=== PATIENT | male | born 1950 | race Caucasian/White ===

== ENCOUNTER 2023-05-11 07:33 | Outpatient (OUT) | payer MEDICARE, SELFPAY ==
--- NOTE | 2023-05-11 07:45 | NM_ITS ---
Patient Name: MARQUISE DOHERTY MR#: [id number] : 1950 Exam Date: 05/11/2023 Ordering Doctor: DR SARIKA SNEED M.D. RADIOLOGY REPORT PROCEDURE: NM MAHNAZ PERF SPECT REST STR COMPARISON: None. INDICATIONS: CHEST PAIN TECHNIQUE: Exam Description: Stress/Rest one day protocol gated SPECT Rest Imagin.8 mCi Tc-99m Cardiolite IV on 05/11/2023 Stress Imaging 30.5 mCi Tc-99m Cardiolite IV on 05/11/2023 Exercise Protocol: Ko Heart Rate (bpm): Rest: 56 Max: 157 PMHR: 106 Blood Pressure: Rest: 114/80 Max: 198/118 Exercise Time: Minutes: 5 Seconds: 15 Stage Reached: Stage: 2 Mets 7.0 Symptoms: Rest and peak stress ECG findings were abnormal and the exercise portion of the study was abnormal per attending physician Dr. Reid due to EKG changes, downsloping ST segment inferior leads. For more details please see separate cardiac stress test report. FINDINGS: QUALITY OF STUDY: Good. PERFUSION DEFECT: None. LOCATION: N/A SIZE: N/A. SEVERITY: N/A. TYPE: N/A. WALL MOTION: Normal. LV SIZE: Normal. 87 mL. TID / TCD: None; 0.8 LVEF: Normal. Calculated EF 68%. SUMMARY: Myocardial perfusion imaging study is NORMAL. CONCLUSION: 1. No reversible ischemia 2. Abnormal exercise test secondary to EKG changes Dictated by: Eladio Fisher MD on 05/11/2023 at 12:39 Approved by: Eladio Fisher MD on 05/11/2023 at 12:45
--- NOTE | 2023-05-11 11:14 | PM.STRESS ---
Stress Test Stress Test Requesting physician: SARIKA SNEED Procedure: Exercise Cardiolite stress test. General Information: Reason for Stress Test: Chest pain Cardiac History and Risk Factors: History of rheumatic fever with cardiac murmur Resting 12 - Lead Electrocardiogram: Rate & rhythm: Sinus bradycardia at a rate of 55. [place]: Right axis deviation T-waves: Inverted in aVL ST-segments: Normal PAC Stress Test: Protocol: Ko protocol was followed, with injection of Cardiolite once target heart rate was achieved. Exercise capacity: Fair exercise capacity. Total exercise time of 5 minutes 16 seconds reached Ko stage 2 at 2.5MPH, 12% grade, & 7 METs. Blood pressure: Initial: 144/80, Maximum: 198/118 Rate & rhythm: Patient remained in sinus rhythm during the exercise and recovery portions of the study.? The maximum heart rate was 157, which was 106% of the maximum predicted heart rate. Frequent PACs. ST-segments & T-waves: During recovery (even at 10 minutes), the patient developed ST-segment downsloping in the inferior leads. Patient response/symptoms: No reproducible symptoms to chief complaint. Interpretation: This is an abnormal exercise stress test based on ST-segment downsloping in the inferior leads.? The patient voiced no reproducible symptoms morro to the chief complaint. Cardiolite imaging interpretation will be reported separately. Clinical correlation required.?
== END 2023-05-11 07:34 | disposition home or self-care (01) ==
LOC: NM 07:36
PROVIDERS: PCP Family Medicine; Visit Provider Family Medicine
DX: R07.9 Chest pain, unspecified (principal)
CPT/HCPCS: 78452; 93017; A9500

== ENCOUNTER 2023-09-12 09:05 | Emergency (ER) | payer MEDICARE, SELFPAY ==
[2023-09-12 09:11] VITALS: BP 130/86; PULSE 67; TEMP 36.7; O2SAT 99; BMI 21.2
--- NOTE | 2023-09-12 09:17 | XR_ITS ---
The [address] [address] Patient Name: MARQUISE DOHERTY MRN: [id number] date: 1950 Sex: M Assigned Patient Location: ER Current Patient Location: ER Accession/Order Number: [id number] Exam Date: 09/12/2023 09:26 Report Date: 09/12/2023 10:06 At the request of: CHRIS IBRAHIM Procedure: XR ankle RT min 3V EXAM: XR ankle RT min 3V, XR foot RT min 3V INDICATION: swelling. COMPARISON: None. TECHNIQUE: Right foot and ankle, 3 views. FINDINGS: Foot: Irregular contours of the calcaneus with lucency through the neck of the calcaneus. Severe degenerative changes of the first MTP joint. Posterior calcaneal enthesophyte. Unremarkable soft tissues. Ankle: No acute fracture or dislocation. Intact ankle mortise. Lateral ankle soft tissue swelling. XR/XR ankle RT min 3V IMPRESSION: Irregular contours of the calcaneus with lucency through the calcaneal neck. This is of uncertain chronicity and may be related to remote injury. Acute fracture difficult to exclude. Consider further evaluating with CT. Electronically authenticated by: RADHA LAKHANI Date: 09/12/2023 10:06
--- NOTE | 2023-09-12 09:17 | XR_ITS ---
The [address] [address] Patient Name: MARQUISE DOHERTY MRN: [id number] date: 1950 Sex: M Assigned Patient Location: ER Current Patient Location: ER Accession/Order Number: [id number] Exam Date: 09/12/2023 09:26 Report Date: 09/12/2023 10:06 At the request of: CHRIS IBRAHIM Procedure: XR foot RT min 3V EXAM: XR ankle RT min 3V, XR foot RT min 3V INDICATION: swelling. COMPARISON: None. TECHNIQUE: Right foot and ankle, 3 views. FINDINGS: Foot: Irregular contours of the calcaneus with lucency through the neck of the calcaneus. Severe degenerative changes of the first MTP joint. Posterior calcaneal enthesophyte. Unremarkable soft tissues. Ankle: No acute fracture or dislocation. Intact ankle mortise. Lateral ankle soft tissue swelling. XR/XR foot RT min 3V IMPRESSION: Irregular contours of the calcaneus with lucency through the calcaneal neck. This is of uncertain chronicity and may be related to remote injury. Acute fracture difficult to exclude. Consider further evaluating with CT. Electronically authenticated by: RADHA LAKHANI Date: 09/12/2023 10:06
--- NOTE | 2023-09-12 09:18 | PC.NURSE ---
strong pedial pulse to right foot with swelling to right ankle and foot.
--- NOTE | 2023-09-12 10:24 | CT_ITS ---
The [address] [address] Patient Name: MARQUSIE DOHERTY MRN: [id number] date: 1950 Sex: M Assigned Patient Location: ER Current Patient Location: Accession/Order Number: [id number] Exam Date: 09/12/2023 10:45 Report Date: 09/12/2023 11:54 At the request of: CHRIS IBRAHIM Procedure: CT foot RT wo con CT scan of the right foot and ankle 09/12/2023. HISTORY: Pain in the right foot and ankle after an injury yesterday. Possible calcaneus fracture on radiographs. COMPARISON: Radiographs right foot and ankle 09/12/2023. TECHNIQUE: Multiple contiguous axial CT images of the right foot and ankle were obtained without contrast. Sagittal and coronal reformatted images were made. Dose reduction techniques were achieved by using automated exposure control and/or adjustment of mA and/or kV according to patient size and/or use of iterative reconstruction technique. 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 There is a bunion complex along the medial aspect of the first metatarsal head. There is an acute, moderately comminuted intra-articular fracture involving the body and anterior aspect of the calcaneus. This fracture extends into the posterior subtalar joint. There is mild depression of the articular surface of the calcaneus in the region of the posterior subtalar joint of 2 mm. There is no significant decrease of Boehler's angle. No other fracture or dislocation is seen. There is no dislocation of the peroneal tendons from the retromalleolar groove. There is no evidence of tendon entrapment within the calcaneus fracture. There is soft tissue swelling along the lateral aspect of the ankle and the dorsum of the foot. CT/CT foot RT wo con IMPRESSION: 1. Acute, moderately comminuted intra-articular fracture of the body and anterior aspect of the calcaneus extending into the posterior subtalar joint as described above. There is no evidence of tendon entrapment within this fracture. 2. 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 Electronically authenticated by: FRANK KEARNEY Date: 09/12/2023 11:54
[2023-09-12 10:27] VITALS: BP 107/65; PULSE 62; O2SAT 99
[2023-09-12 11:22] VITALS: BP 119/66; PULSE 57; O2SAT 99
--- NOTE | 2023-09-12 12:51 | ED.LOWEXI1 ---
HPI HPI - Extremity Injury (Lower) General Chief Complaint: Extremity Injury, Lower Stated Complaint: RIGHT FOOT INJURY Time Seen by Provider: 09/12/23 09:17 Source: patient Mode of arrival: Wheelchair History of Present Illness HPI Narrative: The patient is coming to the ER with a right foot pain that started yesterday after he stepped into a deep hole while he was walking, patient has been having pain since then he has not been able to put weight on his right foot, he does take tramadol at home and he took some for the pain he denies any other complaints Related Data Allergies Allergy/AdvReac Type Severity Reaction Status Date / Time No Known Drug Allergies Allergy Verified 09/12/23 09:15 Opioid HPI Opioid Management Most Recent Pain and Opioid Data: No Data to Display Review of Systems ROS Status of ROS 10 or more systems reviewed and unremarkable except as noted in history and below Exam Narrative Exam Narrative: Nurses notes and vital signs reviewed and patient is not hypoxic. General: Well-appearing and in no apparent distress. Skin: Warm, dry, no pallor noted. No rash. Head: Normocephalic, atraumatic. Neck: Supple, non-tender. Eye: Pupils are equal, round and EOMI. No scleral icterus. Ears, Nose, Mouth, and Throat: TM are clear, no nasal mucosal hypertrophy. Oral mucosa is moist, no posterior oropharynx erythema, uvula is mid-line Cardiovascular: Regular Rate and Rhythm without murmur, gallop or rub. Respiratory: No accessory muscle use or respiratory distress. Lungs are clear to auscultation, no wheezing, rales or rhonchi Chest Wall: no tenderness Back: No midline thoracic or lumbar vertebral tenderness. No CVA tenderness Musculoskeletal: There is a full range of movement of the right ankle but the patient have a significant swelling of the foot itself and the patient does not have any ecchymosis at the moment but he does have good blood supply and no vascular injury detected with a good anterior tibial pulse GI: Abdomen is soft, non-distended. Normal bowel sounds. No masses appreciated. No tenderness to palpation. No rebound, guarding, or rigidity noted. Neurological: A&O x4. No cranial nerve dysfunction observed. No truncal ataxia. Moves all extremities. Sensation intact. Psychiatric: Cooperative and interactive. Normal mood and affect. Constitutional Vital Signs, click to edit/add: Last Vital Signs Temp 98.1 F 09/12/23 09:11 Pulse 57 L 09/12/23 11:22 Resp 14 09/12/23 11:22 BP 119/66 09/12/23 11:22 Pulse Ox 99 09/12/23 11:22 O2 Del Method Room Air 09/12/23 09:11 Course Vital Signs Vital signs: Vital Signs Temperature 98.1 F 09/12/23 09:11 Pulse Rate 67 09/12/23 09:11 Respiratory Rate 16 09/12/23 09:11 Blood Pressure 130/86 09/12/23 09:11 Pulse Oximetry 99 09/12/23 09:11 Oxygen Delivery Method Room Air 09/12/23 09:11 Temperature 98.1 F 09/12/23 09:11 Pulse Rate 57 L 09/12/23 11:22 Respiratory Rate 14 09/12/23 11:22 Blood Pressure 119/66 09/12/23 11:22 Pulse Oximetry 99 09/12/23 11:22 Oxygen Delivery Method Room Air 09/12/23 09:11 MDM - Extremity Injury (Lower) MDM Narrative Medical decision making narrative: X-ray of the patient's foot and ankle shows possibility of calcaneal fracture it need to be reevaluated with a CAT scan by the radiology CAT scan of the patient right foot shows a calcaneal fracture that is comminuted The patient case was discussed with podiatry service Dr. Love wanted the patient to be in the posterior splint in addition to elevation rest and crutches and follow-up with him on Wednesday or Wednesday The patient have a posterior splint applied also he already had crutches instructed on hydration and elevation in addition to pain control The patient is to follow up with primary care physician in next 2-3 days or to return to the emergency department should any of the signs or symptoms worsen or new symptoms develop. The patient agrees with the following Diagnosis and Treatment plan and the patient will be discharged home. Discharge Plan Discharge Stand Alone Forms: Portal Instructions Chief Complaint: Extremity Injury, Lower Clinical Impression: Calcaneal fracture Qualifiers: Encounter type: initial encounter Calcaneus location: unspecified portion of calcaneus Fracture type: closed Fracture alignment: displaced Laterality: right Qualified Code(s): S92.001A - Unspecified fracture of right calcaneus, initial encounter for closed fracture Patient Disposition: Home, Self-Care Time of Disposition Decision: 12:41 Condition: Good Print Language: Mongolian Instructions: Crutch Instructions (ED), Calcaneal Fracture (ED) Referrals: Juma Gonzalez DPM [Physician] - 09/14/23 9:00 am SARIKA SNEED [Primary Care Provider] - 1 week
== END 2023-09-12 13:09 | disposition home or self-care (01) ==
PROVIDERS: Emergency Provider Emergency Medicine; PCP Family Medicine
DX: S92.001A Unspecified fracture of right calcaneus, initial encounter for closed fracture (principal); W18.42XA Slipping, tripping and stumbling without falling due to stepping into hole or opening, initial encounter
CPT/HCPCS: 29515; 73610; 73630; 73700; 99284

== ENCOUNTER 2023-09-29 10:23 | Outpatient (OUT) | payer MEDICARE, SELFPAY ==
--- NOTE | 2023-09-29 | XR_ITS ---
The [address] [address] Patient Name: MARQUISE DOHERTY MRN: [id number] date: 1950 Sex: M Assigned Patient Location: Current Patient Location: Accession/Order Number: [id number] Exam Date: 09/29/2023 10:28 Report Date: 10/01/2023 07:42 At the request of: BETZAIDA DUNN Procedure: XR foot RT min 3V PROCEDURE: XR foot RT min 3V HISTORY: RIGHT FOOT PAIN ; history of calcaneus fracture COMPARISON: XR foot right 09/12/2023 FINDINGS: BONES:Increased sclerosis within posterior calcaneus consistent with changes of early bone healing. Marked joint space narrowing of the first metatarsophalangeal joint with prominent periarticular osteophytes. SOFT TISSUES:No visible soft tissue swelling. EFFUSION:None visible. OTHER: Negative. XR/XR foot RT min 3V IMPRESSION: 1. Ongoing bone healing of calcaneal fracture. No change in alignment. 2. 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 Electronically authenticated by: SCOTT CORDOVA Date: 10/01/2023 07:42
== END 2023-09-29 10:24 | disposition home or self-care (01) ==
LOC: EC 10:23
PROVIDERS: PCP Family Medicine; Visit Provider Podiatrist Foot & Ankle Surgery
DX: S92.011D Displaced fracture of body of right calcaneus, subsequent encounter for fracture with routine healing (principal)
CPT/HCPCS: 73630

== ENCOUNTER 2023-10-13 09:30 | Outpatient (OUT) | payer MEDICARE, SELFPAY ==
--- NOTE | 2023-10-13 | XR_ITS ---
The [address] [address] Patient Name: MARQUISE DOHERTY MRN: [id number] date: 1950 Sex: M Assigned Patient Location: Current Patient Location: Accession/Order Number: [id number] Exam Date: 10/13/2023 09:35 Report Date: 10/14/2023 06:48 At the request of: BETZAIDA DUNN Procedure: XR foot RT min 3V PROCEDURE: XR foot RT min 3V HISTORY: RIGHT FOOT PAIN COMPARISON: XR foot right 09/29/2023 FINDINGS: BONES:Stable alignment and sclerosis within calcaneus consistent with process of bone healing of prior fracture. 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 SOFT TISSUES:No visible soft tissue swelling. EFFUSION:None visible. OTHER: Negative. XR/XR foot RT min 3V IMPRESSION: 1. Stable appearance of calcaneus consistent with ongoing bone healing. 2. Stable marked degenerative joint disease of the first metatarsophalangeal joint. Electronically authenticated by: SCOTT CORDOVA Date: 10/14/2023 06:48
--- OUTSIDE RECORDS SUMMARY | 2023-10-13 09:42 | XMS_ITS | CCD ---
Author Organization [facility] Care Team Providers Care Line Service Person Name Role Phone SAVAGE GIBBONS Attending Unavailable TASHA, DR SCOTT Hanson Consulting Unavailable NAREN, DR BAUM Primary Care Unavailable SAVAGE GIBBONS Admitting Unavailable Frank Curtis Consulting Unavailable SAVAGE GIBBONS Consulting Unavailable NAREN, DR BAUM Admitting Unavailable NAREN, DR BAUM Primary Care Unavailable NAREN, DR BAUM Consulting Unavailable ANREN, DR BAUM Attending Unavailable JENNIFER, DR RAJ Moya Consulting Unavailable SARIKA SNEED Primary Care Physician Enid OCHOA Admitting Unavailable SALAM, Enid Attending Unavailable SALAM, Enid Referring Unavailable Santiago, Salud A Attending Unavailable Santiago, Salud A Referring Unavailable Santiago, Salud A Admitting Unavailable Santiago, Salud Romo Attending Unavailable SALAM, Enid Attending Unavailable SARIKA SNEED Referring Unavailable Santiago, Salud A Attending Unavailable SALAM, Enid Attending Unavailable Santiago, Salud A Referring Unavailable Marquise Pa Attending Unavailable Santiago, Salud A Referring Unavailable Marquise Pa Attending Unavailable SALAM, Enid Admitting Unavailable SALAM, Enid Attending Unavailable SALAM, Enid Referring Unavailable SALAM, Rossi Admitting Unavailable SALAM, Enid Attending Unavailable Santiago, Salud A Attending Unavailable Santiago, Salud A Admitting Unavailable Gagan Colindres Admitting Unavailable Gagan Colindres Attending Unavailable DALIAAM, Enid Admitting Unavailable SALAM, Enid Attending Unavailable MD Hiren Whittington Attending Provider Hiren Whittington Admitting Unavailable Hiren Whittington Attending Unavailable Hiren Whittington Admitting Unavailable Hiren Whittington Attending Unavailable Sarika Sneed MD Primary Care Provider SARIKA SNEED Attending Unavailable SARIKA SNEED Attending Unavailable Allergies Allergy Classification Reported Allergen(s) Allergy Type Date of Onset Reaction(s) Facility (1 source) No Known Medication Allergies; Translations: [No Known Medication Allergies] Propensity to adverse reactions (disorder) [facility] Repository Medications Current Medications Medication Drug Class(es) Dates Sig (Normalized) Sig (Original) amoxicillin 875 mg / clavulanate 125 mg oral tablet (2 sources) Penicillin-class Antibacterial Start: 12-24-2021 End: 01-03-2022 take 1 tablet by mouth twice daily Augmentin 875 mg-125 mg Tab 1 tab(s), Oral, BID for 10 day(s), 20 tab(s), Refill(s) 0, [facility] [id number], 184, cm, 12/24/21 11:18:00 EDT, Height/Length Dosing, 61.1, kg, 12/24/21 11:18:00 EDT, Weight Dosing Start Date: 12/24/21 Stop Date: 01/03/22 Status: Ordered baclofen 10 mg oral tablet (1 source) gamma-Aminobutyric Acid-ergic Agonist Start: 06-09-2022 take 1 tablet by mouth in the morning, then take 1 tablet by mouth in the evening, then take 1 tablet by mouth at bedtime baclofen (Lioresal) 10 MG tablet Take 10 mg by mouth in the morning and 10 mg in the evening and 10 mg before bedtime. 0 06/09/2022 Active methotrexate 2.5 mg oral tablet (9 sources) Folate Analog Metabolic Inhibitor Start: 10-14-2021 methotrexate 2.5 mg Tab 2.5 mg = 1 tab(s), Oral, q7day, # 4 tab(s), Refills(s) 0, Arthritis Start Date: 10/14/21 Status: Ordered take 1 tablet by mouth every wee k methotrexate 2.5 MG tablet Take 2.5 mg by mouth 1 (one) time per week. 4 tablets orally once per week 0 Active nabumetone 500 mg oral tablet (1 source) Nonsteroidal Anti-inflammatory Drug Start: 09-14-2022 take 1 tablet by mouth in the morning nabumetone (Relafen) 500 MG tablet Indications: Systemic lupus erythematosus, unspecified SLE type, unspecified organ involvement status ([facility]) Take 1 tablet (500 mg) by mouth in the morning and 1 tablet (500 mg) before bedtime. Take with food. 180 tablet 3 09/14/2022 Active omeprazole 40 mg delayed release oral capsule (9 sources) Proton Pump Inhibitor Start: 10-27-2022 omeprazole (PriLOSEC) [address] capsule Indications: Chronic gastritis, presence of bleeding unspecified, unspecified gastritis type TAKE ONE CAPSULE BY MOUTH DAILY 30 MINUTES BEFORE MORNING MEAL 100 capsule 2 10/27/2022 Active Start: 10-14-2021 omeprazole 40 mg Cap-DR mg cap(s), Oral, Daily, Refills(s) 0, Control of stomach acid Start Date: 10/14/21 Status: Ordered predniSONE 5 mg oral tablet (2 sources) Start: 12-15-2022 predniSONE (De ltasone) 5 MG tablet Start: 11-18-2021 predniSONE 10 mg Tab Refills(s) 0 Start Date: 11/18/21 Status: Ordered traMADol hydrochloride 50 mg oral tablet (9 sources) Opioid Agonist Start: 04-02-2023 take 1 tablet by mouth every six hours traMADol (Ultram) 50 MG tablet Indications: Chronic pain syndrome Take 1 tablet (50 mg) by mouth every 6 (six) hours 120 tablet 0 04/02/2023 Active Start: 10-14-2021 take 1 tablet by marcia th every four hours as needed for pain tramadol 50 mg oral tablet 50 mg = 1 tab(s), Oral, q4hr, PRN for pain, # 60 tab(s), Refills(s) 0, Pain Start Date: 10/14/21 Status: Ordered Problems Active Problems Problem Classification Problem Date Documented Da te Episodic/Chronic Abdominal pain (12 sources) Generalized abdominal pain; Translations: [Generalized abdominal pain] Onset: 2 10-14-2021 Episodic Adjustment disorders (1 source) Adjustment disorder; Translations: [Adjustment disorder, unspecified] Onset: 8 07-21-2022 Chronic Essential hypertension (1 source) Essential hypertension; Translations: [Essential (primary) hypertension] Onset: 3 07-21-2022 Chronic Gastrointestinal hemorrhage (1 source) Melena; Translations: [Melena] Onset: 2 Episodic Malaise and fatigue (4 sources) Other fatigue; Translations: [OTHER FATIGUE] Onset: 1 Episodic Mood disorders (1 source) Atypical depressive disorder; 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] Onset: 8 07-21-2022 Chronic Nonspecific chest pain (1 source) Other chest pain; Translations: [OTHER CHEST PAIN] Onset: 1 Episodic Osteoarthritis (1 source) Arthritis of right acromioclavicular joint; Translations: [Primary osteoarthritis, right shoulder] Onset: 3 07-21-2022 Chronic Other connective tissue disease (1 source) Myalgia, unspecified site; Translations: [MYALGIA UNSPECIFIED SITE] Onset: 1 Episodic Other gastrointestinal disorders (8 sources) Alteration in bowel elimination 10-14-2021 Episodic Other gastrointestinal disorders (8 sources) Feces color: tarry 10-14-2021 Episodic Other liver diseases (1 source) Enzyme level - finding; Translations: [Abnormal levels of other serum enzymes] Onset: 2 Episodic Other liver diseases (4 sources) Alkaline phosphatase raised; Translations: [Abnormal levels of other serum enzymes] Onset: 4 12-24-2021 Episodic Other lower respiratory disease (3 sources) Shortness of breath; Translations: [SHORTNESS OF BREATH] Onset: 1 Episodic Other lower respiratory disease (1 source) Dyspnea, unspecified; Translations: [DYSPNEA UNSPECIFIED] Onset: 1 Episodic Other lower respiratory disease (1 source) Solitary pulmonary nodule; Translations: [SOLITARY PULMONARY NODULE] Onset: 1 Episodic Other nervous system disorders (1 source) Chronic pain; Translations: [Other chronic pain] Onset: 3 07-21-2022 Chronic Other non-traumatic joint disorders (1 source) Rotator cuff arthropathy of right shoulder; Translations: [Other specific arthropathies, not elsewhere classified, right shoulder] Onset: 3 07-21-2022 Chronic Other non-traumatic joint disorders (1 source) Pain in unspecified joint; Translations: [Pain in unspecified joint] Onset: 3 Episodic Other nutritional; endocrine; and metabolic disorders (1 source) Abnormal weight loss; Translations: [Abnormal weight loss] Onset: 2 Episodic Other upper respiratory infections (1 source) Acute pharyngitis, unspecified; Translations: [ACUTE PHARYNGITIS UNSPECIFIED] Onset: 1 Episodic Residual codes; unclassified (9 sources) Family history of cancer of colon; Translations: [Family history of malignant neoplasm of digestive organs] Onset: 4 10-14-2021 Episodic Screening and history of mental health and substance abuse codes (1 source) Personal history of nicotine dependence; Translations: [PERSONAL HISTORY OF NICOTINE DEPEND] Onset: 1 Episodic Systemic lupus erythematosus and connective tissue disorders (1 source) Systemic lupus erythematosus; Translations: [Systemic lupus erythematosus, unspecified] Onset: 3 07-21-2022 Chronic Unclassified (1 source) CONTACT W/AND (SUSP) EXPOS COVID-19; Translations: [CONTACT W/AND (SUSP) EXPOS COVID-19] Onset: 1 Unclassified (1 source) Pain in right hand; Translations: [Pain in right hand] Onset: 3 Past or Other Problems Problem Classification Problem Date Documented Da te Episodic/Chronic Gastritis and duodenitis (1 source) Gastritis; Translations: [Gastritis, unspecified, without bleeding] Onset: 07-21-2022 07-21-2022 Episodic Other connective tissue disease (1 source) Disorder of shoulder; Translations: [Shoulder lesion, unspecified, right shoulder] Onset: 07-21-2022 07-21-2022 Episodic Other gastrointestinal disorders (1 source) Constipation; Translations: [Constipation, unspecified] Onset: 07-21-2022 07-21-2022 Episodic Other gastrointestinal disorders (1 source) Stool DNA-based colorectal cancer screening positive; Translations: [Other fecal abnormalities] Onset: 07-21-2022 07-21-2022 Episodic Residual codes; unclassified (1 source) Insomnia; Translations: [Insomnia, unspecified] Onset: 07-21-2022 07-21-2022 Episodic Results Test Name Value Interpretation Reference Range Facility Anti-Ku Antibodyon 3 Anti-Ku Antibody Negative Normal Negative [facility] Comment on above: Result Comment: This test was developed and its performance characteristics determined by [employer]. It has not been cleared or approved by the Food and Drug Administration. Performed at: [facility] [address] [place] [address] [id number] Color Control Operator: Tereso Stevenson MD, Phone: [phone] PERFORMED BY: [place] [address] PATHOLOGIST CAFETERIA TABLE ATTENDANT JOSE GUADALUPE RODAS M.D. Performed By: #### H BCAB, HBSAG, HBSAB, HCV RX PCR #### [facility] , #### CK, PTH, CBC, ESR, CRP, CMP #### [facility] [address] [place] [address] Anti-RNPon 11-25-2022 Anti-ABSORPTION OPERATOR <0.2 Normal 0.0-0.9 [facility] Comment on above: Result Comment: Perf ormed at: [facility] [id number] Color Control Operator: Ambrocio Olivas PhD, Phone: [phone] Performed By: #### H BCAB, HBSAG, HBSAB, HCV RX PCR #### [facility] , #### CK, PTH, CBC, ESR, CRP, CMP #### [facility] [address] [place] [address] [place] Creatine Kinaseon 11-25-2022 CK [Catalytic activity/Vol] 86 U/L Normal 30-223 [facility] Comment on above: Result Comment: PERF ORMED BY: [place] [address] PATHOLOGIST CAFETERIA TABLE ATTENDANT JOSE GUADALUPE RODAS M.D. Performed By: #### H BCAB, HBSAG, HBSAB, HCV RX PCR #### [facility] , #### CK, PTH, CBC, ESR, CRP, CMP #### [facility] [address] [place] [address] [place] Creatine kinase [Enzymatic a ctivity/volume] in Serum or PlasmaOrdered By: Hiren Whittington on 11-25-2022 CK [Catalytic activity/Vol] 86 U/L 30-223 [facility] MISC2 LABon 11-25-2022 MISC2 LAB Normal [facility] Comment on above: Order Comment: Misc 2 Test Name: Mi2 Result Comment: See report. Scanned copy available in EMR. PERFORMED BY: [place] [address] PATHOLOGIST CAFETERIA TABLE ATTENDANT JOSE GUADALUPE RODAS M.D. Performed By: #### M ISC2 LAB #### [address] PM-SCL Antibodieson 11-26-19 23 ANNETTA PM-Scl Antibody <20 Normal <20 [place] Comment on above: Result Comment: This test was developed and its performance characteristics determined by [facility] [employer]. It has not been cleared or approved by the Food and Drug Administration. Negative: <20 Weak Positive: 20 - 39 Moderate Positive: 40 - 80 Strong Positive: >80 Performed at: [facility] [address] [place] [address] [id number] Color Control Operator: Tereso Stevenson MD, Phone: [phone] Performed By: #### H BCAB, HBSAG, HBSAB, HCV RX PCR #### [facility] , #### CK, PTH, CBC, ESR, CRP, CMP #### [facility] [address] [place] [address] [place] RNA Polymerase IIion 023 RNA Polymerase IIi <20 Normal <20 [facility] Comment on above: Result Comment: Nega tive: <20 Weak Positive: 20 - 39 Moderate Positive: 40 - 80 Strong Positive: >80 Performed at: [facility] [address] [place] [id number] Color Control Operator: Tereso Stevenson MD, Phone: [phone] PERFORMED BY: [place] [address] PATHOLOGIST CAFETERIA TABLE ATTENDANT JOSE GUADALUPE RODAS M.D. Performed By: #### H BCAB, HBSAG, HBSAB, HCV RX PCR #### [facility] , #### CK, PTH, CBC, ESR, CRP, CMP #### [facility] [address] [place] [address] [place] Th/To Antibodyon 11-25-2022 Th/To Antibody Negative Normal Negative [facility] Comment on above: Result Comment: This test was developed and its performance characteristics determined by [facility]. It has not been cleared or approved by the Food and Drug Administration. Performed at: [facility] [address] [place] [address] [id number] Color Control Operator: Tereso Stevenson MD, Phone: [phone] Performed By: #### H BCAB, HBSAG, HBSAB, HCV RX PCR #### [facility] , #### CK, PTH, CBC, ESR, CRP, CMP #### [facility] [address] [place] [address] U3 Rnpon 11-25-2022 [facility] Customer Care Specialist Negative Normal Negative [facility] Comment on above: Result Comment: This test was developed and its performance characteristics determined by [facility]. It has not been cleared or approved by the Food and Drug Administration. Performed at: [facility] [address] [place] [address] [id number] Color Control Operator: Tereso Stevenson MD, Phone: [phone] PERFORMED BY: [place] [address] PATHOLOGIST CAFETERIA TABLE ATTENDANT JOSE GUADALUPE RODAS M.D. Performed By: #### H BCAB, HBSAG, HBSAB, HCV RX PCR #### [facility] , #### CK, PTH, CBC, ESR, CRP, CMP #### [facility] [address] [place] [address] BESSIE Antinuclear Antibodieson 10-20-2022 Antinuclear Abs, IFA Positive Critically abnormal . [facility] Comment on above: Result Comment: Nega tive <1:80 Borderline 1:80 Positive >1:80 Performed By: #### H BCAB, HBSAG, HBSAB, HCV RX PCR #### [facility] , #### CK, PTH, CBC, ESR, CRP, CMP #### [facility] [address] Note 1 Normal . [facility] Comment on above: Result Comment: For more information about Hep-2 cell patterns use Morizonpatterns.UUSEE, the official website for the International Consensus on Antinuclear Antibody (BESSIE) Patterns (ICAP). A positive BESSIE result may occur in healthy individuals (low titer) or be associated with a variety of diseases. See interpretation chart which is not all inclusive: Pattern Antigen Detected Suggested Disease Association Homogeneous DNA(ds,ss), SLE - High titers Nucleosomes, Histones Drug-induced SLE Speckled Sm, ABSORPTION OPERATOR, SCL-70, SLE,MCTD,PSS (diffuse form), SS-A/SS-B Sjogrens Nucleolar SCL-70, PM-1/SCL High titers Scleroderma, PM/DM Centromere Centromere PSS (limited form) w/Crest syndrome variable Nuclear Dot [id number] Primary Biliary Cirrhosis Nuclear GP210, Primary Biliary Cirrhosis Membrane ashley A,B,C Performed at: [facility] [address] [id number] Color Control Operator: Ambrocio Olivas PhD, Phone: [phone] Performed By: #### H BCAB, HBSAG, HBSAB, HCV RX PCR #### [facility] , #### CK, PTH, CBC, ESR, CRP, CMP #### [facility] [address] [place] [address] [place] Nucleolar Pattern 1:1280 High . [facility] Comment on above: Result Comment: ICAP nomenclature: AC-8,9,10 Performed By: #### H BCAB, HBSAG, HBSAB, HCV RX PCR #### [facility] , #### CK, PTH, CBC, ESR, CRP, CMP #### [facility] [address] [place] [address] [place] Speckled Pattern 1:640 High . [facility] Comment on above: Result Comment: ICAP nomenclature: AC-2,4,5,29 Performed By: #### H BCAB, HBSAG, HBSAB, HCV RX PCR #### [facility] , #### CK, PTH, CBC, ESR, CRP, CMP #### [facility] [address] [place] [id number] [place] Alanine aminotransferase [En zymatic activity/volume] in Serum or PlasmaOrdered By: Hiren Whittington on 10-20-2022 ALT [Catalytic activity/Vol] 16 U/L 7-52 [facility] Albumin [Mass/volume] in Ser um or PlasmaOrdered By: Hiren Whittington on 10-20-2022 Albumin [Mass/Vol] 3.9 g/dL 2.9-4.4 [facility] Albumin [Mass/volume] in Ser um or Plasma by Bromocresol green (BCG) dye binding methoOrdered By: Hiren Whittington on 10-20-2022 Albumin BCG dye [Mass/Vol] 4.5 g/dL 3.5-5.7 [facility] Albumin/Protein.total in 24 hour Urine by ElectrophoresisOrdered By: Hiren Whittington on 10-20-2022 Albumin Elph (24H U) [Mass fraction] 28.0 % . [facility] Alkaline phosphatase [Enzyma tic activity/volume] in Serum or PlasmaOrdered By: Hiren Whittington on 10-20-2022 ALP [Catalytic activity/Vol] 143 U/L 34-104 [facility] Aspartate aminotransferase [ Enzymatic activity/volume] in Serum or PlasmaOrdered By: Hiren Whittington on 10-20-2022 AST [Catalytic activity/Vol] 23 U/L 13-39 [facility] Automated erythrocytes count in urine sediment (number/area)Ordered By: Hiren Whittington on 10-20-2022 RBC Auto (Urine sed) [#/Area] 1-2 [HPF] 0-4 [facility] Automated leukocytes count i n urine sediment (number/area)Ordered By: Hiren Whittington on 10-20-2022 WBC Auto (Urine sed) [#/Area] 5-9 [HPF] 0-4 [facility] Basophils Auto (Bld) [#/Vol] Ordered By: Hiren Whittington on 10-20-2022 Basophils (Bld) [#/Vol] 0.0 10*3/uL 0.0-0.2 [facility] Basophils/100 WBC Auto (Bld) Ordered By: Hiren Whittington on 10-20-2022 Basophils/100 WBC (Bld) 0.9 % . [facility] Bilirubin Test strip Ql (U)O rdered By: Hiren Whittington on 10-20-2022 Bilirubin Ql (U) Negative Negative [facility] Bilirubin.total [Mass/volume ] in Serum or PlasmaOrdered By: Hiren Whittington on 10-20-2022 Bilirubin [Mass/Vol] 0.4 mg/dL 0.3-1.0 [facility] C reactive protein [Mass/vol ume] in Serum or PlasmaOrdered By: Hiren Whittington on 10-20-2022 CRP [Mass/Vol] < 0.5 mg/dL 0.0-0.5 [facility] C-Reactive Proteinon 023 CRP [Mass/Vol] mg/L Normal 0.0-0.5 [facility] Comment on above: Result Comment: PERF ORMED BY: [facility] [address] [place] [address] PATHOLOGIST CAFETERIA TABLE ATTENDANT JOSE GUADALUPE RODAS M.D. Performed By: #### H BCAB, HBSAG, HBSAB, HCV RX PCR #### [facility] , #### CK, PTH, CBC, ESR, CRP, CMP #### [facility] [address] Calcium [Mass/volume] in Ser um or PlasmaOrdered By: Hiren Whittington on 10-20-2022 Calcium [Mass/Vol] 9.7 mg/dL 8.6-10.3 [facility] Carbon dioxide, total [Moles /volume] in Serum or PlasmaOrdered By: Hiren Whittington on 10-20-2022 CO2 [Moles/Vol] 31.3 mmol/L 21.0-31.0 [facility] Chloride [Moles/volume] in S sergio or PlasmaOrdered By: Hiren Whittington on 10-20-2022 Chloride [Moles/Vol] 102 mmol/L 98-107 [facility] Color Auto (U)Ordered By: Lesli Whittington on 10-20-2022 Color (U) Yellow Yellow [facility] Complement C3on 10-20-2022 Complement C3 120 mg/dL Normal 82-167 [facility] Comment on above: Result Comment: Perf ormed at: - [facility] [address] [id number] Color Control Operator: Ambrocio Olivas PhD, Phone: [phone] Performed By: #### H BCAB, HBSAG, HBSAB, HCV RX PCR #### [facility] , #### CK, PTH, CBC, ESR, CRP, CMP #### [facility] [address] [place] [address] Complement C4on 10-20-2022 Complement C4 16 mg/dL Normal 12-38 [facility] Comment on above: Result Comment: PERF ORMED BY: [place] [address] PATHOLOGIST CAFETERIA TABLE ATTENDANT JOSE GUADALUPE RODAS M.D. Performed By: #### H BCAB, HBSAG, HBSAB, HCV RX PCR #### [facility] , #### CK, PTH, CBC, ESR, CRP, CMP #### [facility] [address] [place] [address] Complement Total (CH50)on Complement Total (CH50) >60 Normal >41 [facility] Comment on above: Result Comment: Age Male Female 1 - 30 days Not Estab. Not Estab. 31 days - 6 months >32 >20 7 months - 17 years >39 >39 >17 years >41 >41 NOTE: The adult ( >17 years ) reference interval range is used to flag abnormals on this report. If the patient is 17 years old or younger, use the table above to determine out of range values. Performed at: - [facility] [address] [id number] Color Control Operator: Ambrocio Olivas PhD, Phone: [phone] PERFORMED BY: [place] [address] PATHOLOGIST CAFETERIA TABLE ATTENDANT JOSE GUADALUPE RODAS M.D. Performed By: #### H BCAB, HBSAG, HBSAB, HCV RX PCR #### [facility] , #### CK, PTH, CBC, ESR, CRP, CMP #### [address] Complete Blood Count Auto Di ffon 10-20-2022 Basophils (Bld) [#/Vol] 0.0 10*3/uL Normal 0.0-0.2 [facility] Comment on above: Performed By: #### H BCAB, HBSAG, HBSAB, HCV RX PCR #### [facility] , #### CK, PTH, CBC, ESR, CRP, CMP #### [address] Basophils/100 WBC (Bld) 0.9 % Normal . [facility] Comment on above: Performed By: #### H BCAB, HBSAG, HBSAB, HCV RX PCR #### [facility] , #### CK, PTH, CBC, ESR, CRP, CMP #### [address] Eosinophils (Bld) [#/Vol] 0.1 10*3/uL Normal 0.0-0.45 [facility] Comment on above: Performed By: #### H BCAB, HBSAG, HBSAB, HCV RX PCR #### [facility] , #### CK, PTH, CBC, ESR, CRP, CMP #### [address] Eosinophils/100 WBC (Bld) 2.7 % Normal . [facility] Comment on above: Performed By: #### H BCAB, HBSAG, HBSAB, HCV RX PCR #### [facility] , #### CK, PTH, CBC, ESR, CRP, CMP #### [address] Erythrocyte distribution width (RBC) [Ratio] 14.6 % Normal 12.0-14.8 [facility] Comment on above: Performed By: #### H BCAB, HBSAG, HBSAB, HCV RX PCR #### [facility] , #### CK, PTH, CBC, ESR, CRP, CMP #### [address] Hematocrit (Bld) [Volume fraction] 40.7 % Normal 38.8-50.0 [facility] Comment on above: Performed By: #### H BCAB, HBSAG, HBSAB, HCV RX PCR #### [facility] , #### CK, PTH, CBC, ESR, CRP, CMP #### [address] Hemoglobin (Bld) [Mass/Vol] 13.5 g/dL Normal 13.0-17.0 [facility] Comment on above: Performed By: #### H BCAB, HBSAG, HBSAB, HCV RX PCR #### [facility] , #### CK, PTH, CBC, ESR, CRP, CMP #### [address] Lymphocytes (Bld) [#/Vol] 0.8 10*3/uL Low 1.00-4.8 [facility] Comment on above: Performed By: #### H BCAB, HBSAG, HBSAB, HCV RX PCR #### [facility] , #### CK, PTH, CBC, ESR, CRP, CMP #### [address] Lymphocytes/100 WBC (Bld) 16.2 % Normal . [facility] Comment on above: Performed By: #### H BCAB, HBSAG, HBSAB, HCV RX PCR #### [facility] , #### CK, PTH, CBC, ESR, CRP, CMP #### [address] MCH (RBC) [Entitic mass] 30.7 pg Normal 27.5-35.2 [facility] Comment on above: Performed By: #### H BCAB, HBSAG, HBSAB, HCV RX PCR #### [facility] , #### CK, PTH, CBC, ESR, CRP, CMP #### [address] MCV (RBC) [Entitic vol] 92.4 fL Normal 83.5-101 [facility] Comment on above: Performed By: #### H BCAB, HBSAG, HBSAB, HCV RX PCR #### [facility] , #### CK, PTH, CBC, ESR, CRP, CMP #### [address] Mean Corpuscular HGB Conc 33.2 g/dL Normal 32.5-35.6 [facility] Comment on above: Performed By: #### H BCAB, HBSAG, HBSAB, HCV RX PCR #### [facility] , #### CK, PTH, CBC, ESR, CRP, CMP #### [address] Monocytes (Bld) [#/Vol] 0.5 10*3/uL Normal 0.0-0.8 [facility] Comment on above: Performed By: #### H BCAB, HBSAG, HBSAB, HCV RX PCR #### [facility] , #### CK, PTH, CBC, ESR, CRP, CMP #### [address] Monocytes/100 WBC (Bld) 9.0 % Normal . [facility] Comment on above: Performed By: #### H BCAB, HBSAG, HBSAB, HCV RX PCR #### [facility] , #### CK, PTH, CBC, ESR, CRP, CMP #### [address] Neutrophils (Bld) [#/Vol] 3.7 10*3/uL Normal 1.8-7.7 [facility] Comment on above: Performed By: #### H BCAB, HBSAG, HBSAB, HCV RX PCR #### [facility] , #### CK, PTH, CBC, ESR, CRP, CMP #### [address] Neutrophils/100 WBC (Bld) 71.2 % Normal . [facility] Comment on above: Performed By: #### H BCAB, HBSAG, HBSAB, HCV RX PCR #### [facility] , #### CK, PTH, CBC, ESR, CRP, CMP #### [address] NRBC% 0.2 /100{WBC} Normal 0-0.5 [facility] Comment on above: Performed By: #### H BCAB, HBSAG, HBSAB, HCV RX PCR #### [facility] , #### CK, PTH, CBC, ESR, CRP, CMP #### [address] Platelet mean volume (Bld) [Entitic vol] 9.7 fL Normal 6.6-10.1 [facility] Comment on above: Performed By: #### H BCAB, HBSAG, HBSAB, HCV RX PCR #### [facility] , #### CK, PTH, CBC, ESR, CRP, CMP #### [address] Platelets (Bld) [#/Vol] 158 10*3/uL Normal 150-450 [facility] Comment on above: Performed By: #### H BCAB, HBSAG, HBSAB, HCV RX PCR #### [facility] , #### CK, PTH, CBC, ESR, CRP, CMP #### [place] [address] [place] RBC (Bld) [#/Vol] 4.40 10*6/uL Normal 3.90-5.60 [place] Comment on above: Performed By: #### H BCAB, HBSAG, HBSAB, HCV RX PCR #### [facility] , #### CK, PTH, CBC, ESR, CRP, CMP #### [facility] [address] [place] [address] WBC (Bld) [#/Vol] 5.2 10*3/uL Normal 4.1-10.5 [facility] Comment on above: Performed By: #### H BCAB, HBSAG, HBSAB, HCV RX PCR #### [facility] , #### CK, PTH, CBC, ESR, CRP, CMP #### [address] Comprehensive Metabolic Pane bolivar 10-20-2022 Albumin [Mass/Vol] 4.5 g/dL Normal 3.5-5.7 [facility] Comment on above: Performed By: #### H BCAB, HBSAG, HBSAB, HCV RX PCR #### [facility] , #### CK, PTH, CBC, ESR, CRP, CMP #### [address] Albumin/Globulin [Mass ratio] 1.7 {ratio} Normal [facility] Comment on above: Performed By: #### H BCAB, HBSAG, HBSAB, HCV RX PCR #### [facility] , #### CK, PTH, CBC, ESR, CRP, CMP #### [facility] [address] [place] [address] ALP [Catalytic activity/Vol] 143 U/L High 34-104 [facility] Comment on above: Performed By: #### H BCAB, HBSAG, HBSAB, HCV RX PCR #### [facility] , #### CK, PTH, CBC, ESR, CRP, CMP #### [facility] [address] [place] [address] ALT [Catalytic activity/Vol] 16 U/L Normal 7-52 [facility] Comment on above: Performed By: #### H BCAB, HBSAG, HBSAB, HCV RX PCR #### [facility] , #### CK, PTH, CBC, ESR, CRP, CMP #### [address] Anion gap [Moles/Vol] 10.3 mmol/L Normal 6.0-15.0 [facility] Comment on above: Performed By: #### H BCAB, HBSAG, HBSAB, HCV RX PCR #### [facility] , #### CK, PTH, CBC, ESR, CRP, CMP #### [address] AST [Catalytic activity/Vol] 23 U/L Normal 13-39 [facility] Comment on above: Performed By: #### H BCAB, HBSAG, HBSAB, HCV RX PCR #### [facility] , #### CK, PTH, CBC, ESR, CRP, CMP #### [address] Bilirubin [Mass/Vol] 0.4 mg/dL Normal 0.3-1.0 [facility] Comment on above: Performed By: #### H BCAB, HBSAG, HBSAB, HCV RX PCR #### [facility] , #### CK, PTH, CBC, ESR, CRP, CMP #### [address] Calcium [Mass/Vol] 9.7 mg/dL Normal 8.6-10.3 [facility] Comment on above: Performed By: #### H BCAB, HBSAG, HBSAB, HCV RX PCR #### [facility] , #### CK, PTH, CBC, ESR, CRP, CMP #### [address] Chloride [Moles/Vol] 102 mmol/L Normal 98-107 [facility] Comment on above: Performed By: #### H BCAB, HBSAG, HBSAB, HCV RX PCR #### [facility] , #### CK, PTH, CBC, ESR, CRP, CMP #### [address] CO2 [Moles/Vol] 31.3 mmol/L High 21.0-31.0 [facility] Comment on above: Performed By: #### H BCAB, HBSAG, HBSAB, HCV RX PCR #### [facility] , #### CK, PTH, CBC, ESR, CRP, CMP #### [facility] [address] Creatinine [Mass/Vol] 0.83 mg/dL Normal 0.70-1.30 [facility] Comment on above: Performed By: #### H BCAB, HBSAG, HBSAB, HCV RX PCR #### [facility] , #### CK, PTH, CBC, ESR, CRP, CMP #### [address] GFR/1.73 sq M.predicted MDRD (S/P/Bld) [Vol rate/Area] mL/min/{1.73_m2} [facility] Comment on above: Performed By: #### H BCAB, HBSAG, HBSAB, HCV RX PCR #### [facility] , #### CK, PTH, CBC, ESR, CRP, CMP #### [facility] [address] [place] [address] Globulin (S) [Mass/Vol] 2.6 g/dL [facility] Comment on above: Performed By: #### H BCAB, HBSAG, HBSAB, HCV RX PCR #### [facility] , #### CK, PTH, CBC, ESR, CRP, CMP #### [facility] [address] [place] [address] Glucose [Mass/Vol] 105 mg/dL High 70-100 [facility] Comment on above: Result Comment: [place] om Glucose Reference Range is dependent on time and content of last meal. Glucose of more than 200 mg/dL in a nonstressed, ambulatory subject supports the diagnosis of Diabetes Mellitus. ADA recommended reference range Performed By: #### H BCAB, HBSAG, HBSAB, HCV RX PCR #### [facility] , #### CK, PTH, CBC, ESR, CRP, CMP #### [address] Potassium [Moles/Vol] 4.6 mmol/L Normal 3.5-5.1 [facility] Comment on above: Performed By: #### H BCAB, HBSAG, HBSAB, HCV RX PCR #### [facility] , #### CK, PTH, CBC, ESR, CRP, CMP #### [address] Protein [Mass/Vol] 7.1 g/dL Normal 6.4-8.9 [facility] Comment on above: Performed By: #### H BCAB, HBSAG, HBSAB, HCV RX PCR #### [facility] , #### CK, PTH, CBC, ESR, CRP, CMP #### [address] Sodium [Moles/Vol] 139 mmol/L Normal 136-145 [facility] Comment on above: Performed By: #### H BCAB, HBSAG, HBSAB, HCV RX PCR #### [facility] , #### CK, PTH, CBC, ESR, CRP, CMP #### [address] Urea nitrogen [Mass/Vol] 24 mg/dL Normal 7-25 [facility] Comment on above: Performed By: #### H BCAB, HBSAG, HBSAB, HCV RX PCR #### [facility] , #### CK, PTH, CBC, ESR, CRP, CMP #### [address] Creatine Kinaseon 10-20-2022 CK [Catalytic activity/Vol] 91 U/L Normal 30-223 [facility] Comment on above: Result Comment: PERF ORMED BY: [place] [address] PATHOLOGIST CAFETERIA TABLE ATTENDANT JOSE GUADALUPE RODAS M.D. Performed By: #### H BCAB, HBSAG, HBSAB, HCV RX PCR #### [facility] , #### CK, PTH, CBC, ESR, CRP, CMP #### [facility] [address] Creatine kinase [Enzymatic a ctivity/volume] in Serum or PlasmaOrdered By: Hiren Whittington on 10-20-2022 CK [Catalytic activity/Vol] 91 U/L [facility] Creatinine [Mass/volume] in Serum or PlasmaOrdered By: Hiren Whittington on 10-20-2022 Creatinine [Mass/Vol] 0.83 mg/dL 0.70-1.30 [facility] Dipstick and Microscopicon 0 10-20-2022 Appearance (U) Turbid Critically abnormal Clear [facility] Comment on above: Order Comment: Name Collection Type:: Clean-Voided Midstream Performed By: #### H BCAB, HBSAG, HBSAB, HCV RX PCR #### [facility] , #### CK, PTH, CBC, ESR, CRP, CMP #### [facility] [address] [place] [address] [place] Bacteria,Urine None Seen Normal None Seen [facility] Comment on above: Order Comment: Name Collection Type:: Clean-Voided Midstream Performed By: #### H BCAB, HBSAG, HBSAB, HCV RX PCR #### [facility] , #### CK, PTH, CBC, ESR, CRP, CMP #### [facility] [address] [place] [address] [place] Bilirubin,Urine Negative Normal Negative [facility] Comment on above: Order Comment: Name Collection Type:: Clean-Voided Midstream Performed By: #### H BCAB, HBSAG, HBSAB, HCV RX PCR #### [facility] , #### CK, PTH, CBC, ESR, CRP, CMP #### [facility] [address] [place] [address] [place] Color (U) Yellow Normal Yellow [facility] Comment on above: Order Comment: Name Collection Type:: Clean-Voided Midstream Performed By: #### H BCAB, HBSAG, HBSAB, HCV RX PCR #### [facility] , #### CK, PTH, CBC, ESR, CRP, CMP #### [facility] [address] [place] [address] Glucose Ql (U) Normal Normal Normal [facility] Comment on above: Order Comment: Name Collection Type:: Clean-Voided Midstream Performed By: #### H BCAB, HBSAG, HBSAB, HCV RX PCR #### [facility] , #### CK, PTH, CBC, ESR, CRP, CMP #### [address] Hyaline Casts,Urine None Seen Normal 0-8 [place] Comment on above: Order Comment: Name Collection Type:: Clean-Voided Midstream Result Comment: PERF ORMED BY: [place] [address] PATHOLOGIST CAFETERIA TABLE ATTENDANT JOSE GUADALUPE RODAS M.D. Performed By: #### H BCAB, HBSAG, HBSAB, HCV RX PCR #### [facility] , #### CK, PTH, CBC, ESR, CRP, CMP #### [address] Ketones Ql (U) Negative Normal Negative [facility] Comment on above: Order Comment: Name Collection Type:: Clean-Voided Midstream Performed By: #### H BCAB, HBSAG, HBSAB, HCV RX PCR #### [facility] , #### CK, PTH, CBC, ESR, CRP, CMP #### [facility] [address] [place] [address] Leukocyte esterase Test strip Ql (U) 2+ High Negative [facility] Comment on above: Order Comment: Name Collection Type:: Clean-Voided Midstream Performed By: #### H BCAB, HBSAG, HBSAB, HCV RX PCR #### [facility] , #### CK, PTH, CBC, ESR, CRP, CMP #### [address] Nitrite,Urine Negative Normal Negative [facility] Comment on above: Order Comment: Name Collection Type:: Clean-Voided Midstream Performed By: #### H BCAB, HBSAG, HBSAB, HCV RX PCR #### [facility] , #### CK, PTH, CBC, ESR, CRP, CMP #### [address] Occult Blood,Urine Negative Normal Negative [facility] Comment on above: Order Comment: Name Collection Type:: Clean-Voided Midstream Performed By: #### H BCAB, HBSAG, HBSAB, HCV RX PCR #### [facility] , #### CK, PTH, CBC, ESR, CRP, CMP #### [address] pH (U) 5.0 [pH] Normal 5.0-9.0 [facility] Comment on above: Order Comment: Name Collection Type:: Clean-Voided Midstream Performed By: #### H BCAB, HBSAG, HBSAB, HCV RX PCR #### [facility] , #### CK, PTH, CBC, ESR, CRP, CMP #### [address] Protein,Urine Negative Normal Negative [facility] Comment on above: Order Comment: Name Collection Type:: Clean-Voided Midstream Performed By: #### H BCAB, HBSAG, HBSAB, HCV RX PCR #### [facility] , #### CK, PTH, CBC, ESR, CRP, CMP #### [address] RBC,Urine 1-2 Normal 0-4 [facility] Comment on above: Order Comment: Name Collection Type:: Clean-Voided Midstream Performed By: #### H BCAB, HBSAG, HBSAB, HCV RX PCR #### [facility] , #### CK, PTH, CBC, ESR, CRP, CMP #### [address] Specificy [place],Urine 1.021 Normal 1.001-1.030 [facility] Comment on above: Order Comment: Name Collection Type:: Clean-Voided Midstream Performed By: #### H BCAB, HBSAG, HBSAB, HCV RX PCR #### [facility] , #### CK, PTH, CBC, ESR, CRP, CMP #### [address] Squamous Epithelial Cell,Urine None Seen Normal 0-2 [facility] Comment on above: Order Comment: Name Collection Type:: Clean-Voided Midstream Performed By: #### H BCAB, HBSAG, HBSAB, HCV RX PCR #### [facility] , #### CK, PTH, CBC, ESR, CRP, CMP #### [address] Urobilinogen,Urine Normal Normal Normal [facility] Comment on above: Order Comment: Name Collection Type:: Clean-Voided Midstream Performed By: #### H BCAB, HBSAG, HBSAB, HCV RX PCR #### [facility] , #### CK, PTH, CBC, ESR, CRP, CMP #### [facility] [address] [place] [address] WBC,Urine 5-9 High 0-4 [facility] Comment on above: Order Comment: Name Collection Type:: Clean-Voided Midstream Performed By: #### H BCAB, HBSAG, HBSAB, HCV RX PCR #### [facility] , #### CK, PTH, CBC, ESR, CRP, CMP #### [facility] [address] [place] [address] Eosinophils Auto (Bld) [#/Vo l]Ordered By: Hiren Whittington on 10-20-2022 Eosinophils (Bld) [#/Vol] 0.1 10*3/uL 0.0-0.45 [facility] Eosinophils/100 WBC Auto (Bl d)Ordered By: Hiren Whittington on 10-20-2022 Eosinophils/100 WBC (Bld) 2.7 % . [facility] Erythrocyte Sedimentation Ra trinity 10-20-2022 ESR (Bld) [Velocity] 19 mm/h Normal 0-19 [facility] Comment on above: Result Comment: PERF ORMED BY: [facility] [address] [place] [address] PATHOLOGIST CAFETERIA TABLE ATTENDANT JOSE GUADALUPE RODAS M.D. Performed By: #### H BCAB, HBSAG, HBSAB, HCV RX PCR #### [facility] , #### CK, PTH, CBC, ESR, CRP, CMP #### [facility] [address] Erythrocyte distribution wid th Auto (RBC) [Ratio]Ordered By: Hiren Whittington on 10-20-2022 Erythrocyte distribution width (RBC) [Ratio] 14.6 % 12.0-14.8 [facility] Erythrocyte sedimentation ra te by Photometric methodOrdered By: Hiren Whittington on 10-20-2022 ESR Photometric method (Bld) [Velocity] 19 mm/hr 0-19 [facility] Gamma globulin/Protein.total in 24 hour Urine by ElectrophoresisOrdered By: Hiren Whittington on 10-20-2022 Gamma globulin Elph (24H U) [Mass fraction] 19.1 % . [facility] Globulin Calc (S) [Mass/Vol] Ordered By: Hiren Whittington on 10-20-2022 Globulin (S) [Mass/Vol] 2.6 g/dL [facility] Glucose [Mass/volume] in Ser um or PlasmaOrdered By: Hiren Whittington on 10-20-2022 Glucose [Mass/Vol] 105 mg/dL 70-100 [facility] Comment on above: ADA recommended refe rence rangeRandom Glucose Reference Range is dependent on time and content of last meal. Glucose of more than 200 mg/dL in a nonstressed, ambulatory subject supports the diagnosis of Diabetes Mellitus. Hematocrit Auto (Bld) [Volum e fraction]Ordered By: Hiren Whittington on 10-20-2022 Hematocrit (Bld) [Volume fraction] 40.7 % 38.8-50.0 [facility] Hemoglobin [Mass/volume] in BloodOrdered By: Hiren Whittington on 10-20-2022 Hemoglobin (Bld) [Mass/Vol] 13.5 g/dL 13.0-17.0 [facility] Hep C Ab wRfx to Qnt PCRon 0 10-20-2022 Hepatitis C Virus Antibody Non-Reactive Normal Non Reactive [facility] Comment on above: Performed By: #### H BCAB, HBSAG, HBSAB, HCV RX PCR #### [facility] , #### CK, PTH, CBC, ESR, CRP, CMP #### [address] Interpretation Hepatitis C Normal . [facility] Comment on above: Result Comment: Not infected with HCV unless early or acute infection is suspected (which may be delayed in an immunocompromised individual), or other evidence exists to indicate HCV infection. Performed By: #### H BCAB, HBSAG, HBSAB, HCV RX PCR #### [facility] , #### CK, PTH, CBC, ESR, CRP, CMP #### [facility] [address] [place] [address] Hepatitis B Core Antibodyon 10-20-2022 Hepatitis B Core Antibody Negative Normal Negative [facility] Comment on above: Result Comment: Perf ormed at: CB - [facility] [address] [id number] Color Control Operator: Ambrocio Olivas PhD, Phone: [phone] Performed By: #### H BCAB, HBSAG, HBSAB, HCV RX PCR #### [facility] , #### CK, PTH, CBC, ESR, CRP, CMP #### [facility] [address] [place] [address] Hepatitis B Surface Antibody on 10-20-2022 Hepatitis B Surface Antibody Non-Reactive Normal . [facility] Comment on above: Result Comment: Non Reactive: Inconsistent with immunity, less than 10 mIU/mL Reactive: Consistent with immunity, greater than 9.9 mIU/mL Performed By: #### H BCAB, HBSAG, HBSAB, HCV RX PCR #### [facility] , #### CK, PTH, CBC, ESR, CRP, CMP #### [facility] [address] Hepatitis B Surface Antigeno n 10-20-2022 HBsAg Screen Negative Normal Negative [facility] Comment on above: Result Comment: PERF ORMED BY: [place] [address] PATHOLOGIST CAFETERIA TABLE ATTENDANT JOSE GUADALUPE ROADS M.D. Performed By: #### H BCAB, HBSAG, HBSAB, HCV RX PCR #### [facility] , #### CK, PTH, CBC, ESR, CRP, CMP #### [facility] [address] Hepatitis B virus surface Ag [Presence] in Serum or Plasma by ImmunoassayOrdered By: Hiren Whittington on 10-20-2022 HBV surface Ag IA Ql Negative Negative [facility] Hepatitis C virus IgG Ab [Pr esence] in Serum or Plasma by ImmunoassayOrdered By: Hiren Whittington on 10-20-2022 HCV IgG IA Ql Non-Reactive Non Reactive [facility] IgA [Mass/volume] in Serum o r PlasmaOrdered By: Hiren Whittington on 10-20-2022 IgA [Mass/Vol] 155 mg/dL 61-437 [facility] IgG [Mass/volume] in Serum o r PlasmaOrdered By: Hiren Whittington on 10-20-2022 IgG [Mass/Vol] 816 mg/dL 603-1613 [facility] IgM [Mass/volume] in Serum o r PlasmaOrdered By: Hiren Whittington on 10-20-2022 IgM [Mass/Vol] 64 mg/dL 15-143 [facility] Comment on above: Performed at: [address] [id number] Director: Ambrocio Olivas PhD, Phone: [phone] Immunofixation for UrineOrde red By: Hiren Whittington on 10-20-2022 Interpretation Immunofixation (U) [Interp] See comment . [facility] Comment on above: No monoclonality det ected.Performed at: [facility] [id number] [place] [id number] Director: Ambrocio Olivas PhD, Phone: [phone] Immunofixation, (KESHAV), Urine on 10-20-2022 Immunofixation, (KESHAV), Urine Normal . [facility] Comment on above: Result Comment: No m onoclonality detected. Performed at: [facility] [place] [address] [place], [place] [id number] Color Control Operator: Ambrocio Olivas PhD, Phone: [phone] Performed By: #### H BCAB, HBSAG, HBSAB, HCV RX PCR #### [facility] , #### CK, PTH, CBC, ESR, CRP, CMP #### [place] [id number] [place] Immunofixation,Serumon 10-20 Immunofixation, Serum Normal . [facility] Comment on above: Result Comment: No m onoclonality detected. Performed By: #### H BCAB, HBSAG, HBSAB, HCV RX PCR #### [facility] , #### CK, PTH, CBC, ESR, CRP, CMP #### [facility] [address] [place] [address] [place] Immunoglobulin A, Serum 155 mg/dL Normal 61-437 [facility] Comment on above: Performed By: #### H BCAB, HBSAG, HBSAB, HCV RX PCR #### [facility] , #### CK, PTH, CBC, ESR, CRP, CMP #### [facility] [address] [place] [address] [place] Immunoglobulin G 816 mg/dL Normal 603-1613 [facility] Comment on above: Performed By: #### H BCAB, HBSAG, HBSAB, HCV RX PCR #### [facility] , #### CK, PTH, CBC, ESR, CRP, CMP #### [facility] [address] Immunoglobulin M, Serum 64 mg/dL Normal 15-143 [facility] Comment on above: Result Comment: Perf ormed at: - [facility] [address] [id number] Color Control Operator: Ambrocio Olivas PhD, Phone: [phone] Performed By: #### H BCAB, HBSAG, HBSAB, HCV RX PCR #### [facility] , #### CK, PTH, CBC, ESR, CRP, CMP #### [facility] [address] Ketones Auto test strip (U) [Mass/Vol]Ordered By: Hiren Whittington on 10-20-2022 Ketones (U) [Mass/Vol] Negative Negative [facility] - UrinalysisOrder ed By: Hiren Whittington on 10-20-2022 Hyaline casts LM Ql (Urine sed) None seen [LPF] 0-8 [facility] Leukocytes [#/volume] correc teofilo for nucleated erythrocytes in Blood by Automated counOrdered By: Hiren Whittington on 10-20-2022 WBC corrected for nucl RBC Auto (Bld) [#/Vol] 5.2 10*3/uL 4.1-10.5 [facility] Lymphocytes Auto (Bld) [#/Vo l]Ordered By: Hiren Whittington on 10-20-2022 Lymphocytes (Bld) [#/Vol] 0.8 10*3/uL 1.00-4.8 [facility] Lymphocytes/100 WBC Auto (Bl d)Ordered By: Hiren Whittington on 10-20-2022 Lymphocytes/100 WBC (Bld) 16.2 % . [facility] MCH Auto (RBC) [Entitic mass ]Ordered By: Hiren Whittington on 10-20-2022 MCH (RBC) [Entitic mass] 30.7 pg 27.5-35.2 [facility] MCHC Auto (RBC) [Mass/Vol]Or dered By: Hiren Whittington on 10-20-2022 MCHC (RBC) [Mass/Vol] 33.2 g/dL 32.5-35.6 [facility] MCV Auto (RBC) [Entitic vol] Ordered By: Hiren Whittington on 10-20-2022 MCV (RBC) [Entitic vol] 92.4 fL 83.5-101 [facility] Monocytes Auto (Bld) [#/Vol] Ordered By: Hiren Whittington on 10-20-2022 Monocytes (Bld) [#/Vol] 0.5 10*3/uL 0.0-0.8 [facility] Monocytes/100 WBC Auto (Bld) Ordered By: Hiren Whittington on 10-20-2022 Monocytes/100 WBC (Bld) 9.0 % . [facility] Neutrophils Auto (Bld) [#/Vo l]Ordered By: Hiren Whittington on 10-20-2022 Neutrophils (Bld) [#/Vol] 3.7 10*3/uL 1.8-7.7 [facility] Neutrophils/100 WBC Auto (Bl d)Ordered By: Hiren Whittington on 10-20-2022 Neutrophils/100 WBC (Bld) 71.2 % . [facility] Nitrite Test strip Ql (U)Ord ered By: Hiren Whittington on 10-20-2022 Nitrite Ql (U) Negative Negative [facility] No Panel InformationOrdered By: Hiren Whittington on 10-20-2022 Estimated GFR (CKD-EPI) > 60.0 mL/Min [facility] Hepatitis B Core Total Antibody Negative Negative [facility] Comment on above: Performed at: [facility] [id number] Director: Ambrocio Olivas PhD, Phone: [phone] Hepatitis C Interpretation See comment . [facility] Comment on above: Not infected with HC V unless early or acute infection issuspected (which may be delayed in an immunocompromisedindividual), or other evidence exists to indicate HCVinfection. Hepatitis C RNA Quantitative N/A [facility] Creatinine Clearance (Chem N/A [facility] Anti-Nuclear Antibody Comment 2 See comment . [facility] Comment on above: For more information about Hep-2 cell patterns useANApatterns.org, the official website for the [employer] on Antinuclear Antibody (BESSIE) Patterns (ICAP). ----A positive BESSIE result may occur in healthy individuals (lowtiter) or be associated with a variety of diseases. Seeinterpretation chart which is not all inclusive:Pattern Antigen Detected Suggested Disease Association Homogeneous DNA(ds,ss), SLE - High titers Nucleosomes, Histones Drug-induced SLE Speckled Sm, ABSORPTION OPERATOR, SCL-70, SLE,MCTD,PSS (diffuse form), SS-A/SS-B Sjogrens Nucleolar SCL-70, PM-1/SCL High titers Scleroderma, PM/DM Centromere Centromere PSS (limited form) w/Crest syndrome variable Nuclear Dot [id number] Primary Biliary Cirrhosis Nuclear GP210, Primary Biliary CirrhosisMembrane ashley A,B,C Performed at: [facility] [place], [place] [id number] Director: Ambrocio Olivas PhD, Phone: [phone] Protein Electrophoresis M-Arnulfo Not observed g/dL Not Observed [facility] Protein Electrophoresis Note See comment . [facility] Comment on above: Protein electrophore sis scan will follow via computer,mail, or aircraft powertrain repairer delivery.Performed at: [place], [place] [id number] Director: Ambrocio Olivas PhD, Phone: [phone] Serum Immunofixation See comment . [facility] Comment on above: No monoclonality det ected. Total Complement (CH50) >60 U/mL >41 [facility] Comment on above: Age Male Female 1 - 30 days Not Estab. Not Estab. 31 days - 6 months >32 >20 7 months - 17 years >39 >39 >17 years >41 >41 NOTE: The adult ( >17 years ) reference interval range is used to flag abnormals on this report. If the patient is 17 years old or younger, use the table above to determine out of range values.Performed at: [employer] [place], [place] [id number] Director: Ambrocio Olivas PhD, Phone: [phone] Urine Random Prot Electrophor Note See comment . [facility] Comment on above: Protein electrophore sis scan will follow via computer,mail, or aircraft powertrain repairer delivery. Nucleated erythrocytes [Pres ence] in Blood by Automated countOrdered By: Hiren Whittington on 10-20-2022 Nucleated RBC Auto Ql (Bld) 0.2 /100{WBC} 0-0.5 [facility] Parathyrin.intact [Mass/volu me] in Serum or PlasmaOrdered By: Hiren Whittington on 10-20-2022 Parathyrin.intact [Mass/Vol] 48.3 pg/mL [facility] Parathyroid Hormone Intacton 10-20-2022 Parathyroid Hormone Intact 48.3 pg/mL Normal [facility] Comment on above: Result Comment: PERF ORMED BY: [place] [address] PATHOLOGIST CAFETERIA TABLE ATTENDANT JOSE GUADALUPE RODAS M.D. Performed By: #### H BCAB, HBSAG, HBSAB, HCV RX PCR #### [facility] , #### CK, PTH, CBC, ESR, CRP, CMP #### [address] Platelet mean volume Auto (B ld) [Entitic vol]Ordered By: Hiren Whittington on 10-20-2022 Platelet mean volume (Bld) [Entitic vol] 9.7 fL 6.6-10.1 [facility] Platelets Auto (Bld) [#/Vol] Ordered By: Hiren Whittington on 10-20-2022 Platelets (Bld) [#/Vol] 158 10*3/uL 150-450 [facility] Potassium [Moles/volume] in Serum or PlasmaOrdered By: Hiren Whittington on 10-20-2022 Potassium [Moles/Vol] 4.6 mmol/L 3.5-5.1 [facility] Protein Auto test strip (U) [Mass/Vol]Ordered By: Hiren Whittington on 10-20-2022 Protein (U) [Mass/Vol] Negative Negative [facility] Protein Electro, Random Urin radha 10-20-2022 Albumin, Urine 28.0 % Normal . [facility] Comment on above: Performed By: #### H BCAB, HBSAG, HBSAB, HCV RX PCR #### [facility] , #### CK, PTH, CBC, ESR, CRP, CMP #### [facility] [address] [place] [address] [place] Oottl-3-Gyqokcgq, Urine 2.1 % Normal . [facility] Comment on above: Performed By: #### H BCAB, HBSAG, HBSAB, HCV RX PCR #### [facility] , #### CK, PTH, CBC, ESR, CRP, CMP #### [facility] [address] [place] [address] [place] Mfpvz-9-Cobqadqv, Urine 16.4 % Normal . [facility] Comment on above: Performed By: #### H BCAB, HBSAG, HBSAB, HCV RX PCR #### [facility] , #### CK, PTH, CBC, ESR, CRP, CMP #### [address] Beta Globulin, Urine 34.4 % Normal . [facility] Comment on above: Performed By: #### H BCAB, HBSAG, HBSAB, HCV RX PCR #### [facility] , #### CK, PTH, CBC, ESR, CRP, CMP #### [address] Gamma Globulin, Urine 19.1 % Normal . [facility] Comment on above: Performed By: #### H BCAB, HBSAG, HBSAB, HCV RX PCR #### [facility] , #### CK, PTH, CBC, ESR, CRP, CMP #### [address] M-Arnulfo % Not Observed Normal Not Observed [facility] Comment on above: Performed By: #### H BCAB, HBSAG, HBSAB, HCV RX PCR #### [facility] , #### CK, PTH, CBC, ESR, CRP, CMP #### [address] Please Note: Normal . [facility] Comment on above: Result Comment: Prot ein electrophoresis scan will follow via computer, mail, or aircraft powertrain repairer delivery. PERFORMED BY: [place] [address] PATHOLOGIST CAFETERIA TABLE ATTENDANT JOSE GUADALUPE RODAS M.D. Performed By: #### H BCAB, HBSAG, HBSAB, HCV RX PCR #### [facility] , #### CK, PTH, CBC, ESR, CRP, CMP #### [address] Protein (U) [Mass/Vol] 9.4 mg/dL Normal Not Estab. [facility] Comment on above: Performed By: #### H BCAB, HBSAG, HBSAB, HCV RX PCR #### [facility] , #### CK, PTH, CBC, ESR, CRP, CMP #### [address] Protein Electrophoresis, Ser umon 10-20-2022 Albumin [Mass/Vol] 3.9 g/dL Normal 2.9-4.4 [facility] Comment on above: Performed By: #### H BCAB, HBSAG, HBSAB, HCV RX PCR #### [facility] , #### CK, PTH, CBC, ESR, CRP, CMP #### [address] Albumin/Globulin [Mass ratio] 1.3 {ratio} Normal 0.7-1.7 [facility] Comment on above: Performed By: #### H BCAB, HBSAG, HBSAB, HCV RX PCR #### [facility] , #### CK, PTH, CBC, ESR, CRP, CMP #### [address] Bnnli-1-Vvjvzald 0.3 g/dL Normal 0.0-0.4 [facility] Comment on above: Performed By: #### H BCAB, HBSAG, HBSAB, HCV RX PCR #### [facility] , #### CK, PTH, CBC, ESR, CRP, CMP #### [address] Leuzc-1-Cavkmcvc 0.8 g/dL Normal 0.4-1.0 [facility] Comment on above: Performed By: #### H BCAB, HBSAG, HBSAB, HCV RX PCR #### [facility] , #### CK, PTH, CBC, ESR, CRP, CMP #### [address] Beta Globulin 1.0 g/dL Normal 0.7-1.3 [facility] Comment on above: Performed By: #### H BCAB, HBSAG, HBSAB, HCV RX PCR #### [facility] , #### CK, PTH, CBC, ESR, CRP, CMP #### [address] Gamma Globulin 0.9 g/dL Normal 0.4-1.8 [facility] Comment on above: Performed By: #### H BCAB, HBSAG, HBSAB, HCV RX PCR #### [facility] , #### CK, PTH, CBC, ESR, CRP, CMP #### [address] Globulin (S) [Mass/Vol] 3.0 g/dL Normal 2.2-3.9 [facility] Comment on above: Performed By: #### H BCAB, HBSAG, HBSAB, HCV RX PCR #### [facility] , #### CK, PTH, CBC, ESR, CRP, CMP #### [address] M-Arnulfo Not Observed Normal Not Observed [facility] Comment on above: Performed By: #### H BCAB, HBSAG, HBSAB, HCV RX PCR #### [facility] , #### CK, PTH, CBC, ESR, CRP, CMP #### [address] [place] [address] [place] Protein [Mass/Vol] 6.9 g/dL Normal 6.0-8.5 [facility] Comment on above: Performed By: #### H BCAB, HBSAG, HBSAB, HCV RX PCR #### [facility] , #### CK, PTH, CBC, ESR, CRP, CMP #### [facility] [address] [place] [address] SPE-Note Normal . [facility] Comment on above: Result Comment: Prot ein electrophoresis scan will follow via computer, mail, or aircraft powertrain repairer delivery. Performed at: [facility] [id number] Color Control Operator: Ambrocio Olivas PhD, Phone: [phone] PERFORMED BY: [place] [address] PATHOLOGIST CAFETERIA TABLE ATTENDANT JOSE GUADALUPE RODAS M.D. Performed By: #### H BCAB, HBSAG, HBSAB, HCV RX PCR #### [facility] , #### CK, PTH, CBC, ESR, CRP, CMP #### [facility] [address] [place] [address] Protein [Mass/volume] in Ser um or PlasmaOrdered By: Hiren Whittington on 10-20-2022 Protein [Mass/Vol] 7.1 g/dL 6.4-8.9 [facility] Protein [Mass/Vol] 6.9 g/dL 6.0-8.5 [facility] Protein [Mass/volume] in Uri neOrdered By: Hiren Whittington on 10-20-2022 Protein (U) [Mass/Vol] 9.4 mg/dL Not Estab. [facility] Protein.monoclonal/Protein.t otal in 24 hour Urine by ElectrophoresisOrdered By: Hiren Whittington on 10-20-2022 Protein.monoclonal Elph (24H U) [Mass fraction] Not observed % Not Observed [facility] RBC Auto (Bld) [#/Vol]Ordere d By: Hiren Whittington on 10-20-2022 RBC (Bld) [#/Vol] 4.40 10*6/uL 3.90-5.60 [place] Serum globulin measurement ( mass/volume)Ordered By: Hiren Whittington on 10-20-2022 Globulin (S) [Mass/Vol] 3.0 g/dL 2.2-3.9 [facility] Serum hepatitis B virus surf breana antibody detectionOrdered By: Hiren Whittington on 10-20-2022 HBV surface Ab Ql (S) Non-Reactive . [facility] Comment on above: Non Reactive: Incons istent with immunity, less than 10 mIU/mL Reactive: Consistent with immunity, greater than 9.9 mIU/mL Serum homogeneous pattern an tinuclear antibody (BESSIE) titerOrdered By: Hiren Whittington on 10-20-2022 Homogenous nuclear Ab pattern (S) [Titer] N/A [facility] Serum nuclear antibody titer Ordered By: Hiren Whittington on 10-20-2022 Nuclear Ab (S) [Titer] Positive . [facility] Comment on above: Negative <1:80 Zac jeffries 1:80 Positive >1:80 Serum nucleolar pattern anti nuclear antibody (BESSIE) titerOrdered By: Hiren Whittington on 10-20-2022 Nucleolar nuclear Ab pattern (S) [Titer] 1:1280 . [facility] Comment on above: ICAP nomenclature: A C-8,9,10 Serum or plasma albumin/glob ulin mass ratioOrdered By: Hiren Whittington on 10-20-2022 Albumin/Globulin [Mass ratio] 1.7 {ratio} [facility] Albumin/Globulin [Mass ratio] 1.3 {ratio} 0.7-1.7 [facility] Serum or plasma alpha 1 glob ulin measurement by electrophoresis (mass/volume)Ordered By: Hiren Whittington on 10-20-2022 Alpha 1 globulin Elph [Mass/Vol] 0.3 g/dL 0.0-0.4 [facility] Serum or plasma alpha 2 glob ulin measurement by electrophoresis (mass/volume)Ordered By: Hiren Whittington on 10-20-2022 Alpha 2 globulin Elph [Mass/Vol] 0.8 g/dL 0.4-1.0 [facility] Serum or plasma anion gap de terminationOrdered By: Hiren Whittington on 10-20-2022 Anion gap [Moles/Vol] 10.3 mmol/L 6.0-15.0 [facility] Serum or plasma beta globuli n measurement by electrophoresis (mass/volume)Ordered By: Hiren Whittington on 10-20-2022 Beta globulin Elph [Mass/Vol] 1.0 g/dL 0.7-1.3 [facility] Serum or plasma complement C 3 measurement (mass/volume)Ordered By: Hiren Whittington on 10-20-2022 Complement C3 [Mass/Vol] 120 mg/dL 82-167 [facility] Comment on above: Performed at: [place] [id number] Director: Ambrocio Olivas PhD, Phone: [phone] Serum or plasma complement C 4 measurement (mass/volume)Ordered By: Hiren Whittington on 10-20-2022 Complement C4 [Mass/Vol] 16 mg/dL 12-38 [facility] Serum or plasma gamma globul in measurement by electrophoresis (mass/volume)Ordered By: Hiren Whittington on 10-20-2022 Gamma globulin Elph [Mass/Vol] 0.9 g/dL 0.4-1.8 [facility] Serum speckled pattern antin uclear antibody (BESSIE) titerOrdered By: Hiren Whittington on 10-20-2022 Speckled nuclear Ab pattern (S) [Titer] 1:640 . [facility] Comment on above: ICAP nomenclature: A C-2,4,5,29 Sodium [Moles/volume] in Ser um or PlasmaOrdered By: Hiren Whittington on 10-20-2022 Sodium [Moles/Vol] 139 mmol/L 136-145 [facility] Specific gravity Auto test s trip (U) [Rel density]Ordered By: Hiren Whittington on 10-20-2022 Specific gravity (U) [Rel density] 1.021 1.001-1.030 [facility] Squamous epithelial cells de tection in urine sediment by light microscopyOrdered By: Hiren Whittington on 10-20-2022 Epithelial cells.squamous LM Ql (Urine sed) None seen [HPF] 0-2 [facility] Urea nitrogen [Mass/volume] in Serum or PlasmaOrdered By: Hiren Whittington on 10-20-2022 Urea nitrogen [Mass/Vol] 24 mg/dL 7-25 [facility] Urine Cultureon 10-20-2022 Bacteria identified Cx Nom (U) No Growth 2 Days PERFORMED BY: [place] [address] PATHOLOGIST CAFETERIA TABLE ATTENDANT JOSE GUADALUPE RODAS M.D. Normal [facility] Comment on above: Performed By: #### H BCAB, HBSAG, HBSAB, HCV RX PCR #### [facility] , #### CK, PTH, CBC, ESR, CRP, CMP #### [facility] [address] [place] [address] Urine alpha 1 globulin/total protein by electrophoresisOrdered By: Hiren Whittington on 10-20-2022 Alpha 1 globulin Elph (U) [Mass fraction] 2.1 % . [facility] Urine alpha 2 globulin/total protein ratio by electrophoresisOrdered By: Hiren Whittington on 10-20-2022 Alpha 2 globulin Elph (U) [Mass fraction] 16.4 % . [facility] Urine bacteria detection by automated methodOrdered By: Hiren Whittington on 10-20-2022 Bacteria Auto Ql (U) None seen None Seen [facility] Urine beta globulin measurem ent by electrophoresis (mass/volume)Ordered By: Hiren Whittington on 10-20-2022 Beta globulin Elph (U) [Mass/Vol] 34.4 % . [facility] Urine clarity by refractomet ry automatedOrdered By: Hiren Whittington on 10-20-2022 Clarity Refractometry automated (U) Turbid Clear [facility] Urine culture routineOrdered By: Hiren Whittington on 10-20-2022 Bacteria identified Cx Nom (U) No Growth 2 Days [facility] Urine glucose measurement by automated test strip (mass/volume)Ordered By: Hiren Whittington on 10-20-2022 Glucose Auto test strip (U) [Mass/Vol] Normal mg/dL Normal [facility] Urine hemoglobin detection b y automated test stripOrdered By: Hiren Whittington on 10-20-2022 Hemoglobin Auto test strip Ql (U) Negative Negative [facility] Urine leukocyte esterase det ection by automated test stripOrdered By: Hiren Whittington on 10-20-2022 Leukocyte esterase Auto test strip Ql (U) 2+ Negative [facility] Urobilinogen Auto test strip (U) [Mass/Vol]Ordered By: Hiren Whittington on 10-20-2022 Urobilinogen (U) [Mass/Vol] Normal mg/dL Normal [facility] WBC Auto (Bld) [#/Vol]Ordere d By: Hiren Whittington on 10-20-2022 WBC (Bld) [#/Vol] 5.2 10*3/uL 4.1-10.5 [facility] XR hand BI 2Von 10-20-2022 XR hand BI 2V [facility] [place] [address] XRay Report Signed Patient: Marquise Means MR#: [id number] 48 : 1950 Acct:[id number] Age/Sex: 71 / M ADM Date: 10/20/22 Loc: ICXD Room: Type: [facility] Attending Dr: Hiren Whittington MD Copies to: Hiren Whittington MD Ordering Provider: Hiren Whittington MD Date of Service: 10/20/22 XR/XR hand BI 2V: pain BILATERAL HAND - 2 views each REASON FOR EXAM: Bilateral hand stiffness and swelling. COMPARISON: None FINDINGS: Left hand: No focal soft tissue abnormality. No acute bony process is seen. 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 Cystic changes are seen involving the styloid process of the ulna. MCP joints appear unremarkable. IP joints appear unremarkable. No bony erosions. Right hand: No focal soft tissue abnormality. No acute bony process is seen. Cystic changes are seen involving the styloid process of the ulna. MCP joints appear unremarkable. IP joints appear unremarkable. No bony erosions. XR/XR hand BI 2V IMPRESSION: SEVERE DEGENERATIVE CHANGES CMC JOINT OF THE LEFT THUMB. CYSTIC CHANGES INVOLVING THE STYLOID PROCESSES OF BOTH WRISTS. NO ACUTE BONY PROCESS OR EROSIVE CHANGES ARE SEEN. Impression dictated by: Leonides Vazquez Jr., D.O.10/20/2022 3:22 PM Dictation Location: [place] [address] Transcribed By: [facility] 10/20/22 152 Dictated By: Leonides Vazquez Jr, DO 10/20/22 1519 Signed By: 10/20/22 152 Normal [facility] pH Auto test strip (U)Ordere d By: Hiren Whittington on 10-20-2022 pH (U) 5.0 [pH] 5.0-9.0 [facility] Coding Summary.on 01-16-2022 Coding Summary. [id number] Gh0 bWw+PGhlYWQ+JN0SOBNoP40 enDAtkT8JA7rTMA0XTNUIVL JMAD6WIW2jbWC8YDesK5Lox iAv WdrzfELbIU99KEv5CPL8eSk uDBwmaM7rxMXtC8v7JvNcRR 96eY67JWojLXZlQnM4XqSzj jsgbWFy G4xsYaJvcQXpEro+PHRhYmx lIHdpZHRoPScxMDAlJyBzdH buEC4aIx0gRNUlKNXijNwkf HNlOiBj l6fpPXUwUKlgRI0psYpdB6R jqBP0REUpl9k1Qg30kJK+PH BvRTN3qDogRXczg977CtPcr 6gaFDH4 eCJbBUxsVDR2S15uf0C9IEO hNHXoHQS1rUV1gX2plHnxwx prU8HzmTHiIcB1XSD0iBUhx S0tnUho apeuzO7gMqq+F78IXG8CMWI VRV6BUcs6K9DiFnomyMI+PC 60RKMaOO85jOXwmFDew3nnz Re4QoXw VDTqMPT9rIhrCIuft4TxBOL eY09blZLbj8Y0QDZwhXfcoF LpKyGdzQW7jD2yADxvutirt 2hvdzsn Zuwii5yhfg67iK31N28sEYv gFAIcWWO9FYDcSUZadBrtpc 5cgI9cSw8+ALttn0vhi4uuf Jf6RxWf AIPekeBbuHvyETW8k0QsAm2 3G2WoeXbhn5OtCxp5in15yX Jpz1F5zVC2CXuyIJHiaB0eX WxlZnQ6 ICWlXoLapL71jAZgRJelEq8 qfNhuxKrxTN0xQCRbnhwyCO LgdW5jPSPfbENrhLwuPG2bG TBpbjtm m728PnKnLUQ9DTRzxGRiU3R srM1nGvBiBQEzLPWnM1LchI CeOBcyM666HUkcUiZ6VTXul vWjR8Jh KRNsnBkwGxW9v5A9Ss2Le4S rixmjDYS2JYcvYXZmHvO5Xa LgBkD5D8RaNwq2FQPtqFksP V1wK6Zr SGAurrfnmpbhlTH9BYYiTOQ pqE83fRRyZWrdKn0wt9Z0c6 36LTFtABWotP08Sq0ktTozK TBwdCBU hY1bncgse9cyfaidDnUmMOR cUOq6YAm6YWKpuOjsMuHjBA R9NzE5PCY0kAJkhL1auTbak mefsB9y Oyc+A07vdL2oNUW9JGS7xka oFRDzrvWiNB47MB97O2XaDr wvdGFibGU+PGRpdiBzdHlsZ N1yUdZg l1ifv0VxIMifC5EoJXGxREv yQyp4YMJtJSF7yBN3iQ4dFM FoKXsoz5X9kZS9I6UpdfMrx p3ob9xr LRLlVQhwB33ezFZpz2A7OZQ viCX8WGHyvKahDwPrdE47Uw c+KSDzyTore3WfOewkj7npa 3aztBs1 OxZtLKNehvEdpFdaHHQ5l7H zJs11L85lPHnbWRQzOOHoRK YfRZAcsVozsf4sbG7iZc9+P GNvbCB3 xPU7sK9pRSAbNbK8JIaeD03 1KvFybTEcKmugn5wys9hjzC t6OnErPKHuteItoOzkLQV4r 9JwPo75 M11nYBpnWDPdXXBzUXTfHLZ fjJoumy9xhI3xVw1+PC9jb2 xscq47wC39jBT+LYUjSJA2b WxlPSdw COMqdO8jBGdyZjW4WJAoVlA nnU84bWHhWKfaQi0umIwpiB ylAW5hYAVtrldpm312EhNuw 2xkIDEw rLPvNHohNIU1Q81zr6O5NZX tJEPlMZW5qVI4aI6ewBlanp ogbGVmdDsgdmVydGljYWwtY LwiE249 IHRvcDsnPlBhdGllbnQgTmF hTOr6G6AzOwy9NDHqaWtaPK 7usPPzNHwuTl1yxTejoTczF Z6dCMZv oxxmd245PnRel1yoXOXisUE iNXikZIC6Z16ko0M7GEVtTA HdYJA8zYZ1rT7inOtbhhbnm GVmdDsg mdGalAduQZyyIQfeU929JYK zeXzcUoZupxDgPDXaoOB7CC 65OE93zUUni8E0yCQ6F4XqA GRpbmct ptotbKC0ESSyVVHlqH79Xq5 kpLbuRs4iEXBmFFA4KGWlwK GpM3DkqV2yWwCoNHKmKJPpE 3RleHQt UEqcF487WIvxLcW2GGKsltG hP9XwZNSgtKfcOsC5x2B2Vt 6BT9C7TE29RQ01eNItn8H3d QO2G0Ux GQXaqmswrcslnDO9TOXnBYM ulR09Lr8ijOkfXk6gGVArFK Y6NBTfwHEzM6LpzY7yNcWbF DAwMDAw V3JdmEFcLLjvH536EHchKuQ 3OAUvpbCoB3KoZGTitOtzEc K1i3V2Wp2KPCk0IC09VJ87x LSmn0X8 lGV0V6YfAVWsqzxaaicnvLJ 5MRJkRFHfzN24Be8hfYcwRp 5cFCLuVNQ7FVRfbMLrI5Aza J9hBhMc SRYjUWGiU7BbmZTyPGvjG26 2SBguQyZ9PSOzkmUaC8RrRA FktXwxIqV0l9T4Yt4HCWNuO P13EOZ8 tBN4XR41RG97B3RmHgxzzNZ ibGU+PHRhYmxlIHdpZHRoPS hrJVZuEpHlsWxjOU1aEb9vX GVyLWNv aXwmkMUfHeEol2abJCRhIFr yJO9tbKpdQ8HjrNS4KTYdh1 m5Zg93F42xA7GbsZJ+PGNvb DX3uFO3 yK2gGaZnQtL4GGfpE428JaP grEPvEkmgf4oqk8btmSr6Vv Z3NBEsauCypHgiHJV2z0PcY m93F07f IHdpZHRoPSIxNSUiIHZhbGl zwi2tuG5gKw4+DIQjxIQ9fC V4sQ5eKkKiNdT1WNknV051Q nRvcCIv Bkqyt0fba5yneIw1RdTnJRA hltHggNorUSP5t9MaCx36Y6 PvbTbnq6KdLrm0wr44bUCyk 6J9sKW4 J3MxRJTngmvvfUTmoKzuNG3 pWFEmcbqtHQCwgP9lCENeW6 d2VqKcYhN5PTtiS5HrprI0A DEwcHQg EGviBMX6B58dk4M5FHLvOWL hZHZ1cOB3cV4wzFwhhlxpzZ VmdDsgdmVydGljYWwtYWxpZ 246IHRv qYfvCRVikL6lLRMkrGEopMx kPG0aRRLymzpxYlKALXIVEA 2fWQqQYP6qGBqraGC+PHRkI RF4tFiv OWluKLYwoR8jFZRpA1h1EfX vHeV5QTciJ4ArXGVgdmeyEm 04uF1uTaNjQjK2AFasL2Rjn kT2IMAf iACbKGvvGAN1A56cl7H6YMD jHSCuNBJ0bIF8gJ6jsGjyhu ogbGVmdDsgdmVydGljYWwtY PqiM441 CXDttBbkTsZ9TxP7EuY3SUX 2D9TiFfb6FRTldXtcXQ8jxV JgDQysVo4abMmqvGftKP0uC TBpbjtw VRHqsP3qKKKofBNdfWilPE1 mOASbpvjsj129FbLnVDA9OG HweNWsN4WynC9jCfUjPIVxV IHaG5Ne sYDrIFjmB150NCwrGeJ8MHF unyHqN9GnDIMolQhrBwQ1n7 Z5Kq60PAKLKHAfgtxiyDX+P HRkIHN0 hUwiQPrbOXXmgS3hYLIvM0d 9KeHiFdG6BOkvK3DwQORjba taOh91kQ2jVsTaJiS0HIwwN 2NqgjZ6 XETbsOLcIAdpAPI2Z52hq0R 9QTKlWYJoBEE0mHO6sO7ocQ lnbjogbGVmdDsgdmVydGljY WwtYWxp J674WTXouBiyHv9neXP6O5D zZua2OBYnkPheSA3izRYfPQ qbVn4wtZpmrBntFZ2oLYTyy jtwYWRk iS0yJKIapZHdgRjjOY5uELR xjiclz451YaEeYBT0TRTkuA HeS7OwmT7fGoWmBDLrLIHiU 3RleHQt ZYxbF777DZmcPsM8LIWgdfP pC7BtQKKotOmaGfS1n5L9Iv 3JhCQrOJAoWP69AT51LZ24P 3RyPjwv dGFibGU+PHRhYmxlIHdpZHR oWHxdQATjNuPwvOnpZC3kDk 9yZGVyLWNvbGxhcHNlOiBjb 2xsYXBz FXgdOR3imLibX8RxkRP4XWU vk8h9Ah25Z85kR0AjfTY+PG IxyON8fDI2eS0oAcXsStH5Z WhlN261 ReLsmZUbHfzgr1mfs7qucJf 5PqRiOZOkdkQhxCllZNS0v8 XrRj73S03yWYraNMYlTTVvO CUiIHZh bQhhhm9fsM5yZo5+PGNvbCB 9qAC6qL9yMoHkKgP3MYgqN4 61XjCuwHHjJyclH27hR8Mrj XA+PHRy Wvj8GTDmhFszXX6ziPHnNTu fTd5tSOZ6FqXzZhWuAYdmM1 QkWSAdecqdfierpTC2ATAtF DUwaW47 Ph3paSseHz0qAJVxZQR4SHI prFWuK1YwpC4gXhCfFVFvJM WxI2EexQLdOCtkI794XCtwF eI3IPKq wtArE0MmQZMneDdaLpE4l1V 8Ng1YjGxdcXNjBR2aNfEsRI u7D1RmJsw4WXNynFlvUZ2rr GFkZGlu Js4ugKjgrPgaXI3wPLDpxow jd460QoDwy6jjWMJjhWSdBR hvHSS3U29fb4E3IGHqFSYsY HG3gHP9 rW5vkVsqtvqspHVxgTtxkoE nfBivOTqfLDkgY954VFFsbI vxXxPLSmq2J8CjCvk4DPPpy DezTS2e hJJgBTorCj4syQttdExiSP0 rKZXscgvfw237ZsQwv2sfLB BwqJGrXEudJAS2Q39kx3O5Y CMwMDAw FXL5sEJ3aU3knXmcnuhxdOY mdDsgdmVydGljYWwtYWxpZ2 99UUQrbIziDa7OTnw7H7UjT cq7GUZp vWqnGC0ndZQiHQryBx3nwIh ukSejUD3tVOSkzqclv541Bv Cmh6dwIKUvjNTjQVsfHSQ6C 24ze1R7 CKHgZVOrTAD4sBB2pX4teCl nbjogbGVmdDsgdmVydGljYW mvQIjhR259UDSpqLiwStFrm WVyOjwv dGQ+XA32sm17S8XjMikcQfv 7DNCzNNG4bQS0aK4pBHKiIR bkw7N9rVH4Q7XwyfFymx1ln 2xsYXBz ZTog (more content not included)... Normal [facility] AMA Ab Scron 01-14-2022 Mitochondria M2 IgG Qn (S) <20.0 Invalid Interpretation Code 0.0-20.0 [facility] Comment on above: Result Comment: Nega tive 0.0 - 20.0 Equivocal 20.1 - 24.9 Positive >24.9 Mitochondrial (M2) Antibodies are found in 90-96% of patients with primary biliary cirrhosis. Performed at: [address] [id number] PhD Deisy Albrecht Performed By: #### 1 [id number] ####[facility] [id number] [place] [address] BESSIE w/Reflex if POSon 2021 Nuclear Ab Ql (S) Negative Invalid Interpretation Code Negative [facility] Comment on above: Result Comment: Perf ormed at: [facility] [address] [place] [address] [id number] PhD Deisy Albrecht Performed By: #### 1 [id number] ####[facility] [id number] [place] [address] Consent for Treatmenton 12-24 Consent for Treatment [id number]#1.00C D:127 [facility] Coding Summary.on 01-07-2022 Coding Summary. CD:[id number] Gh0 bWw+PGhlYWQ+XB8CVROsS48 zzHKzgA5LI8jZUT5PUCVEWE XTXZ7KCJ7ylSL2VGlqS4Iog iAv OjslqJCeAW27PXk8JSJ7sRp rVHwzoG8gqUVjL3w0DhQoOR 72lN32QOfzKQNiSgQ8FeBld jsgbWFy W4wtVjNtdCMlVpv+PHRhYmx lIHdpZHRoPScxMDAlJyBzdH kmDQ6eYd7aCBZzFOZxzXrpv HNlOiBj g3mrFFGyUAcqFF3wmFqoS1J xvIQ4YEPlc5b8Ff95wAO+PH GxWMA5gRgcSYtcx911UvJne 8cfKQI0 pAGjLXwvSJW1Y10rl9Z3DSJ iMWPoPMD8hWL2pI1ruXnmqg zdX7IyqKVwWrO1QFW3kSThu N9fiOqa xwyhjI3uNem+K02IBT7OHJZ TSL6BUqj0U2CbCvwweCN+PC 95RUUaPV43bVWqnUFrr5bwo Md4ReSz PTHyYHP9iPxrDQhca3YwDZC uM25njKWkf6Y6BOQclHowlG WxFaPvuCQ0nX9lRGtfclcjv 2hvdzsn Sfyvn5hglm79qQ46N21xPCy eWGIsFYU9UCUdFFQhsShutm 4oiP5cCj7+GUorm5blf3pkr Ce4OgKc QGHyvlUeqKhdECA2a0RmKe0 5A0NywZace7HwXhl5yn72lV Hnu3Q8rLX6GAuoPWNazN0dJ WxlZnQ6 NOYmKpOxjK36fCDhEMcrEu1 tzVcriPnfKS9oASGlqakdGE TzoE5iHRSxnHSqzNowGK1wU TBpbjtm o122YwSeCBR8JWUvxXWjG6Y xnJ0xSfIaENWtKCHuI1MvgZ UzQUrkH147SVwwXdR9FSTtv bYzT7Eh KQGitZfnLhF7q9E2Le2Al6I wlgrlPKO9IVtzYKXmHrH7Fz JvEuN7E5ZvEfi1TZUmvLlsX Y5xD0Qz EJOhmujbfmirxKU1RJTmXZJ sjC68zSQvRTmaLy8li5U0l2 32QVShSEEuzS70Es0shKopS TBwdCBU bP3wzrmfw8ootnedBfGlXUT lHQn1ZZm4YCKswDduCxYuKR C7XaZ1JJH1eRGzpA7rtDmvi holfD1c Oyc+N66wfD0bBRJ7UJC0diu nZGWdgfDlGK66RA85L2EmSo wvdGFibGU+PGRpdiBzdHlsZ R0wTuWn i3rht6FrJCpeX3SaYKGbZOx eZhw4WBNeMAB5qZJ7uR2qZQ DhSVzuh0T7lAM8R4WhjqMrm c8qy6ec CPEeLBgpJ60ohRLtb1X6WJB yyEC4AOPkwUdaRoVnbE42Vp c+LOWwmAodg3ZgHgyfq2ncq 1altPz3 SlQxPMFdldQgvXqlZMU0c4Q eZs41M44jLNcxIYViFTNsQY WqHSKelApudw4dkT6oBw2+P GNvbCB3 fPL9tH4aRTFjKzU0FNviF71 8YpGalHVtQwhuq7jkd1hdzI u3YdKgBQFlpyQxaEwcLBX4s 3DhCy34 T16eYTicGIRuSCWeLZYzMGM uwGflti2ofI3lGt4+PC9jb2 owci69eS23hWZ+AOEeUOR8y WxlPSdw VQHboJ7oQRejJiW7WPQyJwZ uqW07gSJwZIdpDw8zzFaokR umVT9jABQirmjys141MrOya 2xkIDEw lJWkZHaoZGV6D85xw5S7DYS xKAKzRAA4lPU0yF4psHnlhj ogbGVmdDsgdmVydGljYWwtY ZuuN634 IHRvcDsnPlBhdGllbnQgTmF xMJq1W1PjOkc1QUVgaVmiED 7lxVGhPPygGa9mxSalrRbtG A2jITVe nsabm061KiCqa2mtMFZflOK xODryMDB5A83gh9Z9BTOoSG JxTSO8oVX1pV3xyAbneewpw GVmdDsg voNrsShiXUufYPrqH340ARO txUvxPpTeixZdABRyoUK4TC 52YT29jGAiu5B4kGD0K2EoV GRpbmct bgrzaEA3JMZtBVJohW05Hp8 kpOqtBc8gANMuEXE1CIOfyJ RaK4WtmZ0aOlZkXDIiHPNmC 3RleHQt ESsaB936MYreJiG5QKVvmiK dX0OzDBFqmBinSeX9d1N4Xm 4WG2A7NK51WH39aPPfs5I4w SR1R6Fy MRPneupuulyndRF1VREgBWB kiY76Jz6xwAqtAt0nJSBoQY O9JFGhuACqR5AxzC0xNdEfX DAwMDAw C8XpdZEdTSbzM442DHlbWiQ 9BTTodiBlC2WtDNCkmFfyDo R4d4T4Qn7KBJp8MR89GL33h ODfd3X6 xVB2C5CmKXScelntciehaYD 0SCVzOSLkgF33Jw8axJcsZu 4oRHIkFNJ4OYOeaQIkT1Ntn R4kXpDx WDGzJMCvT5EuoTZaFIntE41 1JFdqHzK6PJYbveVqZ8ObJP TvfJceFkV3m6S8Za7ZHTSxL H43GLL4 xDJ3US12UO20W4LfImyyeZT ibGU+PHRhYmxlIHdpZHRoPS bsKQGqEbTveXmtKD4zQj3aH GVyLWNv hAszoLIeHeTnv0qjTMPzTUl wJV5hfJzhY4DfqJS1VTWbx0 b4Ok23L35zK8ZaoEH+PGNvb UH4rFG0 oT0qKcRaUbY4MIpjB414MmS inFBoHmijf3eam1salLu0Wb R9SDWzowUmxRoaFJF7m9OgS p74O33q IHdpZHRoPSIxNSUiIHZhbGl ipm7axE6pNb1+NUUrpJQ2kA Q1oE0iPcJdMtC8SRgtA560V nRvcCIv Jfnte3our9gmrDi1LpPcRWZ xduAyqYixTKN9e7FxWv34H2 QwwLxrd2SuHwt9bt62nRJmd 2U6zWM9 F0PoGGEmfzrrkUTofQvyPS9 vKKJmhlxnJVPhgK5oTLGqW2 p2SxRgWlJ8YLssO1IvbsW5M DEwcHQg SIltEIP5T33vl2F8SQYxJHV nXQJ4fEK4kK8bqKnlgtehaB VmdDsgdmVydGljYWwtYWxpZ 246IHRv sLakOMJiyS9xYUVcxFAwiWt tGZ8fVZNugmpjOwEHBTGHDJ 9oUTsHPR0eOUdyzGB+PHRkI AL7uOje MMnaYVDzzZ6pPDDeJ4s7ZsH ySfO8YOnrG1UxUMPohmhlOz 97qB6wLfArDnP2PBgxF5Ovi iK0MROf sDKqQYhiWAY6E40io4H7ZSF eTKNwMHR5dSU6pF4ylIiekp ogbGVmdDsgdmVydGljYWwtY WhiZ111 QQQsfVycIpF4OeZ5RzF1BRR 0I1HyVlo9ORDxpKcxBQ1qmB TuIAmuZe2hlIipuAodWQ5pL TBpbjtw EGFygE2lXLKfrWMbbWuaRN4 aZFLlwfvar079XlGjPYM8KJ UzhZEoK2DmeC6jOcBgVWDrN BGpH9Hj iIDgVBurU418NDdtTuL8EDK ruaGhX9SgODItrYnnJbS2c9 L5Ze71YKSKAZRnzfmvxUF+P HRkIHN0 oAbzFUloTSUerR6cPZBkG9k 7OwEpJdD4TQvcS1GhSQKuce puNj92wS6dLdOsUsT1BXymE 4IaszE9 TSDxgAKbSPwoIYO7F88jw9I 3WTBwVRPyHBD9xUW8dR2lpL lnbjogbGVmdDsgdmVydGljY WwtYWxp G436GZKkqAlxYe2qwGD1C8T kPnc8EBBueQdiCF7ntHJwWC sqKf8diNfrrItyIT8zPGYqz jtwYWRk oG8bQSQksUChsGqxXV0hBKQ pepyzm829DlFvLFR8TCKmaH BqR2AaeN3sOcPvGUHbOISuY 3RleHQt UXxwH245ADrkPoX7WJBemrN jB2XcBDTfzLiuClF2s4J3Rx 7IoPOzXTJnUJ17KR66ZR00G 3RyPjwv dGFibGU+PHRhYmxlIHdpZHR tHVdoVZDwIpCelLlvPC3lTt 9yZGVyLWNvbGxhcHNlOiBjb 2xsYXBz RJoeSS8lhFsvD2HkmFQ4FLJ dz4u3Sx05K10jZ5JgoBU+PG TziYH7wCQ0dN3fAtUgOfT8H MrbT265 FlGkdPYlFlcbj8rfp8bzwWc 3KhCeIDVosdTcnWnbBEU0t3 LxJd69J88kJTdoIHQkJBUeM CUiIHZh vDvsua4nyE9iYr9+PGNvbCB 8eHZ7sT2tWjFuJcR8FFfuC1 10LsIlqAVeOreqE76gE9Vau XA+PHRy Npn4HMFvpDlaJX9ywFZaBGs fPg5xDGK2IpMrQgZpERzuZ0 OrSKNrncacnfcobJJ7KDKbL DUwaW47 Gs6jqIkmRx3mGYPzZYJ4GJO olVJbZ2GsmI2cWrMbRONtUS KxY9LplAQbURmaI509VHpwB rU8MCNh ahYiL6RhPQNzxArcEgV2r8M 2Ud2WjOunhHBpYS5pLtYoPD k7G9LqAoy6BAFvmMzwQY5sn GFkZGlu Pm2fvEnomNaePK7qXZQstma ck805FmDuu1ttBDLtqAPtKL jfTPF9T28oj3L2MFNiIQItH AT5qRI8 pF8fxMkuuzpjlBEwlRhvvbC ttTjxGWjsWHbzP977MKEqcV loPcDCRke4Y3HzQxe4KRTei HtkXH8b fEYiCEoeVp9yvTfrvHpqBA5 tMMCdowpgj960HgVnt8ucIA IjtLBhCFrsRCS3A75ti1B9M CMwMDAw VSP7rFF4dE8zaThwqzaltXC mdDsgdmVydGljYWwtYWxpZ2 61UREzxIzwMy0UJxa8P1FzO hs2WVYr jMweNJ3lrLXmPYxpSg5sjIp ppJowQT7pUHYpfslvh969Eg Gmx7duPKGrjTEqVJtuVMX2S 49uf6J0 LPTkAHDyMLL5rAT4aW2dcGz nbjogbGVmdDsgdmVydGljYW xwPAjfW051MPPdaGgtBqYuo WVyOjwv dGQ+DC24ii54J7StZelaZyn 7RSCcKAU1xUJ6lW0zVZOnVY tez2C2eMS5V2UdzcPfge0xr 2xsYXBz ZTog (more content not included)... Normal [facility] Gastroenterology Office/Clin ic Noteon 12-31-2021 Gastroenterology Office/Clinic Note Chief Complaint egd/colon and CAT scan follow up HPI Staff Patient is a 71year old malehere today to follow up with colon/EGD and CAT scan. History of Present Illness The patient was last seen by me on 12/05/2021 for generalized abdominal pain, change in bowel habits, and melena. He has a family history of colon cancer. His EGD was performed on 12/05/2021 and showed a normal esophagus, stomach, and duodenum. I biopsied his stomach and the biopsy from the stomach came back normal. I proceeded with a colonoscopy and he was noted to have a 7 mm polyp in the sigmoid that was removed with a cold snare. The polyp was a benign tubular adenoma. The polyp was located in a tough place in between 2 loops, so it took me multiple times to remove it and when we removed it with multiple loops, we always run a chance that there might be some left over tissue in that area. For that exact reason, we recommended to repeat his colonoscopy in 1 year, although the polyp is not cancer, it is precancerous. He also has slightly elevation in his liver enzymes. He had a CT scan done on 12/19/2021 that showed mild inflammation in the colon. The patient reports that he still has a constant dull pain in the left side of his colon that began 6 months ago. He denies that the pain wakes him up at night. The patient reports that he has lost 20 pounds in 6 months. He states that he eats all the time. The patient reports that he has been drinking Ensure daily. He states that he has lost 10 pounds since his first visit. The patient reports that he was 158 pounds when he first came to the office and now he is down to 135 pounds. The patient reports that he was a smoker for 25 to 30 years and quit 10 years ago. Review of Systems PHQ Score Initial Depression Screen Score: 0 Constitutional: no fever, no chills, no sweats, no weakness Skin: no Jaundice, no rash, no lesions, no petechiae ENMT: no ear pain, no sore throat, no congestion, no hoarseness Respiratory: no shortness of breath, no cough, no orthopnea, no wheezing Cardiovascular: no chest pain, no palpitations, no edema Gastrointestinal: no nausea, no vomiting, no diarrhea, no constipation, no GI bleeding, no dysphagia, no bloating, no heartburn. Positive for abdominal pain and weight loss. Genitourinary: no dysuria, no hematuria, no discharge, no pain Musculoskeletal: no back pain, no trauma Neurologic: no numbness, no sleeping problems Additional ROS info: Except as noted in the above Review of Systems and in the History of Present Illness all other systems have been reviewed and are negative or noncontributory. Physical Exam Vitals & Measurements HR: 71(Peripheral) RR: 16 BP: 121/74 HT: 72 in HT: 184 cm WT: 61.1 kg WT: 134.42 lb BMI: 18.05 Constitutional: Appearance: well developed Skin: Inspection: no rashes, ulcers, icterus, or telangiectasias. Eyes: Conjunctivae/lids: normal conjunctivae and lids. ENMT: Hearing: within normal limits. Lips/Teeth/Gums: normal oral mucosa Neck: Neck: normal motion, central trachea Respiratory: Percussion: thorax normoresonant. Auscultation: normal breath sounds; no rubs, wheezes, rale or ronchi. Cardiovascular: Auscultation: normal rhythm, S1 and S2; no rubs, murmurs or gallop. Peripheral: no edema Gastrointestinal/Abdome n: Abdomen: normal consistency and bowel sounds; no tenderness or masses. Liver/Spleen: normal size and consistency, not palpable. Rectal: deferred Musculoskeletal: Gait/station: normal gait Assessment/Plan 1. Weight loss (R63.4: Abnormal weight loss) The patient continues to have weight loss. I am slightly concerned about his weight loss pattern. He had a normal EGD, normal gastric biopsy, normal colonoscopy except for a small tubular adenoma in the sigmoid. He had a normal abdominal and pelvic CT scan except for mild colitis seen on the left side of the colon. I will proceed with a celiac panel, TSH, PSA, and 2 view chest x-ray. The patient was advised to follow up with his primary care physician to rule out the etiology of weight loss. 2. Elevated alkaline phosphatase level (R74.8: Abnormal levels of other serum enzymes) The patient had a normal AST, ALT, and bilirubin. I will proceed with GGT. If positive, then we will proceed with BESSIE and AMA. 3. Abdominal pain (R10.9: Unspecified abdominal pain) The patient has dull chronic abdominal pain, mainly in the left side of the colon. He had a recent normal colonoscopy except for a sigmoid adenoma. His CT scan showed mild colitis in the sigmoid. I will give him a course of Augmentin for 10 days to cover the possibility of infectious colitis with antibiotics. ATTESTATION: Documentation services were performed by OMARI after patient consented to recording for virtual documentation designer and provider reviewed before signing. OMARI: Viv Merlos. Follow-up With When Contact Information VAIBHAV CERON, LEEROY Rossi MED In 2 months [facility] [address] [place] [address]- Yaniv (more content not included)... Normal [facility] Comment on above: Result Comment: Elec tronically Signed By: Enid OCHOA MD\.br\Date and Time Signed: 12/31/21 08:44 EST\.br\Electronically Co-Signed By: Rachel Stokes\.br\Date and Time Co-Signed: 12/24/21 13:14 EDT IgA, Quant.on 12-31-2021 IgA [Mass/Vol] 159 mg/dL Invalid Interpretation Code 61-437 [facility] Comment on above: Result Comment: Perf ormed at: [facility] [address] [id number] PhD Deisy Albrecht Performed By: #### 1 [id number], [id number], [id number], [id number], [id number], [id number], [id number] ####[facility] [address] [place] [address] t-TRANSGLUTAMINASE IgAon tTG IgA Qn (S) <2 Invalid Interpretation Code 0-3 [facility] Comment on above: Result Comment: Nega tive 0 - 3 Weak Positive 4 - 10 Positive >10 Tissue Transglutaminase (tTG) has been identified as the endomysial antigen. Studies have demonstr- ated that endomysial IgA antibodies have over 99% specificity for gluten sensitive enteropathy. Performed at: [address] [id number] PhD Deisy Albrecht Performed By: #### 1 [id number], [id number], 4152552, 8961671, 9357076, [id number], [id number] ####[facility] [address] [place] [address] CHEMISTRYOrdered By: SYSTEM SYSTEM on 12-30-2021 CRP [Mass/Vol] 0.6 mg/dL Normal <=1.9mg/dL [facility] Remisol Gamma glutamyl transferase [Catalytic activity/Vol] 50 [iU]/d High 6 - 48 Int._Unit/L [facility] Remisol Prostate specific Ag [Mass/Vol] 1.1 ng/mL Normal 0.1 - 3.5 ng/mL [facility] Remisol TSH Qn 1.70 m[IU]/L Normal 0.34 - 5.60 mcIU/mL [facility] Remisol CRPon 12-30-2021 CRP [Mass/Vol] 0.6 mg/dL Normal <=1.9 [facility] Comment on above: Performed By: #### 1 [id number], [id number], 8284185, 6346147, 0763689, 13075859, [id number] ####[facility] [address] [place] [address] Consent for Treatmenton Consent for Treatment [id number]#1.00C D:127 Normal [facility] GGTon 12-30-2021 Gamma glutamyl transferase [Catalytic activity/Vol] 50 Int._Unit/L High 6-48 [facility] Comment on above: Performed By: #### 1 [id number], [id number], 8611165, 6537892, 5514300, 34542029, [id number] ####[facility] [address] [place] [address] HEMATOLOGYOrdered By: Shanell Lorenzo on 12-30-2021 Sed Rate Automated 17 mm/h Normal 0 - 19 mm/hr [facility] HemeAutoSS PSA Totalon 12-30-2021 Prostate specific Ag [Mass/Vol] 1.1 ng/mL Normal 0.1-3.5 [facility] Comment on above: Result Comment: The concentration of PSA determined by different manufacturers can vary due to differences in assay methods and reagent specificity. Values obtained from different assay methods cannot be used interchangeably. The methodology used for this result was chemiluminescence using [employer]'s Access Hybritech PSA reagent. Performed By: #### 1 [id number], [id number], 5552628, 7075458, 2357608, [id number], [id number] ####[facility] [address] [place] [address] Sed Rate Automatedon 022 Sed Rate Automated 17 mm/hr Normal 0-19 [facility] Comment on above: Performed By: #### 1 [id number], 62368007, 1811521, 6528623, 1851831, 49939371, [id number] ####[facility] [address] [place] [address] TSHon 12-30-2021 TSH Qn 1.70 m[IU]/L Normal 0.34-5.60 [facility] Comment on above: Performed By: #### 1 [id number], 13720897, 7664277, 9519283, 1260742, 12540491, [id number] ####[facility] [address] [place] [address] XR Chest 2 Viewson 2 XR Chest 2 Views Exam Date/Time: 12/30/2021 07:20 EST Reason for Exam: R63.4, ABNORMAL WEIGHT LOSS;Other (please specify) Report IMPRESSION: NO EVIDENCE OF ACUTE CHEST DISEASE. FINDINGS SUGGESTING CHRONIC LUNG DISEASE. CLINICAL HISTORY: R63.4, ABNORMAL WEIGHT LOSS. COMMENT: The heart is normal in size. The mediastinum is unremarkable. There are mild pleural and parenchymal fibrotic changes at the right apex and minimal at the left apex. There are areas of hyperlucency in the lungs, with the possibility of emphysema raised. There are streaky atelectatic or fibrotic densities at the lung bases. No consolidated airspace opacification nor pleural effusion is evident. FINAL REPORT Dictated: 12/30/2021 8:21 am Gagan Colindres M.D. Signed (Electronic Signature): 12/30/2021 8:21 am Signed by: Gagan Colindres M.D. Transcribed by: JACKIE Technologist: FRANC [facility] Coding Summary.on 12-25-2021 Coding Summary. CD:[id number] Gh0 bWw+PGhlYWQ+PK9TPYTsV62 eeZVuyX3IQ9hNYP1ZMTBIWO HRYX2TBF0kgUH4SOqaE1Ljy iAv ClmpfDXkJN33JTc0NHS0eWn bALlfvY1dyKUoJ1n4InTcWC 86vH84BRnvOBMsBcD2CtPzy jsgbWFy H7ydNqGepINrUvi+PHRhYmx lIHdpZHRoPScxMDAlJyBzdH ekSX9aDn1mKZTkPBZgmFxqe HNlOiBj r4cjYYZsCSrdII8oiXmvX7Y nhQG6VOJbe7b0Ce02pOK+PH TjGAF8vTvlNIssz775WiPxd 4icUNP6 aKKhVRqfKOI6G32uu9V7SCL qAWBoNXZ7cEV9aX0wqGiwzw pvG1RmqZRbWjM1QFN3bNHkk R3nuFih rhsvrW2xOle+M03NRQ8LWWM WPH8JPhe4S5OfEupvbPS+PC 09DOEqDO88aNYlaJRzu4tyd Yc2AlJm MGQyRJQ1sCinVChqh2OhTHD oB16phCDub1D6KHEadYdzvX MyOgVqaMK3vE4vCDscjxwdg 2hvdzsn Zxgkg4lwci94yF14G91gQOt lTYWzEFI1NPTbTUSptDipod 0rcE5cLb1+RJrfs9ino9tti Kc9XpFc QYNfjyVnpAlcGJF6n9GrHy0 3D2AomRtqv1IrGsb9cv90uU Ies6G3iVO2OHwjLJDhlQ7sX WxlZnQ6 UQYxDrDqwN21lIFyXKreYh6 uwNuakPmxFD9tJGScuvwsYC DtgA4uRFSnoOMchDyrTR0vJ TBpbjtm j383PjUbLYI0DITqzDYiV9X rhT6uSuKvHXZhAXYbT6IbmH HtNOthL826MQdvLwP3TTYpu uCxX1Yf GYGurJxpUlB3s6B6Ke3Eq4I wgqdyOLW6BTipZHYpOlSpZp FnMuY3C7LbTks1MKPhaTivR F4qS0Ce YUNqsfhgbszigAL4JWGgFFV iaL70lJAhYOyiLg7pa6R8w7 34DPEoEYQbfZ42Cx5wwDshS TBwdCBU uF4vykmqu9zbqplzGpMlTIL bGEg1PVh2LCDraPrsXaXwKS Z7XmI6JYV4fZPixB6ezPsxo lcjtP3m Oyc+S45mpW4fZQN1UHQ1tzn lYNGtqlVnKQ16TS49K5OmWv wvdGFibGU+PGRpdiBzdHlsZ M2bWdQs p8huu7ExMBzzJ2QbXGNxHFx oMbu8MUFqEBE3eBT3uC9uQX MkXOpwt5F3rUY1D9GlxrAos z3tz8wk QWVcJXesM63xwRVxz0J3PVQ khJH6RIYhjEslUgSgnQ42Mz c+ZESwxMbcv9XlTcnjc4vhf 7jrmEx1 DpTzDOVupkBliGgpITB6p9L vSp04E62aZUgwMEVmUHUpOI GfCXSziErybh5lnB6eRy8+P GNvbCB3 yHO5cW0gQXAqHlM2HKgyJ48 5HnGfwVOyNhsdn8wpo7xsdP k2ZaRtKICuziCikEbaWYF3f 9XgIi81 P26xAWpmNCSzUKMjCZWnYWR rzMuxfy8ocQ7bEj2+PC9jb2 pith35wA11yIU+ZDZsUEB1c WxlPSdw WQAcuE5lEXlmVuL3WAUpQhB lmD84eYHtBOlkZu6hhJgciR abEX9yJCCxccomi534RtHgb 2xkIDEw iGXaCPhyXZR6F79ms8X0TQK wLCCvNZF1cVS8uU8ufMgbow ogbGVmdDsgdmVydGljYWwtY ShyQ342 IHRvcDsnPlBhdGllbnQgTmF hGRt5B0CoEoz5OFTpnHevCY 8dkSTlILvyOw7ryHpjeVdxQ P2aOHCo jgmia268BqCvu1lmJDDwfAR sIXgvFWF5Q80dc2F0BLWmSC ZmNSN8wMN8sZ2fuOscccdmo GVmdDsg umPhtStkSSmnETvaX998LKA sqNmdLqGuuhZtBAOkaMB6OB 09UO12gCFpk6W5kIP6W2LaZ GRpbmct kqoklFW4XKQnKYNoqM88Bb7 ajTnlSm7bMNSzXJD0YRQqaW WtF1KcnP6eOyZlOHFnVXKyF 3RleHQt TBflL956YGepTeK0KNXrerV qY0BgWSXjvZuvCiO6x1B9Bf 9BD4D3VV53ZV31vNJbk8C1u FY1X9Vv OCFbnyvvqdrqoRF6MFRyDTQ gkT00Xu1emSodWe2pRZZvOT Y5AGLnbOSvD8AadE1gRoXzT DAwMDAw V0JvgTZpJRrbV039KKnpAnT 4JGXopuShT4AhCVVzdYqxRc O5x6C7Iw9BXOw3TE86HB36x SYlq8N7 dUB1H8EwDMXemcuthqsntYZ 7IREtYVMjsE62Yg4utGfvYd 2fETGkRVC8NSTfeKFjO4Qrd Z6eTcYa GLPwMAQfU3FiwLCnHBdkW66 7WNoxJoG2SLUomoQwR6ClXY BcgLqrWeD3k7C2Bw9WOXUcH Y14AJL9 sFE9GJ05LO94R0QyMswnvFQ ibGU+PHRhYmxlIHdpZHRoPS mjUJUjKdDndVuuVO5tJu9tQ GVyLWNv uHcwdBWjApCwn5guKMUnSWx aLN5yaMtiA0YhkIF0UUAop2 a9Hs49V21mK7AyuUL+PGNvb NT8rFG8 tD7nOuOvUqG2KZxhA779GrN wyYZpPgqhs3dwg2jqfFn7Rz I2MOWxdhTguWibNYB5q6DhX g74I49x IHdpZHRoPSIxNSUiIHZhbGl gwz2pdE5bIm0+CTSjyHX9cH S7nD6wZlSiScE5IZrnW985U nRvcCIv Qxldo9xjy8yjrMl5JaXvGIC nfaRrzQnpICF9i7HtSj79G4 BzhRqks8VfErm3kx40qYQsr 9O7fWD6 I6UdPRQfqfbfeBBwdOpjKK9 cWGNdxdaaFZUgjV9jOPMiK4 o8XvRoFbW6JCbsA2CoylK1A DEwcHQg HJqzPYE4R15xt1Y8JQSeEOU lCPS7cSM9hG3dhPmkzhrcdF VmdDsgdmVydGljYWwtYWxpZ 246IHRv mKixPJYpmK4sTVDxmVDqdOk uZT7mHOSfthgjBhYNJPMYXL 4rHTiYLL8kRNctaAS+PHRkI JC4pGtd IViqCOHwxO6mPVDjC0m4MpP iLbQ5QUpuV0FhZHRbgksdJv 44sP0fNqToIkW8WStbF7Gxp uS5YKRc gJJqJCsnWUV7I90om1P8YBA xVFTjJFM7dUU0cF2ecUbeck ogbGVmdDsgdmVydGljYWwtY WuyC048 BOTarCasVbI7UhJ7OnF8UYI 0A9AgYwm8WCYieKugCW5vgH InWIzhGo8veVmjzTvzXN4cK TBpbjtw SAYftF5tGTBfbFWhxVxbNJ7 xTWHqyfbyq771UkPwLOA0ZO BtwIOzN3CakF3tAiHeOUBbG BUlV9Yk yDRqOVcrP634SZoeUoA1QOU zdpSeL1SiKRCfcNbdAcU8m0 P2Sv65TRYDJIPcsohxhKX+P HRkIHN0 tHzeMGkyMUPjjW7cUEChX7m 7UrEtSdX3EYetU3AkWCUogz dcFp52nQ4cMfGqMlD4SIzaK 3HyncU7 FVUbfENmSYffEZZ7N24vc4Q 4PIPuIZWlTKN7mJJ6cP7xhV lnbjogbGVmdDsgdmVydGljY WwtYWxp V992VNQpkDtxTg5iiCP8G2T tZdl0WNGodGdqBK3nlNCxVB tjVj7ltNqzsPjeWG3nODTyi jtwYWRk yF4uKPQdvJLoxHepWG9sFWV iyduay224WtAeEMB6ICMiaL EcY8LzkZ1lYdJfAHInLVFrY 3RleHQt GYoiI183SEkbMyF4ZUKctvS uF9FgBVLgpWoiOpO5n4W6Rp 7ZrQOxCEDdPC73YY77NT20X 3RyPjwv dGFibGU+PHRhYmxlIHdpZHR mAPikYJOfXmVhnXszST7fFl 9yZGVyLWNvbGxhcHNlOiBjb 2xsYXBz OZsqFH9rsNkgF9SicGK5QQS kg8y3Al59U66aI1JadUJ+PG MqhYU7fAU4uO7kBmVfYnM2D BozC925 RqIcqWZwNkimx5srk1sglJr 1WhOoEYDejaHvzAfyWCR2t4 FvWq64A31lOJcuAAKbCXMfY CUiIHZh tGctfp7yrP4mMg3+PGNvbCB 5jPD3jY1nAvGtXeM0RKiaR0 91IvEuaUYkEcklG97tZ3Rnz XA+PHRy Xmp8ZFIbyHsoOA4joWBdXQg xBx7sZRA6NtCjGnUdRCuoW9 VbGAVmzjwxdhkvpQF1YNPeD DUwaW47 Xi9xnEecCq4bTBPwSLK0CUL moWMyW5WxnG7zLyOoNPStQZ JaA9NsuXObEXadT187QDruO oY1BOAi efQuG0ZkVNMkcQcyNnF3q8O 6Pb5YzMaogKLyEQ8qOnUdWW o3K0XuUan6BFMyjQizOW4iy GFkZGlu Ln1vnHzxxUpjGL3kDDZmmhw fq017KsWmj3doMCJmrJAeNG ewWJE1H93su4P5HVZoGHChB PE7iIK0 eZ4mkAiuykbqrLAfqOunahQ orTnxZGkhSKwxY302KLQsaB daXdAOLwo5G9OnHvd6DCIxr RndLT8r zKIkSZilSm2qkXbtjFkmYY3 hLIYejmbxs371JlWkl4jrEJ KvrXItJUquUZE6A57bi9A9K CMwMDAw XUJ3cQC8mZ5xjFhzxggqwJE mdDsgdmVydGljYWwtYWxpZ2 27MFJtoEcbDn2ENxu7A3CpU xf2JDIy rRhuVP2obAHiUCouBp0rrTj weHpcSI0yOXMzuwlsm556Te Ezl3puFZOmnFQbBUovJNZ0O 09ut3D2 HWAtWRLkHAL1mFU0oU7eqMe nbjogbGVmdDsgdmVydGljYW ixHJjiW850RUGrbXkqUpMwx WVyOjwv dGQ+AR37yu73X2KgAjzfPbu 6AKDrSVD2lKB8fG2nPCXhKF lrp1L8aFV6R2AtwkRles2vc 2xsYXBz ZTog (more content not included)... Normal [facility] Ambulatory Visit Summaryon 1 02-23-2021 Ambulatory Visit Summary MARQUISE MEANS :1950 Visit Date:12/24/2021 Ambulatory Visit Instructions Your Diagnosis Weight loss Elevated alkaline phosphatase level Abdominal pain Your Care Team Attending Physician - VAIBHAV CERON, [place] Primary Care Physician - NAREN CERON, SARIKA Anderson This Is Your Medications List amoxicillin-clavulanate (Augmentin 875 mg-125 mg Tab) methotrexate (methotrexate 2.5 mg Tab) omeprazole (omeprazole 40 mg Cap-DR) tramadol (tramadol 50 mg oral tablet) Procedures Performed Colonoscopy (12/05/2021), Esophagogastroduodenosc opy (12/05/2021), Colonoscopy (11/03/2019). Discharge Vitals Heart Rate (Peripheral) 71 Respiratory Rate 16 Blood Pressure 121/74 Height 184 cm Height 72 in Weight 61.1 kg Weight 134.42 lb BMI 18.05 What to do next You Need to Schedule the Following Appointments Follow Up with VAIBHAV CERON, LEEROY Rossi, LIZ When: In 2 months Where: [facility] [address], [place] [address]- You Need to Complete the Following C-Reactive Protein, Blood, Routine collect, 12/24/21, Order for future visit, Lab Collect, Weight loss, Not Required, Print Label By Order Location GGT, Blood, Routine collect, 12/24/21, Order for future visit, Lab Collect, Elevated alkaline phosphatase level, Not Required, Print Label By Order Location IgA, Quant., Blood, Routine collect, 12/24/21, Order for future visit, Lab Collect, Weight loss, Not Required, Print Label By Order Location PSA Total, Blood, Routine collect, 12/24/21, Order for future visit, Lab Collect, Weight loss, Required & Missing, Print Label By Order Location Sedimentation Rate Automated, Blood, Routine collect, 12/24/21, Order for future visit, Lab Collect, Weight loss, Not Required, Print Label By Order Location t-Transglutaminase IgA, Blood, Routine collect, 12/24/21, Order for future visit, Lab Collect, Weight loss, Not Required, Print Label By Order Location Thyroid Stimulating Hormone, Blood, Routine collect, 12/24/21, Order for future visit, Lab Collect, Weight loss, Required & Missing, Print Label By Order Location XR Chest 2 Views, 12/24/21, Routine, Order for future visit, Transport Mode: Ambulatory, Reason: Other (please specify), No, Weight loss, pp_set_radiology_subspe cialty, Not Required, Rose - Amrit Medications What How Much When Why Instructions New amoxicillin-clavulanate (Augmentin 875 mg-125 mg Tab) 1 Tablets By Mouth 2 times a day Abdominal pain Duration: 10 Days Pickup at [facility] [id number] Unchanged methotrexate (methotrexate 2.5 mg Tab) 1 Tablets By Mouth Every 7 days Unchanged omeprazole (omeprazole 40 mg Cap-DR) By Mouth Every day Unchanged tramadol (tramadol 50 mg oral tablet) 1 Tablets By Mouth Every 4 hours as needed for for pain Pharmacy Information [facility] [id number]: [address] [place], [place] [id number] [phone] Medications and Immunizations Administered Not Given influenza virus vaccine, inactivated, Postpone due to refusal Allergies No Known Medication Allergies Problems Ongoing - Any problem that you are currently receiving treatment for. Black tarry stools Change in bowel habits Elevated alkaline phosphatase level Family history of colon cancer Generalized abdominal pain Normal [facility] Coding Summary.on 12-24-2021 Coding Summary. [id number] Gh0 bWw+PGhlYWQ+MV4HDVHqV83 pvPNwzJ9VM5kXYD8CDEIOLB UJZD7GHF3csQX0WMdgO6Nzf iAv QtdblVVvWL21WPo8FDK1bEf tIIzjlI6jdNUaA1e7AkCePJ 83sA21NSvrQWJcWyW9SkBib jsgbWFy S5xpDdFivUAfRcs+PHRhYmx lIHdpZHRoPScxMDAlJyBzdH hkIS6cOd5yCFUjDYKjlMxjh HNlOiBj o5yxELOoQPlfHJ7xeZeoE0O fiYT1OEIbs1x0Sm80uVD+PH QsHGQ4pHdcRQfxv341MbRlc 4rnSKS4 aORxYMeoQGQ2N80bc9W9CXY cBHArYEV4uWY6uN5bvWeggm qyM8ThcJMuAnP0HAC4zKUwy P3zxYit kzgvwX4hFbv+D25LZK1JLKJ SRT6QOjj4G8JtJopodGV+PC 25ULTtJG26bHOtnCSme7sga Be5BgEw OYShJDY5gKkaEKtuf9MiMBY zS78abUUmi7J9BBCbmLplvJ XyIoGszKO3zB8pBSonjximl 2hvdzsn Pbots1emsd19nK88P18wSNg zOUVpZDK5IFAeDDZxgQzfyh 1dfX2dUr6+KYohs1oui9txa Rh9GxQt UHCvsyIrwSbqPZT4k9BwIx7 9S0EtgQcru9EnKxc0ir14qT Rxu8K8sPA8QOovYYJmtY3tZ WxlZnQ6 GXNeQlDteA13dNGvPDlvFv7 xsPpchJolXD3gPXKfcydpQH IqwA7tXKGttWQuhLwwEH1iF TBpbjtm b649XtFyKGB9YRKbuHMlP2S sdQ7mZaMqYZDxFSEyH9CfwC JfYRahR979HKjvVyE6KGYlt oIfZ7Az TEHsvFjdXwL5x0T6Kc7Zw9D tvliaGAH7FNnxEHCiOrFuBd WqKtZ1J0UmYmg4WVOucOhxC H5fE7Hx UZRltwzpzlgnrOW2ULVsZGH faH00dMEnYPbqAq4gf7Z3d2 22XAHtFTUfpC65Bb5bwZhtM TBwdCBU nK5rylvom6tylvbiPkIqYHY zGKc8AHl3LVFdaZpqOgEuCH R0DbX1HLR5yWOneA4joVadh iwmqF0a Oyc+W83lyT5yLDY9FJX4jqv fMMSyvtTcSM16EJ75G7RgHc wvdGFibGU+PGRpdiBzdHlsZ Y3hVnXr v4yiv0NhNHsxJ8TtEJQzSUa pQvi9MHVkSAH0pLU4qG5iVG KiGGfva8P5cPP4Q2YeklRjn j6ni5lx NMHhFHabQ31oeROrw8I1NLI ynQZ1DDQohYesWaQqxO90Zp c+IJGcnVslt5LjBylzk9sek 7xpdIn7 KaUxQZZomeLzuXceQZV6z4P zDv03X50rMJylPNRtKJTwZG WxDHEatAievf9gfL6hSh9+P GNvbCB3 uIW5kB1nTBFeDwV4GNixU42 3IiFisZItZtmsp3wpm0xcaO f9VhBxMMChaaVzvRauFVD9u 3YyZs99 O22tURguMRLjZYFhIFJjUML jwDgjtf5vhD7bUe1+PC9jb2 ueoe48jX07zPZ+PXWrGZK6z WxlPSdw FZBgjV9kOKouZgQ1SLQlZhY exG42eJOtOJebXf8yfMqbuA vrCY1dXOPgupewz860DiEhf 2xkIDEw fQSrKFkwGLP9S18tg4B0ODY aQYDxWLN3rPL2aZ5xwOkqgx ogbGVmdDsgdmVydGljYWwtY OsdF521 IHRvcDsnPlBhdGllbnQgTmF dTHt2G3RlQjw9KVSotHcyJX 7adJRzYTtdVn9snBubeItoG X9eYOPb ntncr083GlEon8ayVBFghPD dCPzhRXL8X71xd6C4YWRuZF RnKPT0rRX6vL9ilWlnzoffr GVmdDsg dpCckKioKQmyFCtmZ476ZQD atQmwVeBxgkYgGDQsaEZ9TY 51FC99kFQns6Q8bKA0A5ZfT GRpbmct ennilTS2HSZgCUGkeK02Dn8 hbXrgDi0cWPWzLBN2YDNtiC LyC2TtlM2tZlFmOBOgFURiQ 3RleHQt DCznL632WSkaXzQ0SFFaxwI iS8BjIYChpSvvJnY4m2I8Li 7NW3X0AN13SC17yYGwm1U6i IM8T1Ky QWJrynjlxrxqiDY8IHGqTZO ebB31Mb8cgPpnZa7xSZJwJH A2IZRcuARlO7EhsF8cNrHsH DAwMDAw E3CptKFkZHwjH935NFfbMfF 3TTSefaMrU8BtNKRgtQlcOz W9n7V3Ri0SWBx5HC89OH74o ZNbk2Y7 lXB2M5YtLBCbkqpssoyjxAH 9FEQwSDIgyK43Vf0cxJxaFs 7wUJRiORS4QSVaoEIhW9Zda S9jRiGe HJNgXGRpA2HckSKpECnqS97 2QUxbIaC6KXDrikQsW7FtVL YkbCiwWhV9k0D3Ym0DBYVgJ N48GMQ6 tMW4QC82UE80Q2BdTrmggDQ ibGU+PHRhYmxlIHdpZHRoPS ipDYDsFmSsgStiRL9tOj8iP GVyLWNv pBmzwXZbFoLvb0dqOVBfLXa uWF4ecYynX5WxzIQ8XAIsn6 a2Ru30U00oN6QnlEA+PGNvb PW9qEB0 nI6fXaJvEwS7UWrrH494QwH usQXbIsndi3bsa1oijAd1Ix V6DKTukrYwfDnxSQG4d0JtG z23V39y IHdpZHRoPSIxNSUiIHZhbGl zhu4okE7sRv6+FKAnqUU4dL R0wK2pDwOvOeO4NWrjT705F nRvcCIv Kqmhe1vyp7nuiVy5JlFvPWC gjwKrzEebSDI5w1DdZu29A5 TfeVmfw4PcUpi7eg16eAYrl 0H8eVR7 L5OyVNTotihchRMqaJirYA8 oOBHuhwagMUQygY9tFTKoV8 t6ThEsXxH6KAolV0CwbtX9N DEwcHQg RSyzEKC4Z05rb6P9LFLtCGB jJRM3oHY1vX6poMwgguzstI VmdDsgdmVydGljYWwtYWxpZ 246IHRv kIksNXUqjS7xUYYlpQDcmBe nDG7fWLSauuubWaVVTZJWUS 8cFQcIGY8cUFkutPN+PHRkI LL6oOey HTyfWUPmrN3qJMVvB2c9IjC eYqN3CVyeJ9OnNIZvdhavYg 44fW1jJgZwHzJ7ZEqbQ8Lie uU6RZVw zDItXQluDYD1A05pm7X0AAM wNSBzYGD0vAX1eN0twTjsub ogbGVmdDsgdmVydGljYWwtY RrgL102 OVBpyJkvJaQ9PvV9NkP8DWO 1L9PcFgn3UAAwhPuwKI5nqY UvGVmtPl8bgZxyoJohHU5rX TBpbjtw QQKivH1fSCHcuLOcqQkeLZ5 lEOXcocbte725UdGmZGN7WL TtkRYwP9JpaN8tNfFyOSOoB ADhY6Gw tIKfPPgkE139XOiuVpL0TIL vjvVpA1LbOZGbrVwrXgP8h0 F8Vc51NUWEWDClekqaiKU+P HRkIHN0 oElgJTndVBSsfZ2mKSWvX3j 6PwQvNmX4BQyeR1TmKQRisq pbHc00pQ6bMnJwWiZ5OJygI 5EkziQ8 NENqyCPyIIclZSP2C07wb5D 6PDIpRGEeWQI2sVR1cH8trH lnbjogbGVmdDsgdmVydGljY WwtYWxp U442YWAnwNjuHu5rtQL3Z5J bPuc0KBCmzGonTG0gzKBqQZ ryXo4zaYhngFixBX4wQCTsa jtwYWRk oF2tURNpuGSyeEbaHO1dDOO gwfzeb598ZxTbKFD3MLAoiT CiO4ZmdD7gXvBrYTJiVGFxT 3RleHQt HPugG068ZAohUmT4PRRoqkP xE8QpDMGenAhrWxY0t6P8Lv 2EaVRjAKOwDL62CH32BR41A 3RyPjwv dGFibGU+PHRhYmxlIHdpZHR wUYkhUPCbSfGilPhsHY2qLz 9yZGVyLWNvbGxhcHNlOiBjb 2xsYXBz ZSrrPF7mmLgpB8YasCR4NSQ jg4u4So09F57dI9WtpSE+PG MbfKP2wVL7tA6pCzUqZxO8W UqlX866 CdGdqDHkGdxyx6ijf3cxcDn 8JvTrDHDvoiMluAagYIO6q7 YvCy88U72gKFakCZGxUEWmE CUiIHZh qNmsfr3lvO1sQt7+PGNvbCB 8aZN2mY8nLbTzXtO8IEdmE5 32AdYjoHHfByjjG80mS4Pdl XA+PHRy Pwd7FDZvfPorDM1tdSFlXFo xSg5kBRJ4SgIsYhPvCSyqR4 AzTNHumvptsfvepQX6OYLzZ DUwaW47 Kk9oeJyyHx5wXGJyBQG8WZC vaJUvT7CcyU1aTpYkVXKrQZ ZfJ9LnxJXoVHwqT587AOxhB dY1VYHt kqFrC8TjAQXbeKnkLvS9a8W 5Ps8IgOpxbRYzKG5wWdYcWB c6I6ZtVpd4OXUgfHowZB0pt GFkZGlu Tw4dwWjbwXfpJY0eEQTttcy ft494PcMjp4siNJIyhXOrBI mqNKT7U74ls0U9LSPqJQCyA UY0rVZ2 zY6hyCcyvqtccDOjkFbqwlT rsTyuOJwlXKgdM593GQJonC iuDgWLOhs4X1MkAql3VTCzh UooHI4n qQNoHFmePg6vtVqzjEmhQO7 oCXZwqprrr770PiGin8bpKK OptLAuSVgqLRX7T49yx9S1J CMwMDAw GMB3uNI7gC2jhMpcriyguYR mdDsgdmVydGljYWwtYWxpZ2 02FCQtdCieZq1HIpo8Y5TfB qs4OUGb gBtmMA3lhENiVMeyIj9cuQm joIfdWG1jOXDlyvhgg136Tm Bhn4zvWUHanDStRFuhWBW4S 33it1Q9 VIDyAUWgMOX0yOX5jI2nlFi nbjogbGVmdDsgdmVydGljYW ggCGcaW095FXIgaNuyKnVar WVyOjwv dGQ+ID26it84S8PeOgecSzq 5YOUsOKW8lDH7kE3xMJOkVB ith6G3hCU0W0ZsuvJnvs1to 2xsYXBz ZTog (more content not included)... Normal [facility] CT Abdomen/Pelvis w/ Contras ton 12-19-2021 CT Abdomen/Pelvis w/ Contrast Exam Date/Time: 12/19/2021 07:34 EDT Reason for Exam: Abdominal pain, acute, nonlocalized;Other (please specify) Report IMPRESSION: POSSIBLE MILD SIGMOID COLITIS. OTHERWISE NO ACUTE PATHOLOGY. DATE:12/19/2021 6:57 AM EXAMINATION: CT Abdomen/Pelvis w/ Contrast CLINICAL HISTORY: Diffuse abdominal pain Abdominal pain, acute, nonlocalized COMPARISON: None available. TECHNIQUE: Contiguous axial CT sections of the abdomen and pelvis. 100 cc of IV contrast administered.. All CT scans at this facility use dose modulation, iterative reconstruction, and/or weight based dosing when appropriate to reduce radiation dose to as low as reasonably achievable. FINDINGS: Liver: Negative Gallbladder:No signs of acute gallbladder disease. Spleen:Negative Pancreas:Negative Kidneys/adrenal: No solid renal lesion. No hydronephrosis. No renal or ureteral stone. Adrenals unremarkable Bowel:There is some bowel wall thickening involving the sigmoid colon suspicious for mild colitis. No signs of diverticulitis. No free fluid. No bowel obstruction. Appendix:There is no CT evidence for appendicitis. Nodes:No retroperitoneal, mesenteric or pelvic lymphadenopathy. Aorta:Negative. No aneurysm Peritoneum:There is no free fluid or free air. The abdominal wall is intact. Pelvis:No mass. Bladder negative Bones:Skeletal structures unremarkable. Report Lung bases:Minimal dependent changes/subsegmental atelectasis at the lung bases FINAL REPORT Dictated: 12/19/2021 9:50 am Elvin Hair MD Signed (Electronic Signature): 12/19/2021 9:50 am Signed by: Elvin Hair MD Transcribed by: JACKIE Technologist: SORAIDA Technical Comments GFR (mL/min/1/73m2) >60 Contrast: Isovue 300 Contrast amount in ml's: 100 Rectal Contrast Given? No Oral contrast amount in ml's: 900 Normal [facility] Consent for Treatmenton 11-23 Consent for Treatment [id number]#1.00C D:127 Normal [facility] CHEMISTRYOrdered By: SYSTEM SYSTEM on 12-17-2021 Creatinine [Mass/Vol] 0.9 mg/dL Normal 0.5 - 1.3 mg/dL [facility] Remisol GFR/1.73 sq M.predicted among blacks MDRD (S/P/Bld) [Vol rate/Area] mL/min/1.73 m2 Normal >=59mL/min/1.[address] [facility] Chem S GFR/1.73 sq M.predicted among non-blacks MDRD (S/P/Bld) [Vol rate/Area] mL/min/1.73 m2 Normal >=59mL/min/1.[address] [facility] Chem S Consent for Treatmenton 11-23 Consent for Treatment [id number]#1.00C D:127 Normal [facility] Creatinineon 12-17-2021 Creatinine [Mass/Vol] 0.9 mg/dL Normal 0.5-1.3 [facility] Comment on above: Performed By: #### 2 [id number] ####[facility] [address] [place] [address] Physician Orderon 12-17-2021 Physician Order [id number] [facility] [id number]#1.00 CD:127 Normal [facility] Physician Order [id number]#1.00C D:127 Normal [facility] eGFRon 12-17-2021 GFR/1.73 sq M.predicted among blacks MDRD (S/P/Bld) [Vol rate/Area] mL/min/{1.73_m2} Normal >=59 [facility] Comment on above: Order Comment: Order added by Discern Expert. Result Comment: eGFR is race adjusted. AA=. Performed By: #### 2 [id number], [id number] ####[facility] [address] [place] [address] GFR/1.73 sq M.predicted among non-blacks MDRD (S/P/Bld) [Vol rate/Area] mL/min/{1.73_m2} Normal >=59 [facility] Comment on above: Order Comment: Order added by Discern Expert. Result Comment: Tool Filer Hand kandace kidney disease could be indicated at eGFR's of less than 60 mL/min/1.73m2. Kidney failure is indicated at less than 15 mL/min/1.73m2. Performed By: #### 2 [id number], [id number] ####[facility] [address] [place] [address] IntraOperative Documentson 1 IntraOperative Documents [id number]#1.00C D:127 Normal [facility] Postoperative Documentson Postoperative Documents [id number]#1.00 CD:127 Normal [facility] Coding Summary.on 12-09-2021 Coding Summary. CD:[id number] Gh0 bWw+PGhlYWQ+IK1YZXVfY10 erZFcsI2JY7nOKU3DMYQSQP NXGR5RDC4yhDC9FTskJ5Dbk iAv AvytdDHfJD89ZWj3HVL3wUu mYRcqbK7xrDFrA7p0GsEbLU 42fJ82QHzkIPPgSgU5HmUnh jsgbWFy D9djXhYnhQCcAym+PHRhYmx lIHdpZHRoPScxMDAlJyBzdH elZG4sBw4dMSSdBZKasWmro HNlOiBj h8uuZMReLKxpOF2hhBmnF3X ltNZ9ZXScd7w2Uh38fKO+PH BoIVV6yXdfRFzru529RiAbw 4oaTQF1 xDErRScfSED0T67od8Y9MFO kLTSeMEA2uNX4kJ0hjQgqdv tfW0EcaZFaJrH5JXB1aWYqb J6gaHyt tnfxwH9bTje+W47HHA1JZQR NSJ3UWkr0M2CmBuappYT+PC 69ACWgTK81tDBnkPGmj4cqb Rc1VcCh OOWmPGD2eDmlIPncw2FtBTZ qE55siBJjm5X6MDSkbLbnmZ EwCnLgbPQ8nB5kPPjlrunsb 2hvdzsn Zpmqn7qcnf21nQ68V11mWZv nQJKzOFF5IJIrWUOqdLvdxa 9sjK6sJx0+JGgxv6grs5klr Rq0MkSe FKBjpnTccVlmSYI8r7GeVo2 1O8WzvMfot7RfTme8zg21pI Xkh6I8eKI6VLrdSODziU6iL WxlZnQ6 UXRtLvXmxV04nBRqUAmdVb2 pyOaqhCllMV6qMDSfrnlwTB GfzK5nATXqmELxtYblEE1sJ TBpbjtm x268HlGqCGC0UDImvAVtR7Q mwW4pRuZkRRRtUGBxI3MenS VvWWbzG804EYssOpT2EDFts iFeX5Os HZXvjQhpJnG5a1Q7Wk9Hc8O dvrtsWVA9WRukVXLqTrK5No OjPdB4G5RrRlk6SGCjtKtrA E5wZ1Uz NMTapltipevnrGG9IEPaUHD ggN47sHNnJJfkNp2vp1U3f1 37TJAxNORpgJ20Ug4vpKpqC TBwdCBU zN2dwwbgi0ljqypyOhOpTHH qLJu5WYl0CLHobFrhTgIfPU K0BbT7TEH1gIGrmT7jfZevq pjndF5f Oyc+N66qgM0qTSF3UDA4iew oCJXaoyWaKI53XB93E1RsWf wvdGFibGU+PGRpdiBzdHlsZ C1uIbXo y8nru5EnHPuqN0OyXMTsSLw mZib4JSWvNXF1nXA5aO9rJV RhPCxay0O7yGC1N2QfwmBij o1yv9jr CLLbOArgN84pvDJmt8L5LNW dbHU3RKHsaEjjIsWgwB70Iw c+GCGepHuuw7AmChajy2vgm 8bcgAs9 CxVzONYnagJehEcqNXW5c9U nNk76X62vHQvvRNUpAZBrCF RvVENenDwrtv3uqK9tMg6+P GNvbCB3 sDX2nO8yAKUgBeS2YQrbO01 1WnPzvXIjOrjdp3njp4bxmE k3HiHmZBPmxpEthCreZKQ9a 4ZfXe07 Q88uBFvhSHUgJMIxZHEbKRW grDvqfb9ytZ5eVw7+PC9jb2 aoka11qK79kNC+PVHoOXB2b WxlPSdw KZNxjE7xLBlkRcV7FLZnTeI eiF39cHGiUHdrNz3fwHjneS coMQ4zRQEizxutf879UlGlb 2xkIDEw vEOmLEjsZZE5D55fy1G9ZKH uEVNkZII8eEM1sQ3cwWoukh ogbGVmdDsgdmVydGljYWwtY RtiM207 IHRvcDsnPlBhdGllbnQgTmF wCDc7R1ZuUaw8JAQgtVuqGW 6nkUYbVPxdHi3hxQcrzKudY Q3kIUAs sdsyr992BrXog0vtZVOrxIY gZHdzSVO8Q34ag4E6TUWrIZ ZbMAA7uVA8kA6ysBuyrpgpe GVmdDsg hfBaqWkoQXcrOQyrW411QJJ ydYdyPzNsycJpRLLgzIV3XQ 50BL72tQIyz1D6qEX8P9OtZ GRpbmct jrwthBI5BZDiLOXafN97Xm0 sqPfpDh6nZVAeFRH5KBFilD DdQ4ElwY9qSmEcSLFyNWRxA 3RleHQt ZMteW163XWihAaH3ULFqdkZ nF5YrPDKslEgrDjK9m5N8Hv 2FT5V8VX20JA98fXJns0N3k HC5D5Ts TRIuxagvbhtwqGP6ZUKjMPB rfV24Gb9spHalSi2gCKZvSP P2KLYwuFAkT9XyuR8rKsXkM DAwMDAw H9RtsJIsMUquC513OVhtBlD 5DHRnrjBbD5YcDLEwnJpuCo O6u2A0Vx4FYQe3PE30HE13j RYqh7A6 bWK0T7NzEZXfyfbjjnvfyPC 5SEYoZUUemA96It8sdZimYb 9sUATcOLF5MMPzsPRpN0Izy F8wMfJb IMNrUCWlQ1ScbRSqNYybQ06 8GXvaEbP5FQXdnlMkM7AtNC IpbRplSlH3v6K3Je5MUPNkS B00OJM6 zOW5WF41FP53G9GoWbfxsKX ibGU+PHRhYmxlIHdpZHRoPS epBBQrCbFouWbuXB7tXx1tV GVyLWNv gRvckUWkLmYgb1doIOWfZGq aGU1atIpfF0SkiIV2DQPue0 f1Wz96S64oZ1AozHD+PGNvb DK2nSZ7 eO3pHrBbQkJ7ULebD774NaX dvLTbXvdbm7dsy4lllPd9Bf V7KTDslvEzgSgtBUV0r0PnY v67J92e IHdpZHRoPSIxNSUiIHZhbGl bio7rcG6tUm7+WUOtbHB4dC R1sK4pWqPnAiQ0EPayK275I nRvcCIv Awtpe5ltk3zdrOe8IuHtCZN etrXyoGhrUJK1q2ZtNu25F6 UevEzxw7PlKgw0wj65eTHgh 5V3xON5 W7ViPDGgpbvlfZRpuFwqSP7 aMWPgfqrpSRDdnK5tTKDnE7 i3JpMyYyZ8ZLjoH0KkkhM4M DEwcHQg ELxcJHW6V05sg4T9ZHEyDWJ fRYH2uYO9iZ9hmUxpyaosaZ VmdDsgdmVydGljYWwtYWxpZ 246IHRv gUxrKZGrsH2qDZGcoHTpaGe uUB0hGDBneaofUeCQMRFZNT 0wFKpOBE3hSKdslTG+PHRkI WG1yXfr EFqtCQNdlI0eQRStV6g0UkB jTiE5JPjjO4XqBHPrlzijVp 02dO0bByDqRaL8OIwsB3Clj lQ0YVFk bQHdVUbgHJH3P43ji4W0SXP cNRGsDDB4qZZ4jB0yiMfcye ogbGVmdDsgdmVydGljYWwtY NwjB526 DXKzdEteZmI2IdR3SxA8TEF 4T5FzWpi7SQCrsJruGO6ybR WuKJgdJs8cbBuatUmmRD8rA TBpbjtw RXAyrG5xCSHvbSQuzElzJK3 yQVQljrlza421KoLuGIO6JS CyrKNnJ1DlkJ3dWiHwNCWbY NXfU0Eh bMZxLZlyS422KXvpPaM8KJX latHeP9XiZOVtjKexGaV1b4 F5Os26OKIMAWWywpxxoKU+P HRkIHN0 oTpxDKhuEFUbdY6nFGPfW0w 8JfNvPdL5DRajN8KfQTKbrr fjYq48tP3xRfLeIkQ0MScqG 4MbsfV8 PWCjiMGiDEyeRPB5E99mn2A 3GYLzZIMjSEK9pRQ1wT0zpN lnbjogbGVmdDsgdmVydGljY WwtYWxp S651DTViaIxtAl0mtUR7V4D fPkc3KJExyGshRF2ffRZkMS edJg0rkYansZifWJ9dRJXub jtwYWRk nS0rRNZgqYEylGcrZU8tRSP prjcvt467TtBgAVJ4FPPqfS HtO1IkwB3oPiQkHDJiEPTeG 3RleHQt VFofL569LZeiSkQ0KALfjzW lQ5PbCYBetWviNrK2g5Q5Cj 6ZuJPcXIDlHJ28HM04JA47Y 3RyPjwv dGFibGU+PHRhYmxlIHdpZHR dXOusDPOgHqTyqEdeWO0iVm 9yZGVyLWNvbGxhcHNlOiBjb 2xsYXBz TYmwEF8bvVzdQ1ZjyKE3WBW ve7n8Gu28Q12oO8WfjPX+PG NlgZO0sNQ9oV1wOcAlFwS1R DsdF645 OzNyeZReGbyqp5mok0qjsVl 4PtLmVVZiriNauGqfNBU7k3 VsHy56L90pALehRPVkATYoL CUiIHZh xOqiyr3jnP4vIa6+PGNvbCB 3rWT3qX1qHtJvCzE9SHcmB3 36CqAatTFlReiqH18fV3Nwi XA+PHRy Bcu0TXLizFvzIJ1biPIkTYl pDt9nTJE9OpZlPzPzHKpkO2 LdPROqkjkzuczwvPN2ROCgS DUwaW47 Ma5axEqtBr0qJSBjVJO1KAI amRGrZ9LqfW1nDjKmMPOvXW MvN3QekCGvZAfuB990UBzzQ fL2GUJw arJuC3DfMIVyfZmqGsU7n4B 6Qq0VnFrhjYUhOM1sKxYiFH y0Z9DbGro9QMYckJtbBM0fe GFkZGlu Jh1zxLzlnDlxCW9aMLMkwta el987AjOsv2jwLKPugMYnVX ojKKL9P26kd9F5EJPmOUGxR IZ2oHC3 gK5iuTiplruoyJMbdTrvvtD nbWqcDYyzTHzyN219OSTjrS kwOnDUCof4K5UcZrz6GFTqd DfyQK7z pFHgMLmyMu8ddXcfeRddTB6 bBFXdytxls733SzIkl4nmLC TajINaHRudPDV9P51ig4F3N CMwMDAw HPZ6gOC0vK0gaVvrmlpqnQQ mdDsgdmVydGljYWwtYWxpZ2 20ITJuvZwoPu3SBbq2G6SoR tt1OEGu dTckTW6hyQIvNAukVs4nwSd drPqaQC2wOIFvgjtwt773Jc Feo0kcPYTftFIdISabQKL6L 10fl9H3 QJQxYPPcDRR3bUD3zU1syTq nbjogbGVmdDsgdmVydGljYW nkQMoaW444WNCakBdnNeDaz WVyOjwv dGQ+LS86kn07T5FlCcsgWld 4JJTiUIJ7yQP4pI1cWUIsNE uow3C5gEE7T5ZkynWcvj5xi 2xsYXBz ZTog (more content not included)... Normal [facility] Main OR Intraoperative Recor don 12-09-2021 Main OR Intraoperative Record IntraOp Document Type FT Summary Primary Physician: Enid OCHOA MD Finalized Date/Time: 12/09/21 11:53:35 Pt. Name: MARQUISE MEANS Sary Henry/Sex: 1950 Male Med Rec #: [id number] Physician: Enid OCHOA MD Financial #: [id number] Pt. Type: O Room/Bed: / Admit/Disch: 12/05/21 07:17:43 - 12/05/21 23:59:59 Institution: Case Times FT Entry 1 Patient Times In Room 12/05/21 08:43:00 Out Room 12/05/21 09:08:00 Procedure Times Start 12/05/21 08:47:00 Stop 12/05/21 09:06:00 Anesthesia Times Start 12/05/21 08:43:00 Stop 12/05/21 09:08:00 Time at [place] 12/05/21 08:54:00 Last Modified By: Jaron KIRKPATRICK, Kristen Victoria 12/05/21 09:08:35 General Comments: EGD end time at 0850./MARYJANERN Colonoscopy start time time at 0851./MARYJANE,RN 12/09/21 Chart opened to review and send charges [facility] CSFA Case Attendance FT Entry 1 Entry 2 Entry 3 Case Attendee Asuncion Pérez RN, Lesley Saxena Role Performed Anesthesiologist Pony Ride Operator - Primary Staff - Other Tub Tender Time In 12/05/21 08:43:00 12/05/21 08:43:00 12/05/21 08:43:00 Time Out 12/05/21 09:08:00 12/05/21 09:08:00 12/05/21 09:08:00 Procedure EGD AND COLONOSCOPY(.) EGD AND COLONOSCOPY(.) EGD AND COLONOSCOPY(.) Comments Dr. Kay is supervising Last Modified By: Jaron KIRKPATRICK, Kristen Salmeron RN, Kristen Yeboah RN 12/05/21 09:09:21 12/05/21 09:09:21 12/05/21 09:09:21 Entry 4 Entry 5 Entry 6 Case Attendee Rajani Leos CST, Milli OCHOA MD, Enid Anderson Role Performed Scrub - Primary Staff - Other Surgeon - Primary Time In 12/05/21 08:43:00 12/05/21 08:43:00 12/05/21 08:43:00 Time Out 12/05/21 09:08:00 12/05/21 09:08:00 12/05/21 09:08:00 Procedure EGD AND COLONOSCOPY(.) EGD AND COLONOSCOPY(.) EGD AND COLONOSCOPY(.) Comments Last Modified By: Kristen Salmeron RN, RN, Kristen Yeboah RN 12/05/21 09:09:21 12/05/21 09:09:21 12/05/21 09:09:21 Perioperative Protocols FT Pre-Care Text: Implements protective measures prior to operative or invasive procedure, confirms identity before the operative or invasive procedure, verifies operative procedure, surgical site, and laterality Entry 1 Procedure(s) EGD AND COLONOSCOPY(.) Patient Identity Birthday, ID Band Verified (select at Check, Patient least 2): Participation Consents / H and P Anesthesia Consent, Operative Site N/A Verified HandP, Surgery/Procedure Marking Verified Consent Surgical Site No Laterality Verified n/a Verified Procedure Verified Yes Correct Patient Yes Position Verified Availability Equipment, Medication Prep Dry n/a Verified (If Applicable) PreOp Antibiotic No Time Out Asuncion Pérez, Given Participants Kristen Salmeron RN, Lesley Morrissey Sparks, Micala E, Schafer CST, VAIBHAV Del Real MD, Maher Time Out Complete 12/05/21 08:44:00 Outcomes Met? No Last Modified By: Kristen Salmeron RN 12/05/21 08:54:35 Post-Care Text: The patient is free from signs and symptoms of injury caused by extraneous objects Allergy Information FT Pre-Care Text: Verifies allergies Entry 1 Allergies Reviewed? Yes Allergies Reviewed Self/Patient With Outcomes Met? Yes Last Modified By: Kristen Salmeron RN 12/05/21 07:24:14 Post-Care Text: The patient received appropriate medication(s) safely administered during the perioperative period Surgical Procedures FT Entry 1 Procedure Description Procedure EGD AND COLONOSCOPY Modifiers . Surgeon Description EGD. Colonoscopy with sigmoid polypectomy, APC used with circumfrential probe for sigmoid polypectomy removal. Primary Procedure Yes Primary Surgeon VAIBHAV CERON, En[place] Start 12/05/21 08:47:00 Stop 12/05/21 09:06:00 Anesthesia Type General Surgical Service Gastroenterology Wound Class 2 - Clean-Contaminated Last Modified By: Kristen Salmeron RN 12/05/21 09:07:44 General Case Data FT Pre-Care Text: Classifies surgical wound, implements aseptic technique, initiates traffic control Entry 1 Case Information OR ENDO 1 FT Case Level Level 2 Wound Class 2 - Clean-Contaminated Specialty Gastroenterology ASA Class 2 Preop Diagnosis Abdominal pain, change Postop Same As Preop No in bowel habits, family history of colon cancer, black stool Postop Diagnosis EGD-Normal. Outcomes Met? Yes Colonoscopy-Sigmoid polyp, internal hemorrhoids Last Modified By: Kristen Salmeron RN 12/05/21 09:01:54 Post-Care Text: The patient is free from signs and symptoms of infection Skin Assessment (Pre Procedure) FT Pre-Care Text: Implements protective measures to prevent skin/ tissue injury due to thermal or mechanical sources Evaluates for signs and symptoms of physical injury to skin and tissue Entry 1 Skin Integrity Intact, [place], Warm, and Skin Abnormality No Dry Outcomes Met? Yes Last Modified By: Kristen Salmeron RN 12/05/21 07:25:25 Post-Care Text: The patient i (more content not included)... Normal [facility] [place] 12-08-2021 Consent [id number]#1.00 CD:127 Normal [facility] Discharge Instructionson Discharge Instructions [id number]#1.00 CD:127 [facility] IntraOperative Documentson IntraOperative Documents [id number]#1.00 CD:127 [facility] Consent for Treatmenton 11-22 Consent for Treatment [id number]#1.00C D:127 Normal [facility] Endoscopic Procedure Report - Otheron 12-05-2021 Endoscopic Procedure Report - Other Patient: MARQUISE MEANS Age: 71 years Sex: Male : 1950 Associated Diagnoses: None Author: Enid OCHOA MD Pre-Procedure Procedure Date 12/05/2021 09:07:00 . Procedure Type: Colonoscopy with removal of tumor(s), polyp(s), or other lesion(s) by cold snare technique. Procedure provider Performed by Enid Ochoa MD. Current history and physical Documented on chart. Colorectal neoplasm risk assessment Average risk. Informed Consent After discussing the rationale, risks and benefits, and alternatives to this procedure, the patient provided signed consent for the procedure. Pre-procedure diagnosis: Unexplained chronic abdominal pain. Medications Anticoagulant/antiplate let None. ASA Classification: Class II. . Procedure The procedure was performed in the hospital. Rectal exam was performed and was normal with no masses palpated. The patient was positioned in the left lateral decubitus position and a digital rectal exam was performed.. Endoscope type used was an adult-size. The endoscope was lubricated then introduced through the anus. The scope was advanced to the cecum verified by photographing the appendiceal orifice, verified by photographing the ileocecal valve, verified by transillumination, The time to the cecum was 3 minutes, The withdrawal time was 11 minutes. No difficulties encountered during the procedure. The bowel preparation quality was adequate (see polyps greater than or equal to 6 millimeters). The patient tolerated the procedure well. Findings 1. Sessile polyp, 7 mm, in the sigmoid, located at 20 cm from entry, located between 2 folds, removed with cold snare(required multiple attempts), residual tissue treated with APC given location 2. Mild diverticulosis in the sigmoid and descending colon 3. Moderate nonbleeding internal hemorrhoids Images Procedure images: Rec_hd_video__ [id number].jpg Rec_hd_video_ [id number].jpg Rec_hd_video_ [id number].jpg [id number]_hd_video_[id number]_10_1 [id number].jpg . Post-Procedure Complications: none. Estimated blood loss: none. Specimens: sent to pathology. Devices/ implants: none left in place. Impression and Plan 1. Sessile polyp, 7 mm, in the sigmoid, located at 20 cm from entry, located between 2 folds, removed with cold snare(required multiple attempts), residual tissue treated with APC given location 2. Mild diverticulosis in the sigmoid and descending colon 3. Moderate nonbleeding internal hemorrhoids Recommendations: Repeat colonoscopy:: In 1 year. Follow-up:: Clinic follow-up in 1-2 weeks. Diet:: Resume previous diet. Medication resumption:: Continue current medications. Return to activities:: After 24 hours. Proceed with abdomen and pelvic CT scan with contrast given persistent abdominal pain Normal [facility] Comment on above: Result Comment: Elec tronically Signed By: Enid OCHOA MD\.br\Date and Time Signed: 12/05/21 09:12 EDT Other Comment: Modesta edwards Attachment - attachment storage system not supported [id number] Can be viewed in source systemMissing Attachment - attachment storage system not supported [id number] Can be viewed in source systemMissing Attachment - attachment storage system not supported [id number] Can be viewed in source systemMissing Attachment - attachment storage system not supported [id number] Can be viewed in source system Endoscopic Procedure Report - Other Patient: MARQUISE MEASN Age: 71 years Sex: Male : 1950 Associated Diagnoses: None Author: Enid OCHOA MD Pre-Procedure Procedure Date 12/05/2021 09:06:00 . Procedure Type: Esophagogastroduodenosc opy. Procedure provider Performed by Enid Ochoa MD. Current history and physical Documented on chart. Informed Consent After discussing the rationale, risks and benefits, and alternatives to this procedure, the patient provided signed consent for the procedure. Pre-procedure diagnosis: Diagnostic: Generalized abdominal pain. Medications Anticoagulant/antiplate let No anticoagulation or antiplatelet. ASA Classification: Class II. . Monitoring: See anesthesia record. . Procedure The procedure was performed in the hospital. See anesthesia record for sedation given during procedure. The patient was positioned starting in the left lateral decubitus position and with safety measures. Endoscope type used was an adult-size, introduced orally, advanced to the 2nd portion of the duodenum. No difficulty was encountered during the procedure. Views were good. Gastric biopsies were taken of the fundus and of the antrum. The patient tolerated the procedure well. Findings 1. Normal esophagus, Z line at 40 cm 2. Normal gastric mucosa, random biopsies obtained to rule out H. pylori 3. Normal duodenum Images Procedure images: [id number]_hd_video_2021__1 [id number].jpg Rec1_hd_video__ [id number].jpg Rec1_hd_video__ [id number].jpg Rec1_hd_video__ [id number].jpg . Post-Procedure Complications: none. Estimated blood loss: none. Specimens: sent to pathology. Devices/ implants: none left in place. Impression and Plan Normal EGD, random gastric biopsies obtained to rule out H. pylori Recommendations: 1. Awaiting pathology report. 2. GI clinic follow-up in 2 weeks [facility] Comment on above: Result Comment: Elec tronically Signed By: VAIBHAV CERON, Enid\.br\Date and Time Signed: 12/05/21 09:07 EDT Other Comment: Modesta edwards Attachment - attachment storage system not supported [id number] Can be viewed in source system Missing Attachment - attachment storage system not supported [id number] Can be viewed in source system Missing Attachment - attachment storage system not supported [id number] Can be viewed in source system Missing Attachment - attachment storage system not supported [id number] Can be viewed in source system Inpatient Patient Summaryon 12-05-2021 Inpatient Patient Summary [place] [id number] [facility] Clinical Discharge Instructions PERSON INFORMATION Name: MARQUISE MEANS [facility] Admitting Physician: Enid OCHOA MD Attending Physician: Enid OCHOA MD PCP: SARIKA SNEED MD Discharge Diagnosis: Abdominal pain, generalized Comment: PATIENT EDUCATION INFORMATION Instructions: Upper Endoscopy, Adult, Care After; Colonoscopy, Care After Surgery Salam (CUSTOM); Diverticulosis MAGR (CUSTOM); Colon Polyps Medication Leaflets: Follow up: With: Address: When: Enid OCHOA [address] [place], [place] [id number] [place] (1) Comments: office will call for follow up Type Location Start [facility] Follow Up [facility] 12/24/2021 11:00 AM 12/24/2021 11:15 AM Confirmed MEDICATION LIST Medications to Continue with No Changes Other Medications methotrexate (methotrexate 2.5 mg Tab) 1 Tablets By Mouth every 7 days. omeprazole (omeprazole 40 mg Cap-DR) By Mouth every day. tramadol (tramadol 50 mg oral tablet) 1 Tablets By Mouth every 4 hours as needed for pain. Comment: Normal [facility] Main OR PACU I Recordon 11-22 Main OR PACU I Record PACU Phase I Docum ent Type FT Summary Primary Physician: Enid OCHOA MD Finalized Date/Time: 12/05/21 10:51:39 Pt. Name: MARQUISE MEANS/Sex: 1950 Male Med Rec #: [id number] Physician: Enid OCHOA MD Financial #: [id number] Pt. Type: O Room/Bed: / Admit/Disch: 12/05/21 07:17:43 - Institution: Case Times PACU I FT Pre-Care Text: Identifies barriers to communication and implements measures to provide psychological support Develops individualized plan of care, and ensures continuity of care Maintains patient's dignity and privacy, and maintains patient confidentiality Identifies and reports philosophical, cultural, and spiritual beliefs and values Identifies individual values and wishes concerning care Implements aseptic technique, and administers prescribed antibiotic therapy and immunizing agents as ordered Evaluates postoperative tissue perfusion Implements thermoregulation measures, and monitors body temperature Evaluates postoperative respiratory status Evaluates postoperative cardiac status Evaluates postoperative neurological status Assesses pain control, collaborated in initiating patient-controlled analgesia and implements alternative methods of pain control Verifies allergies, administers prescribed medications and solutions, evaluates response to medications Entry 1 In PACU I 12/05/21 09:10:00 Discharge from PACU 12/05/21 09:45:00 I Outcomes Met? Yes Last Modified By: Angella Chavez RN 12/05/21 10:51:12 Post-Care Text: The patient demonstrates knowledge of the expected response to the operative or invasive procedure The patient's care is consistent with the individualized perioperative plan of care The patient's right to privacy is maintained The patient's value system, lifestyle, ethnicity, and culture are considered, respected, and incorporated into the perioperative plan of care The patient participates in decisions affecting his or her perioperative plan of care The patient is free from signs and symptoms of infection The patient has wound/tissue perfusion consistent with or improved from baseline levels established preoperatively The patient is at or returning to normothermia at the conclusion of the immediate postoperative period The patient's respiratory function is consistent with or improved from baseline levels established preoperatively The patient's cardiovascular status is consistent with or improved from baseline levels established preoperatively The patient's cardiovascular status is consistent with or improved from baseline levels established preoperatively The patient demonstrates and/or reports adequate pain control throughout the perioperative period The patient received appropriate medication(s), safely administered during the perioperative period Acuity Level PACU I FT Entry 1 Start Time 12/05/21 09:10:00 Stop Time 12/05/21 09:45:00 Acuity Level Acuity Level I Last Modified By: Angella Chavez RN 12/05/21 10:51:34 Finalized By: Angella Chavez RN Document Signatures Signed By: Angella Chavez RN 12/05/21 10:51 Normal [facility] Main OR Preoperative Recordo n 12-05-2021 Main OR Preoperative Record Holding Area Document Type FT Summary Primary Physician: Enid OCHOA MD Finalized Date/Time: 12/05/21 07:46:59 Pt. Name: MEANSMARQUISE/Sex: 1950 Male Med Rec #: [id number] Physician: Enid OCHOA MD Financial #: [id number] Pt. Type: O Room/Bed: / Admit/Disch: 12/05/21 07:17:43 - Institution: Case Times Holding FT Pre-Care Text: Verifies consent for planned procedure, identifies individual values and wishes concerning care, includes family members in perioperative teaching Secures patient's records' belongings, and valuables, maintains patient's dignity and privacy, and maintains patient confidentiality Entry 1 In Holding 12/05/21 07:30:00 Outcomes Met? Yes Last Modified By: Kristen Salmeron RN 12/05/21 07:31:00 Post-Care Text: The patient participates in decisions affecting his or her perioperative plan of care The patient's right to privacy is maintained Surgery Checklist FT Entry 1 Patient Birthday, ID Band Procedure History and Physical, Identification: Check, Patient Verification: Surgical Consent, With Participation Family, With Patient NPO after Midnight: No Date/Time: 12/05/21 03:15:00 Personal Items: Jewelry Personal Items x2 rings, clothes Comment: Complaints of Pain: No Operative Site Yes Marking: Availability Equipment Verified: Does Patient Smoke No Patient states Yes Comment - Adult [place]- postop adult Supervision supervision available Case Cancelled in No Holding Area see comments below for reason Last Modified By: Kristen Salmeron RN 12/05/21 07:33:01 General Comments: 100% bowel prep in patient tolerated well. Results clear yellow./CASIMIRO WESLEY Finalized By: Kristen Salmeron RN Document Signatures Signed By: Kristen Salmeron RN 12/05/21 07:46 Normal [facility] Monitor Recordon 12-05-2021 Monitor Record [id number] CD:127 Normal [facility] Monitor Record [id number] CD:127 Normal [facility] Outpatient Surgery Discharge Instructionon 12-05-2021 Outpatient Surgery Discharge Instruction [address] [address] Patient Discharge Instructions PERSON INFORMATION Name: MARQUISE MEANS Date of : 1950 Current Date: 12/05/2021 09:23:01 PHYSICIANS Admitting Physician: Enid OCHOA MD Discharge Diagnosis: Abdominal pain, generalized MARQUISE MEANS has been given the following list of follow-up instructions, prescriptions, and patient education materials: PATIENT FOLLOW-UP INFORMATION Diet: Regular Discharge Activity: Resume normal activities in 24 hours Discharge Restrictions: No driving for 24 hrs, Do not operate machinery or tools, Do not make important decisions for 24 hours Additional Instructions: Outpatient abdomen and pelvic CT scan IF UNABLE TO CONTACT YOUR PHYSICIAN AND YOU FEEL IT IS AN EMERGENCY, GO TO THE NEAREST EMERGENCY ROOM OR CALL 911 I, MARQUISE MEANS, have received the attached patient education materials/instructions and have verbalized understanding: May we do a follow up call? Yes No I was present when discharge instructions were given Patient Signature Date Clinican/Nurse Signature _ Date Follow up: With: Address: When: Enid OCHOA [address] [place] [address]. [address] [place], [place] [id number] Business (1) Comments: office will call for follow up Type Location Start [facility] Follow Up [facility] 12/24/2021 11:00 AM 12/24/2021 11:15 AM Confirmed Pharmacy Information: Other: [facility] You may receive a survey from [employer] asking you to rate your care experience. Your feedback is important and will help us understand what we do well and how we can improve the quality of care we provide to you, your loved ones and our community. It?s an honor to serve you. Thank you for choosing [facility] HERE ARE THE MEDICATION CHANGES THAT OCCURRED DURING YOUR HOSPITAL STAY Medications to Continue with No Changes Other Medications methotrexate (methotrexate 2.5 mg Tab) 1 Tablets By Mouth every 7 days. omeprazole (omeprazole 40 mg Cap-DR) By Mouth every day. tramadol (tramadol 50 mg oral tablet) 1 Tablets By Mouth every 4 hours as needed for pain. PATIENT EDUCATION INFORMATION Instructions: Upper Endoscopy, Adult, Care After This sheet gives you information about how to care for yourself after your procedure. Your health care provider may also give you more specific instructions. If you have problems or questions, contact your health care provider. What can I expect after the procedure? After the procedure, it is common to have: ? A sore throat. ? Mild stomach pain or discomfort. ? Bloating. ? Nausea. Follow these instructions at home: ? Follow instructions from your health care provider about what to eat or drink after your procedure. ? Return to your normal activities as told by your health care provider. Ask your health care provider what activities are safe for you. ? Take daif-yxe-kxpzaql and prescription medicines only as told by your health care provider. ? Do not drive for 24 hours if you were given a sedative during your procedure. ? Keep all follow-up visits as told by your health care provider. This is important. Contact a health care provider if you have: ? A sore throat that lasts longer than one day. ? Trouble swallowing. Get help right away if: ? You vomit blood or your vomit looks like coffee grounds. ? You have: ? A fever. ? Bloody, black, or tarry stools. ? A severe sore throat or you cannot swallow. ? Difficulty breathing. ? Severe pain in your chest or abdomen. Summary ? After the procedure, it is common to have a sore throat, mild stomach discomfort, bloating, and nausea. ? Do not drive for 24 hours if you were given a sedative during the procedure. ? Follow instructions from your health care provider about what to eat or drink after your procedure. ? Return to your normal activities as told by your health care provider. This information is not intended to replace advice given to you by your health care provider. Make sure you discuss any questions you have with your health care provider. Document Released: 08/09/2012 Document Revised: 08/02/2018 Document Reviewed: 07/11/2018 [employer] Patient Education ? 2020 [employer]. Colonoscopy Care After Surgery Please read the instructions outlined below and refer to this sheet in the next few weeks. These discharge instructions provide you with general information on caring for yourself after you leave the hospital. Your doctor may also give you specific instructions. While your treatm (more content not included)... Normal [facility] Patient Education - Texton 1 Patient Education - Text Colonoscopy Care After Surgery Please read the instructions outlined below and refer to this sheet in the next few weeks. These discharge instructions provide you with general information on caring for yourself after you leave the hospital. Your doctor may also give you specific instructions. While your treatment has been planned according to the most current medical practices available, unavoidable complications occasionally occur. If you have any problems or questions after discharge, please call your doctor. ACTIVITY You may resume your regular activity, but move at a slower pace for the next 24 hours. Take frequent rest periods for the next 24 hours. Walking will help get rid of the air and reduce the bloated feeling in your abdomen (belly). No driving for 24 hours (because of the anesthesia (medicine) used during the test). You may shower. Do not sign any important legal documents or operate any machinery for 24 hours (because of the anesthesia used during the test). NUTRITION Drink plenty of fluids. You may resume your normal diet as instructed by your doctor. Begin with a light meal and progress to your normal diet. Heavy or fried foods are harder to digest and may make you feel nauseated (sick to your stomach). Avoid alcoholic beverages for 24 hours or as instructed. MEDICATIONS You may resume your normal medications unless your doctor tells you otherwise. WHAT YOU CAN EXPECT TODAY Some feelings of bloating in the abdomen. Passage of more gas than usual. Spotting of blood in your stool or on the toilet paper. FOLLOW-UP Your doctor will discuss the results of your test with you. SEEK IMMEDIATE MEDICAL ATTENTION IF: There is more than a spotting of blood in your stool. There is abdominal distention (your abdomen is swollen). There is vomiting. You have a temperature over 101.5 F. There is abdominal pain or discomfort that is severe or gets worse throughout the day. Diverticulosis Many people have small pouches in their colon called diverticulum. The diverticulum bulge outward through weak spots in the colon. You could have one or more of these pouches in the colon. The condition of having these pouches in the colon is called diverticulosis or diverticular disease. Diverticulosis is usually diagnosed by tests to evaluate something else. For example, you may have had a colonoscopy to screen for colon cancer when the diverticulosis was found. Most people with diverticulosis do not have any discomfort or problems. If symptoms develop, they may include mild cramps, bloating, and constipation. A complication of this condition is called diverticulitis. This is when the diverticulum become inflamed and infected. How to treat diverticulosis: Increasing the amount of fiber in the diet may reduce symptoms of diverticulosis and prevent complications such as diverticulitis (infected diverticuli). Fiber keeps stool soft and lowers pressure inside the colon so that bowel contents can move through easily. You should eat 20 to 35 grams of fiber each day. The table below shows the amount of fiber in some foods that you can easily add to your diet. Adding fiber slowly may decrease the bloating and fullness sometimes felt with an immediate high fiber diet. The doctor may also recommend taking a fiber product such as Citrucel or Metamucil once a day. In the past people with diverticulosis were to avoid nuts, corn, and seeds. This has not been found to be true. If you find that certain foods create cramping or bloating, avoid that food. Foods high in fiber include: Fresh fruits, fresh vegetables, legumes (beans), whole wheat bread, bran muffins or cereal, and nuts. See the table below for examples of high fiber foods. Remember, your goal is 20-35 grams per day. Amount of fiber in different foods Food Serving Grams of fiber Fruits Apple (with skin) 1 medium apple 4.4 Banana 1 medium banana 3.1 Oranges 1 orange 3.1 Prunes 1 cup, pitted 12.4 Juices Apple, unsweetened, w/added ascorbic acid 1 cup 0.5 Grapefruit, white, canned, sweetened 1 cup 0.2 Grape, unsweetened, w/added ascorbic acid 1 cup 0.5 Bolivar 1 cup 0.7 Vegetables Cooked Green beans 1 cup 4.0 Carrots 1/2 cup sliced 2.3 Peas 1 cup 8.8 Potato (baked, with skin) 1 medium potato 3.8 Raw Stamps (with peel) 1 cucumber 1.5 Lettuce 1 cup shredded 0.5 Tomato 1 medium tomato 1.5 Spinach 1 cup 0.7 Legumes Baked beans, canned, no salt added 1 cup 13.9 Kidney beans, canned 1 cup 13.6 Vogt beans, canned 1 cup 11.6 Lentils, boiled 1 cup 15.6 Breads, pastas, flours Bran muffins 1 medium muffin 5.2 Oatmeal, cooked 1 cup 4.0 White bread 1 slice 0.6 Whole-wheat bread 1 slice 1.9 Pasta and rice, cooked Macaroni 1 cup 2.5 Rice, brown 1 cup 3.5 Rice, white 1 cup 0.6 Spaghetti (regular) 1 cup 2.5 Nuts Almonds 1/2 cup 8.7 Peanuts 1/2 cup 7.9 Chart from [employer] 2012. SEEK IMMEDIATE MEDIC (more content not included)... Normal [facility] Progress Note-Physicianon Progress Note-Physician Patient: MARQUISE MEANS Age: 71 years Sex: Male : 1950 Associated Diagnoses: None Author: Hilraio Kay DO Postoperative Information Post Operative Note: Post Anesthesia Care Unit. Physical Examination Intake and Output HYDRATION ADEQUATE Vital Signs (last 24 hrs) Last Charted Resp Rate 13 br/min (DEC 05 09:40) SBP 127 mmHg (DEC 05:40) DBP 84 mmHg (DEC 05 09:40) SpO2 100 % (DEC 05:40) Weight 65.4 kg (DEC 05 07:33) BMI 19.32 (DEC 05:33) Pain assessment: Pain Assessment 12/05/2021 9:40 EDT Pain Symptoms Self Report No, able to self report 12/05/2021 9:20 EDT Pain Symptoms Self Report No, able to self report . General: No acute distress. HENT: dentition at preop baseline.. Respiratory: Respirations are non-labored. Cardiovascular: stable hemodynamics. Neurologic: interactive. Assessment Anesthetic outcome No anesthetic complications noted. Adequate pain relief. adequate hydration. PONV controlled. Plan Transfer/ Discharge: Patient can be discharged from PACU when criteria met. Condition good. [facility] Comment on above: Result Comment: Elec tronically Signed By: Hilario Kay DO\.br\Date and Time Signed: 12/05/21 16:28 EDT Progress Note-Physician Patient: MARQUISE MEANS Age: 71 years Sex: Male : 1950 Associated Diagnoses: None Author: Hilario Kay DO Preoperative Information Anesthesia history: Patient History: Pt./ family denies any personal or family hx of problems/difficulties with anesthesia.. Re-eval prior to induction: Inital eval reviewed: No significant interval change, NPO guidelines met. Review of Systems Constitutional: See nursing pain assessment.. Cardiovascular: Cardiac risk assessment performed. Pt. denies any significant change in their cv hx.. Respiratory: Pt. denies any signicant change in their respiratory status.. Neurologic: Pt. denies any acute neurological changes.. Health Status Allergies: Allergic Reactions (Selected) No Known Medication Allergies, Allergies (1) Active Reaction No Known Medication Allergies None Documented Current medications: (Selected) Inpatient Medications Ordered Sodium Chloride 0.9% IV Peyton 1000 mL 1,000 mL: 1,000 mL, IV, 20 mL/hr, Routine, Start date 12/05/21 6:38:00 EDT, 50 hour(s), Total volume (mL): 1,000, 64 kg, 1.81, m2 Documented Medications Documented methotrexate 2.5 mg Tab: 2.5 mg = 1 tab(s), Oral, q7day, # 4 tab(s), Refills(s) 0, Arthritis omeprazole 40 mg Cap-DR: mg cap(s), Oral, Daily, Refills(s) 0, Control of stomach acid tramadol 50 mg oral tablet: 50 mg = 1 tab(s), Oral, q4hr, PRN for pain, # 60 tab(s), Refills(s) 0, Pain, Medications (1) Active Scheduled: (0) Continuous: (1) Sodium Chloride 0.9% 1,000 mL 1,000 mL, IV, 20 mL/hr PRN: (0) Problem list: All Problems Change in bowel habits / SNOMED CT 488891789 / Confirmed Family history of colon cancer / SNOMED CT 125225281 / Confirmed Black tarry stools / SNOMED CT 682406772 / Confirmed Generalized abdominal pain / SNOMED CT 989911330 / Confirmed, Active Problems (4) Black tarry stools Change in bowel habits Family history of colon cancer Generalized abdominal pain Histories Past Medical History: No active or resolved past medical history items have been selected or recorded. Family History: Primary malignant neoplasm of colon Brother Grandparent Procedure history: Colonoscopy ([id number]) on 11/03/2019 at 68 Years. Comments: 10/14/2021 8:43 EDT - Marnie Means Dr Social History Social & Psychosocial Habits Tobacco 11/18/2021 Tobacco Use: Never (less than 100 in l Smokeless tobacco use: Never . Physical Examination Vital Signs 12/05/2021 7:37 EDT Temperature Temporal Artery 36.7 DegC Heart Rate Monitored 89 bpm Respiratory Rate Monitored 23 br/min Systolic Blood Pressure 125 mmHg Diastolic Blood Pressure 85 mmHg Blood Pressure Location Left arm SpO2 99 % Vital Signs (last 24 hrs) Last Charted Resp Rate 23 br/min (DEC 05 07:37) SBP 125 mmHg (DEC 05:37) DBP 85 mmHg (DEC 05 07:37) SpO2 99 % (DEC 05:37) Weight 65.4 kg (DEC 05 07:33) BMI 19.32 (DEC 05:) Measurements from flowsheet : Measurements 12/05/2021 7:33 EDT Height/Length Measured 184 cm Height/Length Dosing 184.0 cm Weight Dosing 65.4 kg BSA Measured 1.83 m2 Body Mass Index Measured 19.32 kg/m2 Weight Measured 65.4 kg Airway: Normal oral/pharyngeal anatomy.. Respiratory: Adequate air exchange.. Cardiovascular: Adequate perfusion and function. Neurologic: Alert. Review / Management Results review: No qualifying data available . Plan [place] [employer]esthesi[employer] (ASA) physical status classification: Class II. Anesthetic Preoperative Plan Anesthesia: Monitored anesthesia care and general anesthesia possible. Anesthetic plan, risks, benefits, and alternatives discussed with the patient and/or family. Pt. and/or family present and agree to proceed as planned.. Risks discussed including heart, lung, nerve damage. Risks of bleeding, dental injury, hospitalization, and general injury discussed. . 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 male referred by Salud Henderson CNP for gallbladder wall thickness. US AB done 10/28/2021. He has a continued RUQ pain for the last year. He denies vomiting or nausea. No previous GB work up History of Present Illness Marquise Means is a 71-year-old male who was referred by Salud Henderson CNP, for gallbladder wall thickening. Ultrasound was completed on the patient which showed no cholelithiasis or ductal dilatation. The gallbladder has measured 3.1 mm, normal is 4 mm. It is within normal limits. There is no gallbladder wall thickening. He has had abdominal pain for 1 year when he was seen by Ms. Henderson. He also had a change in bowel habits and diarrhea. He also had a recent positive Cologuard test from 10/2019 and a colonoscopy at [facility] by Dr. Barnett at that time. Per Ms. Henderson's note, the pain occurs in that regard to food and has improved with omeprazole prescribed by his PCP. He has also reported occasional melena for the past year, happening once a week per Ms. Henderson's note as well as diarrhea. He is scheduled to undergo an EGD and colonoscopy with Dr. Ochoa on 12/05/2021. His hepatic function panel is relatively normal other than alkaline phosphatase of 123, which is only mildly elevated. Otherwise, his hepatic function, metabolic panel, and CBC were all within normal limits. The patient reports that since starting omeprazole, his abdominal pain has improved substantially and he has noted less of the melena. He reports occasional right lower quadrant pain, though he does not have any right upper quadrant pain. Review of Systems Constitutional: no fever, no sweats, no weight loss. Eyes: no glasses, no blurred vision, no visual loss. ENMT: no dentures, no hoarseness, no swallowing difficulties, no hearing loss, no ear infection (s), no nose bleeds. Cardiovascular: normal blood pressure, no chest pain, regular heartbeat, no heart murmur. Respiratory: no shortness of breath, no cough, no asthma, no wheezing. Gastrointestinal: no nausea, no vomiting, no constipation, Positive for melena, diarrhea, and change in bowel habits. Positive for right lower abdominal pain, no hepatitis. Genitourinary: no kidney stones, no urine infection, no dysuria. Musculoskeletal: no pain, no weakness. Skin: no changing moles, no rash, no skin lumps. Neurologic: no seizures, no epilepsy, no headache. Psychiatric: no emotional or psychiatric problem. Heme/Lymph: no bleeding problems, no anemia, no blood clots, no transfusions. Allergy/Immunologic: no swollen lymph nodes/glands, no IV drug abuse. Other: Additional ROS info: Except as noted in the above Review of Systems and in the History of Present Illness, all other systems have been reviewed and are negative or noncontributory. Physical Exam Vitals & Measurements HR: 76(Peripheral) BP: 128/73 SpO2: 98% HT: 72 in HT: 184 cm WT: 64 kg WT: 140.8 lb BMI: 18.9 General: No acute distress Eyes: normal conjunctiva, sclera clear, no scleral icterus, EOM intact, PERRLA. Neck: trachea midline Respiratory: Respirations non labored. Cardiovascular: regular rate and rhythm, Gastrointestinal: soft, non distended, no tenderness, no hepatosplenomegaly. Musculoskeletal: normal gait, digits and nails without infection, nodes, cyanosis, clubbing. Skin: no rashes, no lesions, no ulcers, no subcutaneous nodules, induration. Psychiatric/Neuro: oriented to time, place, person, judgement normal, affect appropriate for age, insight intact, no focal deficits. Lymphatic: No cervical lymphadenopathy Tests: labs reviewed, x-rays reviewed Assessment/Plan Marquise Means is a 71-year-old male with minimal to no thickening of the gallbladder wall whatsoever. No gallstones. Abdominal pain is likely upper GI in nature. However, given change in bowel habits, we would also concur with Dr. Ochoa. 1. Generalized abdominal pain (R10.84: Generalized abdominal pain) We will proceed with an EGD and colonoscopy. 2. Black tarry stools (K92.1: Melena) See #1. ATTESTATION: Documentation services were performed after patient or guardian consented to allow Shobha Pedro to record this visit. OMARI obgyn specialist and provider reviewed before signing. OMARI: Laurence Aly Follow-up No qualifying data available Marquise may follow up with us as needed. Problem List/Past Medical History Ongoing Black tarry stools Change in bowel habits Family history of colon cancer Generalized abdominal pain Historical No qualifying data Procedure/Surgical History Colonoscopy (11/03/2019). Medications methotrexate 2.5 mg Tab, 2.5 mg= 1 tab(s), Oral, q7day omeprazole 40 mg Cap-DR, Oral, Daily predniSONE 10 mg Tab tramadol 50 mg oral tablet, 50 mg= 1 tab(s), Oral, q4hr, PRN Allergies No Known Medication Allergies Social History Tobacco Never (less than 100 in lifetime) Tobacco Use:. Never Smokeless Tobacco Use:., 11/18 (more content not included)... Normal [facility] Comment on above: Result Comment: Elec tronically Signed By: Thierno CERON, Marquise Jameson\.br\Date and Time Signed: 11/21/21 08:02 EDT\.br\Electronically Co-Signed By: Laurence Newman\.br\Date and Time Co-Signed: 11/18/21 15:26 EDT Coding Summary.on 10-30-2021 Coding Summary. [id number] Gh0 bWw+PGhlYWQ+ZU5WXRSoE23 ruEYbzB7BO8mRHG5VTFVYUF NBRW7FFY1huSS2FFyeG8Akg iAv WuqyxMLhNV73TCq1WPT2dOf tUEysqU5bsSJtH3i9ShSeTF 52kT78ZJvsZTQtLsY3XfRoe jsgbWFy A6sqHwBhyVWhJxz+PHRhYmx lIHdpZHRoPScxMDAlJyBzdH nxJI7wJe3jCDLvLJAxjVloo HNlOiBj n7gfUPTgXVqtUN7psPxgS5R mlJP8DDBju7k1Lg32nBS+PH DzTOV0wSipNCiwo630KxJaf 3ewZIA9 bKFsFWctEOZ7C53xu3B8IYW sKCWdRIU3tRL5iK1jcYreib mvQ4VtmUJpKlG0YGS8pOAvb P5isXaz sbdzkV0oLnx+O68VIU9SUYC RKW7HObt6J2YkTxddlRS+PC 06ASLpPC75eWBwrHLbb4xff Qy1DdSn HLSmSWF4qOmwBDzgp3DnIMS hB36uhRDfb7T0EJNbnZbcfE FlVrMbzOS4uR8kYEurvexqw 2hvdzsn Gfthy4ytxb69tZ32M71vLCr uPIEbCFQ5REXwYXUqmRruqk 9vyZ4gOf8+NUimw6kcv4vqm Ig9AtBt UXLqubDreZggXLK1p6WuOc6 0N0WnxGqqz7OxPwk2gm59bA Vdp0Z3nNI9BImxBHEndK5sG WxlZnQ6 EGElQxBufH56lJAqYMmsEp5 nsNcesWxmDR0pRSUjhxnsRF GkwE1xILVbuDCeaNqrPM4wK TBpbjtm q922QmAaWIE7IAMtkIWoQ9E ziT9iWkHsXAZjMOFmH1QlsJ ZhIMfoY644INxiEaN8ODFbl wRgZ1Yp FPNauJcyHbP1s4Z5Jl6Fi8J tqmrtXUE8XZgtHWP0HeL5Tv FwIpW2V6GlSlm6CVLtgCfvT U0wL4Xv TTLcfevrncnqsEI9OTWrRRW kfF96fFEtQOwjLq4uy4V0s1 77XYWjHLBirR52Vx0gcVzlO TBwdCBU hA0hiupzo3ilorafBfVwNHV qSWi1EEt6EUNrdZojLvWaBL A9IiU8ARQ7yGArvT4inCocf npufY7w Oyc+L36roF5jVMO4UWY1ivf oAROssrJnIN13CW76Y9MbUb wvdGFibGU+PGRpdiBzdHlsZ F3hQeFa m4uyg4JfRHazZ1UwCUBbJCl vDho5NPUbWOL3yIF7jG3tFY AoXLaum8N4wMT8X3LxwsPij x0id4ec VWBoKLvwQ41kgZQsc9K9MYK cyJF8ZRLivOgmVoCslW99Vk c+QEJhwVdll4AhIrfrn0dxz 2hnqCn7 FySlIZTdonTjuYfdHGG9o1B wFf65N40ySLgfCOIvPUWpAO FmKXWzqWedvu8jnU2nVu1+P GNvbCB3 bEH2nZ8uGANgMkZ2ATfoD48 8IfUfgRNwQojdk5caa5zczP u7IfImGEPuajPkwLrsEWK1y 5SvOh44 B04mDJzcUDFwBDNyOZGoFVE boZnxbh7zgP6nSx4+PC9jb2 vlzh00lV47mWF+EPZfVTQ3u WxlPSdw CKTquI0jLJamXzN6TNLfLnJ zcQ41lZVpILrqZh7qkVeykC clRX4kVLFzujqse570GdZur 2xkIDEw nORjVGpjTFG2Y82sp8C0HKF gHPHtFMH4vRU9uU8joFwnid ogbGVmdDsgdmVydGljYWwtY AokY907 IHRvcDsnPlBhdGllbnQgTmF fSGf8V6HsNdi6YQSgmTipPL 3gdDAkOJgtTk9hgUwwlNfiM P4cTBRd itqin301HkUlo6yuEPUseLT uBBrzQMJ5E64hr7M4SGBjTC WxLVJ3xNE9bG1auPfipnnef GVmdDsg vyFxlHieTUnhEBneJ113DBQ juXefSeWaucEiEXMsqHS2LT 39KY04gONhb5P6nWF1O6PxY GRpbmct iwwcyEX9SRZhSKMfsY86Fp7 wmGavEq5wEUQiTPV0DXRwiN ZbS3PsfK6wPeZkEZTmSBTkP 3RleHQt YTfyI598VIonZkP4ABTkjtK jB2CwLIXyoFpqIoD6e4S4Oa 3EE5C7BC98PO09oMUlc5H0x SG2C9Ha MTZipercivvfkIJ3ZLFvMSD gxC05Xv7sdTouCo8sGYGcWL G2RRQwaYPmJ4YqqX7jKvXkW DAwMDAw D0HzmPDmLSpcE855QTxaMuV 8QRZuynHlF2CdPVYlaDdqKa G4b1I5Pp0WJWj2XX46DC53a WPjn9K8 kUR7B0UmZTDvmbleitwqnMV 2EILdJVPbbF92Yc8jcAgqJs 9yTYXbHVX4LVCykZXgY1Onp L7wWyGk HQRuRVPtL5YuxNPnVXniV55 0DAbaRhQ5FCXqdmSvM3JlQN YseOsaWcH1m3Q3Gd2LWXHtD X57GNG3 aZT1YL99YE16G8ZvPnoddZB ibGU+PHRhYmxlIHdpZHRoPS hwPKAgYpLptFnvZO2mUb9xU GVyLWNv bKklsBLxThPwz8fxLPOdTXu fOU2prGxoS2VecQW5GEJhb7 x8So12K39yL3UchRC+PGNvb MV9gNC4 eE6fAwDnObP4VSejQ957PsZ xuWBmQaqka2uzj2szyQi2Sx X4CJPyffQauDnlWFG8e6YjO l05K70b IHdpZHRoPSIxNSUiIHZhbGl xjx2adM7oBs6+RKXtwLB9wL B8rH5dRdNmIaE5NQxeX906A nRvcCIv Vtecj4kwr7nuhUn5ZjXjIFZ edsAnuRynQDC3u2MfIu27B2 EjoXoea8EdYqk0ji41vUWpa 3D1rFO3 E2WeXVOctmdzdTFttJdoDW5 kARJxgazaQPAqqS9uQQTrU3 n7AsWwHqK2NBksV4XvtsJ1P DEwcHQg XQhpCHC7S05ik8Q2ATBdUMI gJGY6qBD6rA0qrCriseaqwM VmdDsgdmVydGljYWwtYWxpZ 246IHRv vVkmWYKvfG3jISPcdCJgyDl eHO7eDHLkscmiIcPUTATIAP 4gPMkALC5eQNkpxZO+PHRkI LU0gJph DHbwZQCwqJ8gFIRlU1i0EfG oUlH7DJqqN4RfSUTecmmkHq 51oR4wBmKtOtV9LJffR6Etd tB8NNNb jMOoIPlwZAJ9S76zi6G4KJE lXTVuMHF9eAM1oV5ugBvept ogbGVmdDsgdmVydGljYWwtY TwgN780 DKYpxRopYsU4PoD2AhA8FKX 1W0EeBaq0BTVqrUxlXH8kmJ WtSBdmMm3pvMdblXuoIP4yU TBpbjtw GVTdoH3nUZRooIQgzCtyMJ8 oVEFytsmro161BrYgDAN6OY ReeRUkW7OemN8oEmAjLCFhF XSkR6Qf uFIdFGvgI588SWzrHxI4UPY vpqVhP2UdJPQcxExmEgL5l7 X8Ih08ZXAXDVNaartdxEY+P HRkIHN0 jLjzVLxsQPVkoD0uURQiN2i 0UkDqNbD6HKubN6ZzIYZbxq eqFu85fO7gRzIsSxB9KIygG 8PtnuG0 AFKuqPCvQYliLUC8B29rr9W 5RLJoCIGbEFP7hQB0zX8sdN lnbjogbGVmdDsgdmVydGljY WwtYWxp M581KKPhaQgjBl4byRC4J0H mKmo8YJVbjGuhOR2bvUJjHH pkBq3gbXgdlSxtYS9pGBAvf jtwYWRk sM8zRLOpjSLgwGhaNM6xNUQ undkzb259OyEmOHS9MGRfmL VwO4BapL7hEiQrICMdDFNgN 3RleHQt XNlvZ127ZWhxKpX5UIVzfbK yM4VpVIMttRyxNzN8s9L8Px 5HiQDbOTVqCE20SJ69PU62N 3RyPjwv dGFibGU+PHRhYmxlIHdpZHR mNQbwJMYaCaFqrLxpXJ1bYy 9yZGVyLWNvbGxhcHNlOiBjb 2xsYXBz GQjsYQ6lnLkoL0QgmEW3BDC uc2k5Oe19C68pU2XyyFA+PG PnuTZ7eHC0rO6oGaIaJjR5C ZblM065 PpImjTWqOkopo9prk6mntCq 7PjZoQFWuikUrcPomBVJ8e2 ArGf64M97rNXlhBRThJUWxR CUiIHZh fBbzkh9qxT3fPj3+PGNvbCB 5dLR4qI7bItAjLwM1RRakL0 01OjXixUUnDgviF84bY4Hmc XA+PHRy Zuv1XQZmkCigII3xpOJdAPd dVr9lOPP4DiCmAzVdREveX8 RvGDXgishkdhpbxIR8CSUbC DUwaW47 Xu8vpUvdCf0nJQDiVFL4FPU ivBDmS1OjpT1xXdPjDDOnUT GqE8XdmVJrUMxoK386ENzlV jH9MZMx knUfI7ZjZQNxsFfyWyM6t7I 1Oa3FxHmudNUdIE5fNdYyDM s5Z6SvBnw5DPTuqImdAB6fa GFkZGlu Kt9obChafIsqQR2wHTQnvai ty551UfCqh4ceJCVfwFTkXC viTIQ0V90rv0W0AEEcFDRnB HF0tNK0 iF1llNeeqgvaaCRxjNikqgW fxChcRHujGIwzL316RCAwgS xfBoXJXru8Q1SxYjm8VLClm CsdZL8d sKFdKGrmBw5vtMuudMklHU1 kGUTjrdjke095QbWdn5riWD LklCBdANmySQD6F24jc0U2S CMwMDAw TID3qNR1yE6buJuainqwzCM mdDsgdmVydGljYWwtYWxpZ2 88TXZkiHeoSa2HIeb5W4IhL gl6ZBMb aOwdVK2krDCxKNvcEa6jkLk iwAbzYX3tCOPfwfywr447Qt Tij8ojLODekLElZZblHEE0S 51xe3T4 KIHzSKMkKVT8bJY9iK9ouSx nbjogbGVmdDsgdmVydGljYW wzQQsdF082QQGqhXbcOjMsx WVyOjwv dGQ+NL89ge30U6LiGjvrHqr 2RYExQSR6nCL2gY1mBMWcJJ kfy0C9eQJ4Q8UbupGvkk0ps 2xsYXBz ZTog (more content not included)... Normal [facility] Consent for Treatmenton Consent for Treatment [id number]#[id number] D:127 Normal [facility] US Abdomen Completeon 2021 US Abdomen Complete Exam Date/Time: 10/28/2021 09:10 EDT Reason for Exam: .;Abdominal pain Report IMPRESSION: NO CHOLELITHIASIS OR BILE DUCT DILATATION. MILD GALLBLADDER WALL THICKENING. NO SIGNIFICANT ABNORMALITY. ULTRASOUND, COMPLETE ABDOMEN: COMPARISONS: NONE CLINICAL HISTORY: Abdominal pain for one year. FINDINGS: Biplanar images were obtained. The gallbladder is physiologically distended. Gallbladder measures 6.6 cm in length. There is a fold in the neck of the gallbladder. The gallbladder wall is thickened measuring 3.1 mm. There is no sign of cholelithiasis or sludge within the gallbladder. The common bile duct measures up to 3.9 mm in diameter. No intrahepatic bile duct dilatation is seen. No focal liver lesions are noted. Liver measures 15.6 cm in length. Portions of the pancreas visualized have a normal appearance. No free fluid is seen within Morison\X2019\s pouch. The right kidney measures 10.5 cm In length and the cortex measures 1.27 cm. The left kidney measures 11 cm and the cortex measures 1.36 cm. No gross renal mass or hydronephrosis is seen. Limited images of kidneys were obtained. The spleen is normal in size. The spleen measures 12.1 cm in length. Spleen has a homogeneous echotexture. The portions of the aorta visualized are normal in caliber and patent. Distal aorta was not well visualized. IVC is visualized and unremarkable. FINAL REPORT Dictated: 10/28/2021 10:46 am Belinda Kent MD Signed (Electronic Signature): 10/28/2021 10:46 am Signed by: Belinda Kent MD Transcribed by: JACKIE Technologist: CARMEL Normal [facility] Consent for Procedure/Surger yon 10-17-2021 Consent for Procedure/Surgery [id number] D:127 Normal [facility] Coding Summary.on 10-16-2021 Coding Summary. [id number] Gh0 bWw+PGhlYWQ+QV5QXRNgE03 fkITrhE5ND4oPZP9UZPDUEW WFTI9YDF5mfAN0UGazV5Tvs iAv KvlvzIBlBW79CVg2EWL2eVt jWZhkyC8jiIRrE3p5PpRzHI 07hG40PBsoFAZfAmI9IeWbw jsgbWFy I6kzPyZaxCFfNib+PHRhYmx lIHdpZHRoPScxMDAlJyBzdH fkOQ6uMr8gBONcPQNnzEtwy HNlOiBj w4meVXYkLBdqZJ6dwGwxO5K hfSH5QEVte1h0Ln57lHI+PH JzFED3jEusGIfqk627JhIpw 2xbOWJ3 qWPxLJjtMPF5Q25jm8Y0BXG mVZMyUHH7qDZ4nP4zuApamd omA9GoyRZjScN8LQU7sGPxt J5dzMwx rdhsmU6iJyh+C82DCO3CXOU UVN8AIwr6P5BhThnrsKC+PC 62OSLaLR42wJGygLNjr5rxh Ev1WoKv BGGzTED9lSgtVRbhm4NlIPL rF84ojABxa1G4GKWnfXhlcC SjWfJyuSG4lM8gAWvwusskl 2hvdzsn Wjheo5gcoc28dA37V27oGFx lUFWdOPA4NZJhUKYqoKtjbx 1moP7sAq0+MJgtl5fpw2jlc Ud0WvOm QBJmfvMxsGhgAXQ1e9EvVi9 3S5XbcUqlh8RoRkp0ai57bW Xte4L1kNV7TEuuYNMinT9oG WxlZnQ6 AFEmSzZlsR80nETuCTahTx6 jwLczlJkgYO0kQIRytdiiGH VefJ5mHDAhtXGzdYdcIQ8fT TBpbjtm v892WqJxHRW7SCHoxRUbW0U bcE9lSrGeVSQmZHOcD9IpyZ AbXJqpH149IFnaQwZ6DPPxd cReE7Ye YBDsuPwzHiN0o3W9Oh9Eq2T oqmdwNNO2XPtbBXH7NfX7Ul PaZkL6D5QgUbf2AMOlrIgeK L4iJ5Yh FTDxyxoxpzyyiVA7GOGjNQX tyP25bAGmGEdcEk9il2J1t0 46CYYoHMVuvS15Nm8mjBwxD TBwdCBU lC0zbflvf9vcovkzIqCwNMU yTEr7YPt1SWLvdJkzWwQwQA G4EqE5NJZ3yPZwuG3thVgaa usqoT3p Oyc+R87stA1qYME5PLE4yku iGWUiepCdEB27QY95E2UrNz wvdGFibGU+PGRpdiBzdHlsZ A7aXyAx o7kas5AsEEpmY9ImHCEbPIb rNfj3IQJdIOI1hUP0fV3dWN YdXZyue5M4aVF5H5NaigGkn e7uw4uv SUCnOBxqZ66zwQVmu4B3VXE mnYF2WDZxqAliLzZatY23Cx c+IMHseSndi0DfDygiu1oyt 0pdbXx1 WjUtKWZcivDtsLuaLJG6y6D lMc59W50aRXelUFDxZGJyMP JwDZRbzCigpc9wqV5eOp1+P GNvbCB3 aXQ8hH6tTLDoKtI2BLzhY66 4UwXelOOeXmxou6cpi8vpjX n4KsQcFTXterIwqTkfOSG6z 2IqPe41 V72lMNvmEBUwAGXcXIOxBAW ibTopom9ptF8vRs4+PC9jb2 aary13uG48qJV+FXWsFWZ0g WxlPSdw ULDtyE2hMCgvQwN7TKOnVhO ojF71sBRzVPytCq3dbWlsyG mgJU4iCOIixwjfd582JrYrw 2xkIDEw mWExGZnsQEM6Y16rf0D7UMP kLNUaUZP2nXY6tR5ufPogei ogbGVmdDsgdmVydGljYWwtY BhiU838 IHRvcDsnPlBhdGllbnQgTmF nMUp5Z0BmExq3LXJgmYnmES 0riYEtELkkId9iuXznlTsmE G7nZXMr ojlvj700AkLnt7hwXWWjvBJ hLSpuNTV0D01vr3P0FQBeRI XpUVC4lPO8hF4kkAklyoxew GVmdDsg ieNwyQfeOLbpRPnnK908LPA ayFdyYpEenuQtVCWikBZ1BZ 55NU65oPPut4S4vAF7L5BfW GRpbmct umvqzOV4EHZrKMPybI38Cx6 btTtgJi4nDSWlBWD9JEQwkX YxT5ExeV3hBjZhWYLfURCuQ 3RleHQt JWsiO676MXuaKgY7PIJpblI cM4PeHPXqwLrcGqA7y0B3Dh 3BO9E1RK29ZK58pAYgg9V8l DK1K1Fw GDNkaabvbvcczDY4ALWyVCE caQ14Ic1ubPseLa4uRDKsOW O0JZVjkEBvR3MgfQ5fQxKdC DAwMDAw P1RtdFZoIIzuM147MAptTsX 7LNBuiaEdP4YcVKYhkRzzPp D9c6K9Ha4JBSc9KW08SI18x TMvz4L0 sYR8S8JnAHLkfgizlgvrtHV 5SVAyUGMexZ35Ut4pjHabAe 9cFHRvWMH4LRBtmGSkS1Xln T8wSbJc MVYtKWDcT6ZwlXJmQRijY79 9QDvuRiV9TKKpmtXjZ4PnMJ OdhSmuCfB2y7X1Hh5ESWYtE M25BJM4 uJM3KF66WF53C3JaMcwkfYU ibGU+PHRhYmxlIHdpZHRoPS hnHUMfJzSczOgpYG4zJh8iZ GVyLWNv fFdjkACkGkIob7slGEUpPAq kXL9qvAtiS5QeoZB9LNTuo3 f6At59A74iV1MwlSB+PGNvb KZ7vYL9 tG2rEbKnVnH1EIgcU894GfS anQPmIkzlb5rex0tvqTh8Tk V1PHZmymXnuYubTTM0f5TwU g33C01y IHdpZHRoPSIxNSUiIHZhbGl dzi3xeK6zEi8+BQPjpMB1tH L9rJ1bSbZmArA0FBvkM014H nRvcCIv Gjlba6ilq6grfDf2YxWzTKI odkXdbEwoGVC4b5IwIs04O8 RzrCokc5BkLpu5js43aMRya 4N4eST8 R6NmBLKoydmluHHsbYxuFL7 sIZGmtwbwHCQyeL1pSTTjR0 s5VtLiTsB7LCvuO5DgviN9N DEwcHQg NMmjKNT4O74fz2O7PNFpKWM kAEC3uGV0wB5ciHgzrhalvC VmdDsgdmVydGljYWwtYWxpZ 246IHRv oKzqZYKwfH4pNWCxvQGvfKj sLJ8wHNCnxgoqVuAAPDSFJU 9qOLpVEH2lYNnzsVY+PHRkI HI1mYjh GOlyPZBnmO2iRGEwI7h0JlG vWbE0YQhlL2VuKSZewlvqTo 63hR7cIbAeFmI0HIrbP8Vas gK8QSWx mPHpUYtcRSD2E27pm6Q6PIP zMQRrMKA0wJB5vJ2hxRnuph ogbGVmdDsgdmVydGljYWwtY VymQ406 HDHxxUmvGoN7WsB2WeT5ZAR 6V6CmZqp0VJQhjMkvCW7kfG IcZLczKn1utLzpxVefTR8iU TBpbjtw JLOgdM5fCVSxxQQnlIgmCZ5 yBSKxbxscv282FhXfZAC7HK FjkJFbH3GubR3nYnWxQAKnA DSgR6Tk mLXmEXldY771DNyuCtX8AHN hliJqH7WiRXHmvMgyGmF5d0 W1Re96MPLWATZtixkrsJB+P HRkIHN0 vLruSHdhYWAopP2gXMVsD1m 1FcGwEyB2CWozC7FxMAVfyv ptOj97gJ1nMoHcHoB8AIqgR 6SsfyG3 JIIofOUoNKulRHC4K89hn8E 4STKvTILmIII2lYY8pP8oxZ lnbjogbGVmdDsgdmVydGljY WwtYWxp R190WCRrqKooJa0hqPU9J8L sLgr6BJAxtPpwAO5deXLdSK chGo7ejIuzkKtfRM7vZDSog jtwYWRk zD5yBBFyfAThyBeyYX5uGMU pwpytc530YcHeLUQ5ZVShxN HrS6NpjW4xVeDaSJOeRMIqS 3RleHQt LMywQ322QLizWeV7ZYSzrfC aP7YbHUAjjYjbIzG2p4G7Ym 4YtRIuRCNhFR15EF35QU68B 3RyPjwv dGFibGU+PHRhYmxlIHdpZHR cJYmnBVPkGnDrzHrhTN5iUq 9yZGVyLWNvbGxhcHNlOiBjb 2xsYXBz NPfuCT5vwVfpP4KluIA7AUM uy0q9Lh01E16qJ7VzkZI+PG NhlSB0qFB1qI0sCrYwMdW2B TyiD278 ArHjhQDpLlvdi1tea9ydlTt 8HkZjNCCanyZueMtuJGN9f8 UyMy37H70uIFqiCKZaUUJxM CUiIHZh oIhkqe6tlM4vGc9+PGNvbCB 9zTM4nO4lXvCjVcQ8XWpvX3 29IxYfjKVvKgowJ59tS8Voj XA+PHRy Oed8JOBrbWgeZJ9vfVLlOEf sVk1xZGH9TbEgGsUfOXlcB9 ScWWRahlhhvtqviLR5GWTwQ DUwaW47 Me8eeBhaWc5yGLLfVTR1RJN omVEqR0CxgW3fObXnVGGyJM QoI8GzwTOyLGxlP606HBxwQ cS7EHQc ogRjB8ZmKYXheDjqNjC1s1M 6Sb1FeLrtqTQmLH8bNoLaWV x0Y7CrBcy7NIJlbDdtGV6mm GFkZGlu Zy3wnKnxtFsqDT3tTTOjyhq ph488CyAvl9hgYFPsbAOuTD pqZQG3M37tm7H7MNDoDECxI LN4uQU0 mT0srPelxbeiiBZagFzaanB swUxiVSffYVivN413EBFglF rlBpWLYha6X2EvYca1BOTlp MgiZJ4n zBGgQGgnLg9maMoaqCztNM5 kKAFlrhsdl697GsKrb1hbYB AdsDHnFBxxIHU5N53sp8N9B CMwMDAw CTJ5mGD1yR5kcUvklpdwnFH mdDsgdmVydGljYWwtYWxpZ2 63EPCbvNslWi5GIzf3Z6RkZ kf5XQTj pVorIY9arLQuRTdkLc6ptHb ozIwvMG4xLSAyptgzc440Ym Tpf3vvJWDvtBJaSKbaBKU8U 81rh2W9 HSKzKMXjGOX3jAV9xV4txOv nbjogbGVmdDsgdmVydGljYW taFQwjH161FKPqqUisSfFaz WVyOjwv dGQ+XV53dp58Q9PgYfftWsz 3UKKoKVL3hVF1yI0kFXBmXI icf8W4zTG5T8AwunTkdm9bs 2xsYXBz ZTog (more content not included)... Normal [facility] Ambulatory Visit Summaryon 0 10-14-2021 Ambulatory Visit Summary MARQUISE MEANS :1950 Visit Date:10/14/2021 Ambulatory Visit Instructions Your Diagnosis Generalized abdominal pain Change in bowel habits Black tarry stools Family history of colon cancer Your Care Team Attending Physician - Salud Henderson CNP Primary Care Physician - SARIKA SNEED MD Referring Physician - SARIKA SNEED MD This Is Your Medications List Contact prescribing physician if questions or concerns methotrexate (methotrexate 2.5 mg Tab) omeprazole (omeprazole 40 mg Cap-DR) tramadol (tramadol 50 mg oral tablet) Procedures Performed Colonoscopy (11/03/2019). Discharge Vitals Temperature (Temporal Artery) 36.4 ?C Heart Rate (Peripheral) 65 Blood Pressure 130/72 Height 184 cm Height 184.0 cm Weight 65.4 kg Weight 65.4 kg BMI 19.32 What to do next You Need to Schedule the Following Appointments Follow Up with Salud Henderson CNP When: Within 1 to 2 weeks Where: You Need to Complete the Following CBC w/ Auto Diff, Blood, Routine collect, 10/14/21, Order for future visit, Lab Collect, Generalized abdominal pain Invalid Interpretation Code Black tarry stools, Not Required, Print Label By Order Location\.br\ Comprehensive Metabolic Panel, Blood, Routine collect, 10/14/21, Order for future visit, Lab Collect, Generalized abdominal pain [facility] Auto Diffon 10-14-2021 Basophils/100 WBC (Bld) 1.0 % Normal 0.0-2.0 [facility] Comment on above: Order Comment: Order Added by Discern Expert. Performed By: #### 2 780550, [id number], 0812577, [id number] #### [facility] [address] [place] [address] Basophils/Leukocytes Auto (Bld) [Pure # fraction] 0.0 E9/L Normal 0.0-0.2 [facility] Comment on above: Order Comment: Order Added by Discern Expert. Performed By: #### 2 356995, [id number], 9168266, 9393779 #### [facility] [address] [place] [address] 6[address] Eosinophils/100 WBC (Bld) 3.8 % Normal 0.0-8.0 [facility] Comment on above: Order Comment: Order Added by Discern Expert. Performed By: #### 2 765910, 98758653, 2182091, 7346304 #### [facility] [address] [place] [address] 11567 Eosinophils/Leukocytes Auto (Bld) [Pure # fraction] 0.2 E9/L Normal 0.0-0.5 [facility] Comment on above: Order Comment: Order Added by Discern Expert. Performed By: #### 2 791453, 27266082, 5092289, 4548286 #### [facility] [address] [place] [address] Lymphocytes/100 WBC (Bld) 19.0 % Normal 14.0-50.0 [facility] Comment on above: Order Comment: Order Added by Discern Expert. Performed By: #### 2 939969, 78493443, 0497161, 0964319 #### [facility] [address] [place] [address]11 Lymphocytes/Leukocytes Auto (Bld) [Pure # fraction] 0.9 E9/L Low 1.0-4.0 [facility] Comment on above: Order Comment: Order Added by Discern Expert. Performed By: #### 2 641138, 35312661, 2244630, 0364902 #### [facility] [address] [place] [address] 70895 Monocytes/100 WBC (Bld) 11.9 % Normal 4.0-14.0 [facility] Comment on above: Order Comment: Order Added by Discern Expert. Performed By: #### 2 934960, 42645392, 9934849, 2817033 #### [facility] [address] [place] [address]39 Monocytes/Leukocytes Auto (Bld) [Pure # fraction] 0.6 E9/L Normal 0.2-1.0 [facility] Comment on above: Order Comment: Order Added by Discern Expert. Performed By: #### 2 183530, 13985390, 4451176, 6250183 #### [facility] [address] [place] [address] 78027 Neutrophils/100 WBC (Bld) 64.3 % Normal 36.0-75.0 [facility] Comment on above: Order Comment: Order Added by Discern Expert. Performed By: #### 2 395784, 00749640, 4632865, 6381404 #### [facility] [address] [place] [address] 31464 Neutrophils/Leukocytes Auto (Bld) [Pure # fraction] 3.1 E9/L Normal 2.0-7.5 [facility] Comment on above: Order Comment: Order Added by Discern Expert. Performed By: #### 2 980234, 89710634, 9327661, 3849017 #### [facility] [address] [place] [address]279 CBC w/ Auto Diffon Erythrocyte distribution width (RBC) [Ratio] 14.4 % High 10.9-14.2 [facility] Comment on above: Performed By: #### 2 280575, 78990210, 4937340, 6480672 #### [facility] [address] [place] [address] Hematocrit (Bld) [Volume fraction] 40.1 % Normal 37.7-49.0 [facility] Comment on above: Performed By: #### 2 939682, 46873084, 9969069, 6324360 #### [facility] [address] [place] [address] 38917 Hemoglobin (Bld) [Mass/Vol] 13.4 g/dL Low 13.5-17.5 [facility] Comment on above: Performed By: #### 2 134934, 82922890, 3637274, 4694725 #### [facility] [address] [place] [address] 42529 MCH (RBC) [Entitic mass] 30.4 pg Normal 27.0-34.0 [facility] Comment on above: Performed By: #### 2 655318, 13173979, 9111028, 4781740 #### [facility] [address] [place] [address] 11851 MCHC (RBC) [Mass/Vol] 33.4 g/dL Normal 31.4-36.0 [facility] Comment on above: Performed By: #### 2 337438, 13201558, 5186304, 8313076 #### [facility] [address] [place] [address] 86181 MCV (RBC) [Entitic vol] 91.1 fL Normal 80.0-100.0 [facility] Comment on above: Performed By: #### 2 527658, 18331076, 8534099, 8870489 #### [facility] [address] [place] [address] 06457 Platelet mean volume (Bld) [Entitic vol] 9.5 fL Normal 6.4-10.8 [facility] Comment on above: Performed By: #### 2 074689, 11358186, 0982381, 8888543 #### [facility] [address] [place] [address] 05846 Platelets (Bld) [#/Vol] 162.0 E9/L Normal 150.0-500.0 [facility] Comment on above: Performed By: #### 2 574000, 82922795, 7754788, 7664590 #### [facility] [address] [place] [address] 04565 RBC (Bld) [#/Vol] 4.4 E12/L Normal 4.3-5.9 [facility] Comment on above: Performed By: #### 2 426520, 69738541, 4088929, 0518237 #### [facility] [address] [place] [address] WBC corrected for nucl RBC Auto (Bld) [#/Vol] 4.9 E9/L Normal 4.0-11.0 [facility] Comment on above: Performed By: #### 2 259478, 51249999, 3890800, 8247351 #### [facility] [address] [place] [address] CMPon 10-14-2021 Albumin [Mass/Vol] 4.1 g/dL Normal 3.3-5.0 [facility] Comment on above: Performed By: #### 2 503858, 49209687, 1879904, 4589008 ####[facility] [address] [place] [address] Albumin/Globulin (S) [Mass conc ratio] 1.2 Normal 1.1-2.2 [facility] Comment on above: Performed By: #### 2 457331, 27872818, 4056358, 5761386 ####[facility] [address] [place] [address] ALP [Catalytic activity/Vol] 123 Int._Unit/L High 21-98 [facility] Comment on above: Performed By: #### 2 110147, 52417890, 0937374, 4252132 ####[facility] [address] [place] [address] ALT No additional P-5'-P [Catalytic activity/Vol] 34 Int._Unit/L Normal 6-46 [facility] Comment on above: Performed By: #### 2 903874, 59171351, 7963387, 2962181 ####[facility] [address] [place] [address] Anion gap [Moles/Vol] 10 mmol/L Normal 6-16 [facility] Comment on above: Performed By: #### 2 164980, 50626836, 3187803, 1528535 ####[facility] [address] [place] [address] AST [Catalytic activity/Vol] 32 Int._Unit/L Normal 5-43 [facility] Comment on above: Performed By: #### 2 014589, 07865860, 6579235, 1396145 ####[facility] [address] [place] [address] Bilirubin [Mass/Vol] 0.3 mg/dL Normal 0.0-1.1 [facility] Comment on above: Performed By: #### 2 053038, 54039326, 5915899, 6232871 ####[facility] [address] [place] [address] Calcium [Mass/Vol] 9.7 mg/dL Normal 8.9-11.1 [facility] Comment on above: Performed By: #### 2 407953, 06450460, 5681299, 1372195 ####[address] [place] [address] Chloride [Moles/Vol] 102 mmol/L Normal 101-111 [facility] Comment on above: Performed By: #### 2 006375, 84882377, 2522803, 0981927 ####[facility] [address] [place] [address] CO2 [Moles/Vol] 30 mmol/L Normal 21-31 [facility] Comment on above: Performed By: #### 2 555625, 51127779, 3971103, 6796013 ####[facility] [address] [place] [address] Creatinine [Mass/Vol] 0.7 mg/dL Normal 0.5-1.3 [facility] Comment on above: Performed By: #### 2 128311, 25037241, 4210898, 6952902 ####[facility] [address] [place] [address] Globulin (S) [Mass/Vol] 3.3 g/dL Normal 1.4-4.0 [facility] Comment on above: Performed By: #### 2 306899, 71699936, 7713117, 8891193 ####[facility] [address] [facility] [place] [address] Glucose [Mass/Vol] 98 mg/dL Normal 55-199 [facility] Comment on above: Result Comment: If t his glucose result represents a fasting glucose, interpretation should refer to the following reference range: 55-99 mg/dL Performed By: #### 2 649741, 27268924, 7621839, 8937555 ####[facility] [address] [place] [address] Potassium [Moles/Vol] 4.7 mmol/L Normal 3.5-5.3 [facility] Comment on above: Performed By: #### 2 223111, 37438092, 8727655, 5494993 ####[facility] [address] [place] [address] Protein [Mass/Vol] 7.4 g/dL Normal 6.0-7.8 [facility] Comment on above: Performed By: #### 2 878762, 70888797, 5419292, 1520685 ####[facility] [address] [place] [address] Sodium [Moles/Vol] 137 mmol/L Normal 135-145 [facility] Comment on above: Performed By: #### 2 060261, 31445769, 1677134, 1181500 ####[facility] [address] [place] [address] Urea nitrogen [Mass/Vol] 27 mg/dL High 5-21 [facility] Comment on above: Performed By: #### 2 143729, 65808868, 4396903, 9404748 ####[facility] [address] [place] [address] Urea nitrogen/Creatinine [Mass ratio] 39 No Units High 10-20 [facility] Comment on above: Performed By: #### 2 [id number], [id number], [id number], [id number] ####[facility] [address] [place] [address] Consent for Treatmenton 09-23 Consent for Treatment [phone] [id number] D:127 Normal [facility] Gastroenterology Office/Clin ic Noteon 10-14-2021 Gastroenterology Office/Clinic Note Chief Complaint Abdomainl pain and diarrhea. [facility] Staff New patient is a 70 year old male referred by Dr Sneed for abdominal pain and diarrhea. Patient states that Dr Sneed prescribed omeprazole and symptoms improved. History of Present Illness Patient is a 70-year-old male who presents for referral from his PCP?Dr. Sneed for abdominal pain and diarrhea. Presents with his today. Review of referral information from outside provider indicated patient is having intermittent black tarry stools and abdominal pain. Review of outside record indicates patient had previously positive Cologuard testing 10/2019. Had colonoscopy at [facility] for positive cologuard testing in [address] Barnett that revealed diverticulosis, no evidence of masses, no evidence of hemorrhoids, or fissures- was recommended by Dr. Barnett to have repeat colonoscopy in 2029. Family history of colon cancer: Patient's maternal and paternal grandfather, patient's brother. Family history of colon polyps: Denies. Personal history of colon cancer: Denies. Personal history of colon polyps: Denies. Anticoagulation therapy: Denies. Antiplatelet therapy: Denies. During today's visit, patient reports having generalized abdominal pain described as sharp over the last year, occurring daily. Abdominal pain occurs without regard to food. Explains abdominal pain has improved since started omeprazole that was prescribed by his PCP 5 months ago. Patient also reports having black tarry stools off/on over the last year, occurring 1 time a week-explains black, tarry stools stopped in April,. Patient explains he was having diarrhea that was a change in bowel habits for him over the last year, resolved after taking omeprazole 04/2021. Explains he is now having hard stools. Is having 1 BM daily, hard in consistency. Denies having any other GI complaints. Review of Systems PHQ Score Initial Depression Screen Score: 0 ROS - Provider Constitutional: no fever, no chills. Skin: no Jaundice. ENMT: Denies dysphagia and heartburn. Respiratory: no shortness of breath. Cardiovascular: no chest pain. Gastrointestinal: no nausea, no vomiting. See HPI for details regarding. Physical Exam Vitals & Measurements T: 36.4 ?C(Temporal Artery) HR: 65(Peripheral) BP: 130/72 HT: 184 cm HT: 184.0 cm WT: 65.4 kg WT: 65.4 kg BMI: 19.32 General: Well developed, well nourished, in no acute distress Head: Normocephalic/atraumati c Lungs: Normal respiratory effort and clear to auscultation Cardio: Regular rate and rhythm, normal S1 and S2, no murmur, no rub Abdomen: Soft, non-distended, non-tender. Normoactive bowel sounds present in all 4 abdominal quadrants, bilaterally. Mental Status: Alert and oriented x3. Normal mood and affect Assessment/Plan 1. Generalized abdominal pain (R10.84: Generalized abdominal pain) Generalized abdominal pain off/on over the last year, occurring daily. Described as being in epigastric and bilateral lower abdomen. Ordered EGD/Colonoscopy. Denies anticoagulation therapy. Ordered CBC/CMP. Ordered ultrasound of abdomen to evaluate for acute process. Ordered: CBC w/ Auto Diff Colonoscopy (Hospital Procedure) Comprehensive Metabolic Panel EGD Endoscopy (Hospital Procedure) US Abdomen Complete 2. Change in bowel habits (R19.4: Change in bowel habit) Over the last year- was having off/on diarrhea that resolved after taking omeprazole 04/2021, now having hard BMs. Ordered Colonoscopy. Educated to start fiber daily- instructed regarding use. Ordered CBC/CMP to evaluate for acute process. Ordered Colonoscopy. Ordered: CBC w/ Auto Diff Colonoscopy (Hospital Procedure) Comprehensive Metabolic Panel 3. Black tarry stools (K92.1: Melena) Off/on over the last year. Resolved with omeprazole. Last occurred 04/2021. Ordered EGD. Ordered CBC to evaluate for anemia. Ordered: CBC w/ Auto Diff EGD Endoscopy (Hospital Procedure) 4. Family history of colon cancer (Z80.0: Family history of malignant neoplasm of digestive organs) Family history of colon cancer: Patient's maternal and paternal grandfather, patient's brother. Ordered Colonoscopy- see # 2. Ordered: Colonoscopy (Hospital Procedure) Follow-up With When Contact Information Salud Henderson CNP Within 1 to 2 weeks Additional Instructions: Patient Education Colonoscopy, Adult Problem List/Past Medical History Ongoing Black tarry stools Change in bowel habits Family history of colon cancer Generalized abdominal pain Historical No qualifying data Procedure/Surgical History Colonoscopy (11/03/2019). Medications methotrexate 2.5 mg Tab, 2.5 mg= 1 tab(s), Oral, q7day omeprazole 40 mg Cap-DR, Oral, Daily tramadol 50 mg oral tablet, 50 mg= 1 tab(s), Oral, q4hr, PRN Allergies No Known Medication Allergies Social History Tobacco Never (less than 100 in lifetime) Tobacco Use:. Never Smokeless Tobacco Use:., 10/14/2021 Family History (more content not included)... Normal [facility] Comment on above: Result Comment: Elec tronically Signed By: Santiago ZARATE, Salud Romo\.br\Date and Time Signed: 10/14/21 09:50 EDT Patient Educationon 10-15-19 Patient Education Radiology Colonoscopy, Adult A colonoscopy is an exam to look at the entire large intestine. During the exam, a lubricated, flexible tube that has a camera on the end of it is inserted into the anus and then passed into the rectum, colon, and other parts of the large intestine. You may have a colonoscopy as a part of normal colorectal screening or if you have certain symptoms, such as: ? Lack of red blood cells (anemia). ? Diarrhea that does not go away. ? Abdominal pain. ? Blood in your stool (feces). A colonoscopy can help screen for and diagnose medical problems, including: ? Tumors. ? Polyps. ? Inflammation. ? Areas of bleeding. Tell a health care provider about: ? Any allergies you have. ? All medicines you are taking, including vitamins, herbs, eye drops, creams, and ifbp-zgx-gyoozmq medicines. ? Any problems you or family members have had with anesthetic medicines. ? Any blood disorders you have. ? Any surgeries you have had. ? Any medical conditions you have. ? Any problems you have had passing stool. What are the risks? Generally, this is a safe procedure. However, problems may occur, including: ? Bleeding. ? A tear in the intestine. ? A reaction to medicines given during the exam. ? Infection (rare). What happens before the procedure? Eating and drinking restrictions Follow instructions from your health care provider about eating and drinking, which may include: ? A few days before the procedure ? follow a low-fiber diet. Avoid nuts, seeds, dried fruit, raw fruits, and vegetables. ? 1?3 days before the procedure ? follow a clear liquid diet. Drink only clear liquids, such as clear broth or bouillon, black coffee or tea, clear juice, clear soft drinks or sports drinks, gelatin dessert, and popsicles. Avoid any liquids that contain red or purple dye. ? On the day of the procedure ? do not eat or drink anything starting 2 hours before the procedure, or within the time period that your health care provider recommends. Up to 2 hours before the procedure, you may continue to drink clear liquids, such as water or clear fruit juice. Bowel prep If you were prescribed an oral bowel prep to clean out your colon: ? Take it as told by your health care provider. Starting the day before your procedure, you will need to drink a large amount of medicated liquid. The liquid will cause you to have multiple loose stools until your stool is almost clear or light green. ? If your skin or anus gets irritated from diarrhea, you may use these to relieve the irritation: ? Medicated wipes, such as adult wet wipes with aloe and vitamin E. ? A skin-soothing product like petroleum jelly. ? If you vomit while drinking the bowel prep, take a break for up to 60 minutes and then begin the bowel prep again. If vomiting continues and you cannot take the bowel prep without vomiting, call your health care provider. ? To clean out your colon, you may also be given: ? Laxative medicines. ? Instructions about how to use an enema. General instructions ? Ask your health care provider about: ? Changing or stopping your regular medicines or supplements. This is especially important if you are taking iron supplements, diabetes medicines, or blood thinners. ? Taking medicines such as aspirin and ibuprofen. These medicines can thin your blood. Do not take these medicines before the procedure if your health care provider tells you not to. ? Plan to have someone take you home from the hospital or clinic. What happens during the procedure? ? An IV may be inserted into one of your veins. ? You will be given medicine to help you relax (sedative). ? To reduce your risk of infection: ? Your health care team will wash or sanitize their hands. ? Your anal area will be washed with soap. ? You will be asked to lie on your side with your knees bent. ? Your health care provider will lubricate a long, thin, flexible tube. The tube will have a camera and a light on the end. ? The tube will be inserted into your anus. ? The tube will be gently eased through your rectum and colon. ? Air will be delivered into your colon to keep it open. You may feel some pressure or cramping. ? The camera will be used to take images during the procedure. ? A small tissue sample may be removed to be examined under a microscope (biopsy). ? If small polyps are found, your health care provider may remove them and have them checked for cancer cells. ? When the exam is done, the tube will be removed. The procedure may vary among health care providers and hospitals. What happens after the procedure? ? Your blood pressure, heart rate, breathing rate, and blood oxygen level will be monitored until the medicines you were given have worn off. ? Do not drive for 24 hours after the exam. ? You may have a small amount of blood in your stool. ? You may pass gas and have mild abdominal cramping or bloating due to the air t (more content not included)... Normal [facility] eGFRon 10-14-2021 GFR/1.73 sq M.predicted among blacks MDRD (S/P/Bld) [Vol rate/Area] mL/min/{1.73_m2} Normal >=59 [facility] Comment on above: Order Comment: Order added by Discern Expert. Result Comment: eGFR is race adjusted. AA=. Performed By: #### 2 [id number], [id number] ####[facility] [address] [place] [address] GFR/1.73 sq M.predicted among non-blacks MDRD (S/P/Bld) [Vol rate/Area] mL/min/{1.73_m2} Normal >=59 [facility] Comment on above: Order Comment: Order added by Discern Expert. Result Comment: Tool Filer Hand kandace kidney disease could be indicated at eGFR's of less than 60 mL/min/1.73m2. Kidney failure is indicated at less than 15 mL/min/1.73m2. Performed By: #### 2 [id number] ####[facility] [address] [place] [address] Physician Referralon Physician Referral [id number] :127 Normal [facility] Complete Blood Count with Au to Diffon 01-28-2021 Basophils (Bld) [#/Vol] 0.03 10*3/uL Normal 0.00-0.20 [facility] Admin Comment on above: Performed By: #### C BCAD, LIPD, CMP #### [facility] [address] [place], [place] [id number] Basophils/100 WBC (Bld) 0.3 % Normal [facility] Comment on above: Performed By: #### C BCAD, LIPD, CMP #### [facility] [address] [place], [place] [id number] Eosinophils (Bld) [#/Vol] 0.09 10*3/uL Normal 0.02-0.50 [facility] Comment on above: Performed By: #### C BCAD, LIPD, CMP #### [facility] [address] [place], [place] [id number] Eosinophils/100 WBC (Bld) 1.0 % Normal [facility] Comment on above: Performed By: #### C BCAD, LIPD, CMP #### [facility] [address] [place], [place] [id number] Erythrocyte distribution width (RBC) [Ratio] 14.0 % Normal 11.0-15.0 [facility] Comment on above: Performed By: #### C BCAD, LIPD, CMP #### [facility] [address] [place], [place] [id number] Hematocrit (Bld) [Volume fraction] 44.7 % Normal 38.5-50.0 [facility] Comment on above: Performed By: #### C BCAD, LIPD, CMP #### [facility] [address] [place], [place] [id number] Hemoglobin (Bld) [Mass/Vol] 14.7 g/dL Normal 13.0-17.1 [place] [facility] Comment on above: Performed By: #### C BCAD, LIPD, CMP #### [facility] [address] [place], [place] [id number] Lymphocytes (Bld) [#/Vol] 1.0 10*3/uL Normal 0.9-3.9 [facility] Comment on above: Performed By: #### C BCAD, LIPD, CMP #### [facility] [address] [place], [place] [id number] Lymphocytes/100 WBC (Bld) 10.7 % Normal [facility] Special[facility] Comment on above: Performed By: #### C BCAD, LIPD, CMP #### [facility] [address] [place], [place] [id number] MCH (RBC) [Entitic mass] 31.1 pg Normal 27.0-33.0 [facility] Comment on above: Performed By: #### C BCAD, LIPD, CMP #### [facility] [address] [place], [place] [id number] MCHC (RBC) [Mass/Vol] 32.9 g/dL Normal 32.0-36.0 [facility] Comment on above: Performed By: #### C BCAD, LIPD, CMP #### [facility] [address] [place], [place] [id number] MCV (RBC) [Entitic vol] 95 fL Normal 80-100 [facility] Comment on above: Performed By: #### C BCAD, LIPD, CMP #### [facility] [address] [place], [place] [id number] Monocytes (Bld) [#/Vol] 0.7 10*3/uL Normal 0.2-0.9 [facility] Comment on above: Performed By: #### C BCAD, LIPD, CMP #### [facility] [address] [place], [place] [id number] Monocytes/100 WBC (Bld) 7.2 % Normal [facility] Comment on above: Performed By: #### C BCAD, LIPD, CMP #### [facility] [address] [place], [place] [id number] Neutrophils (Bld) [#/Vol] 7.4 10*3/uL Normal 1.5-7.8 [facility] Comment on above: Performed By: #### C BCAD, LIPD, CMP #### [facility] [address] [place], [place] [id number] Neutrophils/100 WBC (Bld) 79.9 % Normal [facility] Comment on above: Performed By: #### C BCAD, LIPD, CMP #### [facility] [address] [place], [place] [id number] Platelet mean volume (Bld) [Entitic vol] 11.00 fL Normal 7.50-12.50 [facility] Comment on above: Performed By: #### C BCAD, LIPD, CMP #### [facility] [address] [place], [place] [id number] Platelets (Bld) [#/Vol] 167 10*3/uL Normal 140-400 [facility] Admin Comment on above: Performed By: #### C BCAD, LIPD, CMP #### [facility] [address] [place], [place] [id number] RBC (Bld) [#/Vol] 4.72 10*6/uL Normal 4.20-5.80 [facility] Admin Comment on above: Performed By: #### C BCAD, LIPD, CMP #### [facility] [address] [place], [place] [id number] RDW-SD 48.7 fL Normal 37.0-50.0 [facility] Comment on above: Performed By: #### C BCAD, LIPD, CMP #### [facility] [address] [place], [place] [id number] WBC (Bld) [#/Vol] 9.3 10*3/uL Normal 3.8-11.0 [facility] Admin Comment on above: Performed By: #### C BCAD, LIPD, CMP #### [facility] [address] [place], [place] [id number] Comprehensive Metabolic Pane [place] 01-28-2021 Albumin [Mass/Vol] 4.4 g/dL Normal 3.6-5.1 [facility] Admin Comment on above: Performed By: #### C BCAD, LIPD, CMP #### [facility] [address] [place], [place] [id number] Albumin/Globulin [Mass ratio] 1.9 {ratio} Normal 1.0-2.5 [facility] Comment on above: Performed By: #### C BCAD, LIPD, CMP #### [facility] [address], [place] [id number] ALP [Catalytic activity/Vol] 119 U/L Normal 40-129 [facility] Comment on above: Performed By: #### C BCAD, LIPD, CMP #### [facility] [address] [place], [place] [id number] ALT [Catalytic activity/Vol] 95 U/L High 9-46 [facility] Comment on above: Result Comment: 01/22 Female reference range changed. Performed By: #### C BCAD, LIPD, CMP #### [facility] [address] [place], [place] [id number] Anion gap [Moles/Vol] 18 mmol/L Normal 12-20 [facility] Comment on above: Result Comment: Effe ctive 02/27/2019 reference range changed. Performed By: #### C BCAD, LIPD, CMP #### [facility] [address] [place], [place] [id number] AST [Catalytic activity/Vol] 43 U/L High 10-40 [facility] Comment on above: Performed By: #### C BCAD, LIPD, CMP #### [facility] [address] [place], [place] [id number] Bilirubin [Mass/Vol] 0.33 mg/dL Normal 0.30-1.20 [facility] Comment on above: Performed By: #### C BCAD, LIPD, CMP #### [facility] [address] [place], [place] [id number] BUN/CREA 31 Ratio High 6-22 [facility] Comment on above: Performed By: #### C BCAD, LIPD, CMP #### [facility] [address] [place], [place] [id number] Calcium [Mass/Vol] 10.1 mg/dL Normal 8.6-10.2 [facility] [place] [facility] Admin Comment on above: Performed By: #### C BCAD, LIPD, CMP #### [facility] [address] [place], [place] [id number] Chloride [Moles/Vol] 102 mmol/L Normal 98-107 [facility] Comment on above: Performed By: #### C BCAD, LIPD, CMP #### [facility] [address] [place], [place] [id number] CO2 [Moles/Vol] 24 mmol/L Normal 20-31 [facility] Comment on above: Performed By: #### C BCAD, LIPD, CMP #### [facility] [address] [place], [place] [id number] Creatinine [Mass/Vol] 0.8 mg/dL Normal 0.7-1.4 [facility] Comment on above: Performed By: #### C BCAD, LIPD, CMP #### [facility] [address] [place], [place] [id number] eGFRAA 113 mL/min/1.73m2 Normal >60 [facility] Comment on above: Performed By: #### C BCAD, LIPD, CMP #### [facility] [address] [place], [place] [id number] eGFRNAA 93 mL/min/1.73m2 Normal >60 [facility] Comment on above: Performed By: #### C BCAD, LIPD, CMP #### [facility] [address] [place], [place] [id number] Globulin (S) [Mass/Vol] 2.3 g/dL Normal 1.9-3.7 [facility] Comment on above: Performed By: #### C BCAD, LIPD, CMP #### [facility] [address] [place], [place] [id number] Glucose [Mass/Vol] 96 mg/dL Normal 65-99 [facility] [place] [facility] Comment on above: Result Comment: For FASTING Glucose --- ADA reference ranges: Normal 65-99 mg/dl Prediabetes 100-125 Diabetes >/= 126 Performed By: #### C BCAD, LIPD, CMP #### [facility] [address] [place], [place] [id number] Potassium [Moles/Vol] 4.7 mmol/L Normal 3.5-5.5 [facility] Comment on above: Performed By: #### C BCAD, LIPD, CMP #### [facility] [address] [place], [place] [id number] Protein [Mass/Vol] 6.7 g/dL Normal 6.1-8.1 [facility] [place] [facility] Comment on above: Performed By: #### C BCAD, LIPD, CMP #### [facility] [address] [place], [place] [id number] Sodium [Moles/Vol] 139 mmol/L Normal 135-146 [facility] [place] [facility] Comment on above: Performed By: #### C BCAD, LIPD, CMP #### [facility] [address] [place], [place] [id number] Urea nitrogen [Mass/Vol] 26 mg/dL High 7-25 [facility] Comment on above: Performed By: #### C BCAD, LIPD, CMP #### [facility] [address] [place], [place] [id number] Hemoglobin A1Con 01-28-2021 EAG 108.28 Normal [facility] Comment on above: Performed By: #### A 1C #### [facility] [address] [place], [place] [id number] HbA1c (Bld) [Mass fraction] 5.4 % Normal 4.0-6.0 [facility] Comment on above: Performed By: #### A 1C #### [facility] [address] [place], [place] [id number] Lipid Panelon 01-28-2021 Cholesterol [Mass/Vol] 269 mg/dL High 125-200 [facility] Comment on above: Result Comment: Low risk < 200mg/dL Borderline risk 201-239 mg/dl High risk > or equal to 240 Performed By: #### C BCAD, LIPD, CMP #### [facility] [address] [place], [place] [id number] Cholesterol in HDL [Mass/Vol] 105 mg/dL Normal >40 [facility] Comment on above: Result Comment: High Cardiovascular Risk HDL <40 mg/dL Low Cardiovascular Risk HDL > or equal to 60 mg/dl Performed By: #### C BCAD, LIPD, CMP #### [facility] [address] [place], [place] [id number] Cholesterol in LDL [Mass/Vol] 140 mg/dL Normal [facility] Comment on above: Result Comment: LDL ATP III CLASSIFICATION LDL less than 100 mg/dl Optimal LDL 100-129 mg/dl Near or above optimal LDL 130-159 Borderline high LDL 160-189 High LDL greater than 189 mg/dl Very High Performed By: #### C BCAD, LIPD, CMP #### [facility] [address] [place], [place] [id number] Cholesterol in VLDL [Mass/Vol] 24 mg/dL Normal [facility] Comment on above: Performed By: #### C BCAD, LIPD, CMP #### [facility] [address] [place], [place] [id number] Cholesterol.total/Chol esterol in HDL [Mass ratio] 3 {ratio} Normal [facility] Comment on above: Performed By: #### C BCAD, LIPD, CMP #### [facility] [address] [place], [place] [id number] Triglyceride [Mass/Vol] 119 mg/dL Normal 30-150 [facility] Comment on above: Result Comment: TRIG ATPIII CLASSIFICATIONS TRIG less than 150 mg/dl Normal TRIG 150-199 mg/dl Borderline High TRIG 200-500 mg/dl High TRIG greather than 500 mg/dl Very High Performed By: #### C BCAD, LIPD, CMP #### [facility] [address] [place], [place] [id number] Prostatic Specific Antigen, Totalon 01-28-2021 TPSA 0.725 ng/mL Normal <4.000 [facility] Comment on above: Result Comment: PSA Test Method: ECLIA/Canelo e 601 Performed By: #### P SA #### [facility] [address] [place], [place] [id number] BNPon 01-02-2021 Natriuretic peptide B (Bld) [Mass/Vol] 294.0 pg/mL Normal <=900.0 [facility] Comment on above: Performed By: #### B ESTATE MANAGER, HSTROPN, CMP #### [facility] [address] [place] [address] [address] Elgin Soler CBC W MANUAL DIFFon 01-03-20 21 ATYPICAL LYMPH # Normal [facility] Comment on above: Performed By: #### C ERIC ####[facility] [address] [address]Dr. Beckyalexandra Ryder ATYPICAL LYMPH % Normal [facility] Comment on above: Performed By: #### C ERIC ####[facility] [address] [address]Dr. Elgin Soler BAND # 0.0 103/ul Normal 0.0-0.3 [facility] Comment on above: Performed By: #### C ERIC ####[facility] [address] [address]Dr. Elgin Soler BAND % 0 % Normal 0-5 [facility] Comment on above: Performed By: #### Kady REYES ####[facility] [address] [address]Dr. Beckyalexandra Ryder BASOM # 0.00 103/ul Normal 0.00-0.10 [facility] Comment on above: Performed By: #### Kady REYES ####[facility] [address] [address]Dr. Elgin Soler BASOM % 0.0 % Critically low 0.2-2.0 [facility] Comment on above: Performed By: #### Kady REYES ####[facility] [address] [address]Dr. Beckyalexandra Soler BLAST # Normal [facility] Comment on above: Performed By: #### Kady REYES ####[facility] [address] [address]Dr. Elgin Soler BLAST % Normal [facility] Comment on above: Performed By: #### Kady REYES ####[facility] [address] [address]Dr. Elgin Soler CORRECTED WBC Normal 4.0-11.0 [facility] Comment on above: Performed By: #### C ERIC ####[facility] [address] [place] [id number]. Elgin Soler EOS # 0.00 103/ul Normal 0.00-0.70 [facility] Comment on above: Performed By: #### C ERIC ####[facility] System [id number] [place] [id number]. Elgin Soler EOS% 0.0 % Critically low 0.9-7.0 [facility] Comment on above: Performed By: #### C ERIC ####[facility] [address] [place] [id number]. Elgin Soler HCT 42.3 % Normal 42.0-54.0 [facility] Comment on above: Performed By: #### C ERIC ####[facility] [address] [place], [place] [address]Dr. Elgin Soler HGB 14.5 g/dl Normal 14.0-18.0 [facility] Comment on above: Performed By: #### C ERIC ####[facility] [address] [place], [place] [id number]. Elgin Soler LYMPHM # 0.40 103/ul Critically low 1.20-3.80 [facility] Comment on above: Performed By: #### C ERIC ####[facility] [address] [place], [place] [address]Dr. Elgin Soler LYMPHM% 6.0 % Critically low 20.5-60.0 [facility] Comment on above: Performed By: #### C ERIC ####[facility] [address] [place], [place] [id number]. Elgin Soler MCH 30.8 pg Normal 25.9-34.0 [facility] Comment on above: Performed By: #### C ERIC ####[facility] [address] [place], [place] [id number]. Elgin Soler MCHC 34.3 g/dl Normal 29.9-35.2 [facility] Comment on above: Performed By: #### C ERIC ####[facility] K[address] [place], [place] [address]Fc. Elgin Soler MCV 89.8 fL Normal 80.0-94.0 [facility] Comment on above: Performed By: #### C BCMAN ####[facility] [address]fe[address] [place], [place] [address]Vm. Elgin Soler METAMYELOCYTE # Normal [facility] Comment on above: Performed By: #### C ERIC ####[facility] Ph[address]uc[address] [place] [id number]. Elgin Ryder METAMYELOCYTE % Normal [facility] Comment on above: Performed By: #### C ERIC ####[facility] [address] [place] [id number]. Elgin Soler MONOM# 0.60 103/ul Normal 0.30-0.80 [facility] Comment on above: Performed By: #### C ERIC ####[facility] [address] [place] [id number]. Beckyalexandra Soler MONOM% 9.0 % Normal 1.7-12.0 [facility] Comment on above: Performed By: #### C ERIC ####[facility] [address] [place], [place] [address]Dr. Beckyalexandra Soler MPV 10.8 fL Normal 9.5-13.5 [facility] Comment on above: Performed By: #### C ERIC ####[facility] [address] [place] [id number]. Elgin Soler MYELOCYTE # Normal [facility] Comment on above: Performed By: #### C ERIC ####[facility] [address] [place] [address] [id number]. Elgin Soler MYELOCYTE % Normal [facility] Comment on above: Performed By: #### C ERIC ####[facility] [address] [place], [place] [address]Dr. Elgin Soler NRBC Normal [facility] Comment on above: Performed By: #### C ERIC ####[facility] [address] [place], [place] [address]Dr. Elgin Soler PLT 156 103/ul Normal 150-450 [facility] Comment on above: Performed By: #### C ERIC ####[facility] [address] [place], [place] [address]UeMonica Soler RBC 4.71 106/ul Normal 4.70-6.10 [facility] Comment on above: Performed By: #### C ERIC ####[facility] Covsmyvmxm4614 [place], [place] [address]Qo. Elgin Soler RDW 12.7 % Normal 11.0-15.0 [facility] Comment on above: Performed By: #### C ERIC ####[facility] [address] [place], [place] [address]EzMonica Soler SEG # 5.70 103/ul Normal 1.40-6.50 [facility] Comment on above: Performed By: #### C ERIC ####[facility] [address] [place] [id number] Soler SEG % 85.0 % Critically high 43.0-75.0 [facility] Comment on above: Performed By: #### C ERIC ####[facility] Cxflatksmx9224 [place], [place] [address]QnMonica Soler WBC 6.7 103/ul Normal 4.0-11.0 [facility] Comment on above: Performed By: #### C ERIC ####[facility] [address] [place] [id number] Soler CTA CHEST WO W CONon 021 CTA CHEST WO W CON EXAMINATION: CTA ROD ST WO W CON HISTORY: SHORTNESS OF BREATH , yesterday. COMPARISON: Chest radiograph 01/02/2021. TECHNIQUE: CT angiography of the pulmonary arteries following the administration of intravenous contrast. Coronal and sagittal MIP (maximum intensity projection) images were performed. Dose reduction techniques were achieved by using automated exposure control and/or adjustment of mA and/or kV according to patient size and/or use of iterative reconstruction technique. FINDINGS: Pectus excavatum is noted. Heart is within normal limits in size. Few scattered coronary artery atherosclerotic calcifications are present. No thoracic aortic aneurysm or dissection. Normal caliber of the main pulmonary artery. No filling defect identified within the main, lobar or evaluable portion of the segmental pulmonary arteries. Moderately prominent subcentimeter right hilar lymph node measuring 9 mm in maximum dimension, not meeting pathologic size criteria. No mediastinal, hilar, or axillary lymphadenopathy. 3 mm right upper lobe pulmonary nodule (image 12, series 5). Mild biapical scarring. Subpleural reticular opacities with associated honeycombing within the dependent portions of the lower lobes. No pneumothorax. Central airways are patent. Included portions of the upper abdomen are unremarkable. No suspicious osteolytic or osteoblastic lesion. IMPRESSION: 1. No thoracic aortic aneurysm or dissection. No evidence for acute pulmonary thromboembolic disease. 2. Subpleural reticular opacities within the posterior aspect of the lower lobes with associated honeycombing is compatible with interstitial pulmonary fibrosis, UIP type pattern. 3. Nonspecific 3 mm upper lobe pulmonary nodule. Follow-up chest CT in 12 months should be considered based upon patient risk factors. 4. Pectus excavatum. Electronically authenticated by: FRANK CURTIS Date: 2021-01-02 18:33 Normal [facility] Covid-19 PCR (CVDTB)on 12-23 SARS-CoV-2 (COVID-19) RNA MARIA ALEJANDRA+probe Ql (Unsp spec) Not detected Normal NOT DETECTED [facility] Comment on above: Result Comment: When diagnostic testing is negative, the possibility of a false negative should be considered in the context of a patient's recent exposures and the presence of clinical signs and symptoms consistent with SARS-CoV-2. This test is not yet approved or cleared by the [place] Food and Drug Administration (FDA). This test was developed by [employer], [place], [place]. The performance characteristics of this test were validated by [facility]. The results are not intended to be used as the sole means for clinical diagnosis or patient management decisions. [facility] is authorized under Clinical Laboratory Improvement Amendments (CLIA) to perform high- complexity testing. This test is not yet approved or cleared by the [place] FDA. When there are no FDA-approved or cleared tests available, and other criteria are met, FDA can make tests available under an emergency access mechanism called an Emergency Use Authorization (EUA). The EUA for this test is supported by the Chief Digital Media Officer of Health and Human Service's declaration that circumstances exist to justify the emergency use of in vitro diagnostics for the detection and/or diagnosis of the virus that causes COVID-19. This EUA will remain in effect for the duration of the COVID-19 declaration justifying emergency of IVDs, unless it is terminated or revoked by the FDA (after which the test may no longer be used). Performed By: #### C VDTBH #### [facility] [address] [place] [address] Dr. Elgin Soler D-DIMERon 01-02-2021 D-DIMER 1.09 mg/L FEU Critically high 0.19-0.50 [facility] Comment on above: Performed By: #### P TT, DDIM, PT #### [facility] [address] [place] [address] Dr. Elgin Soler D-DIMER COMMENTS SEE BELOW Normal [facility] Comment on above: Result Comment: Incr eases in D-Dimer concentration observed with thromboembolic events can be variable due to localization, size, and age of the thrombus. Therefore, a thromboembolic event cannot be diagnosed with certainty on the basis of the reference range. D-Dimers may also be elevated for a variety of disorders including: advanced age, , coronary disease, cancer, liver disease, infection, inflammation, hematoma, DIC, trauma, post-surgery, diabetes, thrombolytic or anticoagulant therapy, stress, and generalized hospitalization. Performed By: #### P TT, DDIM, PT #### [facility] [address] [place] [address] Dr. Elgin Soler PROF 14(COMP METB)on 021 Albumin [Mass/Vol] 4.2 g/dL Normal 3.5-5.0 [facility] Comment on above: Performed By: #### B ESTATE MANAGER, HSTROPN, CMP #### [facility] [address] [place] [address] Dr. Elgin Soler Albumin/Globulin [Mass ratio] 1.1 {ratio} Normal [facility] Comment on above: Performed By: #### B ESTATE MANAGER, HSTROPN, CMP #### [facility] [address] [place] [address] Dr. Elgin Soler ALP [Catalytic activity/Vol] 131 U/L Critically high 38-126 [facility] Comment on above: Performed By: #### B ESTATE MANAGER, HSTROPN, CMP #### [facility] [address] [place] [address] Dr. Elgin Soler ALT [Catalytic activity/Vol] 47 U/L Normal 21-72 [facility] Comment on above: Performed By: #### B ESTATE MANAGER, HSTROPN, CMP #### [facility] [address] [place] [address] Dr. Elgin Soler Anion gap [Moles/Vol] 13.1 mmol/L Normal [facility] Comment on above: Performed By: #### B ESTATE MANAGER, HSTROPN, CMP #### [facility] [address] [place] [address] Dr. Elgin Soler AST [Catalytic activity/Vol] 28 U/L Normal 17-59 [facility] Comment on above: Performed By: #### B ESTATE MANAGER, HSTROPN, CMP #### [facility] [address] [place] [address] Dr. Elgin Soler Bilirubin [Mass/Vol] 0.6 mg/dL Normal 0.2-1.3 [facility] Comment on above: Performed By: #### B ESTATE MANAGER, HSTROPN, CMP #### [facility] [address] [place] [address] Dr. Elgin Soler Calcium [Mass/Vol] 10.0 mg/dL Normal 8.4-10.2 [facility] Comment on above: Performed By: #### B ESTATE MANAGER, HSTROPN, CMP #### [facility] [address] [place] [address] Dr. Elgin Soler Chloride [Moles/Vol] 100 mmol/L Normal 98-107 [facility] Comment on above: Performed By: #### B ESTATE MANAGER, HSTROPN, CMP #### [facility] [address] [place] [address] Dr. Elgin Soler CO2 [Moles/Vol] 23.8 mmol/L Normal 22.0-30.0 [facility] Comment on above: Performed By: #### B ESTATE MANAGER, HSTROPN, CMP #### [facility] [address] [place] [address] Dr. Elgin Soler Creatinine [Mass/Vol] 1.01 mg/dL Normal 0.66-1.25 [facility] Comment on above: Performed By: #### B ESTATE MANAGER, HSTROPN, CMP #### [facility] [address] [place] [address] Dr. Elgin Soler EGFR-AF DUTCH >60 Normal >=60 [facility] Comment on above: Performed By: #### B ESTATE MANAGER, HSTROPN, CMP #### [facility] [address] [place] [address] Dr. Elgin Soler EGFR-NON AF DUTCH >60 Normal >=60 [facility] Comment on above: Performed By: #### B ESTATE MANAGER, HSTROPN, CMP #### [facility] [address] [place] [address] Dr. Elgin Soler Globulin (S) [Mass/Vol] 3.7 g/dL Normal [facility] Comment on above: Performed By: #### B ESTATE MANAGER, HSTROPN, CMP #### [facility] [address] [place] [address] Dr. Elgin Soler Glucose [Mass/Vol] 113 mg/dL Critically high 74-106 T [facility] Comment on above: Performed By: #### B ESTATE MANAGER, HSTROPN, CMP #### [facility] [address] [place] [address] Dr. Elgin Soler Potassium [Moles/Vol] 3.9 mmol/L Normal 3.4-5.0 [facility] Comment on above: Performed By: #### B ESTATE MANAGER, HSTROPN, CMP #### [facility] [address] [place] [address] Dr. Elgin Soler Protein [Mass/Vol] 7.9 g/dL Normal 6.1-8.2 [facility] Comment on above: Performed By: #### B ESTATE MANAGER, HSTROPN, CMP #### [facility] [address] [place] [address] Dr. Elgin Soler Sodium [Moles/Vol] 133 mmol/L Critically low 137-145 Th [facility] Comment on above: Performed By: #### B ESTATE MANAGERZAK, CMP #### [facility] [address] [place] [address] Dr. Elgin Soler Urea nitrogen [Mass/Vol] 22.0 mg/dL Critically high 9.0-20.0 [facility] Comment on above: Performed By: #### B ESTATE MANAGERZAK, CMP #### [facility] [address] [place] [address] Dr. Elgin Soler Urea nitrogen/Creatinine [Mass ratio] 21.8 mg/mg Normal [facility] Comment on above: Performed By: #### B ESTATE MANAGERZAK, CMP #### [facility] [address] [place] [address] Dr. Elgin Soler PROTIMEon 01-02-2021 INR Coag (PPP) [Relative time] 1.08 {INR} Normal [facility] Comment on above: Performed By: #### P TT, DDIM, PT #### [facility] [address] [place] [address] Dr. Elgin Soler INR GUIDELINES SEE BELOW Normal [facility] Comment on above: Result Comment: NANCI RED INR: 2.0 - 3.0 CONDITIONS NOT LISTED BELOW 2.5 - 3.5 FOR PROSTHETIC HEART VALVE REPLACEMENT 2.5 - 3.5 RECURRENT THROMBOSIS Performed By: #### P TT, DDIM, PT #### [facility] [address] [place] [address] Dr. Elgin Soler PT Coag (PPP) [Time] 11.6 s Normal 9.0-11.6 [facility] Comment on above: Performed By: #### P TT, DDIM, PT #### [facility] [address] [place] [address] Dr. Elgin Soler PTTon 01-02-2021 aPTT Coag (Bld) [Time] 27.6 s Normal 22.3-36.2 [facility] Comment on above: Performed By: #### P TT, DDIM, PT #### [facility] [address] [address] [address] Elgin Soler TROPONIN, HIGH SENSITIVITYon 01-02-2021 HSTROP 6.6 pg/mL Normal 4.0-42.2 [facility] Comment on above: Result Comment: CUT- OFF POINTS HAVE BEEN ESTABLISHED BASED ON THE FOURTH UNIVERSAL DEFINITIONS OF MYOCARDIAL INFARCTION. THE UPPER REFERENCE LIMIT (URL) OF TROPONIN, DEFINED THE 99TH PERCENTILE OF cTnI DISTRIBUTION IN A REFERENCE POPULATION, HAS BEEN CONFIRMED THE DECISION THRESHOLD FOR UT DIAGNOSIS. Performed By: #### B ESTATE MANAGER, HSTROPN, CMP #### [facility] [address] [address] [address] Elgin Soler XR CHEST 1 Von 01-02-2021 XR CHEST 1 V EXAMINATION: XR CHES T 1 V HISTORY: SHORTNESS OF BREATH COMPARISON: No relevant comparison available. FINDINGS: LUNGS: No significant pulmonary parenchymal abnormalities. VASCULATURE: No increased pulmonary vasculature. PLEURA: No pneumothorax, effusion, or pleural thickening. CARDIAC: No cardiomegaly or cardiac silhouette abnormality. MEDIASTINUM: No visible mass or adenopathy. BONES: No fracture or visible bone lesion. OTHER: Negative. IMPRESSION: 1. No acute cardiopulmonary process. Electronically authenticated by: SCOTT CORDOVA Date: 2021-01-02 16:50 Normal [facility] NM STRESS/REST MULTIon 12-16 NM STRESS/REST MULTI Patient: Sandie MEANSMonica Exam Date: 12/16/2020 : 1950 Gender:M Ordering : DR SARIKA SNEED M.D. Admission #: [id number] Family : Order #: [id number] CLICK HERE TO VIEW EXAM RADIOLOGY REPORT PROCEDURE: RADIONUCLIDE IMAGING STRESS/REST MULTI COMPARISON: None. INDICATIONS: Chest pain, fatigue TECHNIQUE: Exam Description: Stress/Rest one day protocol gated SPECT Rest Imagin.1 mCi Tc-99m Cardiolite IV on 12/16/2020 Stress Imaging 30.0 mCi Tc-99m Cardiolite IV on 12/16/2020 Exercise Protocol: Ko Heart Rate (bpm): Rest: 57 Max: 151 PMHR: 100 Blood Pressure: Rest: 148/80 Max: 216/96 Exercise Time: Minutes: 3 Seconds: 39 Stage Reached: Stage: 2 Mets 4.6 Symptoms: Rest and peak stress ECG findings were normal and the exercise portion of the study was normal per attending physician Dr. Reid . For more details please see separate cardiac stress test report. FINDINGS: QUALITY OF STUDY: Excellent. PERFUSION DEFECT: None. LOCATION: N/A SIZE: N/A. SEVERITY: N/A. TYPE: N/A. WALL MOTION: Normal. LV SIZE: Normal. 97 mL. TID / TCD: None; 0.9 LVEF: Normal. Calculated EF 64%. SUMMARY: Myocardial perfusion imaging study is NORMAL. CONCLUSION: 1. Normal myocardial perfusion scan 2. Normal exercise test Dictated by: Raj Fisher MD on 12/16/2020 at 13:02 Approved by: Raj Fisher MD on 12/16/2020 at 13:04 Normal [facility] Vital Signs Date Time Vital Sign Value Performing Clinician Facility 12-24-2021 11:16-0400 Blood Pressure Location [employer] [facility] 12-24-2021 11:16-0400 Diastolic blood pressure 74 mm[Hg] Rossi SALAM [facility] 12-24-2021 11:16-0400 Heart rate 71 /min Rossi SALAM [facility] 12-24-2021 11:16-0400 Respiratory rate 16 /min Rossi SALAM [facility] 12-24-2021 11:16-0400 Systolic blood pressure 121 mm[Hg] Rossi SALAM [facility] 12-05-2021 09:40-0400 Diastolic blood pressure 84 mm[Hg] Rossi SALAM [facility] 12-05-2021 09:40-0400 Heart rate 59 /min Rossi SALAM [facility] 12-05-2021 09:40-0400 Respiratory rate 13 /min Rossi SALAM [facility] 12-05-2021 09:40-0400 SaO2% (BldA) [Mass fraction] 100 % Rossi SALAM [facility] 12-05-2021 09:40-0400 Systolic blood pressure 127 mm[Hg] Rossi SALAM [facility] 12-05-2021 09:35-0400 Diastolic blood pressure 77 mm[Hg] Rossi SALAM [facility] 12-05-2021 09:35-0400 Heart rate 61 /min Rossi SALAM [facility] 12-05-2021 09:35-0400 Respiratory rate 21 /min Rossi SALAM [facility] 12-05-2021 09:35-0400 SaO2% (BldA) [Mass fraction] 99 % Rossi SALAM [facility] 12-05-2021 09:35-0400 Systolic blood pressure 126 mm[Hg] Rossi SALAM [facility] 12-05-2021 09:20-0400 Diastolic blood pressure 56 mm[Hg] Rossi SALAM [facility] 12-05-2021 09:20-0400 Heart rate 59 /min Rossi SALAM [facility] 12-05-2021 09:20-0400 Respiratory rate 17 /min Rossi SALAM [facility] 12-05-2021 09:20-0400 SaO2% (BldA) [Mass fraction] 98 % Rossi SALAM [facility] 12-05-2021 09:20-0400 Systolic blood pressure 99 mm[Hg] Rossi SALAM [facility] 12-05-2021 09:10-0400 Body temperature 97.7 [degF] Rossi SALAM [facility] 12-05-2021 07:37-0400 Blood Pressure Location Rossi SALAM [facility] 12-05-2021 07:37-0400 Body temperature 98.06 [degF] Rossi SALAM [facility] 11-18-2021 14:33-0400 Blood Pressure Location [facility] 11-18-2021 14:33-0400 Diastolic blood pressure 73 mm[Hg] [facility] 11-18-2021 14:33-0400 Heart rate 76 /min [facility] 11-18-2021 14:33-0400 SaO2% (BldA) [Mass fraction] 98 % [facility] 11-18-2021 14:33-0400 Systolic blood pressure 128 mm[Hg] [facility] Encounters Encounter Date Encounter Type Care Provider Facility Start: 10-05-2023 End: 10-05-2023 ambulatory SARIKA SNEED Not Available Start: 04-26-2023 End: 04-26-2023 ambulatory SARIKA SNEED Not Available Start: 04-04-2023 Chart abstracting Sarika Sneed MD Work Phone: [facility] Start: 11-25-2022 End: 11-25-2022 ambulatory Hiren Whittington Facility:[facility] Start: 11-25-2022 End: 11-25-2022 ambulatory MD Hiren Whittington Work Phone: [facility] Work Phone: Start: 11-25-2022 End: 11-25-2022 Patient encounter procedure MD Hiren Whittington Work Phone: [facility] [address] Work Phone: Start: 10-20-2022 End: 10-20-2022 ambulatory Hiren Whittington Facility:[facility] Start: 10-20-2022 End: 10-20-2022 ambulatory MD Hiren Whittington Work Phone: [facility] Work Phone: Start: 10-20-2022 End: 10-20-2022 Patient encounter procedure MD Hiren Whittington Work Phone: [facility] Work Phone: Start: 01-13-2022 End: 01-14-2022 ambulatory [facility] Facility:[facility] Start: 01-13-2022 End: 01-13-2022 Patient encounter procedure [facility] Start: 12-30-2021 End: 12-31-2021 ambulatory [facility] Facility:[facility] Start: 12-30-2021 End: 12-30-2021 Patient encounter procedure Rossi SALAM [facility] Start: 12-24-2021 End: 12-25-2021 [facility] Start: 12-24-2021 End: 12-24-2021 Patient encounter procedure Rossi SALAM [facility] Start: 12-19-2021 End: 12-20-2021 ambulatory [facility] Facility:[facility] Start: 12-19-2021 End: 12-19-2021 Patient encounter procedure Rossi SALAM [facility] Start: 12-17-2021 End: 12-18-2021 ambulatory Gagan Colindres Facility:[facility] Start: 12-17-2021 End: 12-17-2021 Patient encounter procedure Gagan Colindres [facility] Start: 12-05-2021 End: 12-06-2021 ambulatory Enid OCHOA Facility:[facility] Start: 12-05-2021 End: 12-05-2021 Patient encounter procedure Enid OCHOA [facility] Start: 11-18-2021 End: 11-19-2021 ambulatory Salud Henderson Facility:[facility] Start: 11-18-2021 End: 11-18-2021 Patient encounter procedure Marquise Pa [facility] Start: 11-17-2021 ambulatory Salud Henderson Facili ty:[facility] Start: 10-28-2021 End: 10-29-2021 ambulatory Salud Henderson Facility:[facility] Start: 10-28-2021 End: 10-28-2021 Patient encounter procedure Salud Henderson [facility] Start: 10-14-2021 End: 10-15-2021 ambulatory Salud Henderson Facility:[facility] Start: 10-14-2021 End: 10-15-2021 ambulatory SARIKA SNEED Facility:[facility] Start: 10-07-2021 ambulatory Salud Henderson Facili ty:[facility] Start: 01-02-2021 End: 01-02-2021 ambulatory SAVAGE GIBBONS Facility: Start: 12-16-2020 End: 12-17-[address] SARIKA SNEED Facility:[facility] Procedures Date Procedure Procedure Detail Performing Clinician Start: 10-20-2022 Urine culture MD Hiren Whittington Work Phone: Start: 10-20-2022 Plain X-ray of bilateral hands MD Hiren Whittington Work Phone: Start: 12-05-2021 Colonoscopy Sarkia Sneed MD Work Phone: Start: 12-05-2021 Colonoscopy [employer] Comment on above: one polyp in sigmoid, diverticulosis, IH Start: 12-05-2021 Esophagogastroduodenoscopy [employer] Comment on above: normal, biopsies taken of gastric mucosa Start: 11-03-2019 Colonoscopy Salud Santiago Comment on above: Dr Barnett Plan of Treatment Date Care Activity Detail Author Start: 12-06-2031 Screening for malignant neoplasm of colon [facility] Start: 04-05-2023 End: 04-05-2023 Patient encounter procedure 04/05/2023 8:15 AM EST Office Visit [facility] [address] [facility] [address] [place] [id number] Sarika Sneed MD [address] [facility] [address] [place] [address] [facility] Start: 11-25-2022 ABSORPTION OPERATOR antibody measurement [facility] Start: 11-25-2022 End: 11-25-2022 [facility] Start: 10-20-2022 Bacteria identified in Urine by Culture [facility] Start: 10-20-2022 Hepatitis B core antibody measurement [facility] Start: 10-20-2022 Hemolytic complement CH50 level [facility] Start: 10-20-2022 End: 10-20-2022 [facility] Start: 08-30-2022 Screening for malignant neoplasm of colon FIT-DNA [facility] Start: 03-05-2022 ambulatory Ambulatory Facility:[facility] Start: 01-30-2022 Pneumococcal Vaccine: 65+ Years (2 - PCV) Pneumococcal Vaccine: 65+ Years (2 - PCV) [facility] Start: 01-28-2022 Medicare Annual Wellness (AWV) Medicare Annual Wellness (AWV) [facility] Start: 1950 Screening for malignant neoplasm of colon [facility] 24 hour urine measurement [facility] Albumin [Mass/volume ] in Serum or Plasma [facility] Albumin/Globulin ratio [facility] Complement C3 [Mass/volume] in Serum or Plasma [facility] Complement C4 [Mass/volume] in Serum or Plasma [facility] Electrophoresis: [id number] [facility] Electrophoresis: [id number] [facility] Electrophoresis: beta-globulin [facility] Electrophoresis: eh ma globulin [facility] Fibrillarin Ab [Pres ence] in Serum [facility] Globulin [Mass/volum e] in Serum [facility] Hepatitis B virus roe rface Ab [Presence] in Serum [facility] Hepatitis B virus roe rface Ag [Presence] in Serum or Plasma by Immunoassay [facility] Hepatitis C virus Ig G Ab [Presence] in Serum or Plasma by Immunoassay [facility] Homogenous nuclear A b pattern [Titer] in Serum [facility] IgA [Mass/volume] in Serum or Plasma [facility] IgG [Mass/volume] in Serum or Plasma [facility] IgM [Mass/volume] in Serum or Plasma [facility] Immunofixation for Urine [facility] Measurement of monoc lonal protein concentration [facility] Nuclear Ab [Titer] i n Serum [facility] PM-SCL extractable nuclear Ab [Mass/volume] in Serum by Immune diffusion (ID) [facility] Protein [Mass/volume ] in Serum or Plasma [facility] Protein [Mass/volume ] in Urine [facility] RNA polymerase III I gG Ab [Units/volume] in Serum or Plasma by Immunoassay [facility] Serum immunofixation [facility] Th-To Ab [Units/volu me] in Serum by Line blot [facility] Immunizations Immunization Date Immunization Notes Care Provider Fa cility 12-25-2022 Influenza, High-dose Seasonal, Quadrivalent, Preservative Free Sarika Sneed MD Work Phone: [facility] 12-09-2021 influenza, injectabl e, quadrivalent, preservative free Sarika Sneed MD Work Phone: [facility] 01-30-2021 influenza virus vaccine, unspecified formulation [facility] 01-30-2021 influenza, injectabl e, quadrivalent, preservative free Sarika Sneed MD Work Phone: [facility] 01-30-2021 Influenza, Seasonal, Quadrivalent, Adjuvanted Sarika Sneed MD Work Phone: [facility] 01-30-2021 pneumococcal polysaccharide vaccine, 23 valent [facility] 01-01-2021 SARS-CoV-2 (COVID-19 ) mRNA-1273 vaccine [facility] Comment on above: Result Comment: 2021: [id number] 05-20-2020 SARS-CoV-2 (COVID-19 ) mRNA-1273 vaccine [facility] 04-22-2020 SARS-CoV-2 (COVID-19 ) mRNA-1273 vaccine Salud Santiago [facility] 12-12-2019 influenza virus vaccine, unspecified formulation [facility] 12-12-2019 influenza, injectabl e, quadrivalent, contains preservative Sarika Sneed MD Work Phone: [facility] 12-05-2018 influenza virus vaccine, unspecified formulation [facility] 12-05-2018 influenza, seasonal, injectable Sarika Sneed MD Work Phone: [facility] 12-13-2017 influenza virus vaccine, unspecified formulation [facility] 12-13-2017 Influenza, High-dose Seasonal, Quadrivalent, Preservative Free Sarika Sneed MD Work Phone: [facility] 03-24-2017 influenza virus vaccine, unspecified formulation [facility] 03-24-2017 influenza, injectabl e, quadrivalent, contains preservative Sarika Sneed MD Work Phone: [facility] 03-24-2017 influenza, injectabl e, quadrivalent, preservative free Sarika Sneed MD Work Phone: [facility] 03-24-2017 pneumococcal polysaccharide vaccine, 23 valent [facility] 07-29-2010 tetanus and diphther ia toxoids, adsorbed, preservative free, for adult use (2 Lf of tetanus toxoid and 2 Lf of diphtheria toxoid) Sarika Sneed MD Work Phone: [facility] NEGATED: Highlighted row has not occurred!12-24-2021 influenza virus vaccine, unspecified formulation Enid OCHOA [facility] NEGATED: Highlighted row has not occurred!11-18-2021 influenza virus vaccine, unspecified formulation [facility] NEGATED: Highlighted row has not occurred!10-14-2021 influenza virus vaccine, unspecified formulation Salud Henderson [facility] Payers Date Payer Category Payer Self-pay 2015 Medicare MEDICARE MEDICAR E PART B [id number] 2015-Present [address] [address] [place] [address] Medicare [id number] 1959 Medicare [id number] 1959 Unknown [id number] 1950 Unknown [id number] 2.16.840.1.250086.3.579.2.593 1950 Unknown [id number] 2.16.840.1.437273.3.579.2.593 1950 Unknown [id number] 2.16.840.1.549919.3.579.2.727 1950 Unknown [id number] 2.16.840.1.632319.3.579.2.72 1950 Unknown [id number] 2.16.840.1.839764.3.579.2.72 1950 Unknown [id number] 2.16.840.1.024024.3.579.2.72 1950 Unknown [id number] 2.16.840.1.973565.3.579.2.727 1950 Unknown [id number] 2.16.840.1.751807.3.579.2.72 1950 Unknown [id number] 2.16.840.1.086851.3.579.2.727 1950 Unknown [id number] 2.16.840.1.160869.3.579.2.72 1950 Unknown [id number] 2.16.840.1.260289.3.579.2.727 1950 Unknown [id number] 2.16.840.1.832068.3.579.2.72 1950 Unknown [id number] 2.16.840.1.646266.3.579.2.727 1950 Unknown [id number] 2.16.840.1.172488.3.579.2.727 1950 Unknown [id number] 2.16.840.1.493720.3.579.2.727 1950 Unknown [id number] 2.16.840.1.808565.3.579.2.1259 1950 Unknown [id number] 2.16.840.1.768814.3.579.2.1259 Unknown [id number] 2.16.840.1.876978.3.579.2.531 Unknown [id number] 2.16.840.1.333296.3.579.2.531 Social History Date Type Detail Facility Start: 10-14-2021 End: 12-25-2022 Tobacco smoking status Never smoked tobacco (finding) [facility] Tobacco smoking status Never [facility] Start: 12-25-2022 Sex Assigned At Male F [facility] Start: 1950 Sex Assigned At Male F [facility] Start: 12-25-2022 Tobacco use and exposure Smokeless tobacco non-user [facility] Start: 04-04-2023 Alcohol intake Lifetime non-d stephenie (finding) [facility] Start: 12-25-2022 History of Social function [facility] Start: 04-04-2023 Alcohol Comment Caffeine Intak e: Coffee [facility] Start: 1950 Sex Assigned At Not on file [facility] Medical Equipment Procedure Code Equipment Code Equipment Origin al Text Equipment Identifier Dates Unknown Unknown 12/05/21 Non Biological Unknown FDA Start: 12-05-2021 Unknown Unknown 12/05/21 Non Biological Unknown FDA Start: 12-05-2021 Unknown Unknown 12/05/21 Non Biological Unknown FDA Start: 12-05-2021 Unknown Unknown 12/05/21 Non Biological Unknown FDA Start: 12-05-2021 Unknown Unknown 12/05/21 Non Biological Unknown FDA Start: 12-05-2021 Unknown Unknown 12/05/21 Non Biological Unknown FDA Start: 12-05-2021 Functional Status Date Assessment Result Facility 12-24-2021 Functional Status N/A [facility] 12-05-2021 Functional Status N/A [facility] Clinical Notes 10-17-2021 to 12-08-2021 Note Date & Type Note Facility 12-08-2021 Note [id number] 6#[id number]:[id number] [facility] 12-05-2021 Evaluation + Plan note Extrac teofilo from: Title:ANES POSTOP Author:Hilario Kay DO Date: 12/05/21 Plan Transfer/ Discharge: Patient can be discharged from PACU when criteria met. Condition good. Extracted from: Title:ANES PREOP ENDO NOTE Author:Vin Kay DO Date:12/05/21 Plan [place] [employer] Anesthesiologists (ASA) physical status classification: Class II. Anesthetic Preoperative Plan Anesthesia: Monitored anesthesia care and general anesthesia possible. Anesthetic plan, risks, benefits, and alternatives discussed with the patient and/or family. Pt. and/or family present and agree to proceed as planned.. Risks discussed including heart, lung, nerve damage. Risks of bleeding, dental injury, hospitalization, and general injury discussed. . Future Appointments Appointment Date:12/19/2021 07:00:00 AM Scheduled Provider: Location:.[facility] Appointment Type:CT Abdomen/Pelvis Combo () Appointment Date:12/24/2021 11:00:00 AM Scheduled Provider:Enid OCHOA MD Location:[facility] Appointment Type:[facility] Follow Up Future Scheduled Tests Radiology* CT Abdomen/Pelvis w/ Contrast 12/19/21 [facility]10-14-2022 Hospital Discharge instructions Patient Education 12/05/2021 09:23:00 Upper Endoscopy, Adult, Care After Upper Endoscopy, Adult, Care After This sheet gives you information about how to care for yourself after your procedure. Your health care provider may also give you more specific instructions. If you have problems or questions, contact your health care provider. What can I expect after the procedure? After the procedure, it is common to have: A sore throat. Mild stomach pain or discomfort. Bloating. Nausea. Follow these instructions at home: Follow instructions from your health care provider about what to eat or drink after your procedure. Return to your normal activities as told by your health care provider. Ask your health care provider what activities are safe for you. Take wdzg-pki-ldzkvnj and prescription medicines only as told by your health care provider. Do not drive for 24 hours if you were given a sedative during your procedure. Keep all follow-up visits as told by your health care provider. This is important. Contact a health care provider if you have: A sore throat that lasts longer than one day. Trouble swallowing. Get help right away if: You vomit blood or your vomit looks like coffee grounds. You have: ?A fever. ?Bloody, black, or tarry stools. ?A severe sore throat or you cannot swallow. ?Difficulty breathing. ?Severe pain in your chest or abdomen. Summary After the procedure, it is common to have a sore throat, mild stomach discomfort, bloating, and nausea. Do not drive for 24 hours if you were given a sedative during the procedure. Follow instructions from your health care provider about what to eat or drink after your procedure. Return to your normal activities as told by your health care provider. This information is not intended to replace advice given to you by your health care provider. Make sure you discuss any questions you have with your health care provider. Document Released: 08/09/2012 Document Revised: 08/02/2018 Document Reviewed: 07/11/2018 [employer] Patient Education 2020 [email or web address] 12/05/2021 09:23:00 Colonoscopy, Care After Surgery Salam (CUSTOM) Colonoscopy Care After Surgery Please read the instructions outlined below and refer to this sheet in the next few weeks. These discharge instructions provide you with general information on caring for yourself after you leave thespital. Your doctor may also give you specific instructions. While your treatment has been planned according to the most current medical practices available, unavoidable complications occasionally occur. If you have any problems or questions after discharge, please call your doctor. ACTIVITY You may resume your regular activity, but move at a slower pace for the next 24 hours. Take frequent rest periods for the next 24 hours. Walking will help get rid of the air and reduce the bloated feeling in your abdomen (belly). No driving for 24 hours (because of the anesthesia (medicine) used during the test). You may shower. Do not sign any important legal documents or operate any machinery for 24 hours (because of the anesthesia used during the test). NUTRITION Drink plenty of fluids. You may resume your normal diet as instructed by your doctor. Begin with a light meal and progress to your normal diet. Heavy or fried foods are harder to digestand may make you feel nauseated (sick to your stomach). Avoid alcoholic beverages for 24 hours or as instructed. MEDICATIONS You may resume your normal medications unless your doctor tells you otherwise. WHAT YOU CAN EXPECT TODAY Some feelings of bloating in the abdomen. Passage of more gas than usual. Spotting of blood in your stool or on the toilet paper. FOLLOW-UP Your doctor will discuss the results of your test with you. SEEK IMMEDIATE MEDICAL ATTENTION IF: There is more than a spotting of blood in your stool. There is abdominal distention (your abdomen is swollen). There is vomiting. You have a temperature over 101.5 F. There is abdominal pain or discomfort that is severe or gets worse throughout the day. 12/05/2021 09:23:00 Diverticulosis MAGR (CUSTOM) Diverticulosis Many people have small pouches in their colon called diverticulum. The diverticulum bulge outward through weak spots in the colon. You could have one or more of these pouches in the colon. The condition of having these pouches in the colon is called diverticulosis or diverticular disease. Diverticulosis is usually diagnosed by tests to evaluate something else. For example, you may have had a colonoscopy to screen for colon cancer when the diverticulosis was found. Most people with diverticulosis do not have any discomfort or problems. If symptoms develop, they may include mild cramps, bloating, and constipation. A complication of this condition is called diverticulitis. This is when the diverticulum become inflamed and infected. How to treat diverticulosis: Increasing the amount of fiber in the diet may reduce symptoms of diverticulosis and prevent complications such as diverticulitis (infected diverticuli). Fiber keeps stool soft and lowers pressure inside the colon so that bowel contents can move througheasily. You should eat 20 to 35 grams of fiber each day. The table below shows the amount of fiber in some foods that you can easily add to your diet. Adding fiber slowly may decrease the bloating and fullness sometimes felt with an immediate high fiber diet. The doctor may also recommend taking a fiber product such as Citrucel or Metamucil once a day. In the past people with diverticulosis were to avoid nuts, corn, and seeds. This has not been foundto be true. If you find that certain foods create cramping or bloating, avoid that food. Foods high in fiber include: Fresh fruits, fresh vegetables, legumes (beans), whole wheat bread, bran muffins or cereal, and nuts. See the table below for examples of high fiber foods. Remember, your goal is 20- 35 grams per day. Amount of fiber in different foods Food Serving Grams of fiber Fruits Apple (with skin) 1 medium apple 4.4 Banana 1 medium banana 3.1 Oranges 1 orange 3.1 Prunes 1 cup, pitted 12.4 Juices Apple, unsweetened, w/added ascorbic acid 1 cup 0.5 Grapefruit, white, canned, sweetened 1 cup 0.2 Grape, unsweetened, w/added ascorbic acid 1 cup 0.5 Bolivar 1 cup 0.7 Vegetables Cooked Green beans 1 cup 4.0 Carrots 1/2 cup sliced 2.3 Peas 1 cup 8.8 Potato (baked, with skin) 1 medium potato 3.8 Raw Stamps (with peel) 1 cucumber 1.5 Lettuce 1 cup shredded 0.5 Tomato 1 medium tomato 1.5 Spinach 1 cup 0.7 Legumes Baked beans, canned, no salt added 1 cup 13.9 Kidney beans, canned 1 cup 13.6 Vogt beans, canned 1 cup 11.6 Lentils, boiled 1 cup 15.6 Breads, pastas, flours Bran muffins 1 medium muffin 5.2 Oatmeal, cooked 1 cup 4.0 White bread 1 slice 0.6 Whole-wheat bread 1 slice 1.9 Pasta and rice, cooked Macaroni 1 cup 2.5 Rice, brown 1 cup 3.5 Rice, white 1 cup 0.6 Spaghetti (regular) 1 cup 2.5 Nuts Almonds 1/2 cup 8.7 Peanuts 1/2 cup 7.9 Chart from [facility] 2013. SEEK IMMEDIATE MEDICAL CARE IF: You develop abdominal (belly) pain. An oral temperature above _ 101 F__develops. Repeated vomiting occurs. Blood is being passed in stools (bright red or black tarry stools). You develop any bowel problems or changes which you have not had before. Extra Information: To learn how much fiber and other nutrients are in different foods, visit the [place] Department of Agriculture (USDA) National Nutrient Database at: http://www.nal.usda.gov/fnic/foodcomp/search/ Created using data from the USDA National Nutrient Database for Standard Reference. Available at http://www.nal.usda.gov/fnic/foodcomp/search/. Information adapted from: [facility] Patient Information 2009 [employer]. [employer] 2012 http://www.Yammer/contents/plvkclhzxnbu-pnngssw-oqkkjx-the-basics 12/05/2021 09:23:00 Colon Polyps Colon Polyps Polyps are tissue growths inside the body. Polyps can grow in many places, including the large intestine (colon). A polyp may be a round bump or a mushroom-shaped growth. You could have one polyp or several. Most colon polyps are noncancerous (benign). However, some colon polyps can become cancerous over time. Finding and removing the polyps early can help prevent this. What are the causes? The exact cause of colon polyps is not known. What increases the risk? You are more likely to develop this condition if you: Have a family history of colon cancer or colon polyps. Are older than 50 or older than 45 if you are . Have inflammatory bowel disease, such as ulcerative colitis or Crohn's disease. Have certain hereditary conditions, such as: ?Familial adenomatous polyposis. ?Gibbons syndrome. ?Turcot syndrome. ?Peutz Jeghers syndrome. Are overweight. Smoke cigarettes. Do not get enough exercise. Drink too much alcohol. Eat a diet that is high in fat and red meat and low in fiber. Had childhood cancer that was treated with abdominal radiation. What are the signs or symptoms? Most polyps do not cause symptoms. If you have symptoms, they may include: Blood coming from your rectum when having a bowel movement. Blood in your stool. The stool may look dark red or black. Abdominal pain. A change in bowel habits, such as constipation or diarrhea. How is this diagnosed? This condition is diagnosed with a colonoscopy. This is a procedure in which a lighted, flexible scope is inserted into the anus and then passed into the colon to examine the area. Polyps are sometimes found when a colonoscopy is done as part of routine cancer screening tests. How is this treated? Treatment for this condition involves removing any polyps that are found. Most polyps can be removed during a colonoscopy. Those polyps will then be tested for cancer. Additional treatment may be needed depending on the results of testing. Follow these instructions at home: Lifestyle Maintain a healthy weight, or lose weight if recommended by your health care provider. Exercise every day or as told by your health care provider. Do not use any products that contain nicotine or tobacco, such as cigarettes and e-cigarettes. If you need help quitting, ask your health care provider. If you drink alcohol, limit how much you have: ?0 1 drink a day for women. ? 0 2 drinks a day for men. Be aware of how much alcohol is in your drink. In the [place] one drink equals one 12 oz bottle of beer (355 mL), one 5 oz glass of wine (148 mL), or one 1 oz shot of hard liquor (44 mL). Eating and drinking Eat foods that are high in fiber, such as fruits, vegetables, and whole grains. Eat foods that are high in calcium and vitamin D, such as milk, cheese, yogurt, eggs, liver, fish, and broccoli. Limit foods that are high in fat, such as fried foods and desserts. Limit the amount of red meat and processed meat you eat, such as hot dogs, sausage, abreu, and lunch meats. General instructions Keep all follow-up visits as told by your health care provider. This is important. ?This includes having regularly scheduled colonoscopies. ?Talk to your health care provider about when you need a colonoscopy. Contact a health care provider if: You have new or worsening bleeding during a bowel movement. You have new or increased blood in your stool. You have a change in bowel habits. You lose weight for no known reason. Summary Polyps are tissue growths inside the body. Polyps can grow in many places, including the colon. Most colon polyps are noncancerous (benign), but some can become cancerous over time. This condition is diagnosed with a colonoscopy. Treatment for this condition involves removing any polyps that are found. Most polyps can be removed during a colonoscopy. This information is not intended to replace advice given to you by your health care provider. Make sure you discuss any questions you have with your health care provider. Document Released: 11/04/2004 Document Revised: 05/26/2018 Document Reviewed: 05/26/2018 [employer] staff Patient Education 2020 [employer] Inc. Follow Up Care 10/14/2021 10:09:05 With:Enid OCHOA Address: [address] [place] [address] Business (1) When: Unknown Comments:office will call for follow up [facility]08-26-2022 Hospital Discharge instructions Follow Up Care 10/17/2021 10:40:15 With:VAIBHAV CERON, [place], [facility], [facility] Address: [facility] [address], [place] [address]- When:Within 2 Month(s) [facility] Evaluation + Plan note Future Appointments Appointment Date:12/05/2021 08:15:00 AM Scheduled Provider: Location:[facility] Appointment Type:Surgery FT Appointment Date:12/24/2021 11:00:00 AM Scheduled Provider:Enid OCHOA MD Location:[facility] App[facility]ment Type:BAD [facility] App[facility]ments Appointment Date:12/19/2021 07:00:00 AM Scheduled [facility] Type:CT Abdomen/Pelvis Combo () Appointment Date:12/24/2021 11:00:00 AM Scheduled Provider:Enid OCHOA MD Location:[facility]ive [facility] Appointment Type:[facility] Follow Up Future Scheduled Tests Radiology* CT Abdomen/Pelvis w/ Contrast [facility]ments Appointment Date:12/24/2021 11:00:00 AM Scheduled Provider:Enid OCHOA MD Location:[facility] Appointment Type:BAD [facility] Future Appointments Appointment Date:03/05/2022 12:15:00 PM Scheduled Provider:Enid OCHOA MD Location:[facility] Appointment Type:[facility] Follow Up Future Scheduled Tests Laboratory* Sedimentation Rate Automated 12/24/21 * IgA, Quant. 12/24/21 * PSA Total 12/24/21 * t-Transglutaminase IgA 12/24/21 * C-Reactive Protein 12/24/21 * GGT 12/24/21 * Thyroid Stimulating Hormone 12/24/21 Radiology* XR Chest 2 Views 12/24/21 [facility] Evaluation + Plan note Future Appointments Appointment Date:03/05/2022 12:15:00 PM Scheduled Provider:Enid OCHOA MD Location:[facility] [place] [facility] Appointment Type:BADH Follow Up Diagnostic Tests Pending * t-Transglutaminase IgA 12/30/21 * IgA, Quant. [facility] Appointment Date:03/05/2022 12:15:00 PM Scheduled Provider:Enid OCHOA MD Location:[facility] [place] Dig[facility]ive Health Appointment Type:BADH Follow Up Diagnostic Tests Pending * Antimitochondrial Antibody, Quantitative 01/13/22 * BESSIE w/Reflex if POS 01/13/22 [facility] information [facility] Work Phone: Hospital course Narrative No data available for this section [facility] No data available for this section [facility] No data available for this section [facility] Summary Purpose Family History No Family History Records FoundNo Family History Records FoundNo Family History Records FoundNo Family History Records FoundNo Family History Records Found Advance Directives No Advanced Directives Records Found Advance Directive Response Recorded Date/ Time Advance Directives No October 22, 2022 11:36am Chief Complaint and Reason for Visit Chief Complaint hand pain Additional Source Comments (unrecognized sect ion and content) No Status Records FoundNo Status Records FoundNo Status Records FoundNo Status Records FoundNo Status Records Found INFORMATION SOURCE (unrecogn ized section and content) DATE CREATED AUTHOR 01/06/2021 [facility] DATE CREATED AUTHOR AUTHOR'S ORGANIZ ATION 01/29/2021 [facility] DATE CREATED AUTHOR AUTHOR'S ORGANIZ ATION 01/16/2022 [facility] DATE CREATED AUTHOR AUTHOR'S ORGANIZ ATION 12/11/2022 [facility] DATE CREATED AUTHOR AUTHOR'S ORGANIZ ATION 10/07/2023 [facility] d[facility] Specialists EPIC Care Team (unrecognized sect ion and content) Team Status: Inactive Member Role Status Dates Hiren Whittington MD Attending Provider Active Line Service Person Relationship Specialty Start Date End Date Sarika Sneed MD [address] [facility] [address] [place] [address] PCP - General Family Medicine 06/30/22 Goals (unrecognized section and content) Goals may be documented in a n alternate section FOR RECORDS PERTAINING TO PATIENTS WHO ARE OR HAVE BEEN ENROLLED IN A CHEMICAL DEPENDENCY/SUBSTANCEABUSE PROGRAM, SOME INFORMATION MAY BE OMITTED. This clinical summary was aggregated from multiple sources. Caution should be exercised in using it in the provision of clinical care. This summary normalizes information from multiple sources, and as a consequence, information in this document may materially change the coding, format and clinical context of patient data. In addition, data may be omitted in some cases. CLINICAL DECISIONS SHOULD BE BASED ON THE PRIMARY CLINICAL RECORDS. [facility] [employer] provides no warranty or guarantee of the accuracy or completeness of information in this document.
== END 2023-10-13 09:31 | disposition home or self-care (01) ==
LOC: EC 09:30
PROVIDERS: PCP Family Medicine; Visit Provider Podiatrist Foot & Ankle Surgery
DX: M79.671 Pain in right foot (principal); S92.001D Unspecified fracture of right calcaneus, subsequent encounter for fracture with routine healing
CPT/HCPCS: 73630

== ENCOUNTER 2023-11-09 09:23 | Outpatient (OUT) | payer MEDICARE, SELFPAY ==
--- NOTE | 2023-11-09 | XR_ITS ---
[address] [address] Patient Name: MARQUISE DOHERTY MRN: [id number] date: 1950 Sex: M Assigned Patient Location: Current Patient Location: Accession/Order Number: [id number] Exam Date: 11/09/2023 09:24 Report Date: 11/10/2023 23:55 At the request of: BETZAIDA DUNN Procedure: XR foot RT min 3V EXAM: XR foot RT min 3V HISTORY: RIGHT FOOT PAIN COMPARISON: 10/13/2023 FINDINGS/IMPRESSION: 1. Mildly displaced calcaneal fracture, similar in appearance as compared to the prior examination. 2. Mild degeneration of the interphalangeal joints. 3. Moderate degeneration of the first metacarpophalangeal joint. 4. No ankle joint effusion. Electronically authenticated by: GAGE WADDELL Date: 11/10/2023 23:55
--- OUTSIDE RECORDS SUMMARY | 2023-11-09 09:41 | XMS_ITS | CCD ---
Author Organization [facility] Care Team Providers Care Records Supervisor Name Role Phone SAVAGE GIBBONS Attending Unavailable TASHA, DR SCOTT Hanson Consulting Unavailable NAREN, DR BAUM Primary Care Unavailable SAVAGE GIBBONS Admitting Unavailable Frank Curtis Consulting Unavailable SAVAGE GIBBONS Consulting Unavailable NAREN, DR BAUM Admitting Unavailable NAREN, DR BAUM Primary Care Unavailable NAREN, DR BAUM Consulting Unavailable NAREN, DR BAUM Attending Unavailable JENNIFER, DR RAJ Moya Consulting Unavailable SARIKA SNEED Primary Care Physician [phone] En[place] OCHOA Admitting Unavailable SALAM, [place] Attending [...] Attending Unavailable MD Hiren Whittington Attending Provider [phone] Hiren Whittington Admitting Unavailable Hiren Whittington Attending Unavailable Hiren Whittington Admitting Unavailable Hiren Whittington Attending Unavailable Sarika Sneed MD Primary Care Provider [phone] SARIKA SNEED Attending Unavailable SARIKA SNEED Attending Unavailable Allergies Allergy Classification Reported Allergen(s) Allergy Type Date of Onset Reaction(s) Facility (1 source) No Known Medication Allergies; Translations: [No Known Medication Allergies] Propensity to adverse reactions (disorder) [facility] Repository Medications Current Medications Medication Drug Class(es) Dates Sig (Normalized) Sig (Original) amoxicillin 875 mg / clavulanate 125 mg oral tablet (2 sources) Penicillin-class Antibacterial Start: 12-24-2021 End: 01-03-2022 take 1 tablet by mouth twice daily Augmentin 875 mg-125 mg Tab 1 tab(s), Oral, BID for 10 day(s), 20 tab(s), Refill(s) 0, [facility] [id number], 184, cm, 12/24/21 11:18:00 EDT, Height/Length Dosing, [...] unspecified SLE type, unspecified organ involvement status ([facility]) Take 1 tablet (500 mg) by mouth [...] Antibodyon 3 Anti-Ku Antibody Negative Normal Negative [facility] Comment on above: Result Comment: This test was developed and its performance characteristics determined by [employer]. It has not been cleared or approved by the Food and Drug Administration. Performed at: [facility] [address] [place] [phone] [employer] Facer: Tereso Stevenson MD, Phone: [phone] PERFORMED BY: [place] [address] PATHOLOGIST AUTOMOTIVE PAINTER HELPER JOSE GUADALUPE RODAS M.D. Performed By: #### H BCAB, HBSAG, HBSAB, HCV RX PCR #### [facility] , #### CK, PTH, CBC, ESR, CRP, CMP #### [facility] [address] [place] [address] Anti-RNPon 11-25-2022 Anti-AUTOMATION AND CONTROLS SUPERVISOR <0.2 Normal 0.0-0.9 [facility] Comment on above: Result Comment: Perf ormed at: [facility] [address] [id number] [employer] F[employer]: Ambrocio Olivas PhD, Phone: [phone] Performed By: #### H BCAB, HBSAG, HBSAB, HCV RX PCR #### [facility] , #### CK, PTH, CBC, ESR, CRP, CMP #### [facility] [address] [place] [address] [place] Creatine Kinaseon 11-25-2022 CK [Catalytic activity/Vol] 86 U/L Normal 30-223 [facility] Comment on above: Result Comment: PERF ORMED BY: [place] [address] PATHOLOGIST AUTOMOTIVE PAINTER HELPER JOSE GUADALUPE RODAS M.D. Performed By: #### H BCAB, HBSAG, HBSAB, HCV RX PCR #### [facility] , #### CK, PTH, CBC, ESR, CRP, CMP #### [facility] [address] [place] [address] [place] Creatine kinase [Enzymatic a ctivity/volume] in Serum or PlasmaOrdered By: Hiren Whittington on 11-25-2022 CK [Catalytic activity/Vol] 86 U/L 30-223 [facility] MISC2 LABon 11-25-2022 MISC2 LAB Normal [facility] Comment on above: Order Comment: Misc 2 Test Name: Mi2 Result Comment: See report. Scanned copy available in EMR. PERFORMED BY: [place] [address] PATHOLOGIST AUTOMOTIVE PAINTER HELPER JOSE GUADALUPE RODAS M.D. Performed By: #### M ISC2 LAB #### [address] PM-SCL Antibodieson 11-26-19 23 ANNETTA PM-Scl Antibody <20 Normal <20 [facility] Comment on above: Result Comment: This test was developed and its performance characteristics determined by [employer]. It has not been cleared or approved by the Food and Drug Administration. Negative: <20 Weak Positive: 20 - 39 Moderate Positive: 40 - 80 Strong Positive: >80 Performed at: [facility] [employer] [address] [place] [id number] [employer]: Tereso Stevenson MD, Phone: [phone] Performed By: #### H BCAB, HBSAG, HBSAB, HCV RX PCR #### [facility] , #### CK, PTH, CBC, ESR, CRP, CMP #### [facility] [address] [place] [address] [place] RNA Polymerase IIion 023 RNA Polymerase IIi <20 Normal <20 [facility] Comment on above: Result Comment: Nega tive: <20 Weak Positive: 20 - 39 Moderate Positive: 40 - 80 Strong Positive: >80 Performed at: [facility] [address] [place] [id number] [employer] F[employer]: Tereso Stevenson MD, Phone: [phone] PERFORMED BY: [place] [address] PATHOLOGIST AUTOMOTIVE PAINTER HELPER JOSE GUADALUPE RODAS M.D. Performed By: #### H BCAB, HBSAG, HBSAB, HCV RX PCR #### [facility] , #### CK, PTH, CBC, ESR, CRP, CMP #### [facility] [address] [place] [address] [place] Th/To Antibodyon 11-25-2022 Th/To Antibody Negative Normal Negative [facility] Comment on above: Result Comment: This test was developed and its performance characteristics determined by [facility]. It has not been cleared or approved by the Food and Drug Administration. Performed at: [facility] [address] [place] [id number] [employer] F[employer]: Tereso Stevenson MD, Phone: [phone] Performed By: #### H BCAB, HBSAG, HBSAB, HCV RX PCR #### [facility] , #### CK, PTH, CBC, ESR, CRP, CMP #### [facility] [address] [place] [address] U3 Rnpon 11-25-2022 U3 Stewardess Supervisor Negative Normal Negative [facility] Comment on above: Result Comment: This test was developed and its performance characteristics determined by [facility]. It has not been cleared or approved by the Food and Drug Administration. Performed at: [facility] [address] [place] [address] [id number] [employer] F[employer]: Tereso Stevenson MD, Phone: [phone] PERFORMED BY: [place] [address] PATHOLOGIST AUTOMOTIVE PAINTER HELPER JOSE GUADALUPE RODAS M.D. Performed By: #### H BCAB, HBSAG, HBSAB, HCV RX PCR #### [facility] , #### CK, PTH, CBC, ESR, CRP, CMP #### [facility] [address] [place] [address] BESSIE Antinuclear Antibodieson 10-20-2022 Antinuclear Abs, IFA Positive Critically abnormal . [facility] Comment on above: Result Comment: Nega tive <1:80 Borderline 1:80 Positive >1:80 Performed By: #### H BCAB, HBSAG, HBSAB, HCV RX PCR #### [facility] , #### CK, PTH, CBC, ESR, CRP, CMP #### [facility] [address] Note 1 Normal . [facility] Comment on above: Result Comment: For more information about Hep-2 cell patterns use TISSUELABpatterns.NurseBuddy, the official website for the International Consensus on Antinuclear Antibody (BESSIE) Patterns (ICAP). A positive BESSIE result may occur in healthy individuals (low titer) or be associated with a variety of diseases. See interpretation chart which is not all inclusive: Pattern Antigen Detected Suggested Disease Association Homogeneous DNA(ds,ss), SLE - High titers Nucleosomes, Histones Drug-induced SLE Speckled Sm, AUTOMATION AND CONTROLS SUPERVISOR, SCL-70, SLE,MCTD,PSS (diffuse form), SS-A/SS-B Sjogrens Nucleolar SCL-70, PM-1/SCL High titers Scleroderma, PM/DM Centromere Centromere PSS (limited form) w/Crest syndrome variable Nuclear Dot Sp100,d84-ocoyse Primary Biliary Cirrhosis Nuclear GP210, Primary Biliary Cirrhosis Membrane ashley A,B,C Performed at: [facility] [address] [id number] [employer] F[employer]: Ambrocio Olivas PhD, Phone: [phone] Performed By: #### H BCAB, HBSAG, HBSAB, HCV RX PCR #### [facility] , #### CK, PTH, CBC, ESR, CRP, CMP #### [facility] [address] [place] [address] [place] Nucleolar Pattern 1:1280 High . [facility] Comment on above: Result Comment: ICAP nomenclature: AC-8,9,10 Performed By: #### H BCAB, HBSAG, HBSAB, HCV RX PCR #### [facility] , #### CK, PTH, CBC, ESR, CRP, CMP #### [facility] [address] [place] [address] [place] Speckled Pattern 1:640 High . [facility] Comment on above: Result Comment: ICAP nomenclature: AC-2,4,5,29 Performed By: #### H BCAB, HBSAG, HBSAB, HCV RX PCR #### [facility] , #### CK, PTH, CBC, ESR, CRP, CMP #### [facility] [address] [place] [id number] [place] Alanine aminotransferase [En zymatic activity/volume] in Serum or PlasmaOrdered By: Hiren Whittington on 10-20-2022 ALT [Catalytic activity/Vol] 16 U/L 7-52 [facility] Albumin [Mass/volume] in Ser um or PlasmaOrdered By: Hiren Whittington on 10-20-2022 Albumin [Mass/Vol] 3.9 g/dL 2.9-4.4 [facility] Albumin [Mass/volume] in Ser um or Plasma by Bromocresol green (BCG) dye binding methoOrdered By: Hiren Whittington on 10-20-2022 Albumin BCG dye [Mass/Vol] 4.5 g/dL 3.5-5.7 [facility] Albumin/Protein.total in 24 hour Urine by ElectrophoresisOrdered By: Hiren Whittington on 10-20-2022 Albumin Elph (24H U) [Mass fraction] 28.0 % . [facility] Alkaline phosphatase [Enzyma tic activity/volume] in Serum or PlasmaOrdered By: Hiren Whittington on 10-20-2022 ALP [Catalytic activity/Vol] 143 U/L 34-104 [facility] Aspartate aminotransferase [ Enzymatic activity/volume] in Serum or PlasmaOrdered By: Hiren Whittington on 10-20-2022 AST [Catalytic activity/Vol] 23 U/L 13-39 [facility] Automated erythrocytes count in urine sediment (number/area)Ordered By: Hiren Whittington on 10-20-2022 RBC Auto (Urine sed) [#/Area] 1-2 [HPF] 0-4 [facility] Automated leukocytes count i n urine sediment (number/area)Ordered By: Hiren Whittington on 10-20-2022 WBC Auto (Urine sed) [#/Area] 5-9 [HPF] 0-4 [facility] Basophils Auto (Bld) [#/Vol] Ordered By: Hiren Whittington on 10-20-2022 Basophils (Bld) [#/Vol] 0.0 10*3/uL 0.0-0.2 [facility] Basophils/100 WBC Auto (Bld) Ordered By: Hiren Whittington on 10-20-2022 Basophils/100 WBC (Bld) 0.9 % . [facility] Bilirubin Test strip Ql (U)O rdered By: Hiren Whittington on 10-20-2022 Bilirubin Ql (U) Negative Negative [facility] Bilirubin.total [Mass/volume ] in Serum or PlasmaOrdered By: Hiren Whittington on 10-20-2022 Bilirubin [Mass/Vol] 0.4 mg/dL 0.3-1.0 [facility] C reactive protein [Mass/vol ume] in Serum or PlasmaOrdered By: Hiren Whittington on 10-20-2022 CRP [Mass/Vol] < 0.5 mg/dL 0.0-0.5 [facility] C-Reactive Proteinon 023 CRP [Mass/Vol] mg/L Normal 0.0-0.5 [facility] Comment on above: Result Comment: PERF ORMED BY: [facility] [address] [place] [address] PATHOLOGIST AUTOMOTIVE PAINTER HELPER JOSE GUADALUPE RODAS M.D. Performed By: #### H BCAB, HBSAG, HBSAB, HCV RX PCR #### [facility] , #### CK, PTH, CBC, ESR, CRP, CMP #### [facility] [address] Calcium [Mass/volume] in Ser um or PlasmaOrdered By: Hiren Whittington on 10-20-2022 Calcium [Mass/Vol] 9.7 mg/dL 8.6-10.3 [facility] Carbon dioxide, total [Moles /volume] in Serum or PlasmaOrdered By: Hiren Whittington on 10-20-2022 CO2 [Moles/Vol] 31.3 mmol/L 21.0-31.0 [facility] Chloride [Moles/volume] in S sergio or PlasmaOrdered By: Hiren Whittington on 10-20-2022 Chloride [Moles/Vol] 102 mmol/L 98-107 [facility] Color Auto (U)Ordered By: Lesli Whittington on 10-20-2022 Color (U) Yellow Yellow [facility] Complement C3on 10-20-2022 Complement C3 120 mg/dL Normal 82-167 [facility] Comment on above: Result Comment: Perf ormed at: - [facility] [address] [id number] [employer] F[employer]: Ambrocio Olivas PhD, Phone: [phone] Performed By: #### H BCAB, HBSAG, HBSAB, HCV RX PCR #### [facility] , #### CK, PTH, CBC, ESR, CRP, CMP #### [facility] [address] [place] [address] Complement C4on 10-20-2022 Complement C4 16 mg/dL Normal 12-38 [facility] Comment on above: Result Comment: PERF ORMED BY: [place] [address] PATHOLOGIST AUTOMOTIVE PAINTER HELPER JOSE GUADALUPE RODAS M.D. Performed By: #### H BCAB, HBSAG, HBSAB, HCV RX PCR #### [facility] , #### CK, PTH, CBC, ESR, CRP, CMP #### [facility] [address] [place] [address] Complement Total (CH50)on Complement Total (CH50) >60 Normal >41 [facility] Comment on above: Result Comment: Age [...] of range values. Performed at: - [facility] [address] [id number] [employer] Facer: Ambrocio Olivas PhD, Phone: [phone] PERFORMED BY: [place] [address] PATHOLOGIST AUTOMOTIVE PAINTER HELPER JOSE GUADALUPE RODAS M.D. Performed By: #### H BCAB, HBSAG, HBSAB, HCV RX PCR #### [facility] , #### CK, PTH, CBC, ESR, CRP, CMP #### [address] Complete Blood Count Auto Di ffon 10-20-2022 Basophils (Bld) [#/Vol] 0.0 10*3/uL Normal 0.0-0.2 [facility] Comment on above: Performed By: #### H BCAB, HBSAG, HBSAB, HCV RX PCR #### [facility] , #### CK, PTH, CBC, ESR, CRP, CMP #### [address] Basophils/100 WBC (Bld) 0.9 % Normal . [facility] Comment on above: Performed By: #### H BCAB, HBSAG, HBSAB, HCV RX PCR #### [facility] , #### CK, PTH, CBC, ESR, CRP, CMP #### [address] Eosinophils (Bld) [#/Vol] 0.1 10*3/uL Normal 0.0-0.45 [facility] Comment on above: Performed By: #### H BCAB, HBSAG, HBSAB, HCV RX PCR #### [facility] , #### CK, PTH, CBC, ESR, CRP, CMP #### [address] Eosinophils/100 WBC (Bld) 2.7 % Normal . [facility] Comment on above: Performed By: #### H BCAB, HBSAG, HBSAB, HCV RX PCR #### [facility] , #### CK, PTH, CBC, ESR, CRP, CMP #### [address] Erythrocyte distribution width (RBC) [Ratio] 14.6 % Normal 12.0-14.8 [facility] Comment on above: Performed By: #### H BCAB, HBSAG, HBSAB, HCV RX PCR #### [facility] , #### CK, PTH, CBC, ESR, CRP, CMP #### [address] Hematocrit (Bld) [Volume fraction] 40.7 % Normal 38.8-50.0 [facility] Comment on above: Performed By: #### H BCAB, HBSAG, HBSAB, HCV RX PCR #### [facility] , #### CK, PTH, CBC, ESR, CRP, CMP #### [address] Hemoglobin (Bld) [Mass/Vol] 13.5 g/dL Normal 13.0-17.0 [facility] Comment on above: Performed By: #### H BCAB, HBSAG, HBSAB, HCV RX PCR #### [facility] , #### CK, PTH, CBC, ESR, CRP, CMP #### [address] Lymphocytes (Bld) [#/Vol] 0.8 10*3/uL Low 1.00-4.8 [facility] Comment on above: Performed By: #### H BCAB, HBSAG, HBSAB, HCV RX PCR #### [facility] , #### CK, PTH, CBC, ESR, CRP, CMP #### [address] Lymphocytes/100 WBC (Bld) 16.2 % Normal . [facility] Comment on above: Performed By: #### H BCAB, HBSAG, HBSAB, HCV RX PCR #### [facility] , #### CK, PTH, CBC, ESR, CRP, CMP #### [address] MCH (RBC) [Entitic mass] 30.7 pg Normal 27.5-35.2 [facility] Comment on above: Performed By: #### H BCAB, HBSAG, HBSAB, HCV RX PCR #### [facility] , #### CK, PTH, CBC, ESR, CRP, CMP #### [address] MCV (RBC) [Entitic vol] 92.4 fL Normal 83.5-101 [facility] Comment on above: Performed By: #### H BCAB, HBSAG, HBSAB, HCV RX PCR #### [facility] , #### CK, PTH, CBC, ESR, CRP, CMP #### [address] Mean Corpuscular HGB Conc 33.2 g/dL Normal 32.5-35.6 [facility] Comment on above: Performed By: #### H BCAB, HBSAG, HBSAB, HCV RX PCR #### [facility] , #### CK, PTH, CBC, ESR, CRP, CMP #### [address] Monocytes (Bld) [#/Vol] 0.5 10*3/uL Normal 0.0-0.8 [facility] Comment on above: Performed By: #### H BCAB, HBSAG, HBSAB, HCV RX PCR #### [facility] , #### CK, PTH, CBC, ESR, CRP, CMP #### [address] Monocytes/100 WBC (Bld) 9.0 % Normal . [facility] Comment on above: Performed By: #### H BCAB, HBSAG, HBSAB, HCV RX PCR #### [facility] , #### CK, PTH, CBC, ESR, CRP, CMP #### [address] Neutrophils (Bld) [#/Vol] 3.7 10*3/uL Normal 1.8-7.7 [facility] Comment on above: Performed By: #### H BCAB, HBSAG, HBSAB, HCV RX PCR #### [facility] , #### CK, PTH, CBC, ESR, CRP, CMP #### [address] Neutrophils/100 WBC (Bld) 71.2 % Normal . [facility] Comment on above: Performed By: #### H BCAB, HBSAG, HBSAB, HCV RX PCR #### [facility] , #### CK, PTH, CBC, ESR, CRP, CMP #### [address] NRBC% 0.2 /100{WBC} Normal 0-0.5 [facility] Comment on above: Performed By: #### H BCAB, HBSAG, HBSAB, HCV RX PCR #### [facility] , #### CK, PTH, CBC, ESR, CRP, CMP #### [address] Platelet mean volume (Bld) [Entitic vol] 9.7 fL Normal 6.6-10.1 [facility] Comment on above: Performed By: #### H BCAB, HBSAG, HBSAB, HCV RX PCR #### [facility] , #### CK, PTH, CBC, ESR, CRP, CMP #### [address] Platelets (Bld) [#/Vol] 158 10*3/uL Normal 150-450 [facility] Comment on above: Performed By: #### H BCAB, HBSAG, HBSAB, HCV RX PCR #### [facility] , #### CK, PTH, CBC, ESR, CRP, CMP #### [place] [address] [place] RBC (Bld) [#/Vol] 4.40 10*6/uL Normal 3.90-5.60 [facility] Comment on above: Performed By: #### H BCAB, HBSAG, HBSAB, HCV RX PCR #### [facility] , #### CK, PTH, CBC, ESR, CRP, CMP #### [facility] [address] [place] [address] WBC (Bld) [#/Vol] 5.2 10*3/uL Normal 4.1-10.5 [facility] Comment on above: Performed By: #### H BCAB, HBSAG, HBSAB, HCV RX PCR #### [facility] , #### CK, PTH, CBC, ESR, CRP, CMP #### [address] Comprehensive Metabolic Pane bolivar 10-20-2022 Albumin [Mass/Vol] 4.5 g/dL Normal 3.5-5.7 [facility] Comment on above: Performed By: #### H BCAB, HBSAG, HBSAB, HCV RX PCR #### [facility] , #### CK, PTH, CBC, ESR, CRP, CMP #### [address] Albumin/Globulin [Mass ratio] 1.7 {ratio} Normal [facility] Comment on above: Performed By: #### H BCAB, HBSAG, HBSAB, HCV RX PCR #### [facility] , #### CK, PTH, CBC, ESR, CRP, CMP #### [facility] [address] [place] [address] ALP [Catalytic activity/Vol] 143 U/L High 34-104 [facility] Comment on above: Performed By: #### H BCAB, HBSAG, HBSAB, HCV RX PCR #### [facility] , #### CK, PTH, CBC, ESR, CRP, CMP #### [facility] [address] [place] [address] ALT [Catalytic activity/Vol] 16 U/L Normal 7-52 [facility] Comment on above: Performed By: #### H BCAB, HBSAG, HBSAB, HCV RX PCR #### [facility] , #### CK, PTH, CBC, ESR, CRP, CMP #### [address] Anion gap [Moles/Vol] 10.3 mmol/L Normal 6.0-15.0 [facility] Comment on above: Performed By: #### H BCAB, HBSAG, HBSAB, HCV RX PCR #### [facility] , #### CK, PTH, CBC, ESR, CRP, CMP #### [address] AST [Catalytic activity/Vol] 23 U/L Normal 13-39 [facility] Comment on above: Performed By: #### H BCAB, HBSAG, HBSAB, HCV RX PCR #### [facility] , #### CK, PTH, CBC, ESR, CRP, CMP #### [address] Bilirubin [Mass/Vol] 0.4 mg/dL Normal 0.3-1.0 [facility] Comment on above: Performed By: #### H BCAB, HBSAG, HBSAB, HCV RX PCR #### [facility] , #### CK, PTH, CBC, ESR, CRP, CMP #### [address] Calcium [Mass/Vol] 9.7 mg/dL Normal 8.6-10.3 [facility] Comment on above: Performed By: #### H BCAB, HBSAG, HBSAB, HCV RX PCR #### [facility] , #### CK, PTH, CBC, ESR, CRP, CMP #### [address] Chloride [Moles/Vol] 102 mmol/L Normal 98-107 [facility] Comment on above: Performed By: #### H BCAB, HBSAG, HBSAB, HCV RX PCR #### [facility] , #### CK, PTH, CBC, ESR, CRP, CMP #### [address] CO2 [Moles/Vol] 31.3 mmol/L High 21.0-31.0 [facility] Comment on above: Performed By: #### H BCAB, HBSAG, HBSAB, HCV RX PCR #### [facility] , #### CK, PTH, CBC, ESR, CRP, CMP #### [facility] [address] Creatinine [Mass/Vol] 0.83 mg/dL Normal 0.70-1.30 [facility] Comment on above: Performed By: #### H BCAB, HBSAG, HBSAB, HCV RX PCR #### [facility] , #### CK, PTH, CBC, ESR, CRP, CMP #### [address] GFR/1.73 sq M.predicted MDRD (S/P/Bld) [Vol rate/Area] mL/min/{1.73_m2} [facility] Comment on above: Performed By: #### H BCAB, HBSAG, HBSAB, HCV RX PCR #### [facility] , #### CK, PTH, CBC, ESR, CRP, CMP #### [facility] [address] [place] [address] Globulin (S) [Mass/Vol] 2.6 g/dL [facility] Comment on above: Performed By: #### H BCAB, HBSAG, HBSAB, HCV RX PCR #### [facility] , #### CK, PTH, CBC, ESR, CRP, CMP #### [facility] [address] [place] [address] Glucose [Mass/Vol] 105 mg/dL High 70-100 [facility] Comment on above: Result Comment: Odon om Glucose Reference Range is dependent on time and content of last meal. Glucose of more than 200 mg/dL in a nonstressed, ambulatory subject supports the diagnosis of Diabetes Mellitus. ADA recommended reference range Performed By: #### H BCAB, HBSAG, HBSAB, HCV RX PCR #### [facility] , #### CK, PTH, CBC, ESR, CRP, CMP #### [address] Potassium [Moles/Vol] 4.6 mmol/L Normal 3.5-5.1 [facility] Comment on above: Performed By: #### H BCAB, HBSAG, HBSAB, HCV RX PCR #### [facility] , #### CK, PTH, CBC, ESR, CRP, CMP #### [address] Protein [Mass/Vol] 7.1 g/dL Normal 6.4-8.9 [facility] Comment on above: Performed By: #### H BCAB, HBSAG, HBSAB, HCV RX PCR #### [facility] , #### CK, PTH, CBC, ESR, CRP, CMP #### [address] Sodium [Moles/Vol] 139 mmol/L Normal 136-145 [facility] Comment on above: Performed By: #### H BCAB, HBSAG, HBSAB, HCV RX PCR #### [facility] , #### CK, PTH, CBC, ESR, CRP, CMP #### [address] Urea nitrogen [Mass/Vol] 24 mg/dL Normal 7-25 [facility] Comment on above: Performed By: #### H BCAB, HBSAG, HBSAB, HCV RX PCR #### [facility] , #### CK, PTH, CBC, ESR, CRP, CMP #### [address] Creatine Kinaseon 10-20-2022 CK [Catalytic activity/Vol] 91 U/L Normal 30-223 [facility] Comment on above: Result Comment: PERF ORMED BY: [place] [address] PATHOLOGIST AUTOMOTIVE PAINTER HELPER JOSE GUADALUPE RODAS M.D. Performed By: #### H BCAB, HBSAG, HBSAB, HCV RX PCR #### [facility] , #### CK, PTH, CBC, ESR, CRP, CMP #### [facility] [address] Creatine kinase [Enzymatic a ctivity/volume] in Serum or PlasmaOrdered By: Hiren Whittington on 10-20-2022 CK [Catalytic activity/Vol] 91 U/L [facility] Creatinine [Mass/volume] in Serum or PlasmaOrdered By: Hiren Whittington on 10-20-2022 Creatinine [Mass/Vol] 0.83 mg/dL 0.70-1.30 [facility] Dipstick and Microscopicon 0 10-20-2022 Appearance (U) Turbid Critically abnormal Clear [facility] Comment on above: Order Comment: Name Collection Type:: Clean-Voided Midstream Performed By: #### H BCAB, HBSAG, HBSAB, HCV RX PCR #### [facility] , #### CK, PTH, CBC, ESR, CRP, CMP #### [facility] [address] [place] [address] [place] Bacteria,Urine None Seen Normal None Seen [facility] Comment on above: Order Comment: Name Collection Type:: Clean-Voided Midstream Performed By: #### H BCAB, HBSAG, HBSAB, HCV RX PCR #### [facility] , #### CK, PTH, CBC, ESR, CRP, CMP #### [facility] [address] [place] [address] [place] Bilirubin,Urine Negative Normal Negative [facility] Comment on above: Order Comment: Name Collection Type:: Clean-Voided Midstream Performed By: #### H BCAB, HBSAG, HBSAB, HCV RX PCR #### [facility] , #### CK, PTH, CBC, ESR, CRP, CMP #### [facility] [address] [place] [address] [place] Color (U) Yellow Normal Yellow [facility] Comment on above: Order Comment: Name Collection Type:: Clean-Voided Midstream Performed By: #### H BCAB, HBSAG, HBSAB, HCV RX PCR #### [facility] , #### CK, PTH, CBC, ESR, CRP, CMP #### [facility] [address] [place] [address] Glucose Ql (U) Normal Normal Normal [facility] Comment on above: Order Comment: Name Collection Type:: Clean-Voided Midstream Performed By: #### H BCAB, HBSAG, HBSAB, HCV RX PCR #### [facility] , #### CK, PTH, CBC, ESR, CRP, CMP #### [address] Hyaline Casts,Urine None Seen Normal 0-8 [facility] Comment on above: Order Comment: Name Collection Type:: Clean-Voided Midstream Result Comment: PERF ORMED BY: [place] [address] PATHOLOGIST AUTOMOTIVE PAINTER HELPER JOSE GUADALUPE RODAS M.D. Performed By: #### H BCAB, HBSAG, HBSAB, HCV RX PCR #### [facility] , #### CK, PTH, CBC, ESR, CRP, CMP #### [address] Ketones Ql (U) Negative Normal Negative [facility] Comment on above: Order Comment: Name Collection Type:: Clean-Voided Midstream Performed By: #### H BCAB, HBSAG, HBSAB, HCV RX PCR #### [facility] , #### CK, PTH, CBC, ESR, CRP, CMP #### [facility] [address] [place] [address] Leukocyte esterase Test strip Ql (U) 2+ High Negative [facility] Comment on above: Order Comment: Name Collection Type:: Clean-Voided Midstream Performed By: #### H BCAB, HBSAG, HBSAB, HCV RX PCR #### [facility] , #### CK, PTH, CBC, ESR, CRP, CMP #### [address] Nitrite,Urine Negative Normal Negative [facility] Comment on above: Order Comment: Name Collection Type:: Clean-Voided Midstream Performed By: #### H BCAB, HBSAG, HBSAB, HCV RX PCR #### [facility] , #### CK, PTH, CBC, ESR, CRP, CMP #### [address] Occult Blood,Urine Negative Normal Negative [facility] Comment on above: Order Comment: Name Collection Type:: Clean-Voided Midstream Performed By: #### H BCAB, HBSAG, HBSAB, HCV RX PCR #### [facility] , #### CK, PTH, CBC, ESR, CRP, CMP #### [address] pH (U) 5.0 [pH] Normal 5.0-9.0 [facility] Comment on above: Order Comment: Name Collection Type:: Clean-Voided Midstream Performed By: #### H BCAB, HBSAG, HBSAB, HCV RX PCR #### [facility] , #### CK, PTH, CBC, ESR, CRP, CMP #### [address] Protein,Urine Negative Normal Negative [facility] Comment on above: Order Comment: Name Collection Type:: Clean-Voided Midstream Performed By: #### H BCAB, HBSAG, HBSAB, HCV RX PCR #### [facility] , #### CK, PTH, CBC, ESR, CRP, CMP #### [address] RBC,Urine 1-2 Normal 0-4 [facility] Comment on above: Order Comment: Name Collection Type:: Clean-Voided Midstream Performed By: #### H BCAB, HBSAG, HBSAB, HCV RX PCR #### [facility] , #### CK, PTH, CBC, ESR, CRP, CMP #### [address] Specificy Gary,Urine 1.021 Normal 1.001-1.030 [facility] Comment on above: Order Comment: Name Collection Type:: Clean-Voided Midstream Performed By: #### H BCAB, HBSAG, HBSAB, HCV RX PCR #### [facility] , #### CK, PTH, CBC, ESR, CRP, CMP #### [address] Squamous Epithelial Cell,Urine None Seen Normal 0-2 [facility] Comment on above: Order Comment: Name Collection Type:: Clean-Voided Midstream Performed By: #### H BCAB, HBSAG, HBSAB, HCV RX PCR #### [facility] , #### CK, PTH, CBC, ESR, CRP, CMP #### [address] Urobilinogen,Urine Normal Normal Normal [facility] Comment on above: Order Comment: Name Collection Type:: Clean-Voided Midstream Performed By: #### H BCAB, HBSAG, HBSAB, HCV RX PCR #### [facility] , #### CK, PTH, CBC, ESR, CRP, CMP #### [facility] [address] [place] [address] WBC,Urine 5-9 High 0-4 [facility] Comment on above: Order Comment: Name Collection Type:: Clean-Voided Midstream Performed By: #### H BCAB, HBSAG, HBSAB, HCV RX PCR #### [facility] , #### CK, PTH, CBC, ESR, CRP, CMP #### [facility] [address] [place] [address] Eosinophils Auto (Bld) [#/Vo l]Ordered By: Hiren Whittington on 10-20-2022 Eosinophils (Bld) [#/Vol] 0.1 10*3/uL 0.0-0.45 [facility] Eosinophils/100 WBC Auto (Bl d)Ordered By: Hiren Whittington on 10-20-2022 Eosinophils/100 WBC (Bld) 2.7 % . [facility] Erythrocyte Sedimentation Ra trinity 10-20-2022 ESR (Bld) [Velocity] 19 mm/h Normal 0-19 [facility] Comment on above: Result Comment: PERF ORMED BY: [facility] [address] [place] [address] PATHOLOGIST AUTOMOTIVE PAINTER HELPER JOSE GUADALUPE RODAS M.D. Performed By: #### H BCAB, HBSAG, HBSAB, HCV RX PCR #### [facility] , #### CK, PTH, CBC, ESR, CRP, CMP #### [facility] [address] Erythrocyte distribution wid th Auto (RBC) [Ratio]Ordered By: Hiren Whittington on 10-20-2022 Erythrocyte distribution width (RBC) [Ratio] 14.6 % 12.0-14.8 [facility] Erythrocyte sedimentation ra te by Photometric methodOrdered By: Hiren Whittington on 10-20-2022 ESR Photometric method (Bld) [Velocity] 19 mm/hr 0-19 [facility] Gamma globulin/Protein.total in 24 hour Urine by ElectrophoresisOrdered By: Hiren Whittington on 10-20-2022 Gamma globulin Elph (24H U) [Mass fraction] 19.1 % . [facility] Globulin Calc (S) [Mass/Vol] Ordered By: Hiren Whittington on 10-20-2022 Globulin (S) [Mass/Vol] 2.6 g/dL [facility] Glucose [Mass/volume] in Ser um or PlasmaOrdered By: Hiren Whittington on 10-20-2022 Glucose [Mass/Vol] 105 mg/dL 70-100 [facility] Comment on above: ADA recommended refe rence rangeRandom Glucose Reference Range is dependent on time and content of last meal. Glucose of more than 200 mg/dL in a nonstressed, ambulatory subject supports the diagnosis of Diabetes Mellitus. Hematocrit Auto (Bld) [Volum e fraction]Ordered By: Hiren Whittington on 10-20-2022 Hematocrit (Bld) [Volume fraction] 40.7 % 38.8-50.0 [facility] Hemoglobin [Mass/volume] in BloodOrdered By: Hiren Whittington on 10-20-2022 Hemoglobin (Bld) [Mass/Vol] 13.5 g/dL 13.0-17.0 [facility] Hep C Ab wRfx to Qnt PCRon 0 10-20-2022 Hepatitis C Virus Antibody Non-Reactive Normal Non Reactive [facility] Comment on above: Performed By: #### H BCAB, HBSAG, HBSAB, HCV RX PCR #### [facility] , #### CK, PTH, CBC, ESR, CRP, CMP #### [address] Interpretation Hepatitis C Normal . [facility] Comment on above: Result Comment: Not infected with HCV unless early or acute infection is suspected (which may be delayed in an immunocompromised individual), or other evidence exists to indicate HCV infection. Performed By: #### H BCAB, HBSAG, HBSAB, HCV RX PCR #### [facility] , #### CK, PTH, CBC, ESR, CRP, CMP #### [facility] [address] [place] [address] Hepatitis B Core Antibodyon 10-20-2022 Hepatitis B Core Antibody Negative Normal Negative [facility] Comment on above: Result Comment: Perf ormed at: CB - [facility] [address] [id number] [employer] Facer: Ambrocio Olivas PhD, Phone: [phone] Performed By: #### H BCAB, HBSAG, HBSAB, HCV RX PCR #### [facility] , #### CK, PTH, CBC, ESR, CRP, CMP #### [facility] [address] [place] [address] Hepatitis B Surface Antibody on 10-20-2022 Hepatitis B Surface Antibody Non-Reactive Normal . [facility] Comment on above: Result Comment: Non Reactive: Inconsistent with immunity, less than 10 mIU/mL Reactive: Consistent with immunity, greater than 9.9 mIU/mL Performed By: #### H BCAB, HBSAG, HBSAB, HCV RX PCR #### [facility] , #### CK, PTH, CBC, ESR, CRP, CMP #### [facility] [address] Hepatitis B Surface Antigeno n 10-20-2022 HBsAg Screen Negative Normal Negative [facility] Comment on above: Result Comment: PERF ORMED BY: [place] [address] PATHOLOGIST AUTOMOTIVE PAINTER HELPER JOSE GUADALUPE RODAS M.D. Performed By: #### H BCAB, HBSAG, HBSAB, HCV RX PCR #### [facility] , #### CK, PTH, CBC, ESR, CRP, CMP #### [facility] [address] Hepatitis B virus surface Ag [Presence] in Serum or Plasma by ImmunoassayOrdered By: Hiren Whittington on 10-20-2022 HBV surface Ag IA Ql Negative Negative [facility] Hepatitis C virus IgG Ab [Pr esence] in Serum or Plasma by ImmunoassayOrdered By: Hiren Whittington on 10-20-2022 HCV IgG IA Ql Non-Reactive Non Reactive [facility] IgA [Mass/volume] in Serum o r PlasmaOrdered By: Hiren Whittington on 10-20-2022 IgA [Mass/Vol] 155 mg/dL 61-437 [facility] IgG [Mass/volume] in Serum o r PlasmaOrdered By: Hiren Whittington on 10-20-2022 IgG [Mass/Vol] 816 mg/dL 603-1613 [facility] IgM [Mass/volume] in Serum o r PlasmaOrdered By: Hiren Whittington on 10-20-2022 IgM [Mass/Vol] 64 mg/dL 15-143 [facility] Comment on above: Performed at: [address] [id number] Director: Ambrocio Olivas PhD, Phone: [phone] Immunofixation for UrineOrde red By: Hiren Whittington on 10-20-2022 Interpretation Immunofixation (U) [Interp] See comment . [facility] Comment on above: No monoclonality det ected.Performed at: [facility] [id number] [place] [id number] Director: Ambrocio Olivas PhD, Phone: [phone] Immunofixation, (KESHAV), Urine on 10-20-2022 Immunofixation, (KESHAV), Urine Normal . [facility] Comment on above: Result Comment: No m onoclonality detected. Performed at: [facility] [place] [address] [place], [place] [id number] [employer] Facer: Ambrocio Olivas PhD, Phone: [phone] Performed By: #### H BCAB, HBSAG, HBSAB, HCV RX PCR #### [facility] , #### CK, PTH, CBC, ESR, CRP, CMP #### [place] [id number] [place] Immunofixation,Serumon 10-20 Immunofixation, Serum Normal . [facility] Comment on above: Result Comment: No m onoclonality detected. Performed By: #### H BCAB, HBSAG, HBSAB, HCV RX PCR #### [facility] , #### CK, PTH, CBC, ESR, CRP, CMP #### [facility] [address] [place] [address] [place] Immunoglobulin A, Serum 155 mg/dL Normal 61-437 [facility] Comment on above: Performed By: #### H BCAB, HBSAG, HBSAB, HCV RX PCR #### [facility] , #### CK, PTH, CBC, ESR, CRP, CMP #### [facility] [address] [place] [address] [place] Immunoglobulin G 816 mg/dL Normal 603-1613 [facility] Comment on above: Performed By: #### H BCAB, HBSAG, HBSAB, HCV RX PCR #### [facility] , #### CK, PTH, CBC, ESR, CRP, CMP #### [facility] [address] Immunoglobulin M, Serum 64 mg/dL Normal 15-143 [facility] Comment on above: Result Comment: Perf ormed at: - [facility] [address] [id number] [employer] F[employer]: Ambrocio Olivas PhD, Phone: [phone] Performed By: #### H BCAB, HBSAG, HBSAB, HCV RX PCR #### [facility] , #### CK, PTH, CBC, ESR, CRP, CMP #### [facility] [address] Ketones Auto test strip (U) [Mass/Vol]Ordered By: Hiren Whittington on 10-20-2022 Ketones (U) [Mass/Vol] Negative Negative [facility] - UrinalysisOrder ed By: Hiren Whittington on 10-20-2022 Hyaline casts LM Ql (Urine sed) None seen [LPF] 0-8 [facility] Leukocytes [#/volume] correc teofilo for nucleated erythrocytes in Blood by Automated counOrdered By: Hiren Whittington on 10-20-2022 WBC corrected for nucl RBC Auto (Bld) [#/Vol] 5.2 10*3/uL 4.1-10.5 [facility] Lymphocytes Auto (Bld) [#/Vo l]Ordered By: Hiren Whittington on 10-20-2022 Lymphocytes (Bld) [#/Vol] 0.8 10*3/uL 1.00-4.8 [facility] Lymphocytes/100 WBC Auto (Bl d)Ordered By: Hiren Whittington on 10-20-2022 Lymphocytes/100 WBC (Bld) 16.2 % . [facility] MCH Auto (RBC) [Entitic mass ]Ordered By: Hiren Whittington on 10-20-2022 MCH (RBC) [Entitic mass] 30.7 pg 27.5-35.2 [facility] MCHC Auto (RBC) [Mass/Vol]Or dered By: Hiren Whittington on 10-20-2022 MCHC (RBC) [Mass/Vol] 33.2 g/dL 32.5-35.6 [facility] MCV Auto (RBC) [Entitic vol] Ordered By: Hiren Whittington on 10-20-2022 MCV (RBC) [Entitic vol] 92.4 fL 83.5-101 [facility] Monocytes Auto (Bld) [#/Vol] Ordered By: Hiren Whittington on 10-20-2022 Monocytes (Bld) [#/Vol] 0.5 10*3/uL 0.0-0.8 [facility] Monocytes/100 WBC Auto (Bld) Ordered By: Hiren Whittington on 10-20-2022 Monocytes/100 WBC (Bld) 9.0 % . [facility] Neutrophils Auto (Bld) [#/Vo l]Ordered By: Hiren Whittington on 10-20-2022 Neutrophils (Bld) [#/Vol] 3.7 10*3/uL 1.8-7.7 [facility] Neutrophils/100 WBC Auto (Bl d)Ordered By: Hiren Whittington on 10-20-2022 Neutrophils/100 WBC (Bld) 71.2 % . [facility] Nitrite Test strip Ql (U)Ord ered By: Hiren Whittington on 10-20-2022 Nitrite Ql (U) Negative Negative [facility] No Panel InformationOrdered By: Hiren Whittington on 10-20-2022 Estimated GFR (CKD-EPI) > 60.0 mL/Min [facility] Hepatitis B Core Total Antibody Negative Negative [facility] Comment on above: Performed at: [facility] - [address] [id number] Director: Ambrocio Olivas PhD, Phone: [phone] Hepatitis C Interpretation See comment . [facility] Comment on above: Not infected with HC V unless early or acute infection issuspected (which may be delayed in an immunocompromisedindividual), or other evidence exists to indicate HCVinfection. Hepatitis C RNA Quantitative N/A [facility] Creatinine Clearance (Chem N/A [facility] Anti-Nuclear Antibody Comment 2 See comment . [facility] Comment on above: For more information about Hep-2 cell patterns useANApatterns.org, the official website for the InternationalConLocalMedsus on Antinuclear Antibody (BESSIE) Patterns (ICAP). ----A positive BESSIE result may occur in healthy individuals (lowtiter) or be associated with a variety of diseases. Seeinterpretation chart which is not all inclusive:Pattern Antigen Detected Suggested Disease Association Homogeneous DNA(ds,ss), SLE - High titers Nucleosomes, Histones Drug-induced SLE Speckled Sm, AUTOMATION AND CONTROLS SUPERVISOR, SCL-70, SLE,MCTD,PSS (diffuse form), SS-A/SS-B Sjogrens Nucleolar SCL-70, PM-1/SCL High titers Scleroderma, PM/DM Centromere Centromere PSS (limited form) w/Crest syndrome variable Nuclear Dot Sp100,q16-[id number] Primary Biliary Cirrhosis Nuclear GP210, Primary Biliary CirrhosisMembrane ashley A,B,C Performed at: [employer] [place], [place] [id number] Director: Ambrocio Olivas PhD, Phone: [phone] Protein Electrophoresis M-Arnulfo Not observed g/dL Not Observed [facility] Protein Electrophoresis Note See comment . [facility] Comment on above: Protein electrophore sis scan will follow via computer,mail, or industrial engineering technologist delivery.Performed at: [employer] [place], [place] [id number] Director: Ambrocio Olivas PhD, Phone: [phone] Serum Immunofixation See comment . [facility] Comment on above: No monoclonality det ected. Total Complement (CH50) >60 U/mL >41 [facility] Comment on above: Age Male Female [...] to determine out of range values.Performed at: [employer] [place], [place] [id number] Director: Ambrocio Olivas PhD, Phone: [phone] Urine Random Prot Electrophor Note See comment . [facility] Comment on above: Protein electrophore sis scan will follow via computer,mail, or industrial engineering technologist delivery. Nucleated erythrocytes [Pres ence] in Blood by Automated countOrdered By: Hiren Whittington on 10-20-2022 Nucleated RBC Auto Ql (Bld) 0.2 /100{WBC} 0-0.5 [facility] Parathyrin.intact [Mass/volu me] in Serum or PlasmaOrdered By: Hiren Whittington on 10-20-2022 Parathyrin.intact [Mass/Vol] 48.3 pg/mL [facility] Parathyroid Hormone Intacton 10-20-2022 Parathyroid Hormone Intact 48.3 pg/mL Normal [facility] Comment on above: Result Comment: PERF ORMED BY: [place] [address] PATHOLOGIST AUTOMOTIVE PAINTER HELPER JOSE GUADALUPE RODAS M.D. Performed By: #### H BCAB, HBSAG, HBSAB, HCV RX PCR #### [facility] , #### CK, PTH, CBC, ESR, CRP, CMP #### [address] Platelet mean volume Auto (B ld) [Entitic vol]Ordered By: Hiren Whittington on 10-20-2022 Platelet mean volume (Bld) [Entitic vol] 9.7 fL 6.6-10.1 [facility] Platelets Auto (Bld) [#/Vol] Ordered By: Hiren Whittington on 10-20-2022 Platelets (Bld) [#/Vol] 158 10*3/uL 150-450 [facility] Potassium [Moles/volume] in Serum or PlasmaOrdered By: Hiren Whittington on 10-20-2022 Potassium [Moles/Vol] 4.6 mmol/L 3.5-5.1 [facility] Protein Auto test strip (U) [Mass/Vol]Ordered By: Hiren Whittington on 10-20-2022 Protein (U) [Mass/Vol] Negative Negative [facility] Protein Electro, Random Urin radha 10-20-2022 Albumin, Urine 28.0 % Normal . [facility] Comment on above: Performed By: #### H BCAB, HBSAG, HBSAB, HCV RX PCR #### [facility] , #### CK, PTH, CBC, ESR, CRP, CMP #### [facility] [address] [place] [address] [place] Oezux-2-Dqqbgsna, Urine 2.1 % Normal . [facility] Comment on above: Performed By: #### H BCAB, HBSAG, HBSAB, HCV RX PCR #### [facility] , #### CK, PTH, CBC, ESR, CRP, CMP #### [facility] [address] [place] [address] [place] Lkkmf-4-Acgluvdm, Urine 16.4 % Normal . [facility] Comment on above: Performed By: #### H BCAB, HBSAG, HBSAB, HCV RX PCR #### [facility] , #### CK, PTH, CBC, ESR, CRP, CMP #### [address] Beta Globulin, Urine 34.4 % Normal . [facility] Comment on above: Performed By: #### H BCAB, HBSAG, HBSAB, HCV RX PCR #### [facility] , #### CK, PTH, CBC, ESR, CRP, CMP #### [address] Gamma Globulin, Urine 19.1 % Normal . [facility] Comment on above: Performed By: #### H BCAB, HBSAG, HBSAB, HCV RX PCR #### [facility] , #### CK, PTH, CBC, ESR, CRP, CMP #### [address] M-Arnulfo % Not Observed Normal Not Observed [facility] Comment on above: Performed By: #### H BCAB, HBSAG, HBSAB, HCV RX PCR #### [facility] , #### CK, PTH, CBC, ESR, CRP, CMP #### [address] Please Note: Normal . [facility] Comment on above: Result Comment: Prot ein electrophoresis scan will follow via computer, mail, or industrial engineering technologist delivery. PERFORMED BY: [place] [address] PATHOLOGIST AUTOMOTIVE PAINTER HELPER JOSE GUADALUPE RODAS M.D. Performed By: #### H BCAB, HBSAG, HBSAB, HCV RX PCR #### [facility] , #### CK, PTH, CBC, ESR, CRP, CMP #### [address] Protein (U) [Mass/Vol] 9.4 mg/dL Normal Not Estab. [facility] Comment on above: Performed By: #### H BCAB, HBSAG, HBSAB, HCV RX PCR #### [facility] , #### CK, PTH, CBC, ESR, CRP, CMP #### [address] Protein Electrophoresis, Ser umon 10-20-2022 Albumin [Mass/Vol] 3.9 g/dL Normal 2.9-4.4 [facility] Comment on above: Performed By: #### H BCAB, HBSAG, HBSAB, HCV RX PCR #### [facility] , #### CK, PTH, CBC, ESR, CRP, CMP #### [address] Albumin/Globulin [Mass ratio] 1.3 {ratio} Normal 0.7-1.7 [facility] Comment on above: Performed By: #### H BCAB, HBSAG, HBSAB, HCV RX PCR #### [facility] , #### CK, PTH, CBC, ESR, CRP, CMP #### [address] Bmono-0-Uyusnfea 0.3 g/dL Normal 0.0-0.4 [facility] Comment on above: Performed By: #### H BCAB, HBSAG, HBSAB, HCV RX PCR #### [facility] , #### CK, PTH, CBC, ESR, CRP, CMP #### [address] Tecrp-3-Jqeijzli 0.8 g/dL Normal 0.4-1.0 [facility] Comment on above: Performed By: #### H BCAB, HBSAG, HBSAB, HCV RX PCR #### [facility] , #### CK, PTH, CBC, ESR, CRP, CMP #### [address] Beta Globulin 1.0 g/dL Normal 0.7-1.3 [facility] Comment on above: Performed By: #### H BCAB, HBSAG, HBSAB, HCV RX PCR #### [facility] , #### CK, PTH, CBC, ESR, CRP, CMP #### [address] Gamma Globulin 0.9 g/dL Normal 0.4-1.8 [facility] Comment on above: Performed By: #### H BCAB, HBSAG, HBSAB, HCV RX PCR #### [facility] , #### CK, PTH, CBC, ESR, CRP, CMP #### [address] Globulin (S) [Mass/Vol] 3.0 g/dL Normal 2.2-3.9 [facility] Comment on above: Performed By: #### H BCAB, HBSAG, HBSAB, HCV RX PCR #### [facility] , #### CK, PTH, CBC, ESR, CRP, CMP #### [address] M-Arnulfo Not Observed Normal Not Observed [facility] Comment on above: Performed By: #### H BCAB, HBSAG, HBSAB, HCV RX PCR #### [facility] , #### CK, PTH, CBC, ESR, CRP, CMP #### [address] [place] [address] [place] Protein [Mass/Vol] 6.9 g/dL Normal 6.0-8.5 [facility] Comment on above: Performed By: #### H BCAB, HBSAG, HBSAB, HCV RX PCR #### [facility] , #### CK, PTH, CBC, ESR, CRP, CMP #### [facility] [address] [place] [address] SPE-Note Normal . [facility] Comment on above: Result Comment: Prot ein electrophoresis scan will follow via computer, mail, or industrial engineering technologist delivery. Performed at: [facility] [address] [id number] [employer] F[employer]: Ambrocio Olivas PhD, Phone: [phone] PERFORMED BY: [place] [address] PATHOLOGIST AUTOMOTIVE PAINTER HELPER JOSE GUADALUPE RODAS M.D. Performed By: #### H BCAB, HBSAG, HBSAB, HCV RX PCR #### [facility] , #### CK, PTH, CBC, ESR, CRP, CMP #### [facility] [address] [place] [address] Protein [Mass/volume] in Ser um or PlasmaOrdered By: Hiren Whittington on 10-20-2022 Protein [Mass/Vol] 7.1 g/dL 6.4-8.9 [facility] Protein [Mass/Vol] 6.9 g/dL 6.0-8.5 [facility] Protein [Mass/volume] in Uri neOrdered By: Hiren Whittington on 10-20-2022 Protein (U) [Mass/Vol] 9.4 mg/dL Not Estab. [facility] Protein.monoclonal/Protein.t otal in 24 hour Urine by ElectrophoresisOrdered By: Hiren Whittington on 10-20-2022 Protein.monoclonal Elph (24H U) [Mass fraction] Not observed % Not Observed [facility] RBC Auto (Bld) [#/Vol]Ordere d By: Hiren Whittington on 10-20-2022 RBC (Bld) [#/Vol] 4.40 10*6/uL 3.90-5.60 [facility] Serum globulin measurement ( mass/volume)Ordered By: Hiren Whittington on 10-20-2022 Globulin (S) [Mass/Vol] 3.0 g/dL 2.2-3.9 [facility] Serum hepatitis B virus surf breana antibody detectionOrdered By: Hiren Whittington on 10-20-2022 HBV surface Ab Ql (S) Non-Reactive . [facility] Comment on above: Non Reactive: Incons istent with immunity, less than 10 mIU/mL Reactive: Consistent with immunity, greater than 9.9 mIU/mL Serum homogeneous pattern an tinuclear antibody (BESSIE) titerOrdered By: Hiren Whittington on 10-20-2022 Homogenous nuclear Ab pattern (S) [Titer] N/A [facility] Serum nuclear antibody titer Ordered By: Hiren Whittington on 10-20-2022 Nuclear Ab (S) [Titer] Positive . [facility] Comment on above: Negative <1:80 Zac jeffries 1:80 Positive >1:80 Serum nucleolar pattern anti nuclear antibody (BESSIE) titerOrdered By: Hiren Whittington on 10-20-2022 Nucleolar nuclear Ab pattern (S) [Titer] 1:1280 . [facility] Comment on above: ICAP nomenclature: A C-8,9,10 Serum or plasma albumin/glob ulin mass ratioOrdered By: Hiren Whittington on 10-20-2022 Albumin/Globulin [Mass ratio] 1.7 {ratio} [facility] Albumin/Globulin [Mass ratio] 1.3 {ratio} 0.7-1.7 [facility] Serum or plasma alpha 1 glob ulin measurement by electrophoresis (mass/volume)Ordered By: Hiren Whittington on 10-20-2022 Alpha 1 globulin Elph [Mass/Vol] 0.3 g/dL 0.0-0.4 [facility] Serum or plasma alpha 2 glob ulin measurement by electrophoresis (mass/volume)Ordered By: Hiren Whittington on 10-20-2022 Alpha 2 globulin Elph [Mass/Vol] 0.8 g/dL 0.4-1.0 [facility] Serum or plasma anion gap de terminationOrdered By: Hiren Whittington on 10-20-2022 Anion gap [Moles/Vol] 10.3 mmol/L 6.0-15.0 [facility] Serum or plasma beta globuli n measurement by electrophoresis (mass/volume)Ordered By: Hiren Whittington on 10-20-2022 Beta globulin Elph [Mass/Vol] 1.0 g/dL 0.7-1.3 [facility] Serum or plasma complement C 3 measurement (mass/volume)Ordered By: Hiren Whittington on 10-20-2022 Complement C3 [Mass/Vol] 120 mg/dL 82-167 [facility] Comment on above: Performed at: [place] [id number] Director: Ambrocio Olivas PhD, Phone: [phone] Serum or plasma complement C 4 measurement (mass/volume)Ordered By: Hiren Whittington on 10-20-2022 Complement C4 [Mass/Vol] 16 mg/dL 12-38 [facility] Serum or plasma gamma globul in measurement by electrophoresis (mass/volume)Ordered By: Hiren Whittington on 10-20-2022 Gamma globulin Elph [Mass/Vol] 0.9 g/dL 0.4-1.8 [facility] Serum speckled pattern antin uclear antibody (BESSIE) titerOrdered By: Hiern Whittington on 10-20-2022 Speckled nuclear Ab pattern (S) [Titer] 1:640 . [facility] Comment on above: ICAP nomenclature: A C-2,4,5,29 Sodium [Moles/volume] in Ser um or PlasmaOrdered By: Hiren Whittington on 10-20-2022 Sodium [Moles/Vol] 139 mmol/L 136-145 [facility] Specific gravity Auto test s trip (U) [Rel density]Ordered By: Hiren Whittington on 10-20-2022 Specific gravity (U) [Rel density] 1.021 1.001-1.030 [facility] Squamous epithelial cells de tection in urine sediment by light microscopyOrdered By: Hiren Whittington on 10-20-2022 Epithelial cells.squamous LM Ql (Urine sed) None seen [HPF] 0-2 [facility] Urea nitrogen [Mass/volume] in Serum or PlasmaOrdered By: Hiren Whittington on 10-20-2022 Urea nitrogen [Mass/Vol] 24 mg/dL 7-25 [facility] Urine Cultureon 10-20-2022 Bacteria identified Cx Nom (U) No Growth 2 Days PERFORMED BY: [place] [address] PATHOLOGIST AUTOMOTIVE PAINTER HELPER JOSE GUADALUPE RODAS M.D. Normal [facility] Comment on above: Performed By: #### H BCAB, HBSAG, HBSAB, HCV RX PCR #### [facility] , #### CK, PTH, CBC, ESR, CRP, CMP #### [facility] [address] [place] [address] Urine alpha 1 globulin/total protein by electrophoresisOrdered By: Hiren Whittington on 10-20-2022 Alpha 1 globulin Elph (U) [Mass fraction] 2.1 % . [facility] Urine alpha 2 globulin/total protein ratio by electrophoresisOrdered By: Hiren Whittington on 10-20-2022 Alpha 2 globulin Elph (U) [Mass fraction] 16.4 % . [facility] Urine bacteria detection by automated methodOrdered By: Hiren Whittington on 10-20-2022 Bacteria Auto Ql (U) None seen None Seen [facility] Urine beta globulin measurem ent by electrophoresis (mass/volume)Ordered By: Hiren Whittington on 10-20-2022 Beta globulin Elph (U) [Mass/Vol] 34.4 % . [facility] Urine clarity by refractomet ry automatedOrdered By: Hiren Whittington on 10-20-2022 Clarity Refractometry automated (U) Turbid Clear [facility] Urine culture routineOrdered By: Hiren Whittington on 10-20-2022 Bacteria identified Cx Nom (U) No Growth 2 Days [facility] Urine glucose measurement by automated test strip (mass/volume)Ordered By: Hiren Whittington on 10-20-2022 Glucose Auto test strip (U) [Mass/Vol] Normal mg/dL Normal [facility] Urine hemoglobin detection b y automated test stripOrdered By: Hiren Whittington on 10-20-2022 Hemoglobin Auto test strip Ql (U) Negative Negative [facility] Urine leukocyte esterase det ection by automated test stripOrdered By: Hiren Whittington on 10-20-2022 Leukocyte esterase Auto test strip Ql (U) 2+ Negative [facility] Urobilinogen Auto test strip (U) [Mass/Vol]Ordered By: Hiren Whittington on 10-20-2022 Urobilinogen (U) [Mass/Vol] Normal mg/dL Normal [facility] WBC Auto (Bld) [#/Vol]Ordere d By: Hiren Whittington on 10-20-2022 WBC (Bld) [#/Vol] 5.2 10*3/uL 4.1-10.5 [facility] XR hand BI 2Von 10-20-2022 XR hand BI 2V [facility] [place] [address] XRay Report Signed Patient: Marquise Means MR#: [id number] [birth year] : 1950 Acct:[id number] Age/Sex: 71 / M ADM Date: 10/20/22 Loc: ICXD Room: Type: [facility] Attending Dr: Hiren Whittington MD Copies to: [...] Vazquez Jr., D.O.10/20/2022 3:22 PM Dictation Location: [place] [address] Transcribed By: [facility] 10/20/22 152 Dictated By: Leonides Vazquez Jr, DO 10/20/22 1519 Signed By: 10/20/22 152 Normal [facility] pH Auto test strip (U)Ordere d By: Hiren Whittington on 10-20-2022 pH (U) 5.0 [pH] 5.0-9.0 [facility] Coding Summary.on 01-16-2022 Coding Summary. CD:[id number] Gh0 bWw+PGhlYWQ+YI7RLIPgR12 mlKBetS5RV2cVJS1QWWMXUC ZCSK1HBA3alLQ3YLliN6Xvr iAv QbxqbBYiTR01THa3HSD4aTf tAXqdxC6iuNCvM0a8KoUoEQ 75mM22DRjrOQImUeA1VeGxy jsgbWFy G3coSfIrqYHoPcu+PHRhYmx lIHdpZHRoPScxMDAlJyBzdH tmYV7rPn5vTGWqHNPrgJyyb HNlOiBj z1amDHEpDUkgTT6itKzkY3O mdTB2JYYjz4v7Nh23zHP+PH SiSSW6yPruAPxay585VjJie 7huXUC5 yMWvKRtpKYM8P92ln8V7HYL kMIVqYGJ9rDX1sQ1cgBndtj yvO2NggCYpAaS6UZG6qAZbg Y6jzGcr vpbugR8tYed+I67MNV6PPFU VEA2QNgk0Z3KzDouzdVJ+PC 37JYNfSE75gETsbBRwg5onw Kz3MlTj GKVfJOW0wPqmOPkgp5GkZKC iP59ujDXdh9A4BATgsUifgT KcKnHpqCZ8iR0kKLatsnepc 2hvdzsn Foxjl8vike24hI47K69yIBw sGOKpWRZ8NIRrPFXvxUhlik 6geW9mLx6+PCqmy8wtl6pce Ef4WyHw YKSccaFobQtqZHP3t4IgSc6 2I0QhtXahh7CtOyt6yp65qJ Ysh3V2lNT5LKiaQICvgK3lI WxlZnQ6 EPStWeCumN42jNHaYKjdSx3 bkUbqsVesAX6qKZAufiswUT GyzL4oVYHttHLmvUloXC8rI TBpbjtm u731JdDrAMP3KXZlkUSwU0U jiL8kIgToYASmYXSyD2MiaH TjYFxkO381VFeqGgX9HBKep bXjU9Pi WGXipMvyMnZ7c1J9Hp8Ui1Y casjaWSW4WFkxWMWbAkD5Cl HcWfB8M0ZsNji3GSOhcDswG W8jU3Or ETOsdpwehyaoiNR4UTYnJWY wxH37eAQuOPerJj7yo8C8k0 47XBStSBLgeE36Sh8zzSnsZ TBwdCBU iF6euvdun3jheiegCeKtUVZ lOBb6VRy3GOPstHypKhBlJQ N7HoB3LLO3qZPsoE7zqBuen hjfqA5t Oyc+K66hiE7bXUL1PHM7www gLBHsjjIvAJ23KH94F0EoRu wvdGFibGU+PGRpdiBzdHlsZ A6nImLb v5gzi8NoSYztH1AlORJjZYm yBrc6BEDxELO9xSK3qX4wCP EdYHmnl7K8sNY0A3BtqfZdw y2wq1lj SOMcMFbyJ73myWGvm4L4HRN gnNJ0ZZRitXmnItQslL34If c+ICTmwElzr7EqQhnxr4mzs 5kikQb6 PqKkPOEdgjCrmCoePNO3o8E fBk25J77uFCceGJYvRWAdWZ LuANNqqBtdhg0sgS0aQa3+P GNvbCB3 tRC8vJ7pGQOlQyF8RPiyB29 0MvRqrCSpRwqed3hzt9qiwB x0UkObIRRnszZctQguYIQ3f 4ZsCi17 B03oHIcqSXPbYPDhSBEpVDB xoSevin9xcZ9iWl2+PC9jb2 jfjt94eI65zET+ECUiIXM3a WxlPSdw JJDwpW7lFSnpUfS7IQWhQhN loB55kLPmALemIp4aeZumtO vxCB3hNSGwwsige984TzFab 2xkIDEw dDVhJTphRTG2Z62zf5E0KJL hGNRsJVP0xGO8gJ3xpOckuy ogbGVmdDsgdmVydGljYWwtY FeqQ617 IHRvcDsnPlBhdGllbnQgTmF vKEx7V8BzVpb9XAGwlIfnIM 9jrCRvQMstDs8niSeceVyvU E7rXQGg rgicg483GqAbp9shCMLbeNO eBAdmGYH7U24gj3W2NUNqAE NgKFQ0lJD8qS8uoYpwefgrf GVmdDsg itOflIofQMmzHUurK080SNW vcTvuVgKjaoOxIHXfvTV2BX 31BW20oTDrz0N2dXF9E7TcA GRpbmct uczaiNS0UHDyYWUnzO29Os3 ciWqlWu3vGOWbAOB7FLPsoZ JvF8UjgQ4tRnQgAFEvPRLwK 3RleHQt TKyzH310IPwiPkI4KXVgmeS mI7KgOYFrpBqcXkP4n2M7Mm 0IO8B0WA20XE08jELua3U0q OW1K7Bk JCHuxwgizbovdYK5BJIaCJO hyG02Ki5enQnbCm5jQCAnKX O9LSQxvAFuY6NxkG9gZvMzN DAwMDAw A2GzzGOzFWexP731VGsaFnJ 5QFCsceYwO2XpKZEolQsdFc H8u4U3Jm9VERe0DF89PN27q UUrg7Z5 tPV6Y1QqHSAacymsmdnjqWR 6FOQoOJBjxF50Qm5uuIqiMi 0cFRPyDGO6BOJpiWMkS4Axg C8hCtMu CKJxRABfL3FzhNPcJKljU54 7ITatYuU7JTFxuhRxQ3VaBN PgeMmoPdZ3w3E9Zd7TYAEoG F32SBK2 jTW4TN18ES90L5AwMxqckCF ibGU+PHRhYmxlIHdpZHRoPS ktMJJpIfMmsUofFP5zSe4xV GVyLWNv kNcgrNPtNsUba0shRUUjXZv lOD7yaInrZ7YwxMA0ZMZqn2 k5Yn69S83pC4SdzMH+PGNvb RB7xXW8 hE3rUzOiCkD5ZLdfO258QdN awSXsUndnx7lyu2gpbVn9Eq C7QEWvitQkpQtwTCN7j7AlC p45U44y IHdpZHRoPSIxNSUiIHZhbGl sie8fgW6pWq5+UWMouFS9kA V8nN6dAkKuVkP4HNgsB261Z nRvcCIv Dqsrt9onr6ktyPx8DrBlMJZ dqsLziUbcDMC6l5JpRp05K0 AyqJjqq8IhTiy5xo48qDNce 8X7eXO0 R2GeIHNipucdlXKpiMfvPJ6 lOLBmqsbwWDVzzE5aCMEgO2 d9ZyEuUyQ1HZmmZ3BoelM4Y DEwcHQg MCyiNTU0K18db1A7ZZAuQHD eWSQ3hNL4jZ3gaEwxulesfD VmdDsgdmVydGljYWwtYWxpZ 246IHRv kGwyWTErjE8tENObnZPepPo pTD7bDCTbpfceLbWQIIKKKD 2yLZuWRH5lMDszlMH+PHRkI UL7rTgn WBwfEAIisD1yDBUtN1t9RrH lUhX8OPvvF4NiQKIocvcvIi 47bU8bAqNrSdL6NEbpA2Gig lF4BYXx cOQzMOxaBHD6K22qq8F9QUE iYUPiSWC6xQT5iN3jjVlwif ogbGVmdDsgdmVydGljYWwtY MnmW772 TQWtuGhtLuZ5VcZ8ZrI4LWJ 8F2WjElm2JVBexLciLG3kxT BpGXaiCu2giCjsuVidJW8mA TBpbjtw PBTzuU9lXKRhtMBncKpiCM0 gWYJezxbve186QvZqLSB6KN LfsSWqM3QzqS3yXsBjZSJbY LCsQ1Iu uGOcFUllU573SGavJaA7LHJ luyMrI2RrELKpiQceVvW5d8 B5Yr23YKDKFOAssiaiaYJ+P HRkIHN0 vLgoQDtpCOHyxM4pEKAiH8z 5YmVsKeM6DOyhL3LvPYHurj neNq35uC4jDqHzVdY1SDxvN 2WbraV4 EXUtqSNhSVfgVAI7G61zg9O 9EDHuINSyWWB6aCR0xO9ovM lnbjogbGVmdDsgdmVydGljY WwtYWxp O935ERYswNqiRf6ewWV3I3Z eRxb2OHPpgQeoIA9fjHVhFT nlUj3nlCfyrZszWB8lDLStp jtwYWRk mQ3aKAAniQQioLeyGV1pGDS hzuxop855FoLjVVH2PLDxfL DkT4XikJ3wNwEcKTLvRJFnU 3RleHQt MNdxG692YQmvOmV0RBMoprD zS2UxVKNpiIaxBwO7r9Y6Pe 2JmKXnRIOiOM79JC07VM62T 3RyPjwv dGFibGU+PHRhYmxlIHdpZHR iCGufOBGjCyNpnRaiPM0xAt 9yZGVyLWNvbGxhcHNlOiBjb 2xsYXBz TQmjAA4ghNoyB4OosNF4NZG zp5p6Yd55J98sS6AfaZO+PG UsfPD4qGS6mR1hJgBhCuO9Z QxbA196 ZeMqwIDiDxuaq7grm3taqRq 9ErKzTQJqyhRfrLvrPXW7c1 ByGa59M70qSBxvHFHjLZHgL CUiIHZh fYwcfw8diV1gTl1+PGNvbCB 0hLW5pX9rGrCmBuN8YWtcG4 99HjUieLUxAaxgZ83hK3Pdc XA+PHRy Pjj7UQAcrDywZQ6rnLAnYOo nYr0jQGQ6QyOpCjZuIUcsB2 JgPLFjmdtcmzerbOH3FFMmN DUwaW47 Sj3kcGfzQb0wKNItJME6HBH prKHdM7PfnC6kArXuRIGaVW TeW5ZfwSHuVGfgI752NBcuW xL2FGXq nrGsX6BgDRCwjUmgPcS4h4F 3Ke4AkYhjvAXcQA3wBjGgQN x4J3YpKie0OUKkyGajTB2se GFkZGlu Qd2roPqysSqrKD8kLXKmhch kl712RqAao4wiBSZlcGBnDH dyXWB1U62hk3W5VJLnEEMmC JS5vEC2 qX1paAqbtwbuaVZfkNrymkR cbHrpMLfhIZsfL497AOOeuJ caOjXRHst0A7CoTdw4JSHtt MjuIJ8v lBDhHMnlCi8xyUzhsOtrOD9 kFLBgffxca323JgReu6naUO LwwRDmOBntCFN1O89yv4Q7T CMwMDAw NHK5zQG0wZ7vpVwzndffrHD mdDsgdmVydGljYWwtYWxpZ2 92CZUghZgjSu0XMjq9W5MoM km5SSNa cByoCP4ffGTfCCjvWe9rcTo qsBbwDV7aTNQinjgss572Ym Gwl6dxOIGqjIAjBLgyTRE3J 25so3L4 ILVeEAMkSOV6eKO3nA3ugBe nbjogbGVmdDsgdmVydGljYW saDJwvY273LEEiiRosHzKgn WVyOjwv dGQ+US73jq46S2TuMibsTmf 8ZGWjCST0uPK2bP1qSOCsTC biw0D4jOZ8C4EyexJelj0vo 2xsYXBz ZTog (more content not included)... Normal [facility] AMA Ab Scron 01-14-2022 Mitochondria M2 IgG Qn (S) <20.0 Invalid Interpretation Code 0.0-20.0 [facility] Comment on above: Result Comment: Nega tive 0.0 - 20.0 Equivocal 20.1 - 24.9 Positive >24.9 Mitochondrial (M2) Antibodies are found in 90-96% of patients with primary biliary cirrhosis. Performed at: [address] [id number] PhD Deisy Albrecht Performed By: #### 1 [id number], [id number] ####[facility] [address] [place] [address] BESSIE w/Reflex if POSon 2021 Nuclear Ab Ql (S) Negative Invalid Interpretation Code Negative [facility] Comment on above: Result Comment: Perf ormed at: [facility] [address] [place] [address] [id number] PhD Deisy Albrecht Performed By: #### 1 [id number], [id number] ####[facility] [address] [place] [address] Consent for Treatmenton 12-24 Consent for Treatment [id number] D:127 [facility] Coding Summary.on 01-07-2022 Coding Summary. CD:[id number] Gh0 bWw+PGhlYWQ+VR0ZJJVrG05 poLKuaI4TL1oCDX0YVFVHGA UZCU7LWL4kmOM7BPkiN7Myk iAv HdpgtNDmRU69YUd5GLH0wZd mDGpfcI3ptIBbK1o3RtMiCR 94jE59XRilPHXmWyD4VuOou jsgbWFy H3zeDeOuzGUwUqp+PHRhYmx lIHdpZHRoPScxMDAlJyBzdH mnIM3gRq6iBNTaVYXcgFktk HNlOiBj u5diUKGcXUigOM2tePtuZ7B dtLF5ZLFwq9c3Os45aCQ+PH IaZLA7dUfrRAwts739KhXra 0eqZNW5 dECqGDhrMGV1Z00gn4Q8JZH yIGWhCFX8jEE2iD5arGtuqn jvZ5HukVRjKaI6NJT3iDYnx Q3rjTnh ojyyiJ3vAqz+V88WJJ4FQSS HLC9TYzv7F7SyAxobhTX+PC 97LNEhYQ43gOHbrQSuj9tre Zn5XoWy AHTmNMA3mTsiRClmt9OsZEY mU59vjRPbm4V7EXZmrVuowP XzHgIyaHN1yY6vQObscstkk 2hvdzsn Ralgu7obyr75bP10K89vJCn wSYTsBGN2OBVlSDVjvSllas 4khC2eZk0+EIpzr1dle4fla Ee4XgNz IXUkfdMkxWrwCJC9c4XhCc4 2L2AknPwcw4NdWeq5je69sL Wfu2B8lST5EEyhBAGwrH3tS WxlZnQ6 PQOcUvTsmS26cSGvSDkeNf6 scGeekLxbUJ9fQDAkbzshYR XfyK7sDNViqVPesVztNW4qM TBpbjtm z676QqUwOHZ0BXDdyHSoJ4B akA0yKgLuJZXvBAKcX8UvnC SkQHwkW389ZSrsNxW1UCMly xIyU5Qy TTSlcIxpDvL1r2S5Fb9Et1N aifxzVHL6FCvzDHUeWqI6Eh XmBqM0E0KdXbb7VQBvqAywJ O8sB0Bb QDJlfeqgklrrqJQ9DZSpGRH zsX83sAHnRWcpZw9fc0I8r6 11SZEbEMVkiG28Se4bhPhlD TBwdCBU vZ1ghxonr7habdekZvHeMJP pICd3ENs3SVHuyAaoObIjAN X8WpD9PGW4gNCwuT5qfDmgs wonmL4x Oyc+M21loH2eHFT9SGO2rit nKSFrurBvJU64RN06C7LpVr wvdGFibGU+PGRpdiBzdHlsZ P2bCxRa y3ern1QcJHgmI4YdOPFhJJh eIpk4VCDeRJJ2hYV3tA5eBZ OiJQoak1F3sBL1O5ElkvLsm s5on9om EPOvHYvaQ63gcHBcv3Z4JLP kbIP8EYSwxWsvDqExsI82Rg c+XZMpiEtqt8ZqJaomk1cyj 1tzqKt2 EbTsZHQpenLquHxrIAY0s1G dGf61Q77pPBrjADRdAXQnMA ToEAVgsUgsit0kwO1wKs0+P GNvbCB3 pIE0xO9qKCFfFvG7OJabA67 4HsPfzGOuLfsbf9ifn6tkbU f9HyIoLJLoqbRwgCkgMVT4k 7KyMd43 L00fJWouBOVxYAVsGVDaXMK dxUkutv0dxD4kMd5+PC9jb2 uaki85gY58qUZ+RPRbJOC6c WxlPSdw DTEwsB2wAXniArU3ASEcGpM ioC94rBNmSNmeQx2trOoqaV ovBN8oAXJjkbxsh918FjExl 2xkIDEw iACkZYhjVKZ9P68dq0O9HGT vCXPhKFI8mHK8lY6elOtdmn ogbGVmdDsgdmVydGljYWwtY GzkZ146 IHRvcDsnPlBhdGllbnQgTmF jWJg9B6WpUwg7EQUxwDxoPY 0dvMXjKKqkTn4kdBsqgKdxQ E4tWPJg cikbb020XlRhe7pzGANamGM zBObcHGN7M59dr4H2SWKlJA MaJQC1mQR2xB2fcLzhysizj GVmdDsg cwXhuVykFQxoUEcfL004UGJ vyOejMjPbdlRyGZBpdEY0BE 95JG92nLPhw6N2vGZ3Z7QiY GRpbmct svneoDQ4CSLfQSXbtM77Ra0 cyOpaRl0aVUUfVEU0OXHhhB TfV2ZvvY8lJjRpLOTvVLTzM 3RleHQt SUdpC349VZnxFhK1AUKgguZ zR7RfJYHpaYqdUbY8x6Q3Sd 8YZ3V9EP43KI05pKRwo5E0f KX0S9Zd GIWdnphmvcfpjJG1VSFbATU inT17Xo8moFriRf4tGULeXO G0TJDtiVZyB5VgeW3yTtClC DAwMDAw W3GswOFqCTilG556JAdwPrV 4RGWxjvWyM1MvGQLdgBzoOp C0x7W0Kn2GCRl1DM30XF09a HTty9A4 eUB9Z4QcKBQfqbiadfjsrZU 4TCMdBILslZ63Ga2xuYivEb 9jHRTbDTC5GFNvoFAcM0Wif I1dIlVk CJExSUTvR8GmxVWvXFvnL64 5RYdcRiF4FSQeteHjO8EzNK VfkHppTtD5g5B7Yw4FDAKhI V77ALT1 cSD5IG48DU11U9KfEqzqoEQ ibGU+PHRhYmxlIHdpZHRoPS dpMVVmYhKxwNfyED3kXe2xN GVyLWNv kHbkxSIhDdEdt0ilFZUjDHn zAN5igGlkU7UxwNG7BPKzj5 t4Tg27Z72xE1FklJU+PGNvb AD2fMC2 kD0nAdHcZpH8VGuaF636XnF qcSCkJjacp8zff5zfoVl0Ws O8BTTtgwNoaRflMEW4m3FdL h42F03z IHdpZHRoPSIxNSUiIHZhbGl xxb9lqQ0uMb4+VUEapPF5wZ A4sM9pYsAfQtT0DWhmP946M nRvcCIv Pxrvz6vmz2gukNw5DcCaTTA zyxOrkYzgOIK6g0ClSn35V5 NkuQvxf2LcXkv1bb15hCXyl 1V5fQO1 Y8YdSKHmwxdugHQlhLwsWA7 wJRMvmonsFXNuaZ0aBRIsR9 g3BuIcMpW6SHmoO2YrozE6Z DEwcHQg QVneZZQ1F40re0X0HZLkWJE hHLL1gNG8oO5jjZxcgvxbgZ VmdDsgdmVydGljYWwtYWxpZ 246IHRv xXwfKESzfM5bLBRleWPkmVa nVR6eDNSyrjmeEyVZYQJZDF 2uFRwVRC4uFXabiBM+PHRkI TX2qTah XDfiUWOssU6wAKEeE5s1RlM jNuB2TMgrL3HuYZGfbqczYs 93rZ6iMzDrQiC7ZYjmB0Sts sA6MVDs mQNqBGrdVQO7P30ac9X9RSB bFNNjBKI6iFC0oU9oeBztre ogbGVmdDsgdmVydGljYWwtY YgqL702 HYPefGiqGxB0VqA1VxJ2IWK 5L9NqCiv5TTAjzQimFY5vqF TaRWdhGq4ibKfpvHvpHL3fH TBpbjtw RZCrjZ1uIXByaLCdrOcnNX2 qKEMdkzneq097ZkEiTKB5XT LaiHVjB5XnxI3wPjTrJEXeD BQsJ6Fa gCBaWGzrC170ZRbnWwH5IFQ gmqMqG0DqYYQwlVvlBrR9w2 C5Hx09SKTRXJBgauzpxKA+P HRkIHN0 vRjnOEtdHGXpoH2wGMZvM9q 0GbBnKfM4BXqsQ8UpPBQznl jyLm25cI8jWpUtApL3KDjbE 1VayaA3 YXCvsMSbUQgrJEP3U19bj6K 9CFXoFJVuEHC1nEJ5jF7mfQ lnbjogbGVmdDsgdmVydGljY WwtYWxp R121RZBtzJjyDj6wiJC7C0L yLpv5LVPwbSyoJC3epJVmFY edAv3bzDowwNzmPK7cQUXzp jtwYWRk bX3qDKXknRGwcNkrQO1kLIP zpfmyk807GeRjCGK1RTCmiK TtB4AigU2uRiLqUTTkSNDfE 3RleHQt PSpjR558CWedFqV0TXRrhvC wQ3HxAJDdmHesOsU0i0V0Tn 7NpNPxOVEwTA85TI08IK70U 3RyPjwv dGFibGU+PHRhYmxlIHdpZHR mFCbkXYQjPmJwgSjeRB2kXw 9yZGVyLWNvbGxhcHNlOiBjb 2xsYXBz EOtuSO9owCbzI7DypSF0CRA vc9e2Ib20G41tE4AzvAV+PG CkxVP8xXL7rN8vZbDmKdS7U GrwM539 JgMapZJaIsbnd9tgr1hogOg 4PpYdGDHdtuDahGiiAMI3m5 FzEa02R92vWCstUZYxYUOjY CUiIHZh sKcrre9xnL1hDg9+PGNvbCB 6uCZ8uD8tPqRgKrH1EWbrL5 94CbZxbBKtNnhiK63pX3Zjv XA+PHRy Qoy4LMXqrYxqCJ4irTKwASh cUj5hBVY6ClQdMqLfRNvwB5 CqAXYpyeixigvhlFB2QWGiB DUwaW47 Xl9vzWijBn1eUEPnYFV5CEW tzQKxF6KziA0lNaNnUISlEI VcG9WbeQKbHKkoQ524GEkhC xL4TEXl fgPbN4ZaJBAfzCvaQiI3n3E 4Fd9PmRpljSFpZX6lNwHnVV e2X6RkIdh5YUZrmMneSC4da GFkZGlu Vk3stOslaSprWU1gLCHywzx ex822JuIdn3ybMTYbyFZyVH exYZW6K60av8P1QCLoOHBzP EQ7uVH7 dV3nfQhigzjmpJUfuWwecjC jiHvjRXtoYTpcX527KJOvaT yzNoULKqf3H2UlJag0MZNpe UbzSB3y kZFvYAopAh9wmJcquIffTG1 yZZCoznzvm725VmOkf9dpTS UdrGFuLHbjCQX8K68wj9H1A CMwMDAw HYP7bGY6nR5fnOklmuefoVU mdDsgdmVydGljYWwtYWxpZ2 16WFOyoQkdZi7UFyi3C5TdO zc7DUSo uVkkDU5osLFbLHemQc2zrKc ikFhnQI9gXXPavzucf860Bs Tzn1rsGZGcsSIiIGmzNBY6D 28ws7V8 PQNjMYKxGEB7eSB8mN4aoHw nbjogbGVmdDsgdmVydGljYW mjPEqoU179FNUcxTywFlOkb WVyOjwv dGQ+YL19ys69R9RvAmqfUcc 9BDVhTOA6bWU2cA9zWJEnAC zdq3K7fDD7J0HcsnAaoq6st 2xsYXBz ZTog (more content not included)... Normal [facility] Gastroenterology Office/Clin ic Noteon 12-31-2021 Gastroenterology Office/Clinic [...] patient consented to recording for virtual documentation spec and provider reviewed before signing. OMARI: Viv Merlos. Follow-up With When Contact Information VAIBHAV CERON, LEEROY Rossi MED In 2 months [facility] [address] [place] [address]- Yaniv (more content not included)... Normal [facility] Comment on above: Result Comment: Elec tronically Signed By: Enid OCHOA MD\.br\Date and Time Signed: 12/31/21 08:44 EST\.br\Electronically Co-Signed By: Rachel Stokes\.br\Date and Time Co-Signed: 12/24/21 13:14 EDT IgA, Quant.on 12-31-2021 IgA [Mass/Vol] 159 mg/dL Invalid Interpretation Code 61-437 [facility] Comment on above: Result Comment: Perf ormed at: [facility] [address] [id number] PhD Deisy Albrecht Performed By: #### 1 [id number], [id number], [id number], 4678160, 6127081, [id number], [id number] ####[facility] [address] [place] [address] t-TRANSGLUTAMINASE IgAon tTG IgA Qn (S) <2 Invalid Interpretation Code 0-3 [facility] Comment on above: Result Comment: Nega tive 0 - 3 Weak Positive 4 - 10 Positive >10 Tissue Transglutaminase (tTG) has been identified as the endomysial antigen. Studies have demonstr- ated that endomysial IgA antibodies have over 99% specificity for gluten sensitive enteropathy. Performed at: [address] [id number] [id number] PhD Deisy Albrecht Performed By: #### 1 [id number], [id number], 0523015, 3010778, 9731984, 89900206, [id number] ####[facility] [address] [place] [address] CHEMISTRYOrdered By: SYSTEM SYSTEM on 12-30-2021 CRP [Mass/Vol] 0.6 mg/dL Normal <=1.9mg/dL [facility] Gamma glutamyl transferase [Catalytic activity/Vol] 50 [iU]/d High 6 - 48 Int._Unit/L [facility] Prostate specific Ag [Mass/Vol] 1.1 ng/mL Normal 0.1 - 3.5 ng/mL [facility] TSH Qn 1.70 m[IU]/L Normal 0.34 - 5.60 mcIU/mL [facility] CRPon 12-30-2021 CRP [Mass/Vol] 0.6 mg/dL Normal <=1.9 [facility] Comment on above: Performed By: #### 1 [id number], [id number], 1697974, 0412412, 3608035, 39913864, [id number] ####[facility] [address] [place] [address] Consent for Treatmenton Consent for Treatment [id number] D:127 Normal [facility] GGTon 12-30-2021 Gamma glutamyl transferase [Catalytic activity/Vol] 50 Int._Unit/L High 6-48 [facility] Comment on above: Performed By: #### 1 [id number], 63487142, 9381298, 2855720, 5991819, 45955802, [id number] ####[facility] [address] [place] [address] HEMATOLOGYOrdered By: Shanell Lorenzo on 12-30-2021 Sed Rate Automated 17 mm/h Normal 0 - 19 mm/hr [facility] PSA Totalon 12-30-2021 Prostate specific Ag [Mass/Vol] 1.1 ng/mL Normal 0.1-3.5 [facility] Comment on above: Result Comment: The concentration of PSA determined by different manufacturers can vary due to differences in assay methods and reagent specificity. Values obtained from different assay methods cannot be used interchangeably. The methodology used for this result was chemiluminescence using [employer] Access Hybritech PSA reagent. Performed By: #### 1 [id number], [id number], 7358481, 1499095, 6400934, 58554060, [id number] ####[facility] [address] [place] [address] Sed Rate Automatedon 022 Sed Rate Automated 17 mm/hr Normal 0-19 [facility] Comment on above: Performed By: #### 1 [id number], 41871207, 1407885, 4599084, 5452909, 76347965, 50006318 ####[facility] [address] [place] [address] TSHon 12-30-2021 TSH Qn 1.70 m[IU]/L Normal 0.34-5.60 [facility] Comment on above: Performed By: #### 1 [id number], 98129229, 3183005, 3085551, 5107367, 48986273, 70044613 ####[facility] [address] [place] [address] XR Chest 2 Viewson 2 XR Chest [...] M.D. Transcribed by: JACKIE Technologist: FRANC [facility] Coding Summary.on 12-25-2021 Coding Summary. CD:[id number] Gh0 bWw+PGhlYWQ+RW1WNTSvT01 mvBUmvM5BQ7hRXL4EQLXBLJ FMGQ5KEI3jaUN1OSlrY4Ziw iAv OgpfhZRmQP98LFg4OMQ9sJm kQDeexJ4sgQNhH6x1EmNfHC 04mR74HRzsKBUnYnS6JgDht jsgbWFy C4aaKnKznGDnVxg+PHRhYmx lIHdpZHRoPScxMDAlJyBzdH jgBY5eZs2lIEYiKXTyiUfuf HNlOiBj l4elTBRtWSfaEX3lnTaaM7I isSL1KLZxk2m4Cm77aDQ+PH FcKYJ7nWdoJSofr883BpCbq 4paQDM2 cLEkGAslITT9S86nh4M6JOQ iVCBsLRI0tPV4dY0oeInczd tiR1EskXXmFuA6AJW3wSMes O2sgAbw hvnnoI5mXsi+R70FJZ3SSCS DRE1JPim6G2IvEangvTM+PC 39MRGnHN73dDAdyNTot6ujt Qr2DnGw BBFgLHB1dEgnZFetr7KmFJU aW27xoOFcs0K1OMPdwRheuE RgQpRftGM7kD5zDUinpfjgb 2hvdzsn Pkble6xhjp66mR50F71vUVw eSYOmSHE8ZDEsRIZwnFtetx 4ezW7yMj4+JPthk5jux4jas Qp4NiUm ILAmiqBtmCweOGB1h0KtLz4 4V9CngZjwl4NoCxy0aw15jS Bdc2Y2qTN6LLvhDMEjwY3eT WxlZnQ6 IHOkTgHuuC42iXQtNBwnRn3 aqBvlvKwmSN7yLEGrolqpCC TbwM6gSFKmqJGlzItdMY3hO TBpbjtm t784XqEnIDF9NVUdlVTlW8Q suY6kZrKuKTLvICVrO8PmxR HbCOgpK448TVgqDvZ5ZQSic rQhM9Kn XYAzjZytJpR0h1A4Xj0Sb6F anakdFBZ2TIesVUGyQtSnMa JnMtN2W8HbRby5WWQpfWdjR Y9rZ6Qw NECohnoyecdwxFF4FKIbNNI wbY77qHNqCMikOu0em6E4e0 83QRHaKTWeuH96Hx6rdPjyI TBwdCBU tK2fyhuxy1rstnqjIiYtXCG xJRw7WRx7XRHavSmnScIjQX R4RmX5AVD7cHTrsM2quXrqi dlcdL8g Oyc+A75hsA7bOFP9EZP6xcg zCKIssjGmFE84BO79X6NoHa wvdGFibGU+PGRpdiBzdHlsZ S4hTnAx h0usz5HaHGnnC9RgKZDlHCl pOuh4GVIjISR6fFF2mL2dBO BwBIaah8Z0fVG1K2UgzfTjz w5pc2vi GDOcQDnmG17shAGrz9X4ETD zgLE0DNSznVvtWmWpgS12Xi c+NWPcuGtoj8QeAutvh1qjk 1mtiVn0 BlItLJEwmmYjaOftFWB3o7A dHs41H28lGLpdVNJyYTNnRD KsNFHuoAzgkb9rbW8yZs7+P GNvbCB3 dBP5sM0jSQDnQvY7VNsoC18 3JmTujCKpZmofo4gqy1zijG d9ErKvBKWzpdCixZinVYT1v 6FgHp73 T88hXKeqPXUoZGEfYIRoSNV bqGxmwf8nkE3gGj1+PC9jb2 qbjf66aS54mWL+XYTaJNE2d WxlPSdw JYVwaD7rHRacQmT6SXLuFwP rpL85gXHbJHbkKp3acJtihV gqQO0rDQMcojqeu916JyCbl 2xkIDEw eOUjZJgzFVC9M75sq7U9UOB wUBAzOFS9jGH5iH4riIvaer ogbGVmdDsgdmVydGljYWwtY YjeD450 IHRvcDsnPlBhdGllbnQgTmF nTJr3H1BpPcq3CZWrjCawVE 0gdKZbJOknIg2rtUozwJkhD X2sSGGr rjskb981AySrq9xzVJImeWR iOGepOPT7M31li1A6NUHnUM LxFGY4vIK2xR3ecAiyucvme GVmdDsg dbCbmAlnWFauPZunM284QEE vaIyqQfGwmcZvMHVqgCU8VN 91CN86kUQqv9O0sTV8B4HiR GRpbmct tiohtOL4ZRRmKRGfjN56Xh9 jsPhvNs5pZWTbCZO1DNJpyK PnU9BvtL1uOyXzHIMsXBGiQ 3RleHQt VYgoP214TVgkWiC7VUEcykH kV2EvPKKjgFjnRbG4q5V5Cn 8TQ8B8QW87GR95nIQvy6E6k KV3P3Io LSGqbastygjrdDG4KOHzQYF ezV80Ei4snIacZc7lPQXaQR Z5QIRyjUQiX0DuaR2iXdUfG DAwMDAw Y9MwqSYiQIscA962PBrwMnU 6OQQfkvBrQ1YsSRXdyVksKh M8k4G3Bg3IXJf9HI45XP75h SKwl0L1 uFH9W0MtCXUqeaiztgacvWA 6COKlUZUzbJ20Mq1elIhqEj 9dYXKjZOL3VSDpqCSsW0Jvk X1hXfUz NVOhADMnY9NctMMiWCxfJ95 6HWxtJwQ0MUVmjsQtW4GkBF DsdTuoWoU8v3M4Jj0DNYWeV X44XMH0 hSU1KX50VG91C3MgYjgmmER ibGU+PHRhYmxlIHdpZHRoPS frTYQnDhIbkYxdYF4vTh7oO GVyLWNv dHxguHKiUgZhw5swYLSaYKk fPT1njKgdL9YrmPR3QGMha4 t1Rj62X75xG2GhqLN+PGNvb FF0xNJ0 uU4xQmSgJiM1SHffW784YmM goQUxTlrfm4eug4vsaQn0Sd O7IFWawdFulDxtIJM2z8LsQ i54P84p IHdpZHRoPSIxNSUiIHZhbGl ach7coZ8zTt3+VOOwsVP7nF Y9zY5bEqFjNlT1BLdzT117T nRvcCIv Urjgk9ywy6mpbRj5PtFiCDH xjoGyhEprTOE7w3KbNw86C1 ArjOmep4EdEgw5sd50fLGbu 6L3pHF2 X2JrTEUauftaaTWtlCinSN2 oZNToqgkxIERwqP2xWGXqQ6 w2HyZbLhC0PVhfL4TzeiZ9Z DEwcHQg ROhfYWA9B99jw6X5DFJiZOH nKLJ8dYS5wD3phWlwigjxnQ VmdDsgdmVydGljYWwtYWxpZ 246IHRv yRosHPOiuE5tEFPdkVJboVv nBF7hOTAhihenGwGICABLSM 8tZMxTVP4zVOzeoFT+PHRkI TX5pZgn EQxqBMRmfA0ePQAeM2f2BmE oOeL1LFwbZ3LmCQAykdsdQb 01nF1jGlOtRvP3HDyiI6Nxv rB5PXSh qUFuSCbtHEL8H31ex1Q4LTS eIPHnGOM5iJN7uE0xpPktlz ogbGVmdDsgdmVydGljYWwtY AmbD423 ACPeuUvmUfE2RqM4DsG4PJN 1Q9TbBwl0SBBniTikCR5kiJ VkDYlhNz5xiKsqnZedKA8eK TBpbjtw CQQrqW5iOOXnzPEajCoiWE7 eJXCdkpbmg880EhTlANI1ZH EwpVXiX8UidB5aRwPmYZBhU IOyH7Fn pZSvOKsvP220NPrjIoH4SFY owgJlS6XcHBChpFxzIaI3d5 U9Us46HATCMNXxzxqzcKS+P HRkIHN0 hMbxOYnbIBQoeI9fZEGyK6b 4NvCbGfU3WBwsZ0GhDGXtsx gjDr52nY8cZfSpTpO1ZGhrL 8EesxH7 CLIceDZpMZkoURU7I66qz8S 4DNKiFFWeBMY3gMF3pK9sfS lnbjogbGVmdDsgdmVydGljY WwtYWxp Y319UJJagBdvYu0dsCB1Y6M hOsb7XKStkOrvRC2zoSHlTG paRd9clVrqfBgyJG9pHTZjx jtwYWRk pK4pIXHntIWnnRscRT7tPVD pllnkv382LkTjPZS0WIHgyR IyR3DidE8wDtIxNLEwYAFkQ 3RleHQt EQhwC332SLnlVxM7CCTbsaC pZ4XlSHQytLhaLzT1n3L1Ez 4KoURrUZPxKN59VR55JP34H 3RyPjwv dGFibGU+PHRhYmxlIHdpZHR lPJzmVMDuNhGlxTurBX5zFt 9yZGVyLWNvbGxhcHNlOiBjb 2xsYXBz MCdoKL8yfKocK5VooQH2HHQ mc4k2Td34F92sJ4HuqZZ+PG VrjRG0eAO4aB2iKoAbVzE7V MemI494 TxBesCEkGhict6rbk2njxKt 7SbScGORurhUbiNbiCPD0c6 XgUp84B70hYSnoIGRnAJWuO CUiIHZh dDuuue5nhY4nSs8+PGNvbCB 1iTP3mB6lMaAaFzH4SUhjW4 25YyMabAZtDprvE20pP1Djr XA+PHRy Axa8NPMhgQvwTC3oyWUpXBi qJm0tKVJ3MvMtWsRvEDawW1 JiCIGbhbylveveiRX0ZEMvN DUwaW47 On9bfXjnPs8xNRPuLBK3XKS gkTJhP0DkjW0nYaViPKMlEP TwD2BdoHEtZQnnT337JGzoV zV6YSQs apInZ9OxKJAadTkxLgH4z5S 1Rq5SvFrdtSLlYS7kMwSnSB k8S0FeCxc8CDXquProJZ3js GFkZGlu Sc6qxKyhwPplOU9zENBmahq ry866CjOvd0pgYCAtwBBiKZ efELE8G78vs9H4UNJyXDRnW TI9xQG7 jP4evDiygszqbMJaoIuyuoK pbWkdPXpjWSglD894QLQdgQ ieVmHJFbm4I9WuAoq9RMXgf WwoMO8h rGXmGFsdYp9lmCrsmRirXV8 xDKZhpxuzc737QaQyf1mzAR XlmAIdMIdaGCO6O81hr4A0G CMwMDAw AUQ2vFJ8yZ0zyHwipjisdPF mdDsgdmVydGljYWwtYWxpZ2 48CNJrtZlfGt1QWpg7A5TkA ct0FVKt bMhdRQ6vjWZcSIooIx4coMi lwMugVN7zGEIqmrfhq319Fc Rbx1pqYRUxjEGhFUvvTQG4O 73ff7I9 MUCsXQNfRJY7nJN6gB1moPr nbjogbGVmdDsgdmVydGljYW aqASutV377JOFheBekLoMjk WVyOjwv dGQ+XQ57jr30G4DrEouhPzp 9IUSvMDN2lMX0qJ0pUWPdHM zat7T7zUB9A9TuhbKyyv7qh 2xsYXBz ZTog (more content not included)... [facility] Ambulatory Visit Summaryon 1 02-23-2021 Ambulatory Visit [...] Schedule the Following Appointments Follow Up with VAIBAHV CERON, LEEROY Rossi, ILZ When: In 2 months Where: [facility] [address], [place] [address]- You Need to Complete the Following C-Reactive [...] loss, pp_set_radiology_subspe cialty, Not Required, [place] Medications What How Much When Why Instructions New amoxicillin-clavulanate (Augmentin 875 mg-125 mg Tab) 1 Tablets By Mouth 2 times a day Abdominal pain Duration: 10 Days Pickup at [facility] [id number] Unchanged methotrexate (methotrexate 2.5 mg Tab) 1 Tablets By Mouth Every 7 days Unchanged omeprazole (omeprazole 40 mg Cap-DR) By Mouth Every day Unchanged tramadol (tramadol 50 mg oral tablet) 1 Tablets By Mouth Every 4 hours as needed for for pain Pharmacy Information [facility] [id number]: [address] [place], [place] [id number] [phone] Medications and Immunizations Administered Not Given influenza virus vaccine, inactivated, Postpone due to refusal Allergies No Known Medication Allergies Problems Ongoing - Any problem that you are currently receiving treatment for. Black tarry stools Change in bowel habits Elevated alkaline phosphatase level Family history of colon cancer Generalized abdominal pain [facility] Coding Summary.on 12-24-2021 Coding Summary. CD:[id number] Gh0 bWw+PGhlYWQ+XT7OZODaP07 mhBYsjT4PX2dMUY0WJKHYWD VEUO0RBF9oqPB0KBshK2Vhq iAv PxrunSSgTM02KCg0HTX7tEl oFMawiI7diWNuF1w5AaRsEY 40zL61ERikUPRgXrB8RnVns jsgbWFy W4muKbEwoKWjVke+PHRhYmx lIHdpZHRoPScxMDAlJyBzdH ehJK8xSw9cOURfXWCvnNlez HNlOiBj r6peHXNnWXnwKV0emBfaY7J azBK6EMOfa2n0He63yBC+PH PeTGQ7sBglKTxzh168KpGaj 8wdBTU9 cSIbZTdyNWY3G23zu0Z0MYX nLVCmXEY4lLL8fR3jfAkeme xpI2PunBWbGbW7ZER1rWIbp Y3djIvg bypanN6sNwx+L90MJY8LRWM LPW5QNyp3V6QpHtelqDZ+PC 86DBFdKJ70gZKjcTWbq8mqc Vd4IqQq AKEuRGF6zIdlGVrga6LkAXE qL26brPGpn3R7KCVzlSkwpU EfYgWvfIU5eT6fOBlhuyolj 2hvdzsn Apntp6digi06iS53B54kPUd zPIPaVLN8GLXbQYDxbTtjrw 4vdX2vPx3+VVxxt5xsh7faw Ss8SgTr CECpgwPxpFjbJNK0o2HaKn5 7T6IbmRima3GlHcy6id72uE Bwm8G7iUZ8RLcjWWCetC9eG WxlZnQ6 RQQnFtRurD07bASqKWhpNt8 acOgteExoBA3qTVZstwgfAS JasA7zLPAwaHMnzVshEF5rY TBpbjtm s208IoTuNTB8ZWXkwRIdJ7L qdP8kLgKrBCTmALMcP9QwwE AxIPppT244UJhbAnJ7TFLir bBvQ7Qj YVVwzHkwCaB3i9L2Vy1Ni8U kunjqMGQ1ZMvzGXNzIzTnXd PzYoU9M3UuXwk4YRFjyCtjT B9tX5Oi NHScxtrjjdmypQH1UJElAPM mtS12yVRqUBauDf9gs8W2z5 31QUMwLBKlsC26Xj0ygLlaW TBwdCBU zT1skbiqs3ybyabvRvBdDTK kZIh5TZs4FKHykHydEfOdDK L3DuI4KTL0jSImoJ5cyLuuk iwiuZ0p Oyc+C05qqJ8tDQZ9YQW2ltu kANRzzeQnQW00BU78E0WgAs wvdGFibGU+PGRpdiBzdHlsZ B7zPtBk s6qup4FaHGqpF6LqWEHqHTy cAlk7BJNjGEG3nYJ3bK3lWX OgCQbvt3O2zSC5O5CcehCur o3cl3ga EZWuAPryT54deDIou5L2OZB vpDC6JVLrpHplZfWvsU14Dh c+AWErxJgwv6MhWjbgs9aws 2dczPp1 MxQyJVIbrjRzwMbsPOV0e7A zSr16D14mRLoeVIWhNNUjSG HhMHWgwSrdsw5vuY2nLt0+P GNvbCB3 xLS7aX5vOCCjBzY2ASbjV03 6RnCvtAVdIfrnz3fry4pkvU m3AaPqBMRetgQezHxfFGP0x 2ZqZd16 G31iMUsuQCCmKBOeEYLuMBU ttXezuq8etG1xDt3+PC9jb2 tyre10mK89kDZ+XJTeMCD3h WxlPSdw ZZTvjX4mSTkxUmB1WSGyVnB rtR84dDSyEQxjUy1kfGdlbB leSW7qZFFkoftgx288LzZek 2xkIDEw qPMsOHrsSRS6S87ke4L7AQM pKYUpBAY2kOJ9sI8mpXzvdi ogbGVmdDsgdmVydGljYWwtY QbqA719 IHRvcDsnPlBhdGllbnQgTmF zUBd0I2MxNty8BLVqhGenFI 1wvMVlXHszGy8dtFtphOcfW S8eQSWh ovjyd331ScIao6aoAWRvjUE bHLtdSCH4P38ef7Q4YSVoXI RdSVG5eNW1qH7ynVlsjiymq GVmdDsg lrGjsThpZLhcVZkhC044DMM oeJhvIlXzioGfEWBrzNA4JK 95TK78pFQwd3M0bHL9Q7McP GRpbmct zrcfdWC5MVYwQQHvjM41Hq3 bqOgbUo8qBJIsQDH9FFZjxO PlH1AheO7eNsEkEPWtSTCkM 3RleHQt CVimQ102FDeqYeC6APMalrY iW9YyJXHhlNhkVzT4y4G2Ap 7DB3S8FS72IN30eNYcu3Z3j FD9V1Jb WEKbknjllfhsaZW0TQKdUCR qnF22Es0txVhjQg6tARMsTJ B6KWDksWAaQ8HtoZ6nOgRxU DAwMDAw S6UgzSGdEOwaK452KNmtXsB 9RLKjqwMhE0SyXKKgyKrmWn K0o2Q8Kf7MOIp9SJ44RP53g UIvv6W4 xJN5J0ArOBCtdrqsdbffdKK 9ZWZwWNBkpG35Yi6lxStiFh 3bPMUcERO9VIFqfCSsS7Etd Y1yEoWi FHQjMTYfW1IhzUVrRJlsY44 2UCvtEjY3THWzakNpI8HeYY SgaLqkIbJ2x9F9Ir3ANMVnA B25GIG7 tGY9SY31OH26G2KrOepxrTB ibGU+PHRhYmxlIHdpZHRoPS tqFARtIfJsvXvjJO1iEu1uG GVyLWNv oJthuCZbTeIzj0wmZNCcMYn xAF8qhQkbP8NslPN0IRXea3 v4Tf20Y33lZ1LnaSQ+PGNvb LM4hGZ8 hC2oTzTiInA2LBckF028BvM noVDgRczsj1cgo3gzwMk9Zx Q1LPEstlYbyMdgFBZ1o7XkJ k97L88f IHdpZHRoPSIxNSUiIHZhbGl yty1rvS7gWw0+QULwrIH5fC D8tU8hYvZfJlL2OZngJ309M nRvcCIv Fnquu4omd4xxtTk4DaQcJKH rwcVubFkuTRB1o2FhNf96Y9 FpkMzof5YtYqz3lk88nZOrh 2N6wBW5 H9DtTHTjrhacxQOatLzzFC8 lFQWzfrxmTZQvjW7wJJOmU8 n9NdHtBjP7JZazQ1RazeX7E DEwcHQg QUzsFYA2X56zy6Z2PFSwQEL iPHX6eXU8eZ8ltPrdlesqqS VmdDsgdmVydGljYWwtYWxpZ 246IHRv rPytDSGieX9wFPTqnTScdZd lIC3zMTCnjnahHeBUHJCBTJ 0bAJdPYI7yAYgusLM+PHRkI MG1mUvg HYbpNSCpuN7vORTmA2r7RcX sNjS3DDbuA6KzBQFsyhhuBy 58sR5pQmJiCtW3OOirK3Mhe jG6RCQp rBOcJZjnOMN3O08no8R0ATE pLEKqQGE6iIJ6dP4kfWzvsx ogbGVmdDsgdmVydGljYWwtY FitO339 NVXqeAskDeA5RjH8VcA4PMP 2Q2EzEqw6OZIgfRlrBS1rrL KbSAzoCw9woFsuhEquZG4eS TBpbjtw UNAbeH9kLMNqySZgfPwqDL7 dODOdpnskh727UlAsXJV1TM DteXXyJ5IhqZ0dSyMgAEZvP RIzA2Ib yJLzZDqzB826GCxoEtB6DQV ouiKwZ1HvYVYpbVhvFcZ8m9 Z3Ue02FFTASRMxzobvuUU+P HRkIHN0 aJcsEZcsWOQlyG6bUGGyG7i 7WmLeKvP4HTthT5ChNCSsrt pvYy04cT8dAmWhHjU6WAawH 4PtwlW6 ZJOsrCIwROgkBIU8U06ug4I 4YXAcXHHgSDC9dSL6wQ1mlX lnbjogbGVmdDsgdmVydGljY WwtYWxp G226YLXvzCzoFc9bqMI5E1J fXuk9NHIvmYswTS0rhTYnFA lhOu1epMijuRjnRL9oBJHty jtwYWRk dP5cOCTqwXHepRfgLX4uQPQ tgwgda683VnDoYOI6XWUdhV NnM5FxdG5yKqUzLYZrCOTlK 3RleHQt HXgjM941DYffBmO4QAIlzxP xX4KiTKVgvNkkUxB4e7C7Di 4HkRLxJZRbIO31AZ50QV29M 3RyPjwv dGFibGU+PHRhYmxlIHdpZHR aGPpwSZFjKzHheYriOI2bZc 9yZGVyLWNvbGxhcHNlOiBjb 2xsYXBz JVhsSO4ruIofK9LnbXB1XPM it6u7Uj91T82eT1BiiFB+PG WshIE6aGB3yB4mVrMnWjJ6Y WdcY911 GfQlsXKkTrhgn1ste4urxHs 7UyTaZAEzlqNnnApbQCR7g3 QlFn66Y00wBFzaDEDtWWDbE CUiIHZh bCtcra1znM7tWw7+PGNvbCB 6xPG0sM9fKwFsYoE2EAulH8 77LjWqrUTxMteqQ01yB7Osa XA+PHRy Ahx1DYNpeJszUB6yfOPvROc vGs8xOBJ6GzQeBzMzCQqqB1 XmEEAlrtnmkzlctIN6FAOnK DUwaW47 Cw8eiVhkGk7aUVIhOIN8VIC elHGjR4VfhO3aPxJgXTOtSC ZkJ4DxaIHsVPpbK147ULaeV cZ2IRUx ppPrF5PvKOMlsCneRoJ1a2O 8Nw9QdInxyJAkFR3xMmMyXU w6A5XiBpy6PWXyuTvhMB4ad GFkZGlu Eo4mwVpsjOqsDV1dLFZkrmd kv891KwSmj2bvBFAzgDDnWJ foVRH7B46xb1P4OKMnZHEbH PB0gZM9 qU9ciIsbicxvbCPpfTlhssE skNaqSFhoFTsgR261XOGezE zjXnMQEma9Y4FmDck9GSTtn LlmTV4e gKHsWKksZm4ioTpruHiqKS6 nRVAnzdxqh938FkBmi2ueRD MaxVDtGQawWGX9A50lb4U9W CMwMDAw TBQ7aMU9gK6qpTywzzrooZH mdDsgdmVydGljYWwtYWxpZ2 72UZBzkLgeQc7TFic8L6UlD qq9EFAy rZwvRC5tjWMpVWxhYq7yiKq lfBsfVG8aTMNubpnsg826Od Fqn1zwELQhsLJwHMujLZN5Z 88mw4G6 FORbPNJeFOQ8aNX3hH2eiSn nbjogbGVmdDsgdmVydGljYW tuZIpcS687EFXgqUnnZqJgc WVyOjwv dGQ+VK24vp88G3YzRsbxZzk 9QDIbFKA0rMZ7tM0eKFWuMC pho0Z8pRD8I3KkpmUgul7vi 2xsYXBz ZTog (more content not included)... Normal [facility] CT Abdomen/Pelvis w/ Contras ton 12-19-2021 CT [...] Oral contrast amount in ml's: 900 [facility] Consent for Treatmenton 11-23 Consent for Treatment [id number]#1.00C D:127 [facility] CHEMISTRYOrdered By: SYSTEM SYSTEM on 12-17-2021 Creatinine [Mass/Vol] 0.9 mg/dL Normal 0.5 - 1.3 mg/dL [facility] Remisol GFR/1.73 sq M.predicted among blacks MDRD (S/P/Bld) [Vol rate/Area] mL/min/1.73 m2 Normal >=59mL/min/1.7 3 m2 [facility] Chem S GFR/1.73 sq M.predicted among non-blacks MDRD (S/P/Bld) [Vol rate/Area] mL/min/1.73 m2 Normal >=59mL/min/1.7 3 m2 [facility] Chem S Consent for Treatmenton 11-23 Consent for Treatment [id number]#1.00C D:127 [facility] Creatinineon 12-17-2021 Creatinine [Mass/Vol] 0.9 mg/dL Normal 0.5-1.3 [facility] Comment on above: Performed By: #### 2 [id number], [id number] ####[facility] [address] [place] [address] Physician Orderon 12-17-2021 Physician Order [id number] [facility] [id number]#1.00 CD:127 [facility] Physician Order [id number]#1.00C D:127 [facility] eGFRon 12-17-2021 GFR/1.73 sq M.predicted among blacks MDRD (S/P/Bld) [Vol rate/Area] mL/min/{1.73_m2} Normal >=59 [facility] Comment on above: Order Comment: Order added by Discern Expert. Result Comment: eGFR is race adjusted. AA=. Performed By: #### 2 [id number], [id number] ####[facility] [address] [place] [address] GFR/1.73 sq M.predicted among non-blacks MDRD (S/P/Bld) [Vol rate/Area] mL/min/{1.73_m2} Normal >=59 [facility] Comment on above: Order Comment: Order added by Discern Expert. Result Comment: Heel Slugger kandace kidney disease could be indicated at eGFR's of less than 60 mL/min/1.73m2. Kidney failure is indicated at less than 15 mL/min/1.73m2. Performed By: #### 2 [id number], [id number] ####[facility] [address] [place] [address] IntraOperative Documentson 1 IntraOperative Documents [id number]#1.00C D:127 [facility] Postoperative Documentson Postoperative Documents [id number]#1.00 CD:127 [facility] Coding Summary.on 12-09-2021 Coding Summary. CD:[id number] Gh0 bWw+PGhlYWQ+MY9SUTMcF43 ovHFjoD9KC2iMNR8MEWJJJU IKHH3EHO6klDD9ARlmF3Imr iAv FtizaAHhTC33XYl2YDG8rPd aHJubdN0ieXHtE7w4PdQtTO 18gL61TYsxIZOgLbN3ScZdu jsgbWFy C9ecAfFvtTSuVug+PHRhYmx lIHdpZHRoPScxMDAlJyBzdH ftJV3wLh4kWXNfLAMppWars HNlOiBj b1juLQAxFHaaUE1eiFauE2H diEC8PCTim9w8Ix78iBU+PH QaWNK5xGuuZJkil363OaPcy 4uxDEX1 mRNaDMkuRCD5D51yg0M4ZPU mVYJuOPF9mOE4rS2yaVfrua vbK4DsgBIpRiL1GAZ7fSJhm L3swBkl ynxywA7fDxr+I91WXJ3EXVY ETP9NVlf9F5LoTaqmrMB+PC 14HLEhMX59xFQouWAby2ixc Bb6BtNb EMNuLQF7hTgwGVvxl5XjQJU iB56lhXXss3S0HEKllQsynQ WsXzFqwQJ3hT1oJCfajlgle 2hvdzsn Jfiad3ibrc07wP81K79hSQy qBIRdTQM9FOLlVRBqyUvqdt 4iyW4lRp9+LOobb8omd4qwr Xy2HgQp YKUklzIcgOsxKLS3d6CtTv4 4Z0RzeYfrx4OnNvc4nf16eD Jwc3I3uVV9FKrpAHRidR7zX WxlZnQ6 FHOeOfKduJ70mCSmQWlyQz4 abFzbbXfwIX8mFOMdldfaED QazW1rEILqpLQoeAidNF2qH TBpbjtm n946HbTvZSY1HIQftNPhK8A yeI0nKbPjUDEzNEHdP4ViuP ByIQaeS567NPfvSeT6TDMeo sJvP5Un ZQKfaBvjBgV2a7O2Ed6Ga4O caqzeQQW5XVfzJHGlDiG4Ib DpShX6P3BhNce3VUUwuGvkC P8eU9Ot BHXspexvcrupgML8MZIrKXW qcP17yGGyBPyjDt0sz7L8e0 04VFRyCGMvaS57Id0tiHvoM TBwdCBU eM0hpyior1ghnsguVlTxPQQ eGKa9GDh0YZTmoYliBfItIB D8MqG4MOM3pAGowG8plPvei pbmgV9c Oyc+N06eiY3lFSQ5AOO5nte fWFFrapAcRR04JF02O7IuNn wvdGFibGU+PGRpdiBzdHlsZ U1fSxTj f8fco0SdJAtyG5IiJMIrPFp kRuc9TYBcATO4rJG5xX5tEJ QeSAdnp1R9tZX8Z9ZxavCod x0hf8od GKBoYRzwH48goMRgl3G1ICB lyEZ1GRQxsIuyMqQmuD73Ra c+VAGgzZqvr7NeYrphp3qmf 4hkpBt7 FlZiYBUddqYzbJzeQXX2z6R dEq79X55dXXqqXGFmSXCwBQ RyAQFkcZlemq5isL5xXw3+P GNvbCB3 vKM2aS0hMJOyZjC1WSnxI42 2JuHndEIaAlbjy6erk1loqU d8TiBgHKQvcbIcxQagBEJ4x 2EtTq80 G68gOYmhCQPsUTQjUZKiIAG duKkjza2xfL6dXy5+PC9jb2 uqbw35uS07fFY+UHHmBWJ7b WxlPSdw MSIdgR2jBXnzRnB7XEXlZbA aqZ18aCWvXYxnUg9elNomeK cdTW8rUPRinauqb075EoMxf 2xkIDEw kBHfKGwqNLO6J29lc2M0MVV dDVRhGQW4cIY5xL9vsPyhcp ogbGVmdDsgdmVydGljYWwtY CnmC639 IHRvcDsnPlBhdGllbnQgTmF mSHp1J9BwXcj6EICooHwwEG 3vsLCxCJqvIl2xgRjsqKptH V3cJMDo ddebf896ReQwy6nwTKQvoFX sXSkoXLT2T58rx8Y6SIXiIX DkKZG0zBQ3lZ7wxIqmzuuaj GVmdDsg plVbcVfxSYzcKGkkP771LYB goBpsOtJnuaItUXQzqBA6KV 85GZ45fYAba5R4xVB3W2PdJ GRpbmct wjdfnCO9VMRmDEKybP08Vx2 ahNobAz3tWNFcLTA0EOVtgR ReQ1TmrZ6tDzAzZPMjKGIvR 3RleHQt RIozZ356XMovSgQ9FPVmsvN gC2JaOANjfAvkXxI3o0K1Tx 6IJ5F0JV08XI18lKNzy3S5a FX4Z5Lc YHVzevtxtmeyqBO7HFZiLFD xgG38Fc7ykRbxIw6qXYUwUZ H0JHDumIViA3CpsU1eKiHsF DAwMDAw R6NikQRxUKjyK702JYisJeE 7UPRijwQnO8YaSNThuBluTm D5h8X8Ha2LGEw3PD78ON27g JZiz2M5 aSD0D0FmQNXdkamhtopopNJ 5ETKbOPHprZ63La8ozDcpSs 6jOFGlBAD9PCAzfPCfG1Wiw R4sZsDd IJUjOLCyQ0AyzDDqTUbjV03 1EJlyZlW0LKYzcjVuB4NpFI HnpTmiXkF7o8C6Ja0UNOKkH O07PME2 xKB5FZ02CT15X7RsAbhyrDZ ibGU+PHRhYmxlIHdpZHRoPS fhVQKrYuDneZpnUX2dGq9vL GVyLWNv pEluhZChXjFcr8fzPPXjHXd gXD3yrHadP8DjbGH7VFBbm4 g0Ho40L39aD5CwlYG+PGNvb BO4hQD7 iV1iOsFtPoT7QEjtA454HaU ndVRkBlsqf1ozu3ubaNo0Me R7IAFcpdXfiAinRXI9o3MsQ l44G19s IHdpZHRoPSIxNSUiIHZhbGl rvu5ayW0sPq1+PVJjpTK2rA E7dS7mDuIkWxH0VPqrK489G nRvcCIv Pzlom6gvu7unbZy0SdZdMOY nhhKwaTliNLA0m2PmWt44O5 FseOxus7MjVtf3ty79lEHad 5Z7gZM9 U5QuRDDgkxwtaRAfqSbeMD4 fYVOkpgjlIUTrkU5cLHDpW5 j2UiEgZiA1EUlfN4DnowY1L DEwcHQg JPosCAZ1E09ue6K0HEYhDEA gXWQ4wQT7tB1muQskavrzkF VmdDsgdmVydGljYWwtYWxpZ 246IHRv gIaaCTAiwU2eWUOasODrzUq oSP2bAJUamjhcAkQNZGKZKV 1qFImKAT5bFKbpjCJ+PHRkI NP8zItp YRmbYALlfV9zKWQbV6u4CrE iOmF7FJtpB9GtJFBrlvslSb 12yH3nIoVnJwX1BDjyY4Rps jS3YQPs eEYoTVxxIPX1C12ir1A9ICM bIAApEIG2jTC6wZ9saUnttp ogbGVmdDsgdmVydGljYWwtY QvvE048 LYGumDppUdZ4CxH0TjS9JDY 2H3SxAhl4PVHciSzbRA3pyN JvFVyiBq9tgYfcyHhzXD4jZ TBpbjtw BFPzpK1pZNLffDIcyCstPZ0 lSYUdpvfaw061DtWxPNB4NE JihMTxV9BxtN2kYcStXVThE UZkT6Vm gRFsYGjpG027OOtbQmF7RBH tabRrL7ZvTAZijEqsEqN8b6 H5Xv86XFKPXJBltzsdnCI+P HRkIHN0 iCloLLamHBKzoC2sMDTfD1n 3QyYnSwB4BWdvI6MvCKCfss qmJx31tG3cXxFwTjR7FHisI 1JsbdZ2 TTXsoVFsWAsmLVI6T00cq9D 4NPXyDDPeAMP2zIG7qI0oeP lnbjogbGVmdDsgdmVydGljY WwtYWxp A070SJWclPqxAe0xiKM5A0P zFrz4XUFjpFvjFL1jzJGdMN nvMm7moDeznJffEW0fWDJuq jtwYWRk kX7uBPOpsCXuwDnzTQ6pCGV hxoays761NyHiZOB2FREfzV OmY6GpwR3tTsDzHXCfRNFoN 3RleHQt QWrvI596YKctSlN6PXBlbjQ jS8KxRXTfxCcqRcP7z1U7Oc 8DhRAuORHwWY82HF54DK40R 3RyPjwv dGFibGU+PHRhYmxlIHdpZHR kIIqoACRnQlYujAxrBB3qKo 9yZGVyLWNvbGxhcHNlOiBjb 2xsYXBz HBehQM7kyXosC3RqxRP9DBX lo0r9Mc83H98cJ9ZspBS+PG AztJW2jQS5zC6iOzZmXcL5C HjhT711 PqJwkJZgYomun8gjm5dchPv 7DfJcQKLozxSpnZfbSSN7w1 FcEm74C23vVPluYFUcVSGrJ CUiIHZh rIrqzc3aaU5zNb7+PGNvbCB 6hEG9kE6oXyKdOgJ8WSfrG1 49RdUmtFAaIevtW16iU5Mtu XA+PHRy Ufa3DJFkeOmpXK5zdKZnAYx fYx2dUCF4DaSeAcTvSUihL1 IkHOQpapvdvlmgvND6BWWyU DUwaW47 Hw5hxLhkQw5cLCDaUWG9JIU abWGnL9IfpZ6jSfNkIRXgJB OfN8QkaFOaMVpiJ234OZgmC lS4ZBXt vvSzE7CrEKAtdBxiZpT1c4J 5Tx7EhFphmOVaZG7zFqPaJF s1L6EkZoe0HWOcwVdmKO2jy GFkZGlu Ea4rlXdhoObaIV4hHAMhhyn ld505UcJvv0ggQPOusCGeTC cgEGY2F31dr8W0WPVjALKzD QD0kIR8 fD3acBmkhjkjfAPccDkifkT feLjmWFxiUGxlB391FDDgpI erHqGEZtq3D2XcVoz3SVMzb WtgMA6z yXHgNQnkRi1xrSdocWvjUC7 iOQZhiteeu997JcAyw9egSY WonRIfMDybKYL2Z90ws3K9W CMwMDAw CYG3gWE6yS7zwZyqkfbadJY mdDsgdmVydGljYWwtYWxpZ2 27ZOAikOywBl3CZkj0B2JvP si5ZXZc zPfmAE9smEKdAUqtAr4gfWt ebNolMK8uHTJqawvuj010Da Lhk4ayNFVbiFJxWCoyCTV5R 16nm3J6 QDOjXVGkHWS4sSA5oA3ggYs nbjogbGVmdDsgdmVydGljYW ibMRxoA739IHDelMpyEqQgj WVyOjwv dGQ+CI84bn79A9SdGmfkTjy 7SUJgQUW5jBB5sD6uCRFfOS vdy7R0sBG1O1ZrfwWmxt3pq 2xsYXBz ZTog (more content not included)... [facility] Main OR Intraoperative Recor don 12-09-2021 Main OR Intraoperative Record IntraOp Document Type FT Summary Primary Physician: Enid OCHOA MD Finalized Date/Time: 12/09/21 11:53:35 Pt. Name: MARQUISE MEANS Sary Henry/Sex: 1950 Male Med Rec #: [id number] Physician: Enid OCHOA MD Financial #: [id number] Pt. Type: O Room/Bed: / Admit/Disch: 12/05/21 [...] Pérez RN, Lesley Saxena Role Performed Anesthesiologist [employer] - Primary Staff - Other [place] Time In 12/05/21 08:43:00 12/05/21 08:43:00 12/05/21 [...] and tissue Entry 1 Skin Integrity Intact, [place], Warm, and Skin Abnormality No Dry Outcomes Met? Yes Last Modified By: Kristen Salmeron RN 12/05/21 07:25:25 Post-Care Text: The patient i (more content not included)... [facility] 12-08-2021 Consent [id number]#1.00 CD:127 [facility] Discharge Instructionson Discharge Instructions [id number]#1.00 CD:127 [facility] IntraOperative Documentson IntraOperative Documents [id number]#1.00 CD:127 [facility] Consent for Treatmenton 11-22 Consent for Treatment [id number]#1.00C D:127 [facility] Endoscopic Procedure Report - Otheron 12-05-2021 Endoscopic [...] with contrast given persistent abdominal pain [facility] Comment on above: Result Comment: Elec tronically Signed By: Enid OCHOA MD\.br\Date and Time Signed: 12/05/21 09:12 EDT Other Comment: Modesta edwards Attachment - attachment storage system not supported [id number] Can be viewed in source systemMissing Attachment - attachment storage system not supported [id number] Can be viewed in source systemMissing Attachment - attachment storage system not supported [id number] Can be viewed in source systemMissing Attachment - attachment storage system not supported [id number] Can be viewed in source system Endoscopic [...] 2. GI clinic follow-up in 2 weeks [facility] Comment on above: Result Comment: Elec tronically Signed By: VAIBHAV CERON, Enid\.br\Date and Time Signed: 12/05/21 09:07 EDT Other Comment: Modesta edwards Attachment - attachment storage system not supported [id number] Can be viewed in source system Missing Attachment - attachment storage system not supported [id number] Can be viewed in source system Missing Attachment - attachment storage system not supported [id number] Can be viewed in source system Missing Attachment - attachment storage system not supported [id number] Can be viewed in source system Inpatient Patient Summaryon 12-05-2021 Inpatient Patient Summary [place] [id number] [facility] Clinical Discharge Instructions PERSON INFORMATION Name: MARQUISE MEANS PHYSICIANS Admitting Physician: Enid OCHOA MD Attending Physician: Enid OCHOA MD PCP: SARIKA SNEED MD Discharge Diagnosis: Abdominal pain, generalized Comment: PATIENT EDUCATION INFORMATION Instructions: Upper Endoscopy, Adult, Care After; Colonoscopy, Care After Surgery Salam (CUSTOM); Diverticulosis MAGR (CUSTOM); Colon Polyps Medication Leaflets: Follow up: With: Address: When: Enid OCHOA [address] [place], [place] [phone] [facility] (1) Comments: office will call for follow up Type Location Start [facility] Follow Up [facility] 12/24/2021 11:00 AM 12/24/2021 11:15 AM Confirmed MEDICATION LIST Medications to Continue with No Changes Other Medications methotrexate (methotrexate 2.5 mg Tab) 1 Tablets By Mouth every 7 days. omeprazole (omeprazole 40 mg Cap-DR) By Mouth every day. tramadol (tramadol 50 mg oral tablet) 1 Tablets By Mouth every 4 hours as needed for pain. Comment: [facility] Main OR PACU I Recordon 11-22 Main OR PACU I Record PACU Phase I Docum ent Type FT Summary Primary Physician: Enid OCHOA MD Finalized Date/Time: 12/05/21 10:51:39 Pt. Name: MARQUISE MEANS/Sex: 1950 Male Med Rec #: [id number] Physician: Enid OCHOA MD Financial #: [id number] Pt. Type: O Room/Bed: / Admit/Disch: 12/05/21 [...] By: Angella Chavez RN 12/05/21 10:51 [facility] Main OR Preoperative Recordo n 12-05-2021 Main OR Preoperative Record Holding Area Document Type FT Summary Primary Physician: Enid OCHOA MD Finalized Date/Time: 12/05/21 07:46:59 Pt. Name: MEANSMARQUISE/Sex: 1950 Male Med Rec #: [id number] Physician: Enid OCHOA MD Financial #: [id number] Pt. Type: O Room/Bed: / Admit/Disch: 12/05/21 [...] No Patient states Yes Comment - Adult Marina- postop adult Supervision supervision available Case Cancelled in No Holding Area see comments below for reason Last Modified By: Kristen Salmeron RN 12/05/21 07:33:01 General Comments: 100% bowel prep in patient tolerated well. Results clear yellow./CASIMIRO WESLEY Finalized By: Kristen Salmeron RN Document Signatures Signed By: Kristen Salmeron RN 12/05/21 07:46 [facility] Monitor Recordon 12-05-2021 Monitor Record [id number]#1.00 CD:127 [facility] Monitor Record [id number]#1.00 CD:127 [facility] Outpatient Surgery Discharge Instructionon 12-05-2021 Outpatient Surgery Discharge Instruction [address] [address] Patient Discharge Instructions PERSON INFORMATION Name: MARQUISE MEANS Date of : 1950 Current Date: 12/05/2021 09:23:01 PHYSICIANS Admitting Physician: Enid OCHOA MD Discharge Diagnosis: Abdominal pain, generalized MARQUISE EMANS has been given the following list of [...] Follow up: With: Address: When: Enid OCHOA [address] [place] [address]. [address] [place], [place] [phone] Business (1) Comments: office will call for follow up Type Location Start [facility] Follow Up [facility] 12/24/2021 11:00 AM 12/24/2021 11:15 AM Confirmed Pharmacy Information: Other: [facility] You may receive a survey from [employer] asking you to rate your care experience. Your feedback is important and will help us understand what we do well and how we can improve the quality of care we provide to you, your loved ones and our community. It?s an honor to serve you. Thank you for choosing [facility] HERE ARE THE MEDICATION CHANGES THAT [...] activities are safe for you. ? Take hfoq-jch-mkznuqy and prescription medicines only as told by [...] 08/09/2012 Document Revised: 08/02/2018 Document Reviewed: 07/11/2018 [employer] Patient Education ? 2020 [employer]. Colonoscopy Care After Surgery Please read the instructions outlined below and refer to this sheet in the next few weeks. These discharge instructions provide you with general information on caring for yourself after you leave the hospital. Your doctor may also give you specific instructions. While your treatm (more content not included)... [facility] Patient Education - Texton 1 Patient Education [...] unsweetened, w/added ascorbic acid 1 cup 0.5 [place] 1 cup 0.7 Vegetables Cooked Green beans 1 cup 4.0 Carrots 1/2 cup sliced 2.3 Peas 1 cup 8.8 Potato (baked, with skin) 1 medium potato 3.8 Raw [place] (with peel) 1 cucumber 1.5 Lettuce 1 [...] IMMEDIATE MEDIC (more content not included)... [facility] Progress Note-Physicianon Progress Note-Physician Patient: MARQUISE MEANS Age: 71 years Sex: Male : 1950 Associated Diagnoses: None Author: Hilario Kay DO Postoperative Information Post Operative Note: [...] PACU when criteria met. Condition good. [facility] Comment on above: Result Comment: Elec tronically [...] Change in bowel habits / SNOMED CT 979652886 / Confirmed Family history of colon cancer / SNOMED CT 101825831 / Confirmed Black tarry stools / SNOMED CT 989722387 / Confirmed Generalized abdominal pain / SNOMED CT 870030626 / Confirmed, Active Problems (4) Black tarry stools Change in bowel habits Family history of colon cancer Generalized abdominal pain Histories Past Medical History: No active or resolved past medical history items have been selected or recorded. Family History: Primary malignant neoplasm of colon Brother Grandparent Procedure history: Colonoscopy ([id number]) on 11/03/2019 at 68 Years. Comments: 10/14/2021 [...] review: No qualifying data available . Plan [place] [employer] Anesthesiologists (ASA) physical status classification: Class II. Anesthetic Preoperative Plan Anesthesia: Monitored anesthesia care and general anesthesia possible. Anesthetic plan, risks, benefits, and alternatives discussed with the patient and/or family. Pt. and/or family present and agree to proceed as planned.. Risks discussed including heart, lung, nerve damage. Risks of bleeding, dental injury, hospitalization, and general injury discussed. . [facility] Comment on above: Result Comment: Elec tronically Signed By: Hilario Kay DO\.aureliano\Date and Time Signed: 12/05/21 08:34 EDT General Surgery Office/Clini c Noteon 11-21-2021 General Surgery Office/Clinic Note Chief Complaint [employer] GB thickening HPI Staff [employer] EMPLOYEE Marquise is a 71 y.o. male referred [...] test from 10/2019 and a colonoscopy at [facility] by Dr. Barnett at that time. Per [...] Shobha Pedro to record this visit. OMARI neurology specialist and provider reviewed before signing. OMARI: [...] Use:., 11/18 (more content not included)... [facility] Comment on above: Result Comment: Elec tronically Signed By: Thierno CERON, Marquise Jameson\.br\Date and Time Signed: 11/21/21 08:02 EDT\.br\Electronically Co-Signed By: Laurence Newman\.br\Date and Time Co-Signed: 11/18/21 15:26 EDT Coding Summary.on 10-30-2021 Coding Summary. CD:[id number]:[id number] Gh0 bWw+PGhlYWQ+VS7RQAZhW60 pyGTeiJ9JI5pJJM3EHOPGQA LORS6WTX0dlHL8ENohW3Cff iAv BiysdCWqWS53JRb1QVM2pAh cHPmvvH4ubBHoL1d5WgGkUD 46qR53HRnyILTuIhX7BxEhf jsgbWFy J6piJqYbeFBhZay+PHRhYmx lIHdpZHRoPScxMDAlJyBzdH ctJV2hRk6aVJIdIYTpnHuwa HNlOiBj l7wsUOAmVWtxWZ5ydUsjE6D lkDI7CPMgl0m0Dq27yFR+PH JsBSI1yGmxKErsm208RsOrf 1vwROJ8 gDHkEUmbUZL6M70sz6S1DAG nYNHiPMI8aCE9wG3iaIzwft rnW5TpmDYkOlH2VVC3sSMag W4bxPyh kprcoW7jSjf+M78KQO3RTGQ KXX8CSef9D9AvHtuhdMS+PC 61BGNaKX86mCMiwNSco1jcn Hj2KlIy CAOlMLJ8rIbcLFmqg9QfYAS tO10pnEYpw4V6CMMosUzvuL BoVaUmpFE9nG9aYLbdfdbzm 2hvdzsn Xsyjt9otke52pH49Q24tVNp kRLYwWPV9ZTMiPRYurCmski 3ghI5wTu1+KCfvg7fqr9vsh Xk8AwVo LDZdybNrnRfdDEI4d4EhJp5 8Y9RzcTpgg4IlBfm3lq50xM Bmg4X9aEU4QKkhZUEvhD4eS WxlZnQ6 QYNnOySdcG75nOZcHLxsGk8 cdXdhfYagNR7vZJOmhjvkGL IlbH1xJHMhfJOhxHbjXE4vM TBpbjtm k777LxHkUWL4GOJxnKWlJ9E lnV5gKlHaSOJeWQGoP8ZpoB BzXPfqN339OJyoOnD9IBKjo yVkR4Kb XKCudCxxEwO2x4K1Uv4Ll1L hjlpdFTJ2OIuvKMT9RoY9Gr SqYdR4R8WpIbx2XKJpqFbeY F4iZ0Im OTLubjbeahgdwES2TEPfPLR waS22qTRaJFvaIf5md7L6p2 89WYGnWFIhqN17Hz0oaOutI TBwdCBU nN1oisyrs1iilnznMqFlLUV nVKy2JLx3IJGriNtyUoRpQK A6JiM9FGS2lIUbpP6riCtyr slbiJ9u Oyc+H51azZ3rNOF4KNA1ojp uCWMrybHoGD18HV10Z9CyHr wvdGFibGU+PGRpdiBzdHlsZ B2uJoFb v6mhd4PsNYjpB8QtDLOeSQg pLwc2QEGjAAD6oKM6fE1hUC WaZYqvk1P0qRO9C6VdgzHeq y9kl4cf NAYjQAnlB10bjXKvz6N6KND jgPZ7RSXjhBdiEzWbdT82Xh c+LRGlyMdbr1IvRvcbu1wbz 3vblMb0 SfLlNIKsagXqkLqcDHO4n2C zWs66R51qTUbmBSTsSRXvLE KqKLUnbVeynw6gcH6vWm6+P GNvbCB3 xVH0kO8dAVTaYgO0QXqpR94 7DqMhfHJxElwel2uer6hypQ o2YsKtXHCkhaOlaUzqHGU6a 8OpWh15 W29uJGtnMBAwVPVlMPXdDMO emUhnll2nfK0rDl5+PC9jb2 gvqs85dE10xFJ+NKTlVIX6d WxlPSdw ALCbmU9hLPywKrM6DALxWhY pcE58iGJqDCqeZa7maIbjtP ycFK2uNHYkscxot819DiGsi 2xkIDEw dBDtJQwkLGN5A22et5E4ZRX nKIQvSFS2bTW5rK1wkSdubx ogbGVmdDsgdmVydGljYWwtY ItzY133 IHRvcDsnPlBhdGllbnQgTmF oHUf9Q8KeStw8QILbrMiuNZ 5bySYyRTcnHr7bqLdgsWcqN O5xCJAk mczuw626JrDvz3tmFQWyvHJ aXWzvLYW4E20yn9F6NSOyRF RwQWJ6wXP8pC7bjWmyyrftj GVmdDsg gaHbaSywKVqkLEkrK558YAM jwBdeBdQuzsOoDHUpmLZ2GY 80UL89bAXxf0C3fRG4N8GmK GRpbmct roxbkSF7DODbZZIfyA34Jg0 xqZhqAe9kFXQnHVF3PAUaaN YoE8WalD7pEsRtWCSwUSQjE 3RleHQt DUbzG920TEesVoY3GRHgdoQ eG1RfQYFyvIwnEuS2q6R8Rd 4HV8X4RV98YB99lOVen8Q6a WE7V6Sq VXAfpgikithetHZ4YAUjXDH ygL33Wt2kzJqqCq4yRNWoWC F6QORneOLbG4HmnR5lZmZvW DAwMDAw G5SryIQpBZavO339PVckNvY 3GZJtqeGwZ1FgSTYswOecCe L9j2L2Wh0YTNz6SF32NB96b LVpl4V2 rUX9W3CdDYEptfoqacostNI 4YWLpLZHnfR77Xu8gfKwnZu 3oVJDqZNT4HKCerPNyC9Ddx L6gDgTr WZJzJYCjP6EvcSMxJZbqF56 6JHqoIdU4ZDRmijIrO7JdBA TrnQecWzS7o1K2Ho2PBTGlR B37SQL9 vLC9PE35FD81M7VmCggfuOM ibGU+PHRhYmxlIHdpZHRoPS jbQROhSnTqeYhlGB6sKf5dJ GVyLWNv yDelqPRuBsKfq6ivQRQoAOn cWU5paQarC7HzcHY6ZYRkq0 z0Kd07N02oF2NyyKB+PGNvb QW6jHM0 hA2tItBuYdM0MWibX523VcS zvRJoUzdpz4fkr4pjcNa8Bn U6YYCurlHlaEvmKII4v3IwH y78I26n IHdpZHRoPSIxNSUiIHZhbGl sol4kqK1lUs9+GIJweYM2cV U2uE6vMiEoKrK2WNxiW220Y nRvcCIv Xtikg5mot9eusRw7ZoWcJCB rymQtwLqqBID4n1QmAv31C3 LxnWxaw3GvKvi1hx82xODqq 3A2cCV0 A3KrQLCpqbndjYFfnMoqKH1 yKTZhpaxrORGskX5pTJCzF5 n9SdCmOtZ1MCqiE2MdhwE9J DEwcHQg BJnzSQP4K20fc4D8ZUHaAGU oCNL0lMK2wH2paSlsqatjmA VmdDsgdmVydGljYWwtYWxpZ 246IHRv xYyjIVOpgD3tLNTzkJIduSb dCL7xACJypfthBlXCIEJVWD 2mBCqOLX8xJBwlpKF+PHRkI IH3zXaj RBidCTVksF4xPRSpC0u3WnB xEaN9HRzhM0KeQMDamsgiKt 50eS0pEdNvClM9ZAutR7Fqn lU6ROPi dMShRHkwPKG9L15bm3M8RRF zFQKcNEJ1uUY2kZ1piIbaps ogbGVmdDsgdmVydGljYWwtY CdlW796 AYRssDaiRoP3KyD4FaX6RHM 6L9FwIqa5RGXuzOytFU2qjR CoXVgaYs4frCbndOoaAJ8iO TBpbjtw TYGmxR9kCLBaeXShjRmbNS4 bJYIthdjow012PbAwFZN9MT VyhYYgX1ZrgD8pVjAvJWHjR AOrD8Ea yEAhCSqyS251EGwaJcJ6XKV uxuFxJ9FaRRJnjKduKgN2r4 J8Mk24VXTLYYLyzakczKU+P HRkIHN0 xKemQZejIGYjuS8rJQTeO8s 0GsTpQrZ9KPghS8IhMCEied oyVj47tL5zDlRmDiQ9LSwfI 1TxfnD8 CVRlsYHmEVkyYWN4W16zz6J 0RYQjKOIpMTH9hRN3nE6akB lnbjogbGVmdDsgdmVydGljY WwtYWxp O245TBViiXjeLd7prEP3U4Q aYue1PMIamKscAO6ogXKuZS phFf0bwVirrQenOG3rYQPhr jtwYWRk cS5oZOAeuSDcqBdsOM2iSZJ xkyhgg800JeWkGID5NDAgjP TpO8EdwH6eSrXsFSJfDFNlG 3RleHQt SNdjV864PVuyHtX8SXLnioL wD2VtMPCocKloPtV0b5P4Gk 9JhMTkAMYzFV55FI12PI70S 3RyPjwv dGFibGU+PHRhYmxlIHdpZHR eMPeoYCXaCfWmhXrqOC9nHe 9yZGVyLWNvbGxhcHNlOiBjb 2xsYXBz LWnsKK9zrUwjQ8LahYT7ZHP di5a7Hq19J34yG6VofRI+PG VjsND3oNY4dU4cRfSxRcC3E KqwX514 QwCvmDEtLbjem3dhl2lbdKk 4TtJoIPCswfAjqKkqSEB3q1 RrPo66A27zJKwcPRHrKVZqJ CUiIHZh bAcxkh2ldM1eMe9+PGNvbCB 9hCN7oH3yPaVbDqD3MMdcA0 68CaHezKBsHohtX03hB5Kwy XA+PHRy Dro5NTSbbIbzZB9awNRvYWa cOm1qWSN7RbQlCiEuDTfrB6 BvYXJlfctohtnsaMR5JKDlC DUwaW47 If2skOzgTs9wZNRsPPA8YIW dqWHmC4BfwA5fYeKuCTXdXJ QwL5QxoGQvFAuuS353RQbdJ lL9YLDy ciWiY9OaFGBbmAraFcW3a0H 9Kl2BqGpqjVZhQG2dYiYiWP l3O8JfBgd3FMArfUnvAM3ld GFkZGlu Fn3dnVdytSaxUQ4nVNMpmnw tu483JjGdw5qhLMYufNFbQE tqHMO3D33tl4K5GYStEVTpU AK6oLQ3 sM8riWsfqixbjOIpzHwtqxG lhDivWAegCPhxX431KDUhhR dyHhBAQyx0P6SiUdv2AAJxw DtyGW5c hMRwBOoeLs5fgCauvLfoPI7 rXCRdqfgeq844TmXwc0oqFE OecJVzQVmvEYT3S26xs1L5E CMwMDAw ISE0nNK8vL6wvXwxqgwmcOV mdDsgdmVydGljYWwtYWxpZ2 96YJNkcExlVn4ARki3X9VtN sv4CPEa fPqxNS9xjPNgULkjNz5joGq yvVjjLI4pTTSznjafb036Fd Rhv5czFAWseDDeTTnuWTA1O 07hr1K2 SZLhSIPaTMO0nVW6jU5uiWv nbjogbGVmdDsgdmVydGljYW vrAIxwM471MGHqlZzwJlAfn WVyOjwv dGQ+TI39tr87Y1ZeZvbxTxv 9ILOxLWE2lGR6aA5cKHTbOZ wtv9B6rEX2M5BgstLyen7dz 2xsYXBz ZTog (more content not included)... Normal [facility] Consent for Treatmenton Consent for Treatment [id number]#1.00C D:127 Normal [facility] US Abdomen Completeon 2021 US Abdomen Complete [...] MD Transcribed by: JACKIE Technologist: CARMEL Normal [facility] Consent for Procedure/Surger yon 10-17-2021 Consent for Procedure/Surgery [id number]#1.00C D:127 Normal [facility] Coding Summary.on 10-16-2021 Coding Summary. CD:[id number]:[id number] Gh0 bWw+PGhlYWQ+FK8SIFFqZ65 gaVGlsR6YH7pFEB0TDEXFTZ KMVY1BTC9feHJ0UGnyA3Lod iAv XrqzoUKmGC76ZNc2GBC7kUz fAJcbaM4weRJsD6d2GmXzNU 93uF24RDwlTZDoSuS3XxNvm jsgbWFy Q8fnZpDvoAEyPwj+PHRhYmx lIHdpZHRoPScxMDAlJyBzdH ipOZ6yIv8sLWEtKYXerEtqu HNlOiBj n7wtDRUhTRczOQ4gpGfgQ0F ckOF5VMNhu9r6Nr71rXH+PH FgTVN7mYfqJSsgt827FgSkn 9keELG6 qGWdJRspUXW4F56ra8Y3MMW mILHkYWQ3wPJ5xZ5snLtnua eaR1RenBFnIiI4JYC0yQAer H9ctEfb mxbyrY1lNoy+X38SSU8WLQN VAN3HPyv1G6IjJzxzeDF+PC 39FERfIP80kMWuhHTqo0cbl Ue8VbVu CXRaVUR6sGnwMWieq7IuYLY nX64vyVQso7T4ETTobOhlwX TlBqVoiXL6vD9lOGiyrulrq 2hvdzsn Pwute8azay87rU18E46vUXg hSQGeWIE8BZVwHNVlnFmedm 9nmL5iJj6+NPobv3vyt4fes El2GhOh AYYfrdWdtQogHYL8h6QfRx9 9Z1RekXgre5ScQzd1ld31mT Vjh9Y6nJM0BFwnGADcdU4jD WxlZnQ6 BFVkHrDykR21xKLoDStfAm5 sfSxlqXrlOS1uULIlpxgmKQ UcwA6sAHWrjRCwjCuqHM0oP TBpbjtm x384KkFmJQX9LXHhnZCtG2L ajT1hXqPoMQMlRLSyE6HgdO GpSJvzS403HYzhMgE0SPTxp eVvI8Vl ABSpmScqQxM1l2H6Yk8Rm2Z kplybFJQ0FFteHVI3LgW2Vy SsPtN3F9XwXjr6DAHgzGegK G7uN7Ch OTFttwxqlhgxqPQ8KWKjLES lkR09lWThOQltRj4zc5Q4n3 54EIFtHJGdhX16Ya3cxEfeF TBwdCBU gJ1iaiaah0wixbjiEmYnSUS iEIf9COx5XVPacZxbTmYrGN D0UjJ0EUI8tGLddT7vaWahz nckvR0k Oyc+F60yeA5eKWZ3XIH6sgo lVBZnirDgRY22KC80N2EsRv wvdGFibGU+PGRpdiBzdHlsZ T7rIiQl l5xtd1OkBYocO7RsPKAjCQn mCwb0MDSxIBD0sEY2iI1xFD HfAShrj0J0hCE9T9OgveHnh a6xt6lx MRKtHMuqF63bxILue8A1OVC lnJQ8QBJbeJgwReHziJ28Nm c+POBnlNjbf0XjMuomq8opg 8uhwMp3 EwMiLEUihdJmwBstSDL7h0C zGe77G18pHAgyQSSoLKUeQH ZjKFQmuWsaqs8zwO5xBd4+P GNvbCB3 cJP6xO4cJTMgNpV0NNsqL88 3MlKthVPeVdofq6xde8zutO i4PoKnGYCnsgFoyXmtCZK5y 5DeFq61 K56oURtiYIAvMZPgOLZnYHR fnZqvpl1rqY4wNd7+PC9jb2 mpiq86sB24eWL+BGNdGJY4y WxlPSdw UMNpnR6qBScjNkO8SZVyKsK ivT36pPOmTHvvHj8npUpijA mzVV3vBNCbnmkbn073ZvGit 2xkIDEw dQNhBTjkIDN1L46md0B7CLE oMTZcXUT3uKV4zW0myNgyzv ogbGVmdDsgdmVydGljYWwtY HqjS435 IHRvcDsnPlBhdGllbnQgTmF iZFc9M6SuRjv6VJCuqQdlOD 5mtBRpZCmqYp5sgLbfyEuvE R1cUWIu lwsfj069JmHbu1kzKMLhvTR dQZkaKZG8H54qy1M2BHRfSX UhIPW6kUF5gG1bqXsnvualx GVmdDsg bxVlfTsnYMvgQZcqP974TKM byVjzRtYnvwArFIQnoXQ0NQ 32QU29lJNfz0Z5lFB0X5VhM GRpbmct fhrahEL1ADQsPFXpnR53Gl7 bbQmiFx5yPILhNPC5JBRgdY RfW5WhcT1uQyHlOVFeQCJsR 3RleHQt IEhbM926VXaoKaQ4JNJnbrM rN5UxYUCfuOlnSxE8p6L7Fs 8JH5V1CK88WQ15hHBla3M7z AH3Y9Mg SWRhtgwfuqktyHX5WXIrXME deI41Bm3eiGzsAe4gALDiPU G3WNDnrCJbT8SsxV5aRvLfY DAwMDAw X9YsjZGbEUdkM902VHtwJcC 6YHYhhpKhQ8YyJVEkcRbpDi L0t1N4Bm0DJAs3JA88LF29m KLap7M9 jDV2Y0XqVCYgqcdpufnteQL 1RELeNQTolK16Qg8vwGlwRp 7nFZZaVWC3SMIgzQJtG0Mzm D7fTeHt EFVxCMYtQ2JglHXiUOgyZ55 4FBtgUwP3NXDkkjDyL2TaEB XeeWbhQeA7u0Z1Gk4FURVqA F82IRB9 eXP1LU48SM48J5SfGtoisEO ibGU+PHRhYmxlIHdpZHRoPS iyCMIiAiBqfJztBK2tIv2bT GVyLWNv kZzckKFfSoYwc1bvFXScEHn lVE9wmAqlN2ZqgWS7RLJrz0 n3Be57Y78hW9NnjJE+PGNvb AZ1rGA4 qT0rWtZrFqT0WAuqJ268OqK ltLVaBuvmf5fsl7kvzVh8Ez A9AVVyskPabPisONE1i5AvH x23Q30o IHdpZHRoPSIxNSUiIHZhbGl xpw6enX1tBv0+PXQeaXQ1qL Y8sK3xNlUzOcH8QUfpM630M nRvcCIv Feuqy0kpt1wrtTy6HpLrXTV cioWhbYjoIVB8n2IoYb47A3 IxrAoyd8KyMha7cy98nTChh 0X2gIN4 D6BwTWCgnlvefYNzbVtzAR1 kVFRpptxtAXKznH4kRYKfX9 g3PkQjNzB4LMheD0GhvuU2R DEwcHQg HTfgVGD6M30en5G4RCZrMKF mSWF7pTI9dH2nwSyttausvE VmdDsgdmVydGljYWwtYWxpZ 246IHRv lLplSUYsgX1pMVImpJBsjPg aZU1iMGOaafkyLaHERZKVNN 5vOFwQQH0nRXajbIQ+PHRkI OG3tSvt RAbmHOSreM0aBOUsD7l0PxT aVaZ2QUgnK7WyVVNlawdgFm 60pF0eUzSlJlT3GFwuR8Qfo nC3SQBl gRMkEInyZYC5T61me9H7VWJ wYAJtNKY5qOP3sE7gxMfwcl ogbGVmdDsgdmVydGljYWwtY ZonI028 NFDveWymWjZ3FwP2ZdN9QEN 0E4MfLyn6FYYtyMmjYD2vwH YwEXshLb5xdCguhNyjAZ3pY TBpbjtw ONNykK8tUDQxjMXcyLpdEO9 tPVJzrrxsw522XfNlSQM9MT YtgVCzG3WycX1lXdVyHIVcR FSpT8Wg gYWaZEerK973HCglRzM3UJC vgdQcX9IuBZGimXtpQnP0y0 R5Lq26TMJMLDExzgkaeEB+P HRkIHN0 yYboNYfvPOWkeN4pFKZnA4d 0OjVvFqR1YWqaF9NwREWsid etAa66gU9dPtZlDaY3LSapU 3IxlyV9 LOAeoQMpFUqfHPQ4A86ts5W 9IHSlJBOxJON8mXV8mS4qnN lnbjogbGVmdDsgdmVydGljY WwtYWxp I338NEQtiPebBl0mpAU3Z1Y oSle8PYIklHemNC4tiBCxPY nmMd9zxSktrLxjAY9rCUCpv jtwYWRk qT2qZABqsXUmaOotFT0pHBP fddkqq434HrArCZF3CAXafW MbY4ZtfA4iVsNgTUKiVMSxR 3RleHQt RToqX444FWxrAaP7OGMpcxJ eV7QpRBMquWhtAbW3e7X4Lu 2FnVKgRXEnTR71OA09DU60K 3RyPjwv dGFibGU+PHRhYmxlIHdpZHR jWJxdELJfRwOgdDecSG0wMe 9yZGVyLWNvbGxhcHNlOiBjb 2xsYXBz WEkjJQ7wgCnrX0PmaAO5COD uo8t4Wd49A76tB3NhrSS+PG ZofLS9zCI3tU6tGcJdMdQ6U QluK116 NiBtfABnQijwe6rql9bkeKr 8PaJpJBHmzbYwbYujLON4j6 PpAa36B44cEUkuMIGhSRNjY CUiIHZh sLaeju3ndE3dUc5+PGNvbCB 6nGF5pJ2fHhQcSdW9XZrqE1 49VfDweVNaEcowF39mB0Bbb XA+PHRy Qob0YOItmIirEU0oqPZwVEf rQu7sJGP1YiOiVcSnBLvgH9 QcYRRmrqpbulggrZA2HDMmR DUwaW47 As1idGeeCf1tHAPqPJB3MCI ivNMsF6OckR0wIaYsMOTjAD GjZ5YcmULjVGunM861HAnjK qC0XFKl kcAwR8OxTACzwYreIxO3o1G 6Zf1XjPamiIOkUF2zGcFcIY c6H3WxLia8RFJuyZloVO2yz GFkZGlu Et4yvMekdWrvAJ7xHYCezyb av737WhTfb8jzISHmzXBpGF sqETX9U88qr7E5CJFyFACmP ZW8zKX3 uH4cbBixjmotaQHgzWubayU ujMadLPqgVZtfE730PWCgdO ghXmBPSet7F8PpCmw3KEBku ZshLG3p vBFaVUdgQm5jtEgqkVzaWQ4 nZCKzfarbr530MzGzf5hcKC FipZCiDVcbGXH1Z79ll7R3S CMwMDAw MNI8wOJ1iS4uaGwndlzzfVL mdDsgdmVydGljYWwtYWxpZ2 53IUJzhKdgAg4OHzl1R0VcN um9KEBl iXbcYG8ctCZjPAztZb8ojNp kiQokCC0xDLZkupjxy636Xw Skr1urOWHmzEGeNRayYHI9R 71ri4N4 WZHeDKGgLJX6oCH9kG8vwRe nbjogbGVmdDsgdmVydGljYW mhXUxoV993BADrrBpmCfTco WVyOjwv dGQ+CV08ae49Q1QoBlafLsk 6UKNqLCZ2aEL8mG3wRHUeEL jam7I2lLH0N6HapjOdfx9bc 2xsYXBz ZTog (more content not included)... Normal [facility] Ambulatory Visit Summaryon 0 10-14-2021 Ambulatory Visit [...] future visit, Lab Collect, Generalized abdominal pain [facility] Auto Diffon 10-14-2021 Basophils/100 WBC (Bld) 1.0 % Normal 0.0-2.0 [facility] Comment on above: Order Comment: Order Added by Discern Expert. Performed By: #### 2 [id number], [id number], [id number], [id number] #### [facility] [address] [place] [address] Basophils/Leukocytes Auto (Bld) [Pure # fraction] 0.0 E9/L Normal 0.0-0.2 [facility] Comment on above: Order Comment: Order Added by Discern Expert. Performed By: #### 2 [id number], [id number], [id number], [id number] #### [facility] [address] [place] [address]151 Eosinophils/100 WBC (Bld) 3.8 % Normal 0.0-8.0 [facility] Comment on above: Order Comment: Order Added by Discern Expert. Performed By: #### 2 568106, [id number], 6432525, [id number] #### [facility] [address] [place] [address] 55539 Eosinophils/Leukocytes Auto (Bld) [Pure # fraction] 0.2 E9/L Normal 0.0-0.5 [facility] Comment on above: Order Comment: Order Added by Discern Expert. Performed By: #### 2 070652, [id number], 0398138, [id number] #### [facility] [address] [place] [address] 54770 Lymphocytes/100 WBC (Bld) 19.0 % Normal 14.0-50.0 [facility] Comment on above: Order Comment: Order Added by Discern Expert. Performed By: #### 2 346052, [id number], 2672446, [id number] #### [facility] [address] [place] [address] 20116 Lymphocytes/Leukocytes Auto (Bld) [Pure # fraction] 0.9 E9/L Low 1.0-4.0 [facility] Comment on above: Order Comment: Order Added by Discern Expert. Performed By: #### 2 323611, [id number], 5398881, [id number] #### [facility] [address] [place] [address] 80823 Monocytes/100 WBC (Bld) 11.9 % Normal 4.0-14.0 [facility] Comment on above: Order Comment: Order Added by Discern Expert. Performed By: #### 2 311507, [id number], 5879934, [id number] #### [facility] [address] [place] [address] 86797 Monocytes/Leukocytes Auto (Bld) [Pure # fraction] 0.6 E9/L Normal 0.2-1.0 [facility] Comment on above: Order Comment: Order Added by Discern Expert. Performed By: #### 2 389875, [id number], [id number], [id number] #### [facility] [address] [place] [address] 56666 Neutrophils/100 WBC (Bld) 64.3 % Normal 36.0-75.0 [facility] Comment on above: Order Comment: Order Added by Discern Expert. Performed By: #### 2 086145, [id number], 6033891, [id number] #### [facility] [address] [place] [address] 83747 Neutrophils/Leukocytes Auto (Bld) [Pure # fraction] 3.1 E9/L Normal 2.0-7.5 [facility] Comment on above: Order Comment: Order Added by Discern Expert. Performed By: #### 2 003255, [id number], 6463113, [id number] #### [facility] [address] [place] [address] 02585 CBC w/ Auto Diffon Erythrocyte distribution width (RBC) [Ratio] 14.4 % High 10.9-14.2 [facility] Comment on above: Performed By: #### 2 465069, [id number], 0811600, 6890653 #### [facility] [address] [place] [address]65 Hematocrit (Bld) [Volume fraction] 40.1 % Normal 37.7-49.0 [facility] Comment on above: Performed By: #### 2 327142, 42205300, 6114158, 5895749 #### [facility] [address] [place] [address] 20392 Hemoglobin (Bld) [Mass/Vol] 13.4 g/dL Low 13.5-17.5 [facility] Comment on above: Performed By: #### 2 194305, 00920778, 6460714, 8218695 #### [facility] [address] [place] [address] 81180 MCH (RBC) [Entitic mass] 30.4 pg Normal 27.0-34.0 [facility] Comment on above: Performed By: #### 2 252176, 38883985, 7085445, 1302028 #### [facility] [address] [place] [address] 88279 MCHC (RBC) [Mass/Vol] 33.4 g/dL Normal 31.4-36.0 [facility] Comment on above: Performed By: #### 2 539162, 73828374, 9074849, 9606730 #### [facility] [address] [place] [address] 73887 MCV (RBC) [Entitic vol] 91.1 fL Normal 80.0-100.0 [facility] Comment on above: Performed By: #### 2 384683, 49197959, 7145005, 4850793 #### [facility] [address] [place] [address] 64834 Platelet mean volume (Bld) [Entitic vol] 9.5 fL Normal 6.4-10.8 [facility] Comment on above: Performed By: #### 2 399564, 84941920, 7456306, 5049150 #### [facility] [address] [place] [address] 74496 Platelets (Bld) [#/Vol] 162.0 E9/L Normal 150.0-500.0 [facility] Comment on above: Performed By: #### 2 346143, 26630628, 4830284, 0608438 #### [facility] [address] [place] [address] 29847 RBC (Bld) [#/Vol] 4.4 E12/L Normal 4.3-5.9 [facility] Comment on above: Performed By: #### 2 170330, 48043114, 9912896, 3492517 #### [facility] [address] [place] [address] WBC corrected for nucl RBC Auto (Bld) [#/Vol] 4.9 E9/L Normal 4.0-11.0 [facility] Comment on above: Performed By: #### 2 665014, 44867012, 9804653, 5212894 #### [facility] [address] [place] [address] CMPon 10-14-2021 Albumin [Mass/Vol] 4.1 g/dL Normal 3.3-5.0 [facility] Comment on above: Performed By: #### 2 197692, 44783542, 5566594, 2113005 ####[facility] [address] [place] [address] Albumin/Globulin (S) [Mass conc ratio] 1.2 Normal 1.1-2.2 [facility] Comment on above: Performed By: #### 2 646302, 62407727, 1969336, 7096699 ####[facility] [address] [place] [address] ALP [Catalytic activity/Vol] 123 Int._Unit/L High 21-98 [facility] Comment on above: Performed By: #### 2 175674, 34997264, 5766198, 1701620 ####[facility] [address] [place] [address] ALT No additional P-5'-P [Catalytic activity/Vol] 34 Int._Unit/L Normal 6-46 [facility] Comment on above: Performed By: #### 2 145299, 14192219, 3727396, 4982572 ####[facility] [address] [place] [address] Anion gap [Moles/Vol] 10 mmol/L Normal 6-16 [facility] Comment on above: Performed By: #### 2 835703, 29489376, 4322407, 5153055 ####[facility] [address] [place] [address] AST [Catalytic activity/Vol] 32 Int._Unit/L Normal 5-43 [facility] Comment on above: Performed By: #### 2 694772, 85414377, 7924664, 0829868 ####[facility] [address] [place] [address] Bilirubin [Mass/Vol] 0.3 mg/dL Normal 0.0-1.1 [facility] Comment on above: Performed By: #### 2 506595, 37361053, 6959737, 9040198 ####[facility] [address] [place] [address] Calcium [Mass/Vol] 9.7 mg/dL Normal 8.9-11.1 [facility] Comment on above: Performed By: #### 2 162151, 24513997, 9803229, 7956388 ####[address] [place] [address] Chloride [Moles/Vol] 102 mmol/L Normal 101-111 [facility] Comment on above: Performed By: #### 2 867309, 11025842, 3695776, 5949757 ####[facility] [address] [place] [address] CO2 [Moles/Vol] 30 mmol/L Normal 21-31 [facility] Comment on above: Performed By: #### 2 977197, 21621705, 4706381, 1042868 ####[facility] [address] [place] [address] Creatinine [Mass/Vol] 0.7 mg/dL Normal 0.5-1.3 [facility] Comment on above: Performed By: #### 2 849814, 45914199, 7245914, 1607929 ####[facility] [address] [place] [address] Globulin (S) [Mass/Vol] 3.3 g/dL Normal 1.4-4.0 [facility] Comment on above: Performed By: #### 2 354720, 25817290, 4539190, 5876410 ####[facility] [address] [facility] [address] Glucose [Mass/Vol] 98 mg/dL Normal 55-199 [facility] Comment on above: Result Comment: If t his glucose result represents a fasting glucose, interpretation should refer to the following reference range: 55-99 mg/dL Performed By: #### 2 059948, 96164749, 9414384, 2044772 ####[facility] [address] [place] [address] Potassium [Moles/Vol] 4.7 mmol/L Normal 3.5-5.3 [facility] Comment on above: Performed By: #### 2 496277, 16097281, 3876884, 7960310 ####[facility] [address] [place] [address] Protein [Mass/Vol] 7.4 g/dL Normal 6.0-7.8 [facility] Comment on above: Performed By: #### 2 548531, 22672118, 7127142, 2176159 ####[facility] [address] [place] [address] Sodium [Moles/Vol] 137 mmol/L Normal 135-145 [facility] Comment on above: Performed By: #### 2 230487, 33675388, 8563070, 0138296 ####[facility] [address] [place] [address] Urea nitrogen [Mass/Vol] 27 mg/dL High 5-21 [facility] Comment on above: Performed By: #### 2 938223, 28071039, 9554709, 8714080 ####[facility] [address] [place] [address] Urea nitrogen/Creatinine [Mass ratio] 39 No Units High 10-20 [facility] Comment on above: Performed By: #### 2 850362, 19866828, 9696922, 4484379 ####[facility] [address] [place] [address] Consent for Treatmenton 09-23 Consent for Treatment [id number] D:127 Normal [facility] Gastroenterology Office/Clin ic Noteon 10-14-2021 Gastroenterology Office/Clinic Note Chief Complaint Abdomainl pain and diarrhea. [facility] Staff New patient is a 70 year [...] positive Cologuard testing 10/2019. Had colonoscopy at [facility] for positive cologuard testing in [...] History (more content not included)... Normal [facility] Comment on above: Result Comment: Elec tronically [...] including vitamins, herbs, eye drops, creams, and acxp-gym-rxnxwvs medicines. ? Any problems you or family [...] air t (more content not included)... Normal [facility] eGFRon 10-14-2021 GFR/1.73 sq M.predicted among blacks MDRD (S/P/Bld) [Vol rate/Area] mL/min/{1.73_m2} Normal >=59 [facility] Comment on above: Order Comment: Order added by Discern Expert. Result Comment: eGFR is race adjusted. AA=. Performed By: #### 2 452305, 77945285, 2669673, 3265902 ####[facility] [address] [place] [address] GFR/1.73 sq M.predicted among non-blacks MDRD (S/P/Bld) [Vol rate/Area] mL/min/{1.73_m2} Normal >=59 [facility] Comment on above: Order Comment: Order added by Discern Expert. Result Comment: Heel Slugger kandace kidney disease could be indicated at eGFR's of less than 60 mL/min/1.73m2. Kidney failure is indicated at less than 15 mL/min/1.73m2. Performed By: #### 2 773834, 88669087, 8800048, 6395555 ####[facility] [address] [place] [address] Physician Referralon Physician Referral [id number] [id number] :127 Normal [facility] Complete Blood Count with Au to Diffon 01-28-2021 Basophils (Bld) [#/Vol] 0.03 10*3/uL Normal 0.00-0.20 [facility] [employer] [facility] Comment on above: Performed By: #### C BCAD, LIPD, CMP #### [facility] [address], [place] [id number] Basophils/100 WBC (Bld) 0.3 % Normal [facility] [employer] [facility] Comment on above: Performed By: #### C BCAD, LIPD, CMP #### [facility] [address], [place] [id number] Eosinophils (Bld) [#/Vol] 0.09 10*3/uL Normal 0.02-0.50 [facility] [employer] Comment on above: Performed By: #### C BCAD, LIPD, CMP #### [facility] [address], [place] [id number] Eosinophils/100 WBC (Bld) 1.0 % Normal [facility] [employer] Comment on above: Performed By: #### C BCAD, LIPD, CMP #### [facility] [address], [place] [id number] Erythrocyte distribution width (RBC) [Ratio] 14.0 % Normal 11.0-15.0 [facility] [employer] Comment on above: Performed By: #### C BCAD, LIPD, CMP #### [facility] [address], [place] [id number] Hematocrit (Bld) [Volume fraction] 44.7 % Normal 38.5-50.0 [facility] [employer] Comment on above: Performed By: #### C BCAD, LIPD, CMP #### [facility] [address], [place] [id number] Hemoglobin (Bld) [Mass/Vol] 14.7 g/dL Normal 13.0-17.1 [place] [employer] Comment on above: Performed By: #### C BCAD, LIPD, CMP #### [facility] [address], [place] [id number] Lymphocytes (Bld) [#/Vol] 1.0 10*3/uL Normal 0.9-3.9 [facility] Comment on above: Performed By: #### C BCAD, LIPD, CMP #### [facility] [address], [place] [id number] Lymphocytes/100 WBC (Bld) 10.7 % Normal [facility] Comment on above: Performed By: #### C BCAD, LIPD, CMP #### [facility] [address], [place] [id number] MCH (RBC) [Entitic mass] 31.1 pg Normal 27.0-33.0 [facility] Comment on above: Performed By: #### C BCAD, LIPD, CMP #### [facility] [address], [place] [id number] MCHC (RBC) [Mass/Vol] 32.9 g/dL Normal 32.0-36.0 [facility] Comment on above: Performed By: #### C BCAD, LIPD, CMP #### [facility] [address], [place] [id number] MCV (RBC) [Entitic vol] 95 fL Normal 80-100 [facility] Comment on above: Performed By: #### C BCAD, LIPD, CMP #### [facility] [address], [place] [id number] Monocytes (Bld) [#/Vol] 0.7 10*3/uL Normal 0.2-0.9 [facility] Comment on above: Performed By: #### C BCAD, LIPD, CMP #### [facility] [address], [place] [id number] Monocytes/100 WBC (Bld) 7.2 % Normal [facility] Comment on above: Performed By: #### C BCAD, LIPD, CMP #### [facility] [address], [place] [id number] Neutrophils (Bld) [#/Vol] 7.4 10*3/uL Normal 1.5-7.8 [facility] Specialist Comment on above: Performed By: #### C BCAD, LIPD, CMP #### [facility] [address], [place] [id number] Neutrophils/100 WBC (Bld) 79.9 % Normal [facility] Specialist Comment on above: Performed By: #### C BCAD, LIPD, CMP #### [facility] [address], [place] [id number] Platelet mean volume (Bld) [Entitic vol] 11.00 fL Normal 7.50-12.50 [facility] Specialist Comment on above: Performed By: #### C BCAD, LIPD, CMP #### [facility] [address], [place] [id number] Platelets (Bld) [#/Vol] 167 10*3/uL Normal 140-400 [facility] [employer] Supervisor Comment on above: Performed By: #### C BCAD, LIPD, CMP #### [facility] [address], [place] [id number] RBC (Bld) [#/Vol] 4.72 10*6/uL Normal 4.20-5.80 [facility] On [employer] Supervisor Comment on above: Performed By: #### C BCAD, LIPD, CMP #### [facility] [address], [place] [id number] RDW-SD 48.7 fL Normal 37.0-50.0 [facility] [employer] Supervisor Comment on above: Performed By: #### C BCAD, LIPD, CMP #### [facility] [address], [place] [id number] WBC (Bld) [#/Vol] 9.3 10*3/uL Normal 3.8-11.0 [facility] On [employer] Supervisor Comment on above: Performed By: #### C BCAD, LIPD, CMP #### [facility] [address], [place] [id number] Comprehensive Metabolic Pane [facility] 01-28-2021 Albumin [Mass/Vol] 4.4 g/dL Normal 3.6-5.1 [facility] [employer] Supervisor Comment on above: Performed By: #### C BCAD, LIPD, CMP #### [facility] [address], [place] [id number] Albumin/Globulin [Mass ratio] 1.9 {ratio} Normal 1.0-2.5 [facility] Comment on above: Performed By: #### C BCAD, LIPD, CMP #### [facility] [address], [place] [id number] ALP [Catalytic activity/Vol] 119 U/L Normal 40-129 [facility] Comment on above: Performed By: #### C BCAD, LIPD, CMP #### [facility] [address], [place] [id number] ALT [Catalytic activity/Vol] 95 U/L High 9-46 [facility] Specialist Comment on above: Result Comment: 01/22 Female reference range changed. Performed By: #### C BCAD, LIPD, CMP #### [facility] [address], [place] [id number] Anion gap [Moles/Vol] 18 mmol/L Normal 12-20 [facility] Comment on above: Result Comment: Effe ctive 02/27/2019 reference range changed. Performed By: #### C BCAD, LIPD, CMP #### [facility] [address], [place] [id number] AST [Catalytic activity/Vol] 43 U/L High 10-40 [facility] Comment on above: Performed By: #### C BCAD, LIPD, CMP #### [facility] [address], [place] [id number] Bilirubin [Mass/Vol] 0.33 mg/dL Normal 0.30-1.[address] [facility] Comment on above: Performed By: #### C BCAD, LIPD, CMP #### [facility] [address], [place] [id number] BUN/CREA 31 Ratio High 6-22 [facility] Specialist Comment on above: Performed By: #### C BCAD, LIPD, CMP #### [facility] [address], [place] [id number] Calcium [Mass/Vol] 10.1 mg/dL Normal 8.6-10.2 [facility] [place] [facility] [employer] Supervisor Comment on above: Performed By: #### C BCAD, LIPD, CMP #### [facility] [address], [place] [id number] Chloride [Moles/Vol] 102 mmol/L Normal 98-[address] [facility] Comment on above: Performed By: #### C BCAD, LIPD, CMP #### [facility] [address], [place] [id number] CO2 [Moles/Vol] 24 mmol/L Normal 20-31 [facility] Comment on above: Performed By: #### C BCAD, LIPD, CMP #### [facility] [address], [place] [id number] Creatinine [Mass/Vol] 0.8 mg/dL Normal 0.7-1.4 [facility] Comment on above: Performed By: #### C BCAD, LIPD, CMP #### [facility] [address], [place] [id number] eGFRAA 113 mL/min/1.73m2 Normal >60 [facility] Comment on above: Performed By: #### C BCAD, LIPD, CMP #### [facility] [address], [place] [id number] eGFRNAA 93 mL/min/1.73m2 Normal >60 [facility] Specialist Comment on above: Performed By: #### C BCAD, LIPD, CMP #### [facility] [address], [place] [id number] Globulin (S) [Mass/Vol] 2.3 g/dL Normal 1.9-3.7 [facility] Specialist Comment on above: Performed By: #### C BCAD, LIPD, CMP #### [facility] [address], [place] [id number] Glucose [Mass/Vol] 96 mg/dL Normal 65-99 [facility] [place] [employer] Supervisor Comment on above: Result Comment: For FASTING Glucose --- ADA reference ranges: Normal 65-99 mg/dl Prediabetes 100-125 Diabetes >/= 126 Performed By: #### C BCAD, LIPD, CMP #### [facility] [address], [place] [id number] Potassium [Moles/Vol] 4.7 mmol/L Normal 3.5-5.5 [facility] Specialist Comment on above: Performed By: #### C BCAD, LIPD, CMP #### [facility] [address], [place] [id number] Protein [Mass/Vol] 6.7 g/dL Normal 6.1-8.1 [facility] [place] [employer] Super[facility] Comment on above: Performed By: #### C BCAD, LIPD, CMP #### [facility] [address], [place] [id number] Sodium [Moles/Vol] 139 mmol/L Normal 135-146 [facility] [place] [employer] Supervisor Comment on above: Performed By: #### C BCAD, LIPD, CMP #### [facility] [address], [place] [id number] Urea nitrogen [Mass/Vol] 26 mg/dL High 7-25 [facility] On [employer] Supervisor Comment on above: Performed By: #### C BCAD, LIPD, CMP #### [facility] [address], [place] [id number] Hemoglobin A1Con 01-28-2021 EAG 108.28 Normal [facility] On [employer] Supervisor Comment on above: Performed By: #### A 1C #### [facility] [address], [place] [id number] HbA1c (Bld) [Mass fraction] 5.4 % Normal 4.0-6.0 [facility] On [employer] Supervisor Comment on above: Performed By: #### A 1C #### [facility] [address], [place] [id number] Lipid Panelon 01-28-2021 Cholesterol [Mass/Vol] 269 mg/dL High 125-200 [facility] Comment on above: Result Comment: Low risk < 200mg/dL Borderline risk 201-239 mg/dl High risk > or equal to 240 Performed By: #### C BCAD, LIPD, CMP #### [facility] [address], [place] [id number] Cholesterol in HDL [Mass/Vol] 105 mg/dL Normal >40 [facility] On Car Supervisor Comment on above: Result Comment: High Cardiovascular Risk HDL <40 mg/dL Low Cardiovascular Risk HDL > or equal to 60 mg/dl Performed By: #### C BCAD, LIPD, CMP #### [facility] [address], [place] [id number] Cholesterol in LDL [Mass/Vol] 140 mg/dL Normal [facility] Specialist Comment on above: Result Comment: LDL ATP III CLASSIFICATION LDL less than 100 mg/dl Optimal LDL 100-129 mg/dl Near or above optimal LDL 130-159 Borderline high LDL 160-189 High LDL greater than 189 mg/dl Very High Performed By: #### C BCAD, LIPD, CMP #### [facility] [address], [place] [id number] Cholesterol in VLDL [Mass/Vol] 24 mg/dL Normal [facility] Specialist Comment on above: Performed By: #### C BCAD, LIPD, CMP #### [facility] [address], [place] [id number] Cholesterol.total/Chol esterol in HDL [Mass ratio] 3 {ratio} Normal [facility] Specialist Comment on above: Performed By: #### C BCAD, LIPD, CMP #### [facility] [address], [place] [id number] Triglyceride [Mass/Vol] 119 mg/dL Normal 30-150 [facility] Specialist Comment on above: Result Comment: TRIG ATPIII CLASSIFICATIONS TRIG less than 150 mg/dl Normal TRIG 150-199 mg/dl Borderline High TRIG 200-500 mg/dl High TRIG greather than 500 mg/dl Very High Performed By: #### C BCAD, LIPD, CMP #### [facility] [address], [place] [id number] Prostatic Specific Antigen, Totalon 01-28-2021 TPSA 0.725 ng/mL Normal <4.000 [facility] Specialist Comment on above: Result Comment: PSA Test Method: ECLIA/Canelo e 601 Performed By: #### P SA #### [facility] [address], [place] [id number] BNPon 01-02-2021 Natriuretic peptide B (Bld) [Mass/Vol] 294.0 pg/mL Normal <=900.0 [facility] Comment on above: Performed By: #### B [employer] SERVICE EMPLOYEE, HSTROPN, CMP #### [facility] [address] [address] [address] Elgin Soler CBC W MANUAL DIFFon 01-03-20 21 ATYPICAL LYMPH # Normal [facility] Comment on above: Performed By: #### C ERIC ####[facility] [address] [address]Dr. Beckyalexandra Ryder ATYPICAL LYMPH % Normal [facility] Comment on above: Performed By: #### C ERIC ####[facility] [address] [address]Dr. Elgin Soler BAND # 0.0 103/ul Normal 0.0-0.3 [facility] Comment on above: Performed By: #### C ERIC ####[facility] [address] [address]Dr. Elgin Soler BAND % 0 % Normal 0-5 [facility] Comment on above: Performed By: #### Kady REYES ####[facility] [address] [address]Dr. Beckyalexandra Ryder BASOM # 0.00 103/ul Normal 0.00-0.10 [facility] Comment on above: Performed By: #### Kady REYES ####[facility] [address] [address]Dr. Elgin Soler BASOM % 0.0 % Critically low 0.2-2.0 [facility] Comment on above: Performed By: #### Kady REYES ####[facility] [address] [address]Dr. Beckyalexandra Soler BLAST # Normal [facility] Comment on above: Performed By: #### Kady REYES ####[facility] [address] [address]Dr. Elgin Soler BLAST % Normal [facility] Comment on above: Performed By: #### Kady REYES ####[facility] [address] [address]Dr. Elgin Soler CORRECTED WBC Normal 4.0-11.0 [facility] Comment on above: Performed By: #### C ERIC ####[facility] [address] [place] [address]Dr. Elgin Soler EOS # 0.00 103/ul Normal 0.00-0.70 [facility] Comment on above: Performed By: #### C ERIC ####[facility] [address] [place] [address]Dr. Elgin Soler EOS% 0.0 % Critically low 0.9-7.0 [facility] Comment on above: Performed By: #### C ERIC ####[facility] [address] [place] [address]Dr. Elgin Soler HCT 42.3 % Normal 42.0-54.0 [facility] Comment on above: Performed By: #### C ERIC ####[facility] [address] [place], [place] [address]Dr. Elgin Soler HGB 14.5 g/dl Normal 14.0-18.0 [facility] Comment on above: Performed By: #### C ERIC ####[facility] [address] [place], [place] [address]Dr. Elgin Soler LYMPHM # 0.40 103/ul Critically low 1.20-3.80 [facility] Comment on above: Performed By: #### C ERIC ####[facility] [address] [place], [place] [address]Dr. Elgin Soler LYMPHM% 6.0 % Critically low 20.5-60.0 [facility] Comment on above: Performed By: #### C ERIC ####[facility] [address] [place], [place] [address]Dr. Elgin Soler MCH 30.8 pg Normal 25.9-34.0 [facility] Comment on above: Performed By: #### C ERIC ####[facility] [address] [place], [place] [address]Dr. Elgin Soler MCHC 34.3 g/dl Normal 29.9-35.2 [facility] Comment on above: Performed By: #### C ERIC ####[facility] [address] [place], [place] [address]So. Elgin Soler MCV 89.8 fL Normal 80.0-94.0 [facility] Comment on above: Performed By: #### C BCMAN ####[facility] [address] [place], [place] [address]Ja. Elgin Soler METAMYELOCYTE # Normal [facility] Comment on above: Performed By: #### C ERIC ####[facility] [address] [place] [id number]. Elgin Ryder METAMYELOCYTE % Normal [facility] Comment on above: Performed By: #### C ERIC ####[facility] [address] [place] [id number]. Elgin Soler MONOM# 0.60 103/ul Normal 0.30-0.80 [facility] Comment on above: Performed By: #### C ERIC ####[facility] [address] [place] [address]Dr. Beckyalexandra Soler MONOM% 9.0 % Normal 1.7-12.0 [facility] Comment on above: Performed By: #### C ERIC ####[facility] [address] [place], [place] [address]Dr. Beckyalexandra Soler MPV 10.8 fL Normal 9.5-13.5 [facility] Comment on above: Performed By: #### C ERIC ####[facility] [address] [place] [address]Dr. Elgin Soler MYELOCYTE # Normal [facility] Comment on above: Performed By: #### C ERIC ####[facility] [address] [place] [address]Dr. Elgin Soler MYELOCYTE % Normal [facility] Comment on above: Performed By: #### C ERIC ####[facility] [address] [place], [place] [address]Dr. Elgin Soler NRBC Normal [facility] Comment on above: Performed By: #### C ERIC ####[facility] [address] [place], [place] [address]Dr. Elgin Soler PLT 156 103/ul Normal 150-450 [facility] Comment on above: Performed By: #### C ERIC ####[facility] [address] [place], [place] [address]GsMonica Soler RBC 4.71 106/ul Normal 4.70-6.10 [facility] Comment on above: Performed By: #### C ERIC ####[facility] [address]sl[address]jsgv4814 [place], [place] [address]Jc. Elgin Soler RDW 12.7 % Normal 11.0-15.0 [facility] Comment on above: Performed By: #### C ERIC ####[facility] [address] [place], [place] [address]IuMonica Soler SEG # 5.70 103/ul Normal 1.40-6.50 [facility] Comment on above: Performed By: #### C ERIC ####[facility] [address] [place] [address]DrMonica Soler SEG % 85.0 % Critically high 43.0-75.0 [facility] Comment on above: Performed By: #### C ERIC ####[facility] [address]07[address] [place], [place] [address]QbMonica Soler WBC 6.7 103/ul Normal 4.0-11.0 [facility] Comment on above: Performed By: #### C ERIC ####[facility] [address] [place] [id number] Soler CTA CHEST WO W CONon 021 [...] FRANK CURTIS Date: 2021-01-02 18:33 Normal [facility] Covid-19 PCR (CVDTB)on 12-23 SARS-CoV-2 (COVID-19) RNA MARIA ALEJANDRA+probe Ql (Unsp spec) Not detected Normal NOT DETECTED [facility] Comment on above: Result Comment: When diagnostic testing is negative, the possibility of a false negative should be considered in the context of a patient's recent exposures and the presence of clinical signs and symptoms consistent with SARS-CoV-2. This test is not yet approved or cleared by the [place] Food and Drug Administration (FDA). This test was developed by [employer], [place], [place]. The performance characteristics of this test were validated by [facility]. The results are not intended to be used as the sole means for clinical diagnosis or patient management decisions. [facility] is authorized under Clinical Laboratory [...] for this test is supported by the [place] of Health and Human Service's declaration that [...] used). Performed By: #### C VDTBH #### [facility] [address] [place] [address] Dr. Elgin Soler D-DIMERon 01-02-2021 D-DIMER 1.09 mg/L FEU Critically high 0.19-0.50 [facility] Comment on above: Performed By: #### P TT, DDIM, PT #### [facility] [address] [place] [address] Dr. Elgin Soler D-DIMER COMMENTS SEE BELOW Normal [facility] Comment on above: Result Comment: [...] By: #### P TT, DDIM, PT #### [facility] [address] [place] [address] Dr. Elgin Soler PROF 14(COMP METB)on 021 Albumin [Mass/Vol] 4.2 g/dL Normal 3.5-5.0 [facility] Comment on above: Performed By: #### B [employer] SERVICE EMPLOYEE, HSTROPN, CMP #### [facility] [address] [place] [address] Dr. Elgin Soler Albumin/Globulin [Mass ratio] 1.1 {ratio} Normal [facility] Comment on above: Performed By: #### B [employer] SERVICE EMPLOYEE, HSTROPN, CMP #### [facility] [address] [place] [address] Dr. Elgin Soler ALP [Catalytic activity/Vol] 131 U/L Critically high 38-126 [facility] Comment on above: Performed By: #### B [employer] SERVICE EMPLOYEE, HSTROPN, CMP #### [facility] [address] [place] [address] Dr. Elgin Soler ALT [Catalytic activity/Vol] 47 U/L Normal 21-72 [facility] Comment on above: Performed By: #### B [employer] SERVICE EMPLOYEE, HSTROPN, CMP #### [facility] [address] [place] [address] Dr. Elgin Soler Anion gap [Moles/Vol] 13.1 mmol/L Normal [facility] Comment on above: Performed By: #### B [employer] SERVICE EMPLOYEE, HSTROPN, CMP #### [facility] [address] [place] [address] Dr. Elgin Soler AST [Catalytic activity/Vol] 28 U/L Normal 17-59 [facility] Comment on above: Performed By: #### B [employer] SERVICE EMPLOYEE, HSTROPN, CMP #### [facility] [address] [place] [address] Dr. Elgin Soler Bilirubin [Mass/Vol] 0.6 mg/dL Normal 0.2-1.3 [facility] Comment on above: Performed By: #### B [employer] SERVICE EMPLOYEE, HSTROPN, CMP #### [facility] [address] [place] [address] Dr. Elgin Soler Calcium [Mass/Vol] 10.0 mg/dL Normal 8.4-10.2 [facility] Comment on above: Performed By: #### B [employer] SERVICE EMPLOYEE, HSTROPN, CMP #### [facility] [address] [place] [address] Dr. Elgin Soler Chloride [Moles/Vol] 100 mmol/L Normal 98-107 [facility] Comment on above: Performed By: #### B [employer] SERVICE EMPLOYEE, HSTROPN, CMP #### [facility] [address] [place] [address] Dr. Elgin Soler CO2 [Moles/Vol] 23.8 mmol/L Normal 22.0-30.0 [facility] Comment on above: Performed By: #### B FO[employer] SERVICE EMPLOYEE, HSTROPN, CMP #### [facility] [address] [place] [address] Dr. Elgin Soler Creatinine [Mass/Vol] 1.01 mg/dL Normal 0.66-1.25 [facility] Comment on above: Performed By: #### B [employer] SERVICE EMPLOYEE, HSTROPN, CMP #### [facility] [address] [place] [address] Dr. Elgin Soler EGFR-AF SOMALI >60 Normal >=60 [facility] Comment on above: Performed By: #### B FO[employer] SERVICE EMPLOYEE, HSTROPN, CMP #### [facility] [address] [place] [address] Dr. Elgin Soler EGFR-NON AF SOMALI >60 Normal >=60 [facility] Comment on above: Performed By: #### B FO[employer] SERVICE EMPLOYEE, HSTROPN, CMP #### [facility] [address] [place] [address] Dr. Elgin Soler Globulin (S) [Mass/Vol] 3.7 g/dL Normal [facility] Comment on above: Performed By: #### B FO[employer] SERVICE EMPLOYEE, HSTROPN, CMP #### [facility] [address] [place] [address] Dr. Elgin Soler Glucose [Mass/Vol] 113 mg/dL Critically high 74-106 T [facility] Comment on above: Performed By: #### B FO[employer] SERVICE EMPLOYEE, HSTROPN, CMP #### [facility] [address] [place] [address] Dr. Elgin Soler Potassium [Moles/Vol] 3.9 mmol/L Normal 3.4-5.0 [facility] Comment on above: Performed By: #### B [employer] SERVICE EMPLOYEE, HSTROPN, CMP #### [facility] [address] [place] [address] Dr. Elgin Soler Protein [Mass/Vol] 7.9 g/dL Normal 6.1-8.2 [facility] Comment on above: Performed By: #### B [employer] SERVICE EMPLOYEE, HSTROPN, CMP #### [facility] [address] [place] [address] Dr. Elgin Soler Sodium [Moles/Vol] 133 mmol/L Critically low 137-145 [facility] Comment on above: Performed By: #### B FOOD SERVICE EMPLOYEEZAK, CMP #### [facility] [address] [place] [address] Dr. Elgin Soler Urea nitrogen [Mass/Vol] 22.0 mg/dL Critically high 9.0-20.0 [facility] Comment on above: Performed By: #### B FOOD SERVICE EMPLOYEEZAK, CMP #### [facility] [address] [place] [address] Dr. Elgin Soler Urea nitrogen/Creatinine [Mass ratio] 21.8 mg/mg Normal [facility] Comment on above: Performed By: #### B FOOD SERVICE EMPLOYEEZAK, CMP #### [facility] [address] [place] [address] Dr. Elgin Soler PROTIMEon 01-02-2021 INR Coag (PPP) [Relative time] 1.08 {INR} Normal [facility] Comment on above: Performed By: #### P TT, DDIM, PT #### [facility] [address] [place] [address] Dr. Elgin Soler INR GUIDELINES SEE BELOW Normal [facility] Comment on above: Result Comment: NANCI RED INR: 2.0 - 3.0 CONDITIONS NOT LISTED BELOW 2.5 - 3.5 FOR PROSTHETIC HEART VALVE REPLACEMENT 2.5 - 3.5 RECURRENT THROMBOSIS Performed By: #### P TT, DDIM, PT #### [facility] [address] [place] [address] Dr. Elgin Soler PT Coag (PPP) [Time] 11.6 s Normal 9.0-11.6 [facility] Comment on above: Performed By: #### P TT, DDIM, PT #### [facility] [address] [place] [address] Dr. Elgin Soler PTTon 01-02-2021 aPTT Coag (Bld) [Time] 27.6 s Normal 22.3-36.2 [facility] Comment on above: Performed By: #### P TT, DDIM, PT #### [facility] [address] [address] [address] Elgin Soler TROPONIN, HIGH SENSITIVITYon 01-02-2021 HSTROP 6.6 pg/mL Normal 4.0-42.2 [facility] Comment on above: Result Comment: CUT- OFF POINTS HAVE BEEN ESTABLISHED BASED ON THE FOURTH UNIVERSAL DEFINITIONS OF MYOCARDIAL INFARCTION. THE UPPER REFERENCE LIMIT (URL) OF TROPONIN, DEFINED THE 99TH PERCENTILE OF cTnI DISTRIBUTION IN A REFERENCE POPULATION, HAS BEEN CONFIRMED THE DECISION THRESHOLD FOR [place] DIAGNOSIS. Performed By: #### B [employer] SERVICE EMPLOYEE, HSTROPN, CMP #### [facility] [address] [address] [address] Elgin Soler XR CHEST 1 Von [...] by: SCOTT CORDOVA Date: 2021-01-02 16:50 Normal [facility] NM STRESS/REST MULTIon 12-16 NM STRESS/REST MULTI Patient: Sandie MEANSMonica Exam Date: 12/16/2020 : 1950 Gender:M Ordering : DR SARIKA SNEED M.D. Admission #: [id number] Family : Order #: [id number] CLICK HERE TO VIEW EXAM RADIOLOGY REPORT [...] Fisher MD on 12/16/2020 at 13:04 Normal [facility] Vital Signs Date Time Vital Sign Value Performing Clinician Facility 12-24-2021 11:16-0400 Blood Pressure Location ROBAUTO [facility] 12-24-2021 11:16-0400 Diastolic blood pressure 74 mm[Hg] Rossi SALAM [facility] 12-24-2021 11:16-0400 Heart rate 71 /min Rossi SALAM [facility] 12-24-2021 11:16-0400 Respiratory rate 16 /min Rossi SALAM [facility] 12-24-2021 11:16-0400 Systolic blood pressure 121 mm[Hg] Rossi SALAM [facility] 12-05-2021 09:40-0400 Diastolic blood pressure 84 mm[Hg] Rossi SALAM [facility] 12-05-2021 09:40-0400 Heart rate 59 /min Rossi SALAM [facility] 12-05-2021 09:40-0400 Respiratory rate 13 /min Rossi SALAM [facility] 12-05-2021 09:40-0400 SaO2% (BldA) [Mass fraction] 100 % Rossi SALAM [facility] 12-05-2021 09:40-0400 Systolic blood pressure 127 mm[Hg] Rossi SALAM [facility] 12-05-2021 09:35-0400 Diastolic blood pressure 77 mm[Hg] Rossi SALAM [facility] 12-05-2021 09:35-0400 Heart rate 61 /min [facility] SAL[facility] [facility] 12-05-2021 09:35-0400 Respiratory rate 21 /min Rossi SALAM [facility] 12-05-2021 09:35-0400 SaO2% (BldA) [Mass fraction] 99 % Rossi SALAM [facility] 12-05-2021 09:35-0400 Systolic blood pressure 126 mm[Hg] Rossi SALAM [facility] 12-05-2021 09:20-0400 Diastolic blood pressure 56 mm[Hg] Rossi SALAM [facility] 12-05-2021 09:20-0400 Heart rate 59 /min Rossi SALAM [facility] 12-05-2021 09:20-0400 Respiratory rate 17 /min Rossi SALAM [facility] 12-05-2021 09:20-0400 SaO2% (BldA) [Mass fraction] 98 % Rossi SALAM [facility] 12-05-2021 09:20-0400 Systolic blood pressure 99 mm[Hg] Rossi SALAM [facility] 12-05-2021 09:10-0400 Body temperature 97.7 [degF] Rossi SALAM [facility] 12-05-2021 07:37-0400 Blood Pressure Location Rossi SALAM [facility] 12-05-2021 07:37-0400 Body temperature 98.06 [degF] Rossi SALAM [facility] 11-18-2021 14:33-0400 Blood Pressure Location [facility] 11-18-2021 14:33-0400 Diastolic blood pressure 73 mm[Hg] [facility] 11-18-2021 14:33-0400 Heart rate 76 /min [facility] 11-18-2021 14:33-0400 SaO2% (BldA) [Mass fraction] 98 % [facility] 11-18-2021 14:33-0400 Systolic blood pressure 128 mm[Hg] [facility] Encounters Encounter Date Encounter Type Care Provider Facility Start: 10-05-2023 End: 10-05-2023 ambulatory SARIKA SNEED Not Available Start: 04-26-2023 End: 04-26-2023 ambulatory SARIKA SNEED Not Available Start: 04-04-2023 Chart abstracting Sarika Sneed MD Work Phone: [facility] Start: 11-25-2022 End: 11-25-2022 ambulatory Hiren Whittington Facility:[facility] Start: 11-25-2022 End: 11-25-2022 ambulatory MD Hiren Whittington Work Phone: [facility] Work Phone: Start: 11-25-2022 End: 11-25-2022 Patient encounter procedure MD Hiren Whittington Work Phone: [facility] [address] Work Phone: Start: 10-20-2022 End: 10-20-2022 ambulatory Hiren Whittington Facility:[facility] Start: 10-20-2022 End: 10-20-2022 ambulatory MD Hiren Whittington Work Phone: [facility] Work Phone: Start: 10-20-2022 End: 10-20-2022 Patient encounter procedure MD Hiren Whittington Work Phone: [facility] [address] Work Phone: Start: 01-13-2022 End: 01-14-2022 ambulatory [facility] Start: 01-13-2022 End: 01-13-2022 Patient encounter procedure [facility] SALAM [facility] Start: 12-30-2021 End: 12-31-2021 ambulatory [facility] Start: 12-30-2021 End: 12-30-2021 Patient encounter procedure Rossi SALAM [facility] Start: 12-24-2021 End: 12-[facility] Start: 12-24-2021 End: 12-24-2021 Patient encounter procedure Rossi SALAM [facility] Start: 12-19-2021 End: 12-20-2021 ambulatory [facility] Start: 12-19-2021 End: 12-19-2021 Patient encounter procedure Rossi SALAM [facility] Start: 12-17-2021 End: 12-18-2021 ambulatory Gagan Colindres Facility:[facility] Start: 12-17-2021 End: 12-17-2021 Patient encounter procedure Gagan Colindres [facility] Start: 12-05-2021 End: 12-06-2021 ambulatory Enid OCHOA [facility] Start: 12-05-2021 End: 12-05-2021 Patient encounter procedure Enid OCHOA [facility] Start: 11-18-2021 End: 11-19-2021 ambulatory Salud Henderson Facility:[facility] Start: 11-18-2021 End: 11-18-2021 Patient encounter procedure [facility] Pa [facility] [place] Start: 11-17-2021 ambulatory Salud Henderson Facili ty:[facility] Start: 10-28-2021 End: 10-29-2021 ambulatory Salud Henderson [facility] Start: 10-28-2021 End: 10-28-2021 Patient encounter procedure Salud Henderson [facility] Start: 10-14-2021 End: 10-15-2021 ambulatory Salud Henderson [facility] Start: 10-14-2021 End: 10-15-2021 ambulatory SARIKA SNEED [...] Hiren Whittington Work Phone: Start: 12-05-2021 Colonoscopy Sarika Sneed MD Work Phone: Start: 12-05-2021 Colonoscopy [facility] Comment on above: one polyp in sigmoid, diverticulosis, IH Start: 12-05-2021 Esophagogastroduodenoscopy [facility]i [facility] Comment on above: normal, biopsies taken of gastric mucosa Start: 11-03-2019 Colonoscopy Salud Santiago Comment on above: Dr Barnett Plan of Treatment Date Care Activity Detail Author Start: 12-06-2031 Screening for malignant neoplasm of colon [facility] Start: 04-05-2023 End: 04-05-2023 Patient encounter procedure 04/05/2023 8:15 AM EST Office Visit [facility] [address] [facility] [address] [place] [id number] Sarika Sneed MD [address] [facility] [address] [place] [address] [facility] Start: 11-25-2022 [employer] antibody measurement [facility] Start: 11-25-2022 End: 11-25-2022 [facility] Start: 10-20-2022 Bacteria identified in Urine by Culture [facility] Start: 10-20-2022 Hepatitis B core antibody measurement [facility] Start: 10-20-2022 Hemolytic complement CH50 level [facility] Start: 10-20-2022 End: 10-20-2022 [facility] Start: 08-30-2022 Screening for malignant neoplasm of colon FIT-DNA [facility] Start: 03-05-2022 ambulatory Ambulatory Facility:[facility] Start: 01-30-2022 Pneumococcal Vaccine: 65+ Years (2 - PCV) Pneumococcal Vaccine: 65+ Years (2 - PCV) [facility] Start: 01-28-2022 Medicare Annual Wellness (AWV) Medicare Annual Wellness (AWV) [facility] Start: 1950 Screening for malignant neoplasm of colon [facility] 24 hour urine measurement [facility] Albumin [Mass/volume ] in Serum or Plasma [facility] Albumin/Globulin ratio [facility] Complement C3 [Mass/volume] in Serum or Plasma [facility] Complement C4 [Mass/volume] in Serum or Plasma [facility] Electrophoresis: [id number] [facility] Electrophoresis: [id number] [facility] Electrophoresis: beta-globulin [facility] Electrophoresis: eh ma globulin [facility] Fibrillarin Ab [Pres ence] in Serum [facility] Globulin [Mass/volum e] in Serum [facility] Hepatitis B virus roe rface Ab [Presence] in Serum [facility] Hepatitis B virus roe rface Ag [Presence] in Serum or Plasma by Immunoassay [facility] Hepatitis C virus Ig G Ab [Presence] in Serum or Plasma by Immunoassay [facility] Homogenous nuclear A b pattern [Titer] in Serum [facility] IgA [Mass/volume] in Serum or Plasma [facility] IgG [Mass/volume] in Serum or Plasma [facility] IgM [Mass/volume] in Serum or Plasma [facility] Immunofixation for Urine [facility] Measurement of monoc lonal protein concentration [facility] Nuclear Ab [Titer] i n Serum [facility] PM-SCL extractable nuclear Ab [Mass/volume] in Serum by Immune diffusion (ID) [facility] Protein [Mass/volume ] in Serum or Plasma [facility] Protein [Mass/volume ] in Urine [facility] RNA polymerase III I gG Ab [Units/volume] in Serum or Plasma by Immunoassay [facility] Serum immunofixation [facility] Th-To Ab [Units/volu me] in Serum by Line blot [facility] Immunizations Immunization Date Immunization Notes Care Provider Fa cility 12-25-2022 Influenza, High-dose Seasonal, Quadrivalent, Preservative Free Sarika Sneed MD Work Phone: [facility] 12-09-2021 influenza, injectabl e, quadrivalent, preservative free Sarika Sneed MD Work Phone: [facility] 01-30-2021 influenza virus vaccine, unspecified formulation [facility] 01-30-2021 influenza, injectabl e, quadrivalent, preservative free Sarika Sneed MD Work Phone: [facility] 01-30-2021 Influenza, Seasonal, Quadrivalent, Adjuvanted Sarika Sneed MD Work Phone: [facility] 01-30-2021 pneumococcal polysaccharide vaccine, 23 valent [facility] 01-01-2021 SARS-CoV-2 (COVID-19 ) mRNA-1273 vaccine [facility] Comment on above: Result Comment: 2021: [id number] 05-20-2020 SARS-CoV-2 (COVID-19 ) mRNA-1273 vaccine [facility] 04-22-2020 SARS-CoV-2 (COVID-19 ) mRNA-1273 vaccine Salud Santiago [facility] 12-12-2019 influenza virus vaccine, unspecified formulation [facility] 12-12-2019 influenza, injectabl e, quadrivalent, contains preservative Sarika Sneed MD Work Phone: [facility] 12-05-2018 influenza virus vaccine, unspecified formulation [facility] 12-05-2018 influenza, seasonal, injectable Sarika Sneed MD Work Phone: [facility] 12-13-2017 influenza virus vaccine, unspecified formulation [facility] 12-13-2017 Influenza, High-dose Seasonal, Quadrivalent, Preservative Free Sarika Sneed MD Work Phone: [facility] 03-24-2017 influenza virus vaccine, unspecified formulation [facility] 03-24-2017 influenza, injectabl e, quadrivalent, contains preservative Sarika Sneed MD Work Phone: [facility] 03-24-2017 influenza, injectabl e, quadrivalent, preservative free Sarika Sneed MD Work Phone: [facility] 03-24-2017 pneumococcal polysaccharide vaccine, 23 valent [facility] 07-29-2010 tetanus and diphther ia toxoids, adsorbed, preservative free, for adult use (2 Lf of tetanus toxoid and 2 Lf of diphtheria toxoid) Sarika Sneed MD Work Phone: [facility] NEGATED: Highlighted row has not occurred!12-24-2021 influenza virus vaccine, unspecified formulation Enid OCHOA [facility] NEGATED: Highlighted row has not occurred!11-18-2021 influenza virus vaccine, unspecified formulation [facility] NEGATED: Highlighted row has not occurred!10-14-2021 influenza virus vaccine, unspecified formulation Salud Henderson [facility] Payers Date Payer Category Payer Self-pay 2015 Medicare MEDICARE MEDICAR E PART B [id number] 2015-Present [address] [address] [place] [address] Medicare [id number] 1959 Medicare [id number] 1959 Unknown [id number] 1950 Unknown [id number] [id number] 1950 Unknown [id number] 2.16.840.1.477608.3.579.2.593 1950 Unknown [id number] 2.16.840.1.254220.3.579.2.727 1950 Unknown [id number] 2.16.840.1.466439.3.579.2.72 1950 Unknown [id number] 2.16.840.1.345630.3.579.2.72 1950 Unknown [id number] 2.16.840.1.556016.3.579.2.72 1950 Unknown [id number] 2.16.840.1.019271.3.579.2.727 1950 Unknown [id number] 2.16.840.1.843920.3.579.2.72 1950 Unknown [id number] 2.16.840.1.544574.3.579.2.727 1950 Unknown [id number] 2.16.840.1.475157.3.579.2.72 1950 Unknown [id number] 2.16.840.1.150017.3.579.2.727 1950 Unknown [id number] 2.16.840.1.290149.3.579.2.72 1950 Unknown [id number] 2.16.840.1.808605.3.579.2.727 1950 Unknown [id number] 2.16.840.1.828616.3.579.2.727 1950 Unknown [id number] 2.16.840.1.191923.3.579.2.727 1950 Unknown [id number] 2.16.840.1.009175.3.579.2.1259 1950 Unknown [id number] 2.16.840.1.680202.3.579.2.1259 Unknown [id number] 2.16.840.1.662629.3.579.2.531 Unknown [id number] 2.16.840.1.453834.3.579.2.531 Social History Date Type Detail Facility Start: 10-14-2021 End: 12-25-2022 Tobacco smoking status Never smoked tobacco (finding) [facility] Start: 12-25-2022 Sex Assigned At Male F [facility] Start: 1950 Sex Assigned At Male F [facility] Start: 12-25-2022 Tobacco use and exposure Smokeless tobacco non-user [facility] Start: 04-04-2023 Alcohol intake Lifetime non-d stephenie (finding) [facility] Start: 12-25-2022 History of Social function [facility] Start: 04-04-2023 Alcohol Comment Caffeine Intak e: Coffee [facility] Start: 1950 Sex Assigned At Not [...] Assessment Result Facility 12-24-2021 Functional Status N/A [facility] 12-05-2021 Functional Status N/A [facility] Clinical Notes 10-17-2021 to 12-08-2021 Note Date & Type Note Facility 12-08-2021 Note [id number] 6#1.00CD:127 [facility] 12-05-2021 Evaluation + Plan note Extrac teofilo from: Title:ANES POSTOP Author:Hilario Kay DO Date: 12/05/21 Plan Transfer/ Discharge: Patient can be discharged from PACU when criteria met. Condition good. Extracted from: Title:ANES PREOP ENDO NOTE Author:Vin Kay DO Date:12/05/21 Plan [place] [employer]esthesi[employer] (ASA) physical status classification: [...] Date:12/24/2021 11:00:00 AM Scheduled Provider:Enid OCHOA MD Location[facility] App[facility]ment Type:[facility] Follow Up Future Scheduled Tests Radiology* CT Abdomen/Pelvis w/ Contrast 12/19/21 [facility]10-14-2022 Hospital Discharge instructions Patient Education 12/05/2021 09:23:00 [...] what activities are safe for you. Take qrrc-[id number] and prescription medicines only as told by [...] 08/09/2012 Document Revised: 08/02/2018 Document Reviewed: 07/11/2018 [employer] Patient Education 2020 [employer]. 12/05/2021 09:23:00 Colonoscopy, Care After Surgery Salam [...] unsweetened, w/added ascorbic acid 1 cup 0.5 Meade 1 cup 0.7 Vegetables Cooked Green beans 1 cup 4.0 Carrots 1/2 cup sliced 2.3 Peas 1 cup 8.8 Potato (baked, with skin) 1 medium potato 3.8 Raw [place] (with peel) 1 cucumber 1.5 Lettuce 1 cup shredded 0.5 Tomato 1 medium tomato 1.5 Spinach 1 cup 0.7 Legumes Baked beans, canned, no salt added 1 cup 13.9 Kidney beans, canned 1 cup 13.6 Ovgt beans, canned 1 cup 11.6 Lentils, boiled [...] 8.7 Peanuts 1/2 cup 7.9 [facility] from [facility] 2013. SEEK IMMEDIATE MEDICAL CARE IF: You [...] Reference. Available at http://www.nal.usda.gov/fnic/foodcomp/search/. Information adapted from: [facility] Patient Information 2009 [employer]. [employer] 2012 [email or web address]-the-basics 12/05/2021 09:23:00 Colon Polyps Colon Polyps Polyps [...] 11/04/2004 Document Revised: 05/26/2018 Document Reviewed: 05/26/2018 [employer]OM[employer] Patient Education 2020 [employer] Follow Up Care 10/14/2021 10:09:05 With:Enid OCHOA Address: [address] [place] [address] Business (1) When: Unknown Comments:office will call for follow up [facility]08-26-2022 Hospital Discharge instructions Follow Up Care 10/17/2021 10:40:15 With:VAIBHAV CERON, [place], [facility], [facility] Address: [facility] [address], [place] [address]- When:Within 2 Month(s) [facility] Evaluation + Plan note Future Appointments Appointment Date:12/05/2021 08:15:00 AM Scheduled Provider: Location:[facility] Appointment Type:Surgery FT Appointment Date:12/24/2021 11:00:00 AM Scheduled Provider:Enid OCHOA MD Location[facility] Appointment Type:BAD [facility] Future Appointments Appointment Date:12/19/2021 07:00:00 AM Scheduled Provider: [facility] Appointment Type:CT Abdomen/Pelvis Combo () Appointment Date:12/24/2021 11:00:00 AM Scheduled Provider:Enid OCHOA MD Location:[facility] Appointment Type:[facility] Follow Up Future Scheduled Tests Radiology* CT Abdomen/Pelvis w/ Contrast 12/19/21 [facility] Future Appointments Appointment Date:12/24/2021 11:00:00 AM Scheduled Provider:Enid OCHOA MD Location:[facility] Appointment Type:BAD [facility] Future Appointments Appointment Date:03/05/2022 12:15:00 PM Scheduled Provider:Enid OCHOA MD Location:[facility] Appointment Type:[facility] Follow Up Future Scheduled Tests Laboratory* Sedimentation Rate Automated 12/24/21 * IgA, Quant. 12/24/21 * PSA Total 12/24/21 * t-Transglutaminase IgA 12/24/21 * C-Reactive Protein 12/24/21 * GGT 12/24/21 * Thyroid Stimulating Hormone 12/24/21 Radiology* XR Chest 2 Views 12/24/21 [facility] Evaluation + Plan note Future Appointments Appointment Date:03/05/2022 12:15:00 PM Scheduled Provider:Enid OCHOA MD Location:[facility] Appointment Type:BADH Follow Up Diagnostic Tests Pending * t-Transglutaminase IgA 12/30/21 * IgA, Quant. 12/30/21 [facility] Future Appointments Appointment Date:03/05/2022 12:15:00 PM Scheduled Provider:Enid OCHOA MD Location:[facility] Appointment Type:BADH Follow Up Diagnostic Tests Pending * Antimitochondrial Antibody, Quantitative 01/13/22 * BESSIE w/Reflex if POS 01/13/22 [facility] note[facility] assessment information available [facility] Work Phone: Hospital course Narrative No data available for this section [facility] No data available for this section [facility] No data available for this section [facility] Summary Purpose Family History No Family History [...] DATE CREATED AUTHOR AUTHOR'S ORGANIZ ATION 01/29/2021 [facility] dical Specialist DATE CREATED AUTHOR AUTHOR'S ORGANIZ ATION 01/16/2022 [facility] DATE CREATED AUTHOR AUTHOR'S ORGANIZ ATION 12/11/2022 [facility] DATE CREATED AUTHOR AUTHOR'S ORGANIZ ATION 10/07/2023 [facility] dical Specialists EPIC Care Team (unrecognized sect ion and content) Team Status: Inactive Member Role Status Dates Hiren Whittington MD Attending Provider Active Records Supervisor Relationship Specialty Start Date End Date Sarika Sneed MD [address] [facility] [address] [place] [address] PCP - General Family Medicine 06/30/22 Goals [...] BE BASED ON THE PRIMARY CLINICAL RECORDS. [facility] [employer] provides no warranty or guarantee of the accuracy or completeness of information in this document.
== END 2023-11-09 09:24 | disposition home or self-care (01) ==
LOC: EC 09:24
PROVIDERS: PCP Family Medicine; Visit Provider Podiatrist Foot & Ankle Surgery
DX: M79.671 Pain in right foot (principal); S92.001D Unspecified fracture of right calcaneus, subsequent encounter for fracture with routine healing
CPT/HCPCS: 73630

== ENCOUNTER 2023-12-01 09:25 | Outpatient (OUT) | payer MEDICARE, SELFPAY ==
--- NOTE | 2023-12-01 | XR_ITS ---
[address] [address] Patient Name: MARQUISE DOHERTY MRN: [id number] date: 1950 Sex: M Assigned Patient Location: [facility] Current Patient Location: Accession/Order Number: [id number] Exam Date: 12/01/2023 09:26 Report Date: 12/02/2023 07:59 At the request of: BETZAIDA DUNN Procedure: XR foot RT min 3V PROCEDURE: XR foot RT min 3V HISTORY: RIGHT FOOT PAIN ; follow-up calcaneal fracture COMPARISON: XR foot right 11/09/2023 FINDINGS: BONES:Stable alignment and increased sclerosis of calcaneus compatible with ongoing bone healing. Degenerative changes of the first metatarsophalangeal joint. SOFT TISSUES:No visible soft tissue swelling. EFFUSION:None visible. OTHER: Negative. XR/XR foot RT min 3V IMPRESSION: 1. Stable alignment and ongoing bone healing of prior calcaneal fracture. 2. 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 Electronically authenticated by: SCOTT CORDOVA Date: 12/02/2023 07:59
--- OUTSIDE RECORDS SUMMARY | 2023-12-01 09:35 | XMS_ITS | CCD ---
Author Organization [facility] Care Team Providers Care Clinical Documentation Spec Name Role Phone SAVAGE GIBBONS Attending Unavailable TASHA, DR SCOTT Hanson Consulting Unavailable NAREN, DR BAUM Primary Care Unavailable SAVAGE GIBBONS Admitting Unavailable Frank Curtis Consulting Unavailable SAVAGE GIBBONS Consulting Unavailable NAREN, DR BAUM Admitting Unavailable NAREN, DR BAUM Primary Care Unavailable NAREN, DR BAUM Consulting Unavailable NAREN, DR BAUM Attending Unavailable JENNIFER, DR RAJ Moya Consulting Unavailable SARIKA SNEED Primary Care Physician [phone] En[place] OCHOA Admitting Unavailable SALAM, Enid Attending [...] Attending Unavailable MD Hiren Whittington Attending Provider Hiern Whittington Admitting Unavailable Hiren Whittington Attending Unavailable Hiren Whittington Admitting Unavailable Hiren Whittington Attending Unavailable Sarika Sneed MD Primary Care Provider SARIKA SNEED Attending Unavailable SARIKA SNEED Attending Unavailable Allergies Allergy Classification Reported Allergen(s) Allergy Type Date of Onset Reaction(s) Facility (1 source) No Known Medication Allergies; Translations: [No Known Medication Allergies] Propensity to adverse reactions (disorder) [facility] Repository Medications Current Medications Medication Drug Class(es) Dates Sig (Normalized) Sig (Original) amoxicillin 875 mg / clavulanate 125 mg oral tablet (2 sources) Penicillin-class Antibacterial Start: 12-24-2021 End: 01-03-2022 take 1 tablet by mouth twice daily Augmentin 875 mg-125 mg Tab 1 tab(s), Oral, BID for 10 day(s), 20 tab(s), Refill(s) 0, [facility] [id number], 184, cm, 12/24/21 11:18:00 EDT, Height/Length Dosing, [...] unspecified SLE type, unspecified organ involvement status ([facility]) Take 1 tablet (500 mg) by [...] Antibodyon 3 Anti-Ku Antibody Negative Normal Negative [facility] Comment on above: Result Comment: This test was developed and its performance characteristics determined by [address]. It has not been cleared or approved by the Food and Drug Administration. Performed at: [employer] [facility] [employer] [address] [place] [id number] Tile Decorator: Tereso Stevenson MD, Phone: [phone] PERFORMED BY: [place] [address] PATHOLOGIST [employer] SALESPERSON JOSE GUADALUPE RODAS M.D. Performed By: #### H BCAB, HBSAG, HBSAB, HCV RX PCR #### [facility] , #### CK, PTH, CBC, ESR, CRP, CMP #### [facility] [address] [place] [address] Anti-RNPon 11-25-2022 Anti-ENDLESS TRACK VEHICLE SUPERVISOR <0.2 Normal 0.0-0.9 [facility] Comment on above: Result Comment: Perf ormed at: [facility] [address] [id number] Tile Decorator: Ambrocio Olivas PhD, Phone: [phone] Performed By: #### H BCAB, HBSAG, HBSAB, HCV RX PCR #### [facility] , #### CK, PTH, CBC, ESR, CRP, CMP #### [facility] [address] [place] [address] [place] Creatine Kinaseon 11-25-2022 CK [Catalytic activity/Vol] 86 U/L Normal 30-223 [facility] Comment on above: Result Comment: PERF ORMED BY: [place] [address] PATHOLOGIST [employer] SALESPERSON JOSE GUADALUPE RODAS M.D. Performed By: #### H BCAB, HBSAG, HBSAB, HCV RX PCR #### [facility] , #### CK, PTH, CBC, ESR, CRP, CMP #### [facility] [address] [place] [address] [place] Creatine kinase [Enzymatic a ctivity/volume] in Serum or PlasmaOrdered By: Hiren Whittington on 11-25-2022 CK [Catalytic activity/Vol] 86 U/L 30-223 [facility] MISC2 LABon 11-25-2022 MISC2 LAB Normal [facility] Comment on above: Order Comment: Misc 2 Test Name: Mi2 Result Comment: See report. Scanned copy available in EMR. PERFORMED BY: [place] [address] PATHOLOGIST [employer] SALESPERSON JOSE GUADALUPE RODAS M.D. Performed By: #### M ISC2 LAB #### [address] PM-SCL Antibodieson 11-26-19 23 ANNETTA PM-Scl Antibody <20 Normal <20 [facility] Comment on above: Result Comment: This test was developed and its performance characteristics determined by [employer]. It has not been cleared or approved by the Food and Drug Administration. Negative: <20 Weak Positive: 20 - 39 Moderate Positive: 40 - 80 Strong Positive: >80 Performed at: [employer] [address] [place] [id number] Tile Decorator: Tereso Stevenson MD, Phone: [phone] Performed By: #### H BCAB, HBSAG, HBSAB, HCV RX PCR #### [facility] , #### CK, PTH, CBC, ESR, CRP, CMP #### [facility] [address] [place] [address] [place] RNA Polymerase IIion 023 RNA Polymerase IIi <20 Normal <20 [facility] Comment on above: Result Comment: Nega tive: <20 Weak Positive: 20 - 39 Moderate Positive: 40 - 80 Strong Positive: >80 Performed at: [employer] [facility] [employer] [address] [place] [id number] Tile Decorator: Tereso Stevenson MD, Phone: [phone] PERFORMED BY: [place] [address] PATHOLOGIST [employer] SALESPERSON JOSE GUADALUPE RODAS M.D. Performed By: #### H BCAB, HBSAG, HBSAB, HCV RX PCR #### [facility] , #### CK, PTH, CBC, ESR, CRP, CMP #### [facility] [address] [place] [address] [place] Th/To Antibodyon 11-25-2022 Th/To Antibody Negative Normal Negative [facility] Comment on above: Result Comment: This test was developed and its performance characteristics determined by [facility]. It has not been cleared or approved by the Food and Drug Administration. Performed at: [employer] [address] [place] [id number] Tile Decorator: Tereso Stevenson MD, Phone: [phone] Performed By: #### H BCAB, HBSAG, HBSAB, HCV RX PCR #### [facility] , #### CK, PTH, CBC, ESR, CRP, CMP #### [facility] [address] [place] [address] U3 Rnpon 11-25-2022 U3 Web Press Operator Negative Normal Negative [facility] Comment on above: Result Comment: This test was developed and its performance characteristics determined by [facility]. It has not been cleared or approved by the Food and Drug Administration. Performed at: [employer] [address] [place] [id number] Tile Decorator: Tereso Stevenson MD, Phone: [phone] PERFORMED BY: [place] [address] PATHOLOGIST [employer]ARD [employer] SALESPERSON JOSE GUADALUPE RODAS M.D. Performed By: #### H BCAB, HBSAG, HBSAB, HCV RX PCR #### [facility] , #### CK, PTH, CBC, ESR, CRP, CMP #### [facility] [address] [place] [address] BESSIE Antinuclear Antibodieson 10-20-2022 Antinuclear Abs, IFA Positive Critically abnormal . [facility] Comment on above: Result Comment: Nega tive <1:80 Borderline 1:80 Positive >1:80 Performed By: #### H BCAB, HBSAG, HBSAB, HCV RX PCR #### [facility] , #### CK, PTH, CBC, ESR, CRP, CMP #### [facility] [address] Note 1 Normal . [facility] Comment on above: Result Comment: For more information about Hep-2 cell patterns use [employer], the official website for the International Consensus on Antinuclear Antibody (BESSIE) Patterns (ICAP). A positive BESSIE result may occur in healthy individuals (low titer) or be associated with a variety of diseases. See interpretation chart which is not all inclusive: Pattern Antigen Detected Suggested Disease Association Homogeneous DNA(ds,ss), SLE - High titers Nucleosomes, Histones Drug-induced SLE Speckled Sm, ENDLESS TRACK VEHICLE SUPERVISOR, SCL-70, SLE,MCTD,PSS (diffuse form), SS-A/SS-B Sjogrens Nucleolar SCL-70, PM-1/SCL High titers Scleroderma, PM/DM Centromere Centromere PSS (limited form) w/Crest syndrome variable Nuclear Dot [id number] Primary Biliary Cirrhosis Nuclear GP210, Primary Biliary Cirrhosis Membrane ashley A,B,C Performed at: [facility] [address] [id number] Tile Decorator: Ambrocio Olivas PhD, Phone: [phone] Performed By: #### H BCAB, HBSAG, HBSAB, HCV RX PCR #### [facility] , #### CK, PTH, CBC, ESR, CRP, CMP #### [facility] [address] [place] [address] [place] Nucleolar Pattern 1:1280 High . [facility] Comment on above: Result Comment: ICAP nomenclature: AC-8,9,10 Performed By: #### H BCAB, HBSAG, HBSAB, HCV RX PCR #### [facility] , #### CK, PTH, CBC, ESR, CRP, CMP #### [facility] [address] [place] [address] [place] Speckled Pattern 1:640 High . [facility] Comment on above: Result Comment: ICAP nomenclature: AC-2,4,5,29 Performed By: #### H BCAB, HBSAG, HBSAB, HCV RX PCR #### [facility] , #### CK, PTH, CBC, ESR, CRP, CMP #### [facility] [address] [place] [id number] [place] Alanine aminotransferase [En zymatic activity/volume] in Serum or PlasmaOrdered By: Hiren Whittington on 10-20-2022 ALT [Catalytic activity/Vol] 16 U/L 7-52 [facility] Albumin [Mass/volume] in Ser um or PlasmaOrdered By: Hiren Whittington on 10-20-2022 Albumin [Mass/Vol] 3.9 g/dL 2.9-4.4 [facility] Albumin [Mass/volume] in Ser um or Plasma by Bromocresol green (BCG) dye binding methoOrdered By: Hiren Whittington on 10-20-2022 Albumin BCG dye [Mass/Vol] 4.5 g/dL 3.5-5.7 [facility] Albumin/Protein.total in 24 hour Urine by ElectrophoresisOrdered By: Hiren Whittington on 10-20-2022 Albumin Elph (24H U) [Mass fraction] 28.0 % . [facility] Alkaline phosphatase [Enzyma tic activity/volume] in Serum or PlasmaOrdered By: Hiren Whittington on 10-20-2022 ALP [Catalytic activity/Vol] 143 U/L 34-104 [facility] Aspartate aminotransferase [ Enzymatic activity/volume] in Serum or PlasmaOrdered By: Hiren Whittington on 10-20-2022 AST [Catalytic activity/Vol] 23 U/L 13-39 [facility] Automated erythrocytes count in urine sediment (number/area)Ordered By: Hiren Whittington on 10-20-2022 RBC Auto (Urine sed) [#/Area] 1-2 [HPF] 0-4 [facility] Automated leukocytes count i n urine sediment (number/area)Ordered By: Hiren Whittington on 10-20-2022 WBC Auto (Urine sed) [#/Area] 5-9 [HPF] 0-4 [facility] Basophils Auto (Bld) [#/Vol] Ordered By: Hiren Whittington on 10-20-2022 Basophils (Bld) [#/Vol] 0.0 10*3/uL 0.0-0.2 [facility] Basophils/100 WBC Auto (Bld) Ordered By: Hiren Whittington on 10-20-2022 Basophils/100 WBC (Bld) 0.9 % . [facility] Bilirubin Test strip Ql (U)O rdered By: Hiren Whittington on 10-20-2022 Bilirubin Ql (U) Negative Negative [facility] Bilirubin.total [Mass/volume ] in Serum or PlasmaOrdered By: Hiren Whittington on 10-20-2022 Bilirubin [Mass/Vol] 0.4 mg/dL 0.3-1.0 [facility] C reactive protein [Mass/vol ume] in Serum or PlasmaOrdered By: iHren Whittington on 10-20-2022 CRP [Mass/Vol] < 0.5 mg/dL 0.0-0.5 [facility] C-Reactive Proteinon 023 CRP [Mass/Vol] mg/L Normal 0.0-0.5 [facility] Comment on above: Result Comment: PERF ORMED BY: [facility] [address] [place] [address] PATHOLOGIST [employer]ARD [employer] SALESPERSON JOSE GUADALUPE RODAS M.D. Performed By: #### H BCAB, HBSAG, HBSAB, HCV RX PCR #### [facility] , #### CK, PTH, CBC, ESR, CRP, CMP #### [facility] [address] Calcium [Mass/volume] in Ser um or PlasmaOrdered By: Hiren Whittington on 10-20-2022 Calcium [Mass/Vol] 9.7 mg/dL 8.6-10.3 [facility] Carbon dioxide, total [Moles /volume] in Serum or PlasmaOrdered By: Hiren Whittington on 10-20-2022 CO2 [Moles/Vol] 31.3 mmol/L 21.0-31.0 [facility] Chloride [Moles/volume] in S sergio or PlasmaOrdered By: Hiren Whittington on 10-20-2022 Chloride [Moles/Vol] 102 mmol/L 98-107 [facility] Color Auto (U)Ordered By: Lesli Whittington on 10-20-2022 Color (U) Yellow Yellow [facility] Complement C3on 10-20-2022 Complement C3 120 mg/dL Normal 82-167 [facility] Comment on above: Result Comment: Perf ormed at: - [facility] [address] [id number] Tile Decorator: Ambrocio Olivas PhD, Phone: [phone] Performed By: #### H BCAB, HBSAG, HBSAB, HCV RX PCR #### [facility] , #### CK, PTH, CBC, ESR, CRP, CMP #### [facility] [address] [place] [address] Complement C4on 10-20-2022 Complement C4 16 mg/dL Normal 12-38 [facility] Comment on above: Result Comment: PERF ORMED BY: [place] [address] PATHOLOGIST [employer] SALESPERSON JOSE GUADALUPE RODAS M.D. Performed By: #### H BCAB, HBSAG, HBSAB, HCV RX PCR #### [facility] , #### CK, PTH, CBC, ESR, CRP, CMP #### [facility] [address] [place] [address] Complement Total (CH50)on Complement Total (CH50) >60 Normal >41 [facility] Comment on above: Result Comment: Age Male [...] of range values. Performed at: - [facility] [address] [id number] Tile Decorator: Ambrocio Olivas PhD, Phone: [phone] PERFORMED BY: [place] [address] PATHOLOGIST YARD [employer] SALESPERSON JOSE GUADALUPE RODAS M.D. Performed By: #### H BCAB, HBSAG, HBSAB, HCV RX PCR #### [facility] , #### CK, PTH, CBC, ESR, CRP, CMP #### [address] Complete Blood Count Auto Di ffon 10-20-2022 Basophils (Bld) [#/Vol] 0.0 10*3/uL Normal 0.0-0.2 [facility] Comment on above: Performed By: #### H BCAB, HBSAG, HBSAB, HCV RX PCR #### [facility] , #### CK, PTH, CBC, ESR, CRP, CMP #### [address] Basophils/100 WBC (Bld) 0.9 % Normal . [facility] Comment on above: Performed By: #### H BCAB, HBSAG, HBSAB, HCV RX PCR #### [facility] , #### CK, PTH, CBC, ESR, CRP, CMP #### [address] Eosinophils (Bld) [#/Vol] 0.1 10*3/uL Normal 0.0-0.45 [facility] Comment on above: Performed By: #### H BCAB, HBSAG, HBSAB, HCV RX PCR #### [facility] , #### CK, PTH, CBC, ESR, CRP, CMP #### [address] Eosinophils/100 WBC (Bld) 2.7 % Normal . [facility] Comment on above: Performed By: #### H BCAB, HBSAG, HBSAB, HCV RX PCR #### [facility] , #### CK, PTH, CBC, ESR, CRP, CMP #### [address] Erythrocyte distribution width (RBC) [Ratio] 14.6 % Normal 12.0-14.8 [facility] Comment on above: Performed By: #### H BCAB, HBSAG, HBSAB, HCV RX PCR #### [facility] , #### CK, PTH, CBC, ESR, CRP, CMP #### [address] Hematocrit (Bld) [Volume fraction] 40.7 % Normal 38.8-50.0 [facility] Comment on above: Performed By: #### H BCAB, HBSAG, HBSAB, HCV RX PCR #### [facility] , #### CK, PTH, CBC, ESR, CRP, CMP #### [address] Hemoglobin (Bld) [Mass/Vol] 13.5 g/dL Normal 13.0-17.0 [facility] Comment on above: Performed By: #### H BCAB, HBSAG, HBSAB, HCV RX PCR #### [facility] , #### CK, PTH, CBC, ESR, CRP, CMP #### [address] Lymphocytes (Bld) [#/Vol] 0.8 10*3/uL Low 1.00-4.8 [facility] Comment on above: Performed By: #### H BCAB, HBSAG, HBSAB, HCV RX PCR #### [facility] , #### CK, PTH, CBC, ESR, CRP, CMP #### [address] Lymphocytes/100 WBC (Bld) 16.2 % Normal . [facility] Comment on above: Performed By: #### H BCAB, HBSAG, HBSAB, HCV RX PCR #### [facility] , #### CK, PTH, CBC, ESR, CRP, CMP #### [address] MCH (RBC) [Entitic mass] 30.7 pg Normal 27.5-35.2 [facility] Comment on above: Performed By: #### H BCAB, HBSAG, HBSAB, HCV RX PCR #### [facility] , #### CK, PTH, CBC, ESR, CRP, CMP #### [address] MCV (RBC) [Entitic vol] 92.4 fL Normal 83.5-101 [facility] Comment on above: Performed By: #### H BCAB, HBSAG, HBSAB, HCV RX PCR #### [facility] , #### CK, PTH, CBC, ESR, CRP, CMP #### [address] Mean Corpuscular HGB Conc 33.2 g/dL Normal 32.5-35.6 [facility] Comment on above: Performed By: #### H BCAB, HBSAG, HBSAB, HCV RX PCR #### [facility] , #### CK, PTH, CBC, ESR, CRP, CMP #### [address] Monocytes (Bld) [#/Vol] 0.5 10*3/uL Normal 0.0-0.8 [facility] Comment on above: Performed By: #### H BCAB, HBSAG, HBSAB, HCV RX PCR #### [facility] , #### CK, PTH, CBC, ESR, CRP, CMP #### [address] Monocytes/100 WBC (Bld) 9.0 % Normal . [facility] Comment on above: Performed By: #### H BCAB, HBSAG, HBSAB, HCV RX PCR #### [facility] , #### CK, PTH, CBC, ESR, CRP, CMP #### [address] Neutrophils (Bld) [#/Vol] 3.7 10*3/uL Normal 1.8-7.7 [facility] Comment on above: Performed By: #### H BCAB, HBSAG, HBSAB, HCV RX PCR #### [facility] , #### CK, PTH, CBC, ESR, CRP, CMP #### [address] Neutrophils/100 WBC (Bld) 71.2 % Normal . [facility] Comment on above: Performed By: #### H BCAB, HBSAG, HBSAB, HCV RX PCR #### [facility] , #### CK, PTH, CBC, ESR, CRP, CMP #### [address] NRBC% 0.2 /100{WBC} Normal 0-0.5 [facility] Comment on above: Performed By: #### H BCAB, HBSAG, HBSAB, HCV RX PCR #### [facility] , #### CK, PTH, CBC, ESR, CRP, CMP #### [address] Platelet mean volume (Bld) [Entitic vol] 9.7 fL Normal 6.6-10.1 [facility] Comment on above: Performed By: #### H BCAB, HBSAG, HBSAB, HCV RX PCR #### [facility] , #### CK, PTH, CBC, ESR, CRP, CMP #### [address] Platelets (Bld) [#/Vol] 158 10*3/uL Normal 150-450 [facility] Comment on above: Performed By: #### H BCAB, HBSAG, HBSAB, HCV RX PCR #### [facility] , #### CK, PTH, CBC, ESR, CRP, CMP #### [place] [address] [place] RBC (Bld) [#/Vol] 4.40 10*6/uL Normal 3.90-5.60 [facility] Comment on above: Performed By: #### H BCAB, HBSAG, HBSAB, HCV RX PCR #### [facility] , #### CK, PTH, CBC, ESR, CRP, CMP #### [facility] [address] [place] [address] WBC (Bld) [#/Vol] 5.2 10*3/uL Normal 4.1-10.5 [facility] Comment on above: Performed By: #### H BCAB, HBSAG, HBSAB, HCV RX PCR #### [facility] , #### CK, PTH, CBC, ESR, CRP, CMP #### [address] Comprehensive Metabolic Pane bolivar 10-20-2022 Albumin [Mass/Vol] 4.5 g/dL Normal 3.5-5.7 [facility] Comment on above: Performed By: #### H BCAB, HBSAG, HBSAB, HCV RX PCR #### [facility] , #### CK, PTH, CBC, ESR, CRP, CMP #### [address] Albumin/Globulin [Mass ratio] 1.7 {ratio} Normal [facility] Comment on above: Performed By: #### H BCAB, HBSAG, HBSAB, HCV RX PCR #### [facility] , #### CK, PTH, CBC, ESR, CRP, CMP #### [facility] [address] [place] [address] ALP [Catalytic activity/Vol] 143 U/L High 34-104 [facility] Comment on above: Performed By: #### H BCAB, HBSAG, HBSAB, HCV RX PCR #### [facility] , #### CK, PTH, CBC, ESR, CRP, CMP #### [facility] [address] [place] [address] ALT [Catalytic activity/Vol] 16 U/L Normal 7-52 [facility] Comment on above: Performed By: #### H BCAB, HBSAG, HBSAB, HCV RX PCR #### [facility] , #### CK, PTH, CBC, ESR, CRP, CMP #### [address] Anion gap [Moles/Vol] 10.3 mmol/L Normal 6.0-15.[address] [facility] Comment on above: Performed By: #### H BCAB, HBSAG, HBSAB, HCV RX PCR #### [facility] , #### CK, PTH, CBC, ESR, CRP, CMP #### [address] AST [Catalytic activity/Vol] 23 U/L Normal 13-39 [facility] Comment on above: Performed By: #### H BCAB, HBSAG, HBSAB, HCV RX PCR #### [facility] , #### CK, PTH, CBC, ESR, CRP, CMP #### [address] Bilirubin [Mass/Vol] 0.4 mg/dL Normal 0.3-1.0 [facility] Comment on above: Performed By: #### H BCAB, HBSAG, HBSAB, HCV RX PCR #### [facility] , #### CK, PTH, CBC, ESR, CRP, CMP #### [address] Calcium [Mass/Vol] 9.7 mg/dL Normal 8.6-10.3 [facility] Comment on above: Performed By: #### H BCAB, HBSAG, HBSAB, HCV RX PCR #### [facility] , #### CK, PTH, CBC, ESR, CRP, CMP #### [address] Chloride [Moles/Vol] 102 mmol/L Normal 98-107 [facility] Comment on above: Performed By: #### H BCAB, HBSAG, HBSAB, HCV RX PCR #### [facility] , #### CK, PTH, CBC, ESR, CRP, CMP #### [address] CO2 [Moles/Vol] 31.3 mmol/L High 21.0-31.0 [facility] Comment on above: Performed By: #### H BCAB, HBSAG, HBSAB, HCV RX PCR #### [facility] , #### CK, PTH, CBC, ESR, CRP, CMP #### [facility] [address] Creatinine [Mass/Vol] 0.83 mg/dL Normal 0.70-1.30 [facility] Comment on above: Performed By: #### H BCAB, HBSAG, HBSAB, HCV RX PCR #### [facility] , #### CK, PTH, CBC, ESR, CRP, CMP #### [address] GFR/1.73 sq M.predicted MDRD (S/P/Bld) [Vol rate/Area] mL/min/{1.73_m2} [facility] Comment on above: Performed By: #### H BCAB, HBSAG, HBSAB, HCV RX PCR #### [facility] , #### CK, PTH, CBC, ESR, CRP, CMP #### [facility] [address] [place] [address] Globulin (S) [Mass/Vol] 2.6 g/dL [facility] Comment on above: Performed By: #### H BCAB, HBSAG, HBSAB, HCV RX PCR #### [facility] , #### CK, PTH, CBC, ESR, CRP, CMP #### [facility] [address] [place] [address] Glucose [Mass/Vol] 105 mg/dL High 70-100 [facility] Comment on above: Result Comment: [place] om Glucose Reference Range is dependent on time and content of last meal. Glucose of more than 200 mg/dL in a nonstressed, ambulatory subject supports the diagnosis of Diabetes Mellitus. ADA recommended reference range Performed By: #### H BCAB, HBSAG, HBSAB, HCV RX PCR #### [facility] , #### CK, PTH, CBC, ESR, CRP, CMP #### [address] Potassium [Moles/Vol] 4.6 mmol/L Normal 3.5-5.1 [facility] Comment on above: Performed By: #### H BCAB, HBSAG, HBSAB, HCV RX PCR #### [facility] , #### CK, PTH, CBC, ESR, CRP, CMP #### [address] Protein [Mass/Vol] 7.1 g/dL Normal 6.4-8.9 [facility] Comment on above: Performed By: #### H BCAB, HBSAG, HBSAB, HCV RX PCR #### [facility] , #### CK, PTH, CBC, ESR, CRP, CMP #### [address] Sodium [Moles/Vol] 139 mmol/L Normal 136-145 [facility] Comment on above: Performed By: #### H BCAB, HBSAG, HBSAB, HCV RX PCR #### [facility] , #### CK, PTH, CBC, ESR, CRP, CMP #### [address] Urea nitrogen [Mass/Vol] 24 mg/dL Normal 7-25 [facility] Comment on above: Performed By: #### H BCAB, HBSAG, HBSAB, HCV RX PCR #### [facility] , #### CK, PTH, CBC, ESR, CRP, CMP #### [address] Creatine Kinaseon 10-20-2022 CK [Catalytic activity/Vol] 91 U/L Normal 30-223 [facility] Comment on above: Result Comment: PERF ORMED BY: [place] [address] PATHOLOGIST [employer] SALESPERSON JOSE GUADALUPE RODAS M.D. Performed By: #### H BCAB, HBSAG, HBSAB, HCV RX PCR #### [facility] , #### CK, PTH, CBC, ESR, CRP, CMP #### [facility] [address] Creatine kinase [Enzymatic a ctivity/volume] in Serum or PlasmaOrdered By: Hiren Whittington on 10-20-2022 CK [Catalytic activity/Vol] 91 U/L [facility] Creatinine [Mass/volume] in Serum or PlasmaOrdered By: Hiren Whittington on 10-20-2022 Creatinine [Mass/Vol] 0.83 mg/dL 0.70-1.30 [facility] Dipstick and Microscopicon 0 10-20-2022 Appearance (U) Turbid Critically abnormal Clear [facility] Comment on above: Order Comment: Name Collection Type:: Clean-Voided Midstream Performed By: #### H BCAB, HBSAG, HBSAB, HCV RX PCR #### [facility] , #### CK, PTH, CBC, ESR, CRP, CMP #### [facility] [address] [place] [address] [place] Bacteria,Urine None Seen Normal None Seen [facility] Comment on above: Order Comment: Name Collection Type:: Clean-Voided Midstream Performed By: #### [facility] BCAB, HBSAG, HBSAB, HCV RX PCR #### [facility] , #### CK, PTH, CBC, ESR, CRP, CMP #### [facility] [address] [place] [address] [place] Bilirubin,Urine Negative Normal Negative [facility] Comment on above: Order Comment: Name Collection Type:: Clean-Voided Midstream Performed By: #### H BCAB, HBSAG, HBSAB, HCV RX PCR #### [facility] , #### CK, PTH, CBC, ESR, CRP, CMP #### [facility] [address] [place] [address] [place] Color (U) Yellow Normal Yellow [facility] Comment on above: Order Comment: Name Collection Type:: Clean-Voided Midstream Performed By: #### H BCAB, HBSAG, HBSAB, HCV RX PCR #### [facility] , #### CK, PTH, CBC, ESR, CRP, CMP #### [facility] [address] [place] [address] Glucose Ql (U) Normal Normal Normal [facility] Comment on above: Order Comment: Name Collection Type:: Clean-Voided Midstream Performed By: #### H BCAB, HBSAG, HBSAB, HCV RX PCR #### [facility] , #### CK, PTH, CBC, ESR, CRP, CMP #### [address] Hyaline Casts,Urine None Seen Normal 0-8 [facility] Comment on above: Order Comment: Name Collection Type:: Clean-Voided Midstream Result Comment: PERF ORMED BY: [place] [address] PATHOLOGIST [employer] SALESPERSON JOSE GUADALUPE RODAS M.D. Performed By: #### H BCAB, HBSAG, HBSAB, HCV RX PCR #### [facility] , #### CK, PTH, CBC, ESR, CRP, CMP #### [address] Ketones Ql (U) Negative Normal Negative [facility] Comment on above: Order Comment: Name Collection Type:: Clean-Voided Midstream Performed By: #### H BCAB, HBSAG, HBSAB, HCV RX PCR #### [facility] , #### CK, PTH, CBC, ESR, CRP, CMP #### [facility] [address] [place] [address] Leukocyte esterase Test strip Ql (U) 2+ High Negative [facility] Comment on above: Order Comment: Name Collection Type:: Clean-Voided Midstream Performed By: #### H BCAB, HBSAG, HBSAB, HCV RX PCR #### [facility] , #### CK, PTH, CBC, ESR, CRP, CMP #### [address] Nitrite,Urine Negative Normal Negative [facility] Comment on above: Order Comment: Name Collection Type:: Clean-Voided Midstream Performed By: #### H BCAB, HBSAG, HBSAB, HCV RX PCR #### [facility] , #### CK, PTH, CBC, ESR, CRP, CMP #### [address] Occult Blood,Urine Negative Normal Negative [facility] Comment on above: Order Comment: Name Collection Type:: Clean-Voided Midstream Performed By: #### H BCAB, HBSAG, HBSAB, HCV RX PCR #### [facility] , #### CK, PTH, CBC, ESR, CRP, CMP #### [address] pH (U) 5.0 [pH] Normal 5.0-9.0 [facility] Comment on above: Order Comment: Name Collection Type:: Clean-Voided Midstream Performed By: #### H BCAB, HBSAG, HBSAB, HCV RX PCR #### [facility] , #### CK, PTH, CBC, ESR, CRP, CMP #### [address] Protein,Urine Negative Normal Negative [facility] Comment on above: Order Comment: Name Collection Type:: Clean-Voided Midstream Performed By: #### H BCAB, HBSAG, HBSAB, HCV RX PCR #### [facility] , #### CK, PTH, CBC, ESR, CRP, CMP #### [address] RBC,Urine 1-2 Normal 0-4 [facility] Comment on above: Order Comment: Name Collection Type:: Clean-Voided Midstream Performed By: #### H BCAB, HBSAG, HBSAB, HCV RX PCR #### [facility] , #### CK, PTH, CBC, ESR, CRP, CMP #### [address] Specificy [place],Urine 1.021 Normal 1.001-1.030 [facility] Comment on above: Order Comment: Name Collection Type:: Clean-Voided Midstream Performed By: #### H BCAB, HBSAG, HBSAB, HCV RX PCR #### [facility] , #### CK, PTH, CBC, ESR, CRP, CMP #### [address] Squamous Epithelial Cell,Urine None Seen Normal 0-2 [facility] Comment on above: Order Comment: Name Collection Type:: Clean-Voided Midstream Performed By: #### H BCAB, HBSAG, HBSAB, HCV RX PCR #### [facility] , #### CK, PTH, CBC, ESR, CRP, CMP #### [address] Urobilinogen,Urine Normal Normal Normal [facility] Comment on above: Order Comment: Name Collection Type:: Clean-Voided Midstream Performed By: #### H BCAB, HBSAG, HBSAB, HCV RX PCR #### [facility] , #### CK, PTH, CBC, ESR, CRP, CMP #### [facility] [address] [place] [address] WBC,Urine 5-9 High 0-4 [facility] Comment on above: Order Comment: Name Collection Type:: Clean-Voided Midstream Performed By: #### H BCAB, HBSAG, HBSAB, HCV RX PCR #### [facility] , #### CK, PTH, CBC, ESR, CRP, CMP #### [facility] [address] [place] [address] Eosinophils Auto (Bld) [#/Vo l]Ordered By: Hiren Whittington on 10-20-2022 Eosinophils (Bld) [#/Vol] 0.1 10*3/uL 0.0-0.45 [facility] Eosinophils/100 WBC Auto (Bl d)Ordered By: Hiren Whittington on 10-20-2022 Eosinophils/100 WBC (Bld) 2.7 % . [facility] Erythrocyte Sedimentation Ra trinity 10-20-2022 ESR (Bld) [Velocity] 19 mm/h Normal 0-19 [facility] Comment on above: Result Comment: PERF ORMED BY: [facility] [address] [place] [address] PATHOLOGIST [employer] SALESPERSON JOSE GUADALUPE RODAS M.D. Performed By: #### H BCAB, HBSAG, HBSAB, HCV RX PCR #### [facility] , #### CK, PTH, CBC, ESR, CRP, CMP #### [facility] [address] Erythrocyte distribution wid th Auto (RBC) [Ratio]Ordered By: Hiren Whittington on 10-20-2022 Erythrocyte distribution width (RBC) [Ratio] 14.6 % 12.0-14.8 [facility] Erythrocyte sedimentation ra te by Photometric methodOrdered By: Hiren Whittington on 10-20-2022 ESR Photometric method (Bld) [Velocity] 19 mm/hr 0-19 [facility] Gamma globulin/Protein.total in 24 hour Urine by ElectrophoresisOrdered By: Hiren Whittington on 10-20-2022 Gamma globulin Elph (24H U) [Mass fraction] 19.1 % . [facility] Globulin Calc (S) [Mass/Vol] Ordered By: Hiren Whittington on 10-20-2022 Globulin (S) [Mass/Vol] 2.6 g/dL [facility] Glucose [Mass/volume] in Ser um or PlasmaOrdered By: Hiren Whittington on 10-20-2022 Glucose [Mass/Vol] 105 mg/dL 70-100 [facility] Comment on above: ADA recommended refe rence rangeRandom Glucose Reference Range is dependent on time and content of last meal. Glucose of more than 200 mg/dL in a nonstressed, ambulatory subject supports the diagnosis of Diabetes Mellitus. Hematocrit Auto (Bld) [Volum e fraction]Ordered By: Hiren Whittington on 10-20-2022 Hematocrit (Bld) [Volume fraction] 40.7 % 38.8-50.0 [facility] Hemoglobin [Mass/volume] in BloodOrdered By: Hiren Whittington on 10-20-2022 Hemoglobin (Bld) [Mass/Vol] 13.5 g/dL 13.0-17.0 [facility] Hep C Ab wRfx to Qnt PCRon 0 10-20-2022 Hepatitis C Virus Antibody Non-Reactive Normal Non Reactive [facility] Comment on above: Performed By: #### H BCAB, HBSAG, HBSAB, HCV RX PCR #### [facility] , #### CK, PTH, CBC, ESR, CRP, CMP #### [address] Interpretation Hepatitis C Normal . [facility] Comment on above: Result Comment: Not infected with HCV unless early or acute infection is suspected (which may be delayed in an immunocompromised individual), or other evidence exists to indicate HCV infection. Performed By: #### H BCAB, HBSAG, HBSAB, HCV RX PCR #### [facility] , #### CK, PTH, CBC, ESR, CRP, CMP #### [facility] [address] [place] [address] Hepatitis B Core Antibodyon 10-20-2022 Hepatitis B Core Antibody Negative Normal Negative [facility] Comment on above: Result Comment: Perf ormed at: CB - [facility] [address] [id number] Tile Decorator: Ambrocio Olivas PhD, Phone: [phone] Performed By: #### H BCAB, HBSAG, HBSAB, HCV RX PCR #### [facility] , #### CK, PTH, CBC, ESR, CRP, CMP #### [facility] [address] [place] [address] Hepatitis B Surface Antibody on 10-20-2022 Hepatitis B Surface Antibody Non-Reactive Normal . [facility] Comment on above: Result Comment: Non Reactive: Inconsistent with immunity, less than 10 mIU/mL Reactive: Consistent with immunity, greater than 9.9 mIU/mL Performed By: #### H BCAB, HBSAG, HBSAB, HCV RX PCR #### [facility] , #### CK, PTH, CBC, ESR, CRP, CMP #### [facility] [address] Hepatitis B Surface Antigeno n 10-20-2022 HBsAg Screen Negative Normal Negative [facility] Comment on above: Result Comment: PERF ORMED BY: [place] [address] PATHOLOGIST [employer] SALESPERSON JOSE GUADALUPE RODAS M.D. Performed By: #### H BCAB, HBSAG, HBSAB, HCV RX PCR #### [facility] , #### CK, PTH, CBC, ESR, CRP, CMP #### [facility] [address] Hepatitis B virus surface Ag [Presence] in Serum or Plasma by ImmunoassayOrdered By: Hiren Whittington on 10-20-2022 HBV surface Ag IA Ql Negative Negative [facility] Hepatitis C virus IgG Ab [Pr esence] in Serum or Plasma by ImmunoassayOrdered By: Hiren Whittington on 10-20-2022 HCV IgG IA Ql Non-Reactive Non Reactive [facility] IgA [Mass/volume] in Serum o r PlasmaOrdered By: Hiren Whittington on 10-20-2022 IgA [Mass/Vol] 155 mg/dL 61-437 [facility] IgG [Mass/volume] in Serum o r PlasmaOrdered By: Hiren Whittington on 10-20-2022 IgG [Mass/Vol] 816 mg/dL 603-1613 [facility] IgM [Mass/volume] in Serum o r PlasmaOrdered By: Hiren Whittington on 10-20-2022 IgM [Mass/Vol] 64 mg/dL 15-143 [facility] Comment on above: Performed at: [address] [id number] Director: Ambrocio Olivas PhD, Phone: [phone] Immunofixation for UrineOrde red By: Hiren Whittington on 10-20-2022 Interpretation Immunofixation (U) [Interp] See comment . [facility] Comment on above: No monoclonality det ected.Performed at: [facility] [address] [place] [id number] Director: Ambrocio Olivas PhD, Phone: [phone] Immunofixation, (KESHAV), Urine on 10-20-2022 Immunofixation, (KESHAV), Urine Normal . [facility] Comment on above: Result Comment: No m onoclonality detected. Performed at: [facility] [place] [address] [place], [place] [id number] Tile Decorator: Ambrocio Olivas PhD, Phone: [phone] Performed By: #### H BCAB, HBSAG, HBSAB, HCV RX PCR #### [facility] , #### CK, PTH, CBC, ESR, CRP, CMP #### [place] [id number] [place] Immunofixation,Serumon 10-20 Immunofixation, Serum Normal . [facility] Comment on above: Result Comment: No m onoclonality detected. Performed By: #### H BCAB, HBSAG, HBSAB, HCV RX PCR #### [facility] , #### CK, PTH, CBC, ESR, CRP, CMP #### [facility] [address] [place] [address] [place] Immunoglobulin A, Serum 155 mg/dL Normal 61-437 [facility] Comment on above: Performed By: #### H BCAB, HBSAG, HBSAB, HCV RX PCR #### [facility] , #### CK, PTH, CBC, ESR, CRP, CMP #### [facility] [address] [place] [address] [place] Immunoglobulin G 816 mg/dL Normal 603-1613 [facility] Comment on above: Performed By: #### H BCAB, HBSAG, HBSAB, HCV RX PCR #### [facility] , #### CK, PTH, CBC, ESR, CRP, CMP #### [facility] [address] Immunoglobulin M, Serum 64 mg/dL Normal 15-143 [facility] Comment on above: Result Comment: Perf ormed at: - [facility] [address] [id number] Tile Decorator: Ambrocio Olivas PhD, Phone: [phone] Performed By: #### H BCAB, HBSAG, HBSAB, HCV RX PCR #### [facility] , #### CK, PTH, CBC, ESR, CRP, CMP #### [facility] [address] Ketones Auto test strip (U) [Mass/Vol]Ordered By: Hiren Whittington on 10-20-2022 Ketones (U) [Mass/Vol] Negative Negative [facility] Laboratory - UrinalysisOrder ed By: Hiren Whittington on 10-20-2022 Hyaline casts LM Ql (Urine sed) None seen [LPF] 0-8 [facility] Leukocytes [#/volume] correc teofilo for nucleated erythrocytes in Blood by Automated counOrdered By: Hiren Whittington on 10-20-2022 WBC corrected for nucl RBC Auto (Bld) [#/Vol] 5.2 10*3/uL 4.1-10.5 [facility] Lymphocytes Auto (Bld) [#/Vo l]Ordered By: Hiren Whittington on 10-20-2022 Lymphocytes (Bld) [#/Vol] 0.8 10*3/uL 1.00-4.8 [facility] Lymphocytes/100 WBC Auto (Bl d)Ordered By: Hiren Whittington on 10-20-2022 Lymphocytes/100 WBC (Bld) 16.2 % . [facility] MCH Auto (RBC) [Entitic mass ]Ordered By: Hiren Whittington on 10-20-2022 MCH (RBC) [Entitic mass] 30.7 pg 27.5-35.2 [facility] MCHC Auto (RBC) [Mass/Vol]Or dered By: Hiren Whittington on 10-20-2022 MCHC (RBC) [Mass/Vol] 33.2 g/dL 32.5-35.6 [facility] MCV Auto (RBC) [Entitic vol] Ordered By: Hiren Whittington on 10-20-2022 MCV (RBC) [Entitic vol] 92.4 fL 83.5-101 [facility] Monocytes Auto (Bld) [#/Vol] Ordered By: Hiren Whittington on 10-20-2022 Monocytes (Bld) [#/Vol] 0.5 10*3/uL 0.0-0.8 [facility] Monocytes/100 WBC Auto (Bld) Ordered By: Hiren Whittington on 10-20-2022 Monocytes/100 WBC (Bld) 9.0 % . [facility] Neutrophils Auto (Bld) [#/Vo l]Ordered By: Hiren Whittington on 10-20-2022 Neutrophils (Bld) [#/Vol] 3.7 10*3/uL 1.8-7.7 [facility] Neutrophils/100 WBC Auto (Bl d)Ordered By: Hiren Whittington on 10-20-2022 Neutrophils/100 WBC (Bld) 71.2 % . [facility] Nitrite Test strip Ql (U)Ord ered By: Hiren Whittington on 10-20-2022 Nitrite Ql (U) Negative Negative [facility] No Panel InformationOrdered By: Hiren Whittington on 10-20-2022 Estimated GFR (CKD-EPI) > 60.0 mL/Min [facility] Hepatitis B Core Total Antibody Negative Negative [facility] Comment on above: Performed at: 5 CUPS and some sugar - [employer] [id number] Director: Ambrocio Olivas PhD, Phone: [phone] Hepatitis C Interpretation See comment . [facility] Comment on above: Not infected with HC V unless early or acute infection issuspected (which may be delayed in an immunocompromisedindividual), or other evidence exists to indicate HCVinfection. Hepatitis C RNA Quantitative N/A [facility] Pharmacy Creatinine Clearance (Chem N/A [facility] Anti-Nuclear Antibody Comment 2 See comment . [facility] Comment on above: For more information about Hep-2 cell patterns useANApatterns.org, the official website for the [employer] on Antinuclear Antibody (BESSIE) Patterns (ICAP). ----A positive BESSIE result may occur in healthy individuals (lowtiter) or be associated with a variety of diseases. Seeinterpretation chart which is not all inclusive:Pattern Antigen Detected Suggested Disease Association Homogeneous DNA(ds,ss), SLE - High titers Nucleosomes, Histones Drug-induced SLE Speckled Sm, ENDLESS TR[employer] VEHICLE SUPERVISOR, SCL-70, SLE,MCTD,PSS (diffuse form), SS-A/SS-B Sjogrens Nucleolar SCL-70, PM-1/SCL High titers Scleroderma, PM/DM Centromere Centromere PSS (limited form) w/Crest syndrome variable Nuclear Dot Sp100,[id number] Primary Biliary Cirrhosis Nuclear GP210, Primary Biliary CirrhosisMembrane ashley A,B,C Performed at: [employer] [place], [place] [id number] Director: Ambrocio Olivas PhD, Phone: [phone] Protein Electrophoresis M-Arnulfo Not observed g/dL Not Observed [facility] Protein Electrophoresis Note See comment . [facility] Comment on above: Protein electrophore sis scan will follow via computer,mail, or magnetic observer delivery.Performed at: [employer] [place], [place] [id number] Director: Ambrocio Olivas PhD, Phone: [phone] Serum Immunofixation See comment . [facility] Comment on above: No monoclonality det ected. Total Complement (CH50) >60 U/mL >41 [facility] Comment on above: Age Male Female 1 [...] to determine out of range values.Performed at: [employer] [place], [place] [id number] Director: Ambrocio Oliavs PhD, Phone: [phone] Urine Random Prot Electrophor Note See comment . [facility] Comment on above: Protein electrophore sis scan will follow via computer,mail, or magnetic observer delivery. Nucleated erythrocytes [Pres ence] in Blood by Automated countOrdered By: Hiren Whittington on 10-20-2022 Nucleated RBC Auto Ql (Bld) 0.2 /100{WBC} 0-0.5 [facility] Parathyrin.intact [Mass/volu me] in Serum or PlasmaOrdered By: Hiren Whittington on 10-20-2022 Parathyrin.intact [Mass/Vol] 48.3 pg/mL [facility] Parathyroid Hormone Intacton 10-20-2022 Parathyroid Hormone Intact 48.3 pg/mL Normal [facility] Comment on above: Result Comment: PERF ORMED BY: [place] [address] PATHOLOGIST [employer] SALESPERSON JOSE GUADALUPE RODAS M.D. Performed By: #### H BCAB, HBSAG, HBSAB, HCV RX PCR #### [facility] , #### CK, PTH, CBC, ESR, CRP, CMP #### [address] Platelet mean volume Auto (B ld) [Entitic vol]Ordered By: Hiren Whittington on 10-20-2022 Platelet mean volume (Bld) [Entitic vol] 9.7 fL 6.6-10.1 [facility] Platelets Auto (Bld) [#/Vol] Ordered By: Hiren Whittington on 10-20-2022 Platelets (Bld) [#/Vol] 158 10*3/uL 150-450 [facility] Potassium [Moles/volume] in Serum or PlasmaOrdered By: Hiren Whittington on 10-20-2022 Potassium [Moles/Vol] 4.6 mmol/L 3.5-5.1 [facility] Protein Auto test strip (U) [Mass/Vol]Ordered By: Hiren Whittington on 10-20-2022 Protein (U) [Mass/Vol] Negative Negative [facility] Protein Electro, Random Urin radha 10-20-2022 Albumin, Urine 28.0 % Normal . [facility] Comment on above: Performed By: #### H BCAB, HBSAG, HBSAB, HCV RX PCR #### [facility] , #### CK, PTH, CBC, ESR, CRP, CMP #### [facility] [address] [place] [address] [place] Lmjra-5-Ylmjuslo, Urine 2.1 % Normal . [facility] Comment on above: Performed By: #### H BCAB, HBSAG, HBSAB, HCV RX PCR #### [facility] , #### CK, PTH, CBC, ESR, CRP, CMP #### [facility] [address] [place] [address] [place] Nsrgw-3-Eeaxyzii, Urine 16.4 % Normal . [facility] Comment on above: Performed By: #### H BCAB, HBSAG, HBSAB, HCV RX PCR #### [facility] , #### CK, PTH, CBC, ESR, CRP, CMP #### [address] Beta Globulin, Urine 34.4 % Normal . [facility] Comment on above: Performed By: #### H BCAB, HBSAG, HBSAB, HCV RX PCR #### [facility] , #### CK, PTH, CBC, ESR, CRP, CMP #### [address] Gamma Globulin, Urine 19.1 % Normal . [facility] Comment on above: Performed By: #### H BCAB, HBSAG, HBSAB, HCV RX PCR #### [facility] , #### CK, PTH, CBC, ESR, CRP, CMP #### [address] M-Arnulfo % Not Observed Normal Not Observed [facility] Comment on above: Performed By: #### H BCAB, HBSAG, HBSAB, HCV RX PCR #### [facility] , #### CK, PTH, CBC, ESR, CRP, CMP #### [address] Please Note: Normal . [facility] Comment on above: Result Comment: Prot ein electrophoresis scan will follow via computer, mail, or magnetic observer delivery. PERFORMED BY: [place] [address] PATHOLOGIST [employer] SALESPERSON JOSE GUADALUPE RODAS M.D. Performed By: #### H BCAB, HBSAG, HBSAB, HCV RX PCR #### [facility] , #### CK, PTH, CBC, ESR, CRP, CMP #### [address] Protein (U) [Mass/Vol] 9.4 mg/dL Normal Not Estab. [facility] Comment on above: Performed By: #### H BCAB, HBSAG, HBSAB, HCV RX PCR #### [facility] , #### CK, PTH, CBC, ESR, CRP, CMP #### [address] Protein Electrophoresis, Ser umon 10-20-2022 Albumin [Mass/Vol] 3.9 g/dL Normal 2.9-4.4 [facility] Comment on above: Performed By: #### H BCAB, HBSAG, HBSAB, HCV RX PCR #### [facility] , #### CK, PTH, CBC, ESR, CRP, CMP #### [address] Albumin/Globulin [Mass ratio] 1.3 {ratio} Normal 0.7-1.7 [facility] Comment on above: Performed By: #### H BCAB, HBSAG, HBSAB, HCV RX PCR #### [facility] , #### CK, PTH, CBC, ESR, CRP, CMP #### [address] Avbll-9-Xwokhfqq 0.3 g/dL Normal 0.0-0.4 [facility] Comment on above: Performed By: #### H BCAB, HBSAG, HBSAB, HCV RX PCR #### [facility] , #### CK, PTH, CBC, ESR, CRP, CMP #### [address] Xgxoo-2-Tzccaqzu 0.8 g/dL Normal 0.4-1.0 [facility] Comment on above: Performed By: #### H BCAB, HBSAG, HBSAB, HCV RX PCR #### [facility] , #### CK, PTH, CBC, ESR, CRP, CMP #### [address] Beta Globulin 1.0 g/dL Normal 0.7-1.3 [facility] Comment on above: Performed By: #### H BCAB, HBSAG, HBSAB, HCV RX PCR #### [facility] , #### CK, PTH, CBC, ESR, CRP, CMP #### [address] Gamma Globulin 0.9 g/dL Normal 0.4-1.8 [facility] Comment on above: Performed By: #### H BCAB, HBSAG, HBSAB, HCV RX PCR #### [facility] , #### CK, PTH, CBC, ESR, CRP, CMP #### [address] Globulin (S) [Mass/Vol] 3.0 g/dL Normal 2.2-3.9 [facility] Comment on above: Performed By: #### H BCAB, HBSAG, HBSAB, HCV RX PCR #### [facility] , #### CK, PTH, CBC, ESR, CRP, CMP #### [address] M-Arnulfo Not Observed Normal Not Observed [facility] Comment on above: Performed By: #### H BCAB, HBSAG, HBSAB, HCV RX PCR #### [facility] , #### CK, PTH, CBC, ESR, CRP, CMP #### [address] [place] [address] [place] Protein [Mass/Vol] 6.9 g/dL Normal 6.0-8.5 [facility] Comment on above: Performed By: #### H BCAB, HBSAG, HBSAB, HCV RX PCR #### [facility] , #### CK, PTH, CBC, ESR, CRP, CMP #### [facility] [address] [place] [address] SPE-Note Normal . [facility] Comment on above: Result Comment: Prot ein electrophoresis scan will follow via computer, mail, or magnetic observer delivery. Performed at: [facility] [id number] Tile Decorator: Ambrocio Olivas PhD, Phone: [phone] PERFORMED BY: [place] [address] PATHOLOGIST [employer] SALESPERSON JOSE GUADALUPE RODAS M.D. Performed By: #### H BCAB, HBSAG, HBSAB, HCV RX PCR #### [facility] , #### CK, PTH, CBC, ESR, CRP, CMP #### [facility] [address] [place] [address] Protein [Mass/volume] in Ser um or PlasmaOrdered By: Hiren Whittington on 10-20-2022 Protein [Mass/Vol] 7.1 g/dL 6.4-8.9 [facility] Protein [Mass/Vol] 6.9 g/dL 6.0-8.5 [facility] Protein [Mass/volume] in Uri neOrdered By: Hiren Whittington on 10-20-2022 Protein (U) [Mass/Vol] 9.4 mg/dL Not Estab. [facility] Protein.monoclonal/Protein.t otal in 24 hour Urine by ElectrophoresisOrdered By: Hiren Whittington on 10-20-2022 Protein.monoclonal Elph (24H U) [Mass fraction] Not observed % Not Observed [facility] RBC Auto (Bld) [#/Vol]Ordere d By: Hiren Whittington on 10-20-2022 RBC (Bld) [#/Vol] 4.40 10*6/uL 3.90-5.60 [facility] Serum globulin measurement ( mass/volume)Ordered By: Hiren Whittington on 10-20-2022 Globulin (S) [Mass/Vol] 3.0 g/dL 2.2-3.9 [facility] Serum hepatitis B virus surf breana antibody detectionOrdered By: Hiren Whittington on 10-20-2022 HBV surface Ab Ql (S) Non-Reactive . [facility] Comment on above: Non Reactive: Incons istent with immunity, less than 10 mIU/mL Reactive: Consistent with immunity, greater than 9.9 mIU/mL Serum homogeneous pattern an tinuclear antibody (BESSIE) titerOrdered By: Hiren Whittington on 10-20-2022 Homogenous nuclear Ab pattern (S) [Titer] N/A [facility] Serum nuclear antibody titer Ordered By: Hiren Whittington on 10-20-2022 Nuclear Ab (S) [Titer] Positive . [facility] Comment on above: Negative <1:80 Zac jeffries 1:80 Positive >1:80 Serum nucleolar pattern anti nuclear antibody (BESSIE) titerOrdered By: Hiren Whittington on 10-20-2022 Nucleolar nuclear Ab pattern (S) [Titer] 1:1280 . [facility] Comment on above: ICAP nomenclature: A C-8,9,10 Serum or plasma albumin/glob ulin mass ratioOrdered By: Hiren Whittington on 10-20-2022 Albumin/Globulin [Mass ratio] 1.7 {ratio} [facility] Albumin/Globulin [Mass ratio] 1.3 {ratio} 0.7-1.7 [facility] Serum or plasma alpha 1 glob ulin measurement by electrophoresis (mass/volume)Ordered By: Hiren Whittington on 10-20-2022 Alpha 1 globulin Elph [Mass/Vol] 0.3 g/dL 0.0-0.4 [facility] Serum or plasma alpha 2 glob ulin measurement by electrophoresis (mass/volume)Ordered By: Hiren Whittington on 10-20-2022 Alpha 2 globulin Elph [Mass/Vol] 0.8 g/dL 0.4-1.0 [facility] Serum or plasma anion gap de terminationOrdered By: Hiren Whittington on 10-20-2022 Anion gap [Moles/Vol] 10.3 mmol/L 6.0-15.[address] [facility] Serum or plasma beta globuli n measurement by electrophoresis (mass/volume)Ordered By: Hiren Whittington on 10-20-2022 Beta globulin Elph [Mass/Vol] 1.0 g/dL 0.7-1.3 [facility] Serum or plasma complement C 3 measurement (mass/volume)Ordered By: Hiren Whittington on 10-20-2022 Complement C3 [Mass/Vol] 120 mg/dL 82-167 [facility] Comment on above: Performed at: [place] [id number] Director: Ambrocio Olivas PhD, Phone: [phone] Serum or plasma complement C 4 measurement (mass/volume)Ordered By: Hiren Whittington on 10-20-2022 Complement C4 [Mass/Vol] 16 mg/dL 12-38 [facility] Serum or plasma gamma globul in measurement by electrophoresis (mass/volume)Ordered By: Hiren Whittington on 10-20-2022 Gamma globulin Elph [Mass/Vol] 0.9 g/dL 0.4-1.8 [facility] Serum speckled pattern antin uclear antibody (BESSIE) titerOrdered By: Hiren Whittington on 10-20-2022 Speckled nuclear Ab pattern (S) [Titer] 1:640 . [facility] Comment on above: ICAP nomenclature: A C-2,4,5,29 Sodium [Moles/volume] in Ser um or PlasmaOrdered By: Hiren Whittington on 10-20-2022 Sodium [Moles/Vol] 139 mmol/L 136-145 [facility] Specific gravity Auto test s trip (U) [Rel density]Ordered By: Hiren Whittington on 10-20-2022 Specific gravity (U) [Rel density] 1.021 1.001-1.030 [facility] Squamous epithelial cells de tection in urine sediment by light microscopyOrdered By: Hiren Whittington on 10-20-2022 Epithelial cells.squamous LM Ql (Urine sed) None seen [HPF] 0-2 [facility] Urea nitrogen [Mass/volume] in Serum or PlasmaOrdered By: Hiren Whittington on 10-20-2022 Urea nitrogen [Mass/Vol] 24 mg/dL 7-25 [facility] Urine Cultureon 10-20-2022 Bacteria identified Cx Nom (U) No Growth 2 Days PERFORMED BY: [place] [address] PATHOLOGIST [employer] JOSE GUADALUPE RODAS M.D. Normal [facility] Comment on above: Performed By: #### H BCAB, HBSAG, HBSAB, HCV RX PCR #### [facility] , #### CK, PTH, CBC, ESR, CRP, CMP #### [facility] [address] [place] [address] Urine alpha 1 globulin/total protein by electrophoresisOrdered By: Hiren Whittington on 10-20-2022 Alpha 1 globulin Elph (U) [Mass fraction] 2.1 % . [facility] Urine alpha 2 globulin/total protein ratio by electrophoresisOrdered By: Hiren Whittington on 10-20-2022 Alpha 2 globulin Elph (U) [Mass fraction] 16.4 % . [facility] Urine bacteria detection by automated methodOrdered By: Hiren Whittington on 10-20-2022 Bacteria Auto Ql (U) None seen None Seen [facility] Urine beta globulin measurem ent by electrophoresis (mass/volume)Ordered By: Hiren Whittington on 10-20-2022 Beta globulin Elph (U) [Mass/Vol] 34.4 % . [facility] Urine clarity by refractomet ry automatedOrdered By: Hiren Whittington on 10-20-2022 Clarity Refractometry automated (U) Turbid Clear [facility] Urine culture routineOrdered By: Hiren Whittington on 10-20-2022 Bacteria identified Cx Nom (U) No Growth 2 Days [facility] Urine glucose measurement by automated test strip (mass/volume)Ordered By: Hiren Whittington on 10-20-2022 Glucose Auto test strip (U) [Mass/Vol] Normal mg/dL Normal [facility] Urine hemoglobin detection b y automated test stripOrdered By: Hiren Whittington on 10-20-2022 Hemoglobin Auto test strip Ql (U) Negative Negative [facility] Urine leukocyte esterase det ection by automated test stripOrdered By: Hiren Whittington on 10-20-2022 Leukocyte esterase Auto test strip Ql (U) 2+ Negative [facility] Urobilinogen Auto test strip (U) [Mass/Vol]Ordered By: Hiren Whittington on 10-20-2022 Urobilinogen (U) [Mass/Vol] Normal mg/dL Normal [facility] WBC Auto (Bld) [#/Vol]Ordere d By: Hiren Whittington on 10-20-2022 WBC (Bld) [#/Vol] 5.2 10*3/uL 4.1-10.5 [facility] XR hand BI 2Von 10-20-2022 XR hand BI 2V [facility] [place] [address] XRay Report Signed Patient: Marquise Means MR#: [id number] [birth year] : 1950 Acct:[id number] Age/Sex: 71 / M ADM Date: 10/20/22 Loc: ICXD Room: Type: [facility] Attending Dr: Hiren Whittington MD Copies [...] Vazquez Jr., D.O.10/20/2022 3:22 PM Dictation Location: [place] [address] Transcribed By: [facility] 10/20/22 152 Dictated By: Leonides Vazquez Jr, DO 10/20/22 1519 Signed By: 10/20/22 152 Normal [facility] pH Auto test strip (U)Ordere d By: Hiren Whittington on 10-20-2022 pH (U) 5.0 [pH] 5.0-9.0 [facility] Coding Summary.on 01-16-2022 Coding Summary. [id number] Gh0 bWw+PGhlYWQ+WJ0PTCRaB03 wsKBxfW1YT8vOQZ4NYQKQMY WBHV9QZB2ogFE8WFxeL5Pph iAv TvysbWQjZK24BMv2FGQ1uIk sKBwmhI7ldRLbL5v6BuMmJW 31iT49ECatGSYhGgZ1OiHvv jsgbWFy O7euPgLowBLoScv+PHRhYmx lIHdpZHRoPScxMDAlJyBzdH zaWQ2sOm9sYPQyIAYtkIdyh HNlOiBj z5xsTSLzCIrwWI1ywJhdK0L vxLV5LTKou2u4Jg91wHC+PH XrUMX1eChzGJttb588PnQyf 2gzIAZ4 pNWvKWymGZG9S77yq5E2WTK oOXPlLRP3hUR0pH0tgMpkgy nsN1AvfBBjAxH8RFX8oHDjs C9qxDcr qupakQ0bDhc+K98LFJ7NOZK OYG5VWxr0R9BaJacjpZR+PC 10LVLmMM81sXRefRWje6ayl Yv6RzSr IDPlWBJ9iWipJZmdw1NyMUZ lI48geKHot6O7LMTvwOlnqL ImTgJtdLH1cR9zIGqlneuui 2hvdzsn Bqduq1mmtq61fW26R39mJOk pODLwTDM1GUCjYQUprVxfnt 8ktF1yYp1+RHfvb3mcm0gyg Aq3JoQv KKNqdpTcuOpgIGY2b2TlYo6 0S4FewLkbd3CoDdq8fz43lS Sqr1D9fWP2KGfeFAUwlC1nA WxlZnQ6 HGWqEmCveN65oJKxWUmhQr0 bjDfrqJwzTB3cZNVoqtfkAZ XqeB5bYRUirKLqsKcyRR8pK TBpbjtm f691XhVqIBX4GKPidNFjZ5T suM4nFtUzYZDjCSCyF1LjuI BgKBgoI479PQtuNsU0ZJFxa vDdJ7Cp ABUdePijTeP9f3D1Wz2Pt1I vudxsHME1OErfTSZeOmL5Id NiRjS9Z8XvXob6JXNynYmuX E3qY4Mo RNExngxhwinufGI3GGHaSXT qaY32iJFnEIswXp0gw3M0y5 28CYCvGUGiiV17Ub7bqJkpR TBwdCBU xE3bhucct9rbjrszPoSlXQJ wVDl3CRt3SSPmaXttTrFdIN J5QbM8NSW3nVPblZ7lsRjgn nubkA8t Oyc+P39riW4oJPL3JZQ1uoz gNHIjbvKfGI99PF85E3OaUf wvdGFibGU+PGRpdiBzdHlsZ O3vXrTm u1wvi0RaEBsyJ2NwNRAwCCu jVjo8FXNxUYH6nIV5sW9hIB ScTTzyu8T8wGC6J1WlpyFyi r9mr9xz VVJoFOrjR46icZIfq6Q3JAA lqKM8ZDEmkJjkQrRspS90Df c+AVDvqAdzl7BeWbdrp6uup 2vzwQr7 XrCwKNFycuAbuDmeWHO6w8K uMv73V21cIStbSUTkJWYlZM DqWXBlaUpnac4ciE1hMc0+P GNvbCB3 nWE5jG7dKKQvYhN9TOheM54 3RlIedHNbAocwr6emo5qjqG g6IgScELKqdwUdgNcuOOF9b 4VwLu56 M65tGSgpYPSaGIGhUTLeSBM sbPuebb2qbR0vTj4+PC9jb2 aocl38yB36iJY+TLUkCWL2t WxlPSdw NDTelH6aQAkkUyV0GWIpTcC fzQ06nSHtUBmkJx0jyGsamO blJA8uJUVdurhzj745GhYwc 2xkIDEw iEMzIDhdMNE4S28gi4O8BZK nQTBkNJC9pOX0sC3ekSjmfj ogbGVmdDsgdmVydGljYWwtY RduA284 IHRvcDsnPlBhdGllbnQgTmF cSDy3S6FvMns0ZGNhrViiRW 6xaXVzAThjFf6wxMrohCzdV H0tWXEs dgctx136CkPtu6fdIZQkbAL nEYrqXCS0R01tx4F2OZYpDC UkVAR8aPT9wN8zsMwwlqdbo GVmdDsg koMbhUeuBTnpOEqlH391ZMR byEhjFrPkfbNtCIVswGS0CV 24EQ62vIXed0T9vQP4D5MvZ GRpbmct fnpeyJJ9FDDxHWGueM30Un1 vyOhaWi6gQFVzGPX9OVEujT MwJ2GnoJ1kMyOnXEBjJHNdD 3RleHQt JCpmJ435OWarJcO4SBYjenA sJ7ZqCQMmaBwpMjG1k2Q0Ok 1DT7F8QK59WI36oXTxv0C1j FZ6W9Qs VTQzcwzmvnbhjOL4WTJoZFT qpW13Nz9vxBsnUd0qCTLsQD Z7UPHhgOVkX3LzmT5wIkCjA DAwMDAw G3LtzHQgROmnV498LRmtDoF 9KSTtllZiT7ZwHPMobLtnUr Y9a4N4Dr9TRDs2GV85ZM31u QXww6R1 sEC3M4HlBBNjeufaaohtnBD 7HNQsWWYpbJ46Zq4ctIdbKo 0aGZZgMWO0QUAsfRWaH7Abk F4yRhKs YVUpDZYdV7AefULaAWxhC30 3XSkeRpB1ZMUqmhZvX4GzIS MggIroPwO3h2O6Xs4CFQUiK A27OJJ3 pBJ3KB22SW57D9DoNolmjMZ ibGU+PHRhYmxlIHdpZHRoPS cxCABoJzIjkHwsSQ3nGv6eV GVyLWNv uVdlkTFrJrJfp3jjIXMkWDx oEQ3wkJwqS7TnqLU7ATVwg4 v4Xw16L68qK3GapSP+PGNvb SZ6nGN9 bR5pAaGaZaS2ADgsB792BoT eyRZiGyixu1jtj5dojBj6Ek W3BQWyqrGbwFhgWRK5t5DsL n62M43s IHdpZHRoPSIxNSUiIHZhbGl rpz0ecE2sMf9+YGRttKC3qE L9lC6qJyYmVrW5OPkjN106T nRvcCIv Xgdaz6sof8bwrWl5PsQvRWB rphXqdRdtFHK0j5KbDk02J9 GziJsho2PcRiu6eq58lSWsv 2E4lVH2 Y2ErDYGxblpilLHyoTtkAC7 gKGWalebhLJHmzX8mFMFvV5 r9OgPtNsV6VVofF7VpojM4X DEwcHQg QPqoEVC6C22az1Q7VAKrFXY fUED4aIV6pN8apNacqbyghE VmdDsgdmVydGljYWwtYWxpZ 246IHRv oLemSRDeoP3xRHYptTTusFa xXA2sWSNdhtwuZqLFBFZVCU 6fJXxCOP2uTHqmoKD+PHRkI JM9aEqp DOwiWDEplY3gBWZnW3q3FoL lXhV8QPwxI3IsQPEikucfAn 30jR2dDdSdPtI3NMzaX2Qff mG4NFKy sHIbLKcxWYA6R41wg3J1FSS xXTHtNGT2zPC8vY6cjLfdwu ogbGVmdDsgdmVydGljYWwtY IaqW948 TPYkePkkPiR1DgD4BlD3QEQ 4I6FfRdr5RYItnCteDK7yjY AxAXkhOl0svZeifMzlVC0eP TBpbjtw KFRwgD3nOQXohSZauLdqFL9 lFKGegpvht467VbUtIGV1EP ByoYKvK4FtkX6eEzFeEKIiY TEqF3Fo yTJmCVwcS447AAmvNmC5NYR vrlNtA3QsUXHveCbzQbR5p7 Y4Sg72QIQHCRZwaycpjMA+P HRkIHN0 kIvhMSbwLGVpaA6gELFnN5u 1NiYwNeG8TOpmM6GyMEPwgs ymGq35uO5gTgMaZtS2WNqcK 9JhjuV5 ZVGtyBNrDQoqOOQ9K84cp6X 9QRQcZJTsOEN4fAI6mZ5jyK lnbjogbGVmdDsgdmVydGljY WwtYWxp Z182MNFcxVngNm2dsQK6N7E kKai5FALwiMnyBR5qtPYjJO eaYf2gqVyqxIxdLM5nIHEsh jtwYWRk vA0oYVCbqYBiwBmdAA5yMCU dpqrty505MtAhFXR2HBRvoY ViH0LdyK5lKkXeDBKlOCGlW 3RleHQt FHgsC179VVkfUaX9VYYzgcK vC6FsYBVitZafDfW0s7Y1Cj 7TgITkNHZyAZ78HD84FO99M 3RyPjwv dGFibGU+PHRhYmxlIHdpZHR mVIapGUHbLqLihMmhUJ9eRi 9yZGVyLWNvbGxhcHNlOiBjb 2xsYXBz VVgvHI8hkTgxL5JjdWP7GBQ lt6v8Vf08F09jW3JiePM+PG UzbUS3jSR6yD0eYpMaUlS2U NzoY370 LhDfpYPnXmgyt5myd9qsfTd 1NhKkARQdfsXgzDksFDS9a4 UrLh04B72eVSjmAETdVEVyU CUiIHZh hUahqz1kqA9eTo8+PGNvbCB 3xLT4oS7lEgPaXfB9EJlnO1 13HtIzqAKkLnpcM14dJ2Ckh XA+PHRy Sum5DBPphMzkAU4uoIGgLFs kRw8dOUL1OmYaKdUkKGraI5 DdLNZuvcglxffzpEJ1XZQvS DUwaW47 Ox3ruPdoGm5pXYFwLCE9BTV pbWTiP2CekF6lBjJqVSLiVU LyS8HtuKApGGctO326PRpaD fR9TVOm caZyO6HzKQZimExrAsK2c0W 0Gm7MnGbwcUMcAL5jGhZeTP k1B8IiFgu2TWVlnRoiVZ2ok GFkZGlu Ih7ogTfhyBazDZ5pDRWargq pe064EcJmb6hcLEKvcKZvOE grRCN8U10ww2B4YZFbBOObN WT8bIV2 mK8brUmhqyqpuNVjnIbpqvO lsIwhUWhnNQkzK810AFXhdZ gnVdIDCbb3C9TrNoq6LAHoj AcmYK0x rFWaHCvbYa5jlCwapRbrDT5 vIXEthxpka088PhQhq0moPT PklFHvFCkcKJI6B18xc8Z6O CMwMDAw MST0mHI6fN6mpHbbshlmzBB mdDsgdmVydGljYWwtYWxpZ2 27NKGqdAxzOn1WEzh1C2ErO vc6LPRi dKvdEG4zeNAzYZqnFb9tjYn jvCkmNA2wOWTevhicd776Fv Vlw9tfTXQtwHUmRNygIYQ9P 60lb1I8 QNWfENSgXCP7nGA1mH0wbVq nbjogbGVmdDsgdmVydGljYW tjJIrhI909URPngJjoUgBlc WVyOjwv dGQ+GJ76ov64Q3VoZtvuVwi 6QJEcOKU4dPB2yJ2lOILfFO soh7U4sFZ5P1JynmApta4kr 2xsYXBz ZTog (more content not included)... Normal [facility] AMA Ab Scron 01-14-2022 Mitochondria M2 IgG Qn (S) <20.0 Invalid Interpretation Code 0.0-20.0 [facility] Comment on above: Result Comment: Nega tive 0.0 - 20.0 Equivocal 20.1 - 24.9 Positive >24.9 Mitochondrial (M2) Antibodies are found in 90-96% of patients with primary biliary cirrhosis. Performed at: [address] [id number] PhD Deisy Albrecht Performed By: #### 1 [id number] ####[facility] [id number] [place] [address] BESSIE w/Reflex if POSon 2021 Nuclear Ab Ql (S) Negative Invalid Interpretation Code Negative [facility] Comment on above: Result Comment: Perf ormed at: [facility] [address] [place] [id number] PhD Deisy Albrecht Performed By: #### 1 [id number] ####[facility] [id number] [place] [address] Consent for Treatmenton 12-24 Consent for Treatment [id number] D:127 [facility] Coding Summary.on 01-07-2022 Coding Summary. [id number] Gh0 bWw+PGhlYWQ+IG1ETDAtJ13 keITmcA2XN9gCPG9ODISWHG VJSK9BVO0roBE8ZSojM3Rbi iAv FlfzbBDeAL31YMl4VEE1aQu bNMymhU4miBGwA7j5DaBsBS 51cK41CPisFRBmFqC8UhHbi jsgbWFy J1vrWiCslPKcKpt+PHRhYmx lIHdpZHRoPScxMDAlJyBzdH lmUS1pAr0bUGUkJNYzeZzaq HNlOiBj m4laXASaJMbcPG7jaWnkH3J jnDG5EYLvx0p8Ja90mGD+PH ObAUG3qJvkZRjoc437ZuSxu 9jbTSQ5 lYSbKSbbGVP7H86ip3Q7LGK cXOOrMHK7lBP1fK5wvRjfjr kwF9SchVYoPbB7KAO0vMPmn H2yqLpi cxeddG5dLve+B04NZM4QILI TFR5NHma2J2GqCqcrhXL+PC 27UQFkEB46cDDkmGSqz2tpi An7ZhGi ZUFvZFT2vSuqJNdgc0BdBOZ uS29fjANpd6Q2STMcoWrcgE MoLqVqpGH1kA8lVUpfixfnn 2hvdzsn Xkjpn9ierf26hD46U06lGOy wJFZmRQF3XPGhMULxkZfzob 2cfE5mAq0+ERdft2rcj5cdy Td5DzNo KJYnbtLixEelYQN0y2QuPz1 7C6WbqKkmp6MgDin0bn94eB Biv8R7vAQ0YBqyZPSkwR5uO WxlZnQ6 NQEoLzQumJ31iTEoWXkwOr5 njSmbtNvsYA6iEZIockxzVC IfrQ6vBLPhiKDrmKatXS8zS TBpbjtm q529XqEhPIX9PFQymHZwD6K zuV7lTsErXGZcFPTbY3PnvW XuHXbxR005IYtaFcU2SPFsp wGaH8Mi CXNdeYhiYxR2q1L6Ok6Pg8I fgqydEWK6KWveXGVwGsC6Fx QzCbE4B5OsLtf1QSIguXlmZ A4rU6Ox VXHxhwwefwvusKK0WQNnNMT adW47hNWcDSnbRn0ei0A3y1 22DPZbEICllS82Wk4qzTreY TBwdCBU nI4qnypja1fvpboyRsSxAPB kEJz2JDq4INAunAzeObDiCI H2ByM8DTQ8jTYvpA8urTpgs lrreI1a Oyc+P53ofG9jNZQ7COC3vqs hKIUsjeXkIL96ZS31D4RvDf wvdGFibGU+PGRpdiBzdHlsZ R1xLeBy f8pab7AgTVsoA1VaCAJmPQh oLrd9OQLeJYG5gDO2qD9xJM RyTOman9T8fPK0S9QxajIoc d8dm1ws MKFuEFwlJ38tyVAcq1Z1LOD fyCD0ZAUlbMugEcZeaA24Qy c+FRPtuZqon1HmRelqs6uya 1styNx2 ZbVbSCEertXtwBinZKV0w1M nZb45D55cCJzcBJDaIFAiUN CdRCEkqZlzao3gjL3eZn8+P GNvbCB3 lBZ9bP0oWCJjMkT2AWykF97 4ChRbrVFsPdzop8pbt4htxS b8YbEhRKRxajLukZjsRAW8r 2ZyFw69 H41hNNmdBZDgRYOxYETfOTO ukEkieg8ysW1hFo1+PC9jb2 waho15sY95aBC+BEOrVLK3o WxlPSdw SAXhbS5bMPqtFsS3DQAzZdW iuK63mZYnNNzqJj6crGbeaQ wzNE9vZXXdqtrbw966EyJps 2xkIDEw eQReCEddVIZ3T57km9C0TYG hSAYjMLX9yBW2zD5guNlwxw ogbGVmdDsgdmVydGljYWwtY MwiJ965 IHRvcDsnPlBhdGllbnQgTmF eHUm3T0ZqYdu6WVRtzJriWN 2ocQBoVFdoEw9xbDzuqModE O3uJQEd assgy260GcHmc3naNBEtvAZ hNXzjJSF2V07ak2I4YZCwVE VrVYW7lXT8bT7qiUclsllzz GVmdDsg vfQcqAspOPphXTqnC950VIB frNywKuAxnwWnRCQyrPB2SL 40RW73zHCnt2J9qID7M8ZnK GRpbmct lmxpyHQ9KNDhKLYxdQ18Ty7 pzIzdIf8qEHVrSMG2RPWxjS IoL5YhoP6sWbUeTLRoOUBnZ 3RleHQt HIhnG431GJisGiJ8OZFakiC gQ8DcCOAjfOaiScX1f0J8Vy 1RX9A6TC88ZH80fEVsh2L3h IR3R2Kj JCQsphwegiolgQB0GLZvYFB vcZ99Bc1czTtmMw3pHSPjAD C2XNApfMOmL9FcvA9fMiXaE DAwMDAw E6KrdRQxCMeyE909NXmbSzX 2SVHfxpXzP4SgLYRraJkhXk I5y9Q9Vk7NGXm7RG52IM82t ETkp6L7 hYM5D7HrMBPhiwwdoqfqxXE 0UGBhZQSxdU48Pb9afEisYq 6eSMQbJQQ9DOEtkHFuL9Fas Y8cDbOw ZXHnWIOiO9PpqUGiHMeyM54 2FTvbZsC1HDDirzKeE0FkMT TpbOhxBhC8p9X1Hh3VMCEhI C68GWN1 bDF6FK66NX94L7XfDwmszWA ibGU+PHRhYmxlIHdpZHRoPS gySRLbXvHruLbuSZ0uGo8dY GVyLWNv zGfavWYtIyNzl3koWOYaQJk kVO0urQxfP0YsfMX0BGDpa1 i4Qz39O70uU6QwqNS+PGNvb TH8jEM0 dO6aLoQfIlS9YVjbP423DyS fwMHnArpnb9mkl8tpuDi6Ut Z5TRUtswSxvZlzIXB8h9LkO d46C11l IHdpZHRoPSIxNSUiIHZhbGl mfo7thM0gPs8+UNBnsLE6kL Y0xZ6nIlZsCrH3GHomP818B nRvcCIv Gbouv5pcc2yziRy5DjVoWIC ijvSdbJzaPSU4i6ZzCs79M6 VuzIcjo2OaAbr3lx31qEDnz 7N7iEH4 P6IgRHKbaytvaBUvjUkrDN7 nKSMgvtifOTDxdA2hKGAvR2 i7NkPmIrE0MGbgZ6JrfvZ4O DEwcHQg GJatKJW5X45nk0K2HJQqWBQ hTCV5lWX6lD8uaWhkkdtawL VmdDsgdmVydGljYWwtYWxpZ 246IHRv qAmzJHTjxW5iNCCmqDZspNj qJQ1tJLYtpnveKtIWFVZJHL 1kXLoFQS3tOUjufXV+PHRkI IR6gOrk QAlrQXIkvI3lDZIaD5k6ViV sLwT6KEkiQ4OuZXKgwbmwYf 04lB2mNpXfYjW0HQolM8Vlz lQ4PPIw lWJgFEseFDE6T34ld9O2NWF kZVObIPV9gNT5tU7fpGrese ogbGVmdDsgdmVydGljYWwtY SvbF186 QGEhoGwgQmG5RxL4ViA0YOG 2I8LzUbw2VSMtjHoiHE6nbB WbQIufAh4izWzjvYxnLO2rD TBpbjtw OMRosU0iIUHetBXzjLaiUP4 eKKLgowzxq410DhLbMGT3AH QghYDaE9ZcnH9vOpCdOYSsH NOjB5Qm jVJhENqnI752QPuxWzC8WER elwRkD2ZjDDFxnKmuRbL8s5 I2Hp21VACPXVUvwbbwtCL+P HRkIHN0 vTvdTIevCLQfcE2yQFHyY0z 8VtDqKoP7WEicE9SwHVNtor efQm50xR0fHiAqLcA2UNezZ 5FzsyF2 QQDxlIYvGQcaPOS9S45sg2C 2PNVaDMAnVIT2rZL3zC0yqQ lnbjogbGVmdDsgdmVydGljY WwtYWxp I241XSHuaCtvBr7zqET7Q1J xNqk1FMBqwEjpUJ2rcRIkCD qzGf0szSayrQlnYX4dDKAtn jtwYWRk vV8pLAEmlGJidHctAH3yODH cjafyj432EiVgUCN0BMBmaM KzJ4KkkS4rUlMsLFFjQVCxN 3RleHQt GWbaP322PXnvCcP8YKSihnZ zY7HaHZZveBdlLkE6e9M1Lk 3UrVQvATXeCD13IV31OK40J 3RyPjwv dGFibGU+PHRhYmxlIHdpZHR dXRmeVXQfWvBybQgfWB2bTx 9yZGVyLWNvbGxhcHNlOiBjb 2xsYXBz RXraCB3rzArjE8MzqOK6ANJ ya5c2Lu11C48uF5OpeIG+PG GqoHZ0xEM1yL2aHhNxHhQ4T FucP279 LfWusDIuHlqwq3ezc7fyhYu 3YkCmTBKlnhBnzOlcSCJ7f0 GkQy18S51yXRblMTGaANAxD CUiIHZh dBpwcr2tqW9xZu9+PGNvbCB 9nSX1vG3wYuOmSwB1ZXwdU9 23YmIkcXAsTjjcD61kJ9Ynw XA+PHRy Adr7DAIwjTxuAK9yqMYkZHv nSw3oNSG6WjFtHwCnVMsoU1 IfDRXabncuenkolMH8YDIyW DUwaW47 Ww9lpFgyKa4ySSIyLSK1VIL wuTWiS7DmvM8fMlNxFJJtPH RcS9GomGKtDTxhX863YWfpS qA8FQXw jzYhW2PfKPThtMjnXaG1w8M 1Cn6GhKdktKIwHW1qWaNqVG u6A3WiTuh6UHOaqStcGA7dn GFkZGlu Nh4nuPghvAbyRL8zQUJswip jv466XeQwj6fjHOSjtSUcPO fhRJY8P55gy6I1YFLtBLVzF BF6vLD1 jR9xtHkqysnwqRZwgIbgudL mwAhcXQqhPRxpN855GUZumF ogGcLHUdf8K8SjFhp8CAFsc BpuKW9g bPRvCLnmUw8nuSwxuQwfVU8 zTWOvrhths920ZxJjj7ubLT UdtGLrRBzqYNT6G05rk8G7T CMwMDAw MKC3jIG0hG0viKkakpwnqTS mdDsgdmVydGljYWwtYWxpZ2 58OQZxxYjmMo4EWpb4D1CvD oo2BSMo xNneDI9iiIUkMKedQw6pwMx zyLwrAG3iXGWtkzupb661Gi Xpl6unARJhuCQuSMcwRGB8N 22xt2Z9 XNDqNUSwAYE9bVY2hL5bpEc nbjogbGVmdDsgdmVydGljYW ujABliA839LPEgeAglNoQwz WVyOjwv dGQ+LG08ce14L0UcFujcXch 3SVBsLEQ2hSW1dR4gKQLmMQ hjd5D4uDC4C2EktnVdji6hn 2xsYXBz ZTog (more content not included)... Normal [facility] Gastroenterology Office/Clin ic Noteon 12-31-2021 Gastroenterology Office/Clinic [...] patient consented to recording for virtual documentation writer and provider reviewed before signing. OMARI: Viv Merlos. Follow-up With When Contact Information VAIBHAV CERON, LEEROY Rossi MED In [address] [facility] [address] [place] [address]- Yaniv (more content not included)... Normal [facility] Comment on above: Result Comment: Elec tronically Signed By: Enid OCHOA MD\.br\Date and Time Signed: 12/31/21 08:44 EST\.br\Electronically Co-Signed By: Rachel Stokes\.br\Date and Time Co-Signed: 12/24/21 13:14 EDT IgA, Quant.on 12-31-2021 IgA [Mass/Vol] 159 mg/dL Invalid Interpretation Code 61-437 [facility] Comment on above: Result Comment: Perf ormed at: [facility] [address] [id number] PhD Deisy Albrecht Performed By: #### 1 [id number], [id number], [id number], 5582219, [id number], [id number] ####[facility] [address] [place] [address] t-TRANSGLUTAMINASE IgAon tTG IgA Qn (S) <2 Invalid Interpretation Code 0-3 [facility] Comment on above: Result Comment: Nega tive 0 - 3 Weak Positive 4 - 10 Positive >10 Tissue Transglutaminase (tTG) has been identified as the endomysial antigen. Studies have demonstr- ated that endomysial IgA antibodies have over 99% specificity for gluten sensitive enteropathy. Performed at: [address] [id number] PhD Deisy Albrecht Performed By: #### 1 [id number], [id number], 7551736, 2755845, 3181299, [id number], [id number] ####[facility] [address] [place] [address] CHEMISTRYOrdered By: SYSTEM SYSTEM on 12-30-2021 CRP [Mass/Vol] 0.6 mg/dL Normal <=1.9mg/dL [facility] Gamma glutamyl transferase [Catalytic activity/Vol] 50 [iU]/d High 6 - 48 Int._Unit/L [facility] Prostate specific Ag [Mass/Vol] 1.1 ng/mL Normal 0.1 - 3.5 ng/mL [facility] TSH Qn 1.70 m[IU]/L Normal 0.34 - 5.60 mcIU/mL [facility] CRPon 12-30-2021 CRP [Mass/Vol] 0.6 mg/dL Normal <=1.9 [facility] Comment on above: Performed By: #### 1 [id number], 5064945, 4406926, 5002450, [id number], [id number] ####[facility] [address] [place] [address] Consent for Treatmenton Consent for Treatment [phone] [id number]#1.00C D:127 Normal [facility] GGTon 12-30-2021 Gamma glutamyl transferase [Catalytic activity/Vol] 50 Int._Unit/L High 6-48 [facility] Comment on above: Performed By: #### 1 [id number], [id number], 0565470, 1711717, 7572723, 19129333, [id number] ####[facility] [address] [place] [address] HEMATOLOGYOrdered By: Shanell Lorenzo on 12-30-2021 Sed Rate Automated 17 mm/h Normal 0 - 19 mm/hr [facility] HemeAutoSS PSA Totalon 12-30-2021 Prostate specific Ag [Mass/Vol] 1.1 ng/mL Normal 0.1-3.5 [facility] Comment on above: Result Comment: The concentration of PSA determined by different manufacturers can vary due to differences in assay methods and reagent specificity. Values obtained from different assay methods cannot be used interchangeably. The methodology used for this result was chemiluminescence using [employer]'s Access Hybritech PSA reagent. Performed By: #### 1 [id number], [id number], 8039246, 9040895, 4169186, 77609130, [id number] ####[facility] [address] [place] [address] Sed Rate Automatedon 022 Sed Rate Automated 17 mm/hr Normal 0-19 [facility] Comment on above: Performed By: #### 1 [id number], 10925102, 7292055, 8296872, 0702508, 39084947, [id number] ####[facility] [address] [place] [address] TSHon 12-30-2021 TSH Qn 1.70 m[IU]/L Normal 0.34-5.60 [facility] Comment on above: Performed By: #### 1 [id number], [id number], 5284058, 3109876, 1738465, 04217827, [id number] ####[facility] [address] [place] [address] XR Chest 2 Viewson 2 XR Chest [...] M.D. Transcribed by: JACKIE Technologist: FRANC [facility] Coding Summary.on 12-25-2021 Coding Summary. [id number] Gh0 bWw+PGhlYWQ+BW8EIVHuY84 jjOOvzI8AF5bJAP7XRXITCO HENR4ZSY0adJK4XKtmO9Vht iAv JaagzLKgZX52RBp0KIB3yFg yDVqmhT7fpHTqP2e3VjGhET 13pT37RAowYFAjTsZ8GuXpf jsgbWFy F4zbOaZsdRYeSgd+PHRhYmx lIHdpZHRoPScxMDAlJyBzdH hxZS0cGl7hSVQhYLYtpLhuv HNlOiBj z3plJUQwWNbyVO7djEohP9H hxGL1WHZmm2j2Ok52bQK+PH EmGRK4yEitKFalj892YpDop 9laITA7 yKDcBRyjBHT0R43tj4P8LWS pEPWhVPK3pWK1pE5toPqqcp oiI5JcvBCyLjP3BSZ4jOLip S2otVym aazhxR2lSol+O93ZYN0SYJC AMS2SWrj2Y2TgZxtkmFD+PC 83ODUjCS53cMPnfAJow2yie Od6PpPb JCRdOJC6yXneHCliz8CuDSB mQ14fgTDhx0F1IGMmgQhvqD VuZlAleNF9oB3cPFzykycgz 2hvdzsn Bptsc7uruz63gN41C06xSNu kSGStMUC5SHIeHCIrqZqqde 5neK7oOz2+JIauf4ydk3tkb Ne6GiBj AKHgaoQonXfxZWM6p3LkGc8 6O1UrdGszv3UrRjo2gi64nL Ybm5O9uKI1YBrsDPBuhX2iO WxlZnQ6 LNHjTiGqgB37wQLcCUxjFl7 vwWozvUvoLN4xJJMbfhkyBJ HprS1cEUZtrGPukPvwWC6wZ TBpbjtm a046QbQfZTW9GHPkpUSpL0E raG1uNpXeLWAxVUHrV9XspX PbXUqtK968LZhpXuC6TFBdt aPbA1Jx OAObxBsmYmE0p1G1Rs6Yu1R yzyjjLCZ5CBptJIDkUnXaBc FnBbX1K1KiMld4OFFpmXyeJ X2gX6Cb PXNoeppuaalfuKS8IXMoLAG uqJ01eOPqLSnbBe8fr5E0i6 69NOAoYSAkcV55Ok3qpZsxK TBwdCBU nB8oljueh5dcrmfeEzTlBVI sGFe0TBh7XQCxfZhjPdVnRQ A1UtI1UVZ1bUGvuS1auEnlt qnbuI8v Oyc+K48sgB0zNXM2MSG9cgg uMHPehhSkDI68EL78K8AuWn wvdGFibGU+PGRpdiBzdHlsZ H5eRsVq l1iij5HnKBdlB6KyUJCuHBu hYfk9VEZcJSK0sHI3oZ6gJF CjQZnrr1E6mIZ1X9BwraJyp e5pi6ud WLWrHNfgO22jxJYls8Q3GUT zmUC7ZRWjqCzjSqZvmN11Fm c+MILgjZjlj3IyNpotf6dau 8vifJk7 LeHwTDOccwVmvMtaLVM7p9I eZb46B12fTZegEZDnZTZkVV VePFKvjAqxhy3klO6lZu9+P GNvbCB3 pFQ9iC7fYIMtLoY2XNodJ64 5SeYqyHLbTkzcg2mdd6cfjF u6WbPkYJBenyHxzQmkKGK3a 2XbEp93 W88pUCxrKYDdNNBpRQHrFPQ uhUmbgi4icI9cLu8+PC9jb2 ddgp53oD60hPT+JPXyHEF0u WxlPSdw CGDpgF9oPVvbMhQ0VJWdVwT ksD98rLLuLYlqAw6hzXtgxW kyET9tTNYruylhk972MbKsa 2xkIDEw dDAaKDjgYVQ9L79rj3Y5YHR eSEDhGLT8qDB9gC9xaFqoev ogbGVmdDsgdmVydGljYWwtY PhtJ082 IHRvcDsnPlBhdGllbnQgTmF uQPq5H1YjRmt6UNBesVqfWU 9dnZJvKZriBw3mjAjdmElhA P9kBOMg ioron707OnBlc6fbEMFrcJD kDHeiZAJ3G60ad0C8PFKgJP PnGOL6qFS0cN9ymQeltyjxv GVmdDsg olYveOatZWdjFDwxK240BON pxCeuYoRvxxDwGXAecNN6WM 60NB43oDOsq8E1kRT5Q6VtH GRpbmct ivmotCR0NMKqNKNxyS45Pu9 qgXpyYa0eOGOvFUG0PIHaqR TgY4IuiE0qWsCiNGTeVALxL 3RleHQt LNokA959SUvsHdX9XAPhrpJ pL2KpCXIxoFxuAzL5i3P9Vb 3DS8S5CA62MZ12vFTep5C5k KW9N2Ip FITigvyebxjpeHU8TCRtNDK qhB84Io6jbIunBg3wGGFbSR U3JLLvkJSmN5ZpgT9xYnGbW DAwMDAw T2YecULhWIbmJ720DKahFfU 2VYJjuwOgG0MmOZTnxFmyIw P5o7T4Jq3DVMs6AB34FW35b TDvy6Y6 uKC2K4GsTDLwihzkxqhysZD 4ZRTfOIZomF58Pn5ypIexGg 8qMCHkHPS6DAMagMFhM6Tqj P0tQvRq HRMgQWNoA4SfzPOtJTilW60 5KYyaFxY7XLLcusEwL1XhGD VkzBplSzA4w1F4Es8CIZYaA R03MKW9 pUB9HJ41SN02A1VnHxfxnVO ibGU+PHRhYmxlIHdpZHRoPS pkIRYwWoBkvOcpTA1mGi2zW GVyLWNv hYxuoSDpCeHdy6nkXHBwOJn vGV7zpSgbZ9TylCD5PBAxw4 t1Eg64Q13fT8DgkJL+PGNvb YH1yFX7 jY8rMuQtEiV4CRoaG157RpT xxFAlFullr7ilm2zfkTn1Wy O1FSZiezIdkZwsZMS4c9KvO b74I35q IHdpZHRoPSIxNSUiIHZhbGl npe4onV5cJn1+JMQhqBU9mJ Q1pF9iSkOwVwX4DGzgD038V nRvcCIv Tkoug7alv1lyfTw1DlNhGJO vqkBicTrwNPO1h3LiQq22Z7 IcqEuov6CgYqw3hp48hXMoz 3I8bVH7 L4WsYIUsnjewpMVuoDsiGI4 rBWWmyisfZAGvkS4rREEsQ6 a1KnSmInM4JGarP8MokrO2A DEwcHQg ZYfvNSI4X47ho9E4ONAaYTB cRRO1mKJ2wX2wzKkdaegueE VmdDsgdmVydGljYWwtYWxpZ 246IHRv eYqxBKJyuC4hAQOjgMYshJq gFJ8qAUCksliuGrVIVADEBU 1wXRoGQF2iZVuxySX+PHRkI MH7pLuz DHjjQRUeeD6fYOEeH7b6FiC mFhE3ZJvnY6ReDZEpyyvdCk 07xB6tGzExVoU7FFozN6Lol gP9FWOi lXBcVIzpODW2F15lk1U8IAV oHYJkFTB8lVE9pV8yqVdmzs ogbGVmdDsgdmVydGljYWwtY LgqZ042 VFPyaPcaTeH7NiM8ZdU6CRH 4L7GcRqq4ABMqaGcmQS6ygZ BjDUatQo4fgAxrmIzhVG2iT TBpbjtw LWNtlI4fHGVbpZSxwTmrSC3 mFQVpkdhal789OhEkTHI0HZ HeiSSuD1ZqrJ9kEdIeNSQfT GNmV1Kq gFZlUQjiE879NKgjNvB2EQB txgJjU1XwGZOffXdiBjM7m3 Z0Ap78PMNEPIDnkcepuAB+P HRkIHN0 eWcqAWmmIILbyU8wSHDyA6i 1ZfFaJrJ6FEmoK7LrBKNsiu nhZn17mR4kKsZwMyN1YLmfG 3RgbkQ8 FPWzvVZiGGxgPKT4E25bi4I 3IVPaJJDjBPA6mOV7pW3dqU lnbjogbGVmdDsgdmVydGljY WwtYWxp K563GMTdrMvbCn3xiYX7N1G tYvg0SVKjhTekPW2oaKZiTB rcIf2smBccgIfhLL9aNXExf jtwYWRk eU8dTCLkcMTrfWqhAJ4vQPR aomshl936XrJaHRK2UPAikE GrT2ZijZ9vQqDzCWKtAPMyG 3RleHQt KVtnM779LWbjHbM8AYYhrzR eW1WtSBZqpXozGgZ6a7R0Fg 2HjSOxBWNkPB85GR63XP05X 3RyPjwv dGFibGU+PHRhYmxlIHdpZHR rCRzfNJHkVqIqeHitMK2fNn 9yZGVyLWNvbGxhcHNlOiBjb 2xsYXBz YInnCK1qtIjyN6JlbFO3XQH ra0k9Ft92X56mH1EhzET+PG RyxXU9mRB7nF4gIiZdFdQ8Q YurR316 NbIpzPGeKhvec9qax5jekRg 8HuHeYUZddlHncMciFGP2t2 ZhFw49F49cKHrbKFQwKOIwS CUiIHZh oZwdbf9mnW1cNh1+PGNvbCB 4kTW4fV3rEhYrGtR6WSceI7 17VzHxdBVvJyjlN76sY1Xbo XA+PHRy Hhw3FMVjwRadQQ2wzIVqXWf kNn5cIRQ7QiXvUpYuBSheU8 ZwAMTrcyasnkmiuMR0XREiC DUwaW47 Py7xcTziQm7rBBJnYIL0ONX siSJrS5ZsrV8iWwDsCFMvDA AgV2DmtXKiPQpbK900NMmqA uU0SLLz xfIrR3MjKUZjhPauUwE3a2L 8Cd8QlBdsyNNfCD3gAlDvJC m8X7CxLsh1UOCbxHhvZS0rc GFkZGlu My5liAxgzVjyXX2yDDQtbzv jf005MsPez1wjIQWcnWXxFW qeROT0J63kg1G6THVtNHSmA IO4dTP3 sJ7tdQbkpzrwwZZhyOcnazV ypGmmJFxbFVpfO217WPLdgK bjYsWOYzj7H4BrGgt0KTDlr WcjZK2z wBDpAXteOd1bcHitfKojYC5 kQPTwjivaq682PkPel5sgIN KonVIlNVbzEIE7B11lh3S3K CMwMDAw RYH7oHH7fZ1zvDzutdmilME mdDsgdmVydGljYWwtYWxpZ2 31TACtlAhtZw9OGio6Y4XiW ej3EVBc xVjsFX4ocABqLQneRn0xkUf ciOtfSP2rSVBrntinr061Tr Ihu2giMCWleDGqGSdfHON8S 10zn2M0 NPZvGNUzPJQ1pYJ3cD6waOl nbjogbGVmdDsgdmVydGljYW jfNFcfQ895NWKhhBjbGuFjq WVyOjwv dGQ+DR57fv73O7YhGwdmZsc 0KWSbMCE6mBH7kK1wHRSlBD iar3L5cVP1U2DfrfPafp5az 2xsYXBz ZTog (more content not included)... Normal [facility] Ambulatory Visit Summaryon 1 02-23-2021 Ambulatory Visit [...] Rossi, LIZ When: In 2 months Where: [facility] [address], [place] [address]- You Need to Complete the Following C-Reactive [...] Abdominal pain Duration: 10 Days Pickup at [facility] [id number] Unchanged methotrexate (methotrexate 2.5 mg Tab) 1 Tablets By Mouth Every 7 days Unchanged omeprazole (omeprazole 40 mg Cap-DR) By Mouth Every day Unchanged tramadol (tramadol 50 mg oral tablet) 1 Tablets By Mouth Every 4 hours as needed for for pain Pharmacy Information [facility] [id number]: [address] [place], [place] [id number] [phone] Medications and Immunizations Administered Not Given influenza virus vaccine, inactivated, Postpone due to refusal Allergies No Known Medication Allergies Problems Ongoing - Any problem that you are currently receiving treatment for. Black tarry stools Change in bowel habits Elevated alkaline phosphatase level Family history of colon cancer Generalized abdominal pain Normal [facility] Coding Summary.on 12-24-2021 Coding Summary. CD:[id number]:[id number] Gh0 bWw+PGhlYWQ+TO4YSAKqE44 egJEoiX9HS4dTLF5THBUVJI NBTB7OHX1rxBQ1GDcpC2Cko iAv EogotKNjIO74KHz5STH9qAe yNLtkuS0kmYOpG6p6PdAdSB 37jM83MSmmVAWvClL0EaFdy jsgbWFy X4jnFwPuvGXlAwe+PHRhYmx lIHdpZHRoPScxMDAlJyBzdH puRF9eYo1xXVEpYJCttNreb HNlOiBj q3klLUZyALxdFL2xmKhlR0O btMS9YWKsc2d3Vp41rCL+PH AzDIR5dWoiQMigp079DaLci 6yhKHJ0 sNHnPXpsTOZ9Q21cx7N6CMM kGMJpBEV0eEK4tG6ovYqqup ybI6AoaAKoJuE8YTG8uSNam W6qnDhz mcsjdM4qVot+K66VXZ3ZDQB ZYJ0GWvh2G6NuWvfnpYD+PC 02TFUjHI89mMNocAVuo5vtd De0OiKs RAUnOFY6qRtxPEpxt1BvHDR xJ22hsDHrg6S6XHZyoXbhbW MyTaLifYT9zL6gPRrhgjkex 2hvdzsn Xahro4dilr15jT45N92mUGz bWSIpCAA5BNHiGTMgrVbrmj 9fiT2wUb3+IRsnq1ztw8cxn Aj2EnTq UVLduoTmeYpsQUE2k6VlEw0 6R5ZtvJrqw5QyOnh9nz05zL Kxb9N3mVO0UCxjWVFknH2wU WxlZnQ6 BESgWqOqtB31dULhIAwpHr4 qlYknkUewCL0gSCGucqjeDX DqtJ5jTGZrwHJaqOkaSX2hS TBpbjtm w195LqFrRJF5XDPioGNpS3Z fnI7rHaQrYTLoRHIdP0GlaD LrSEduW444KFjnNmK3ROEkc uBtK7Qv ZKObbKigArL2n7M1Th0So4Z rztxnSCI6HOdlGUEtKpUtOd OuFjK6K4MjUod5FTFkyYsyM L6zS3Gd BCElbzvbwpfhkCH2EFKgIVO rrV44qJQxOGfuOz0jl6V8w6 93KAWmSJTihZ18Ve2lmBzpX TBwdCBU qM3rxxpbp9czvwmcVmUoXVF uURm8KAo4YAZfbBokPzAhHZ L6GfR5HQH4mTZsaD0ehQkjz eqyiI0p Oyc+Z05roB5lLZX3EZV5bcj zXJXulqLdFM56GY19E3YbHy wvdGFibGU+PGRpdiBzdHlsZ C4iDwPq t2ebp8VfWRvcI7BeYPAhMVi dYqm7TITqJWG4sQR6aC4jNF CsKIpmr3B7oNN2V7JmbvPlo i4lq4cf QPMmDNzxB17mhLAmr4L6BSN ibLW8XYPcfTcnVpKwnE41Rf c+DQJyqNiem9AtQgdwp0sdp 1ddcDs2 PnLxTCKzyhBvsMakCNY7d2P zId79T15hWGyuYHJkOOXnJE FvKTHjoGeizq1mtO8tHs3+P GNvbCB3 qMH9hX5fFYZwZbL0GUeyE08 3LlUkfDGiTlsbu4ymq8xswA s2OoCvPSYsajPtzBuiZPE1r 4BmMq42 J99nEGxbPXUvGDGhXZXhNDT tsBvxtv6duB3aCr8+PC9jb2 zxra60tW41eGO+NPHqGSI3p WxlPSdw AMJewB6tQLemLwD4JDUbPqW waT03vSRmRUeaPw5gkAyljO qbOJ7iPHLndmcgl421JjMws 2xkIDEw aCYbMJfgNWX0L54hf1K5JTV qEIGyJFQ0rAG5sH7aiUvfhf ogbGVmdDsgdmVydGljYWwtY MfkZ378 IHRvcDsnPlBhdGllbnQgTmF mQUp4Z3DqKjv1WTTucZjfNK 3sgDLnPLovJh1nuEbdkWetF D7iFNVu kfxuz582CpZvu5axOSZpaVK pMFooWVO6G65kl4V8OAHaKF TjSZH2iBI8dW0phAiiukchp GVmdDsg xoKsfAcoOOtxRGgcU544XEN kdNioOlFtkrIbOZBpjRB8UZ 80SI51pWPlg0Z9mGT5P7ZgJ GRpbmct phmjqQM9OQCeBGHpdS39Tw8 foZtvVr4lYDVdOPE9IHEclT AxY1SkdR5nJzVyGQUpPGJhU 3RleHQt MRrqB318HAzkSxC0UBYyzoG hH7XiFHJehRwgWpU6m3L0Eh 7CP3F8WL56DR15rGLjr0O8o PU4A2Ef PYMqnxyjjbnbsOH5RBVoHVF ciI34Jf4lwBbuVz9kACKlHB U3XSZquBMlR1VaxL0zTgMnL DAwMDAw C6RiuCQdZHuqG331OWfeGtJ 9ZVObpuNeO0VoHSOfoFfpPd T1o2V5Ru9XTRr8XG42MI70r QKyr1F9 hNT4X3KoHZDcrofpqsacwLW 2ISBeEEBjvU49Ul3rrDhrSx 7uIWHsHLD4HPDkuWKrY6Pfr X9kViXi HGJeCVRkU4NjhONwXYknX55 1MVyhOyJ9IEJpdhRyA3VeSK ZuuLvlWyZ7c8P2Nj0YHORfP X89UUC6 oAI5TG55LL24Q6TwGnkhmSK ibGU+PHRhYmxlIHdpZHRoPS gvCHRaDnMnbYrxEL7nYm6iB GVyLWNv aAssfITiUiNss5muVNOjWYq hFC0dbQggZ8YxhWI1MBSdt1 k8Gg38B76kP3CwhMJ+PGNvb IY4jCZ6 bM9rAoUjGaB5MQksJ733NtF ahUHvJwydt3beh0wjlVy4Sq D7NDCnftWufSqsCTU9u8XdO r66G63l IHdpZHRoPSIxNSUiIHZhbGl dva3wiD8iRq0+PKBdaTL8kY A8gF2rAtGdAcG6HEsjZ618Q nRvcCIv Lzaog1pgz5melRo9KbWvYKO frdAysIfhNWK5b3EuYi85K2 QseVmcq3RxXdp8fp74jXXwl 7Y8mWD8 C5XvJZLddushoBMhnJlzTQ0 zKUPslzhcVOJviC3zWIFqJ2 f8HjFuKzJ4ITbyB3HsevA1K DEwcHQg MBgfOCM4G69ys1Y6ZTQkFQC zXNC9oHT1iS1onUjbexxbpD VmdDsgdmVydGljYWwtYWxpZ 246IHRv cAboTCYraL4xHBTalIJibYq eHB8nIFHvxsdfJfTIHRPZFO 2cPIdVWK5gMSibfAW+PHRkI PP9gWrc GYauGVTyhT6mNNEeR1u6OcK mXuB9IAthK0AeFUEhkexgPy 90nU4bBgQvQiH2XGvfJ9Mhs tS1GZAg dJYxGQvqQIG8N91zw8D4MIO rTRAkQTE4qUJ3dA5zxXvfyc ogbGVmdDsgdmVydGljYWwtY HacP856 NFNfkQjaRhK0DvU2GfP2UBD 6B3KqGqr8HQDwhCesMX1boE FdAMxzFq1lcLgtqZbpLU1sQ TBpbjtw AQFktY6vOWRrsFLhcKdbVW8 kVMNncbxuy200QaTyKNN0AI JdoZTgR9KkoY3gMjOkWIFpW BMxX2Qt dQMlABfuM619VDxwHwC3LTP hmiZmI4NwEEXxvPqtFbA2b6 V8Yc49TIITRGPkfatdrWD+P HRkIHN0 qJybXMlwPFYuoN7uNRMvS4x 1TtLrVkY7EOkiC2AcWOWtxo ejEh26hR3dEfZyVgC7HHuhZ 2HhcfM2 VHGbsUDqVAlkVTF0R87tw4Z 7BBVjFAZeCCR7nIR8jM8mgG lnbjogbGVmdDsgdmVydGljY WwtYWxp E824TMYhvHmqDl9hqKG6B3D zOsn0XPFqkVarAW7qrZXxHU siBz9nrVpxwCzdMB9hJBWmm jtwYWRk oV0wSDOddKQylDmwKK1rZTK toqhoh455YtCpAZE4JGFboM EuO3KeyM7bTvObGLWyJGBoE 3RleHQt LFtrM189QKnqVkE8CDOfyhH gL6SqEFVjwTmbZkB6z5C4Pv 9XpFCbJTVbAM86SQ29KA63E 3RyPjwv dGFibGU+PHRhYmxlIHdpZHR yQOtwBVEzRiKsvKlcZU8qTj 9yZGVyLWNvbGxhcHNlOiBjb 2xsYXBz VTeuHH5nyWctH9ThtVX6TTI rs0n3Wg40K72nF7QxuXY+PG MtgXH8rDL3bZ8fLwOkGqX8J XlmR305 WeHxkZWtEatlj4asi9savPe 0MfPvRYJgblBhaIhfNLW8n4 FbOe48T79cZZnhPOAmZYRwN CUiIHZh zIlquw0llI9xDv3+PGNvbCB 0wQI9sQ7zWaJjJsR4OBjuG8 30YcCpbEDrYjctF87lM5Qkt XA+PHRy Dly8AQOwnBhoBQ5kkMPmKNh jOj7yBZB2IoPrGuOhNPteT8 JnKAUksxxhxgbpvOY1GDMxQ DUwaW47 Fz3rhLwpUm8fSFGwYST4WZP fwFFbD0OdsW0mOpVfPGJbVO HdV7PdaVQmAJmrV817MDruE wD8PJTa sfVkX2RdYBUkvMlxOiA4o8N 6Hy3KaMdwlHUwYD4iYzXmHO b7G8NxLim7ZUBbmWpdUO9gw GFkZGlu Ew2flNinyOvwQR8bSFItxwc zx383BuZxd0mrFIIzdYYiGY ygWAW9M36yf1H9VYFeHZCiF UH5mYS4 xB5qrGfdvtfkiQQxmTrjjbJ htYnqUCyjBCtvM367KBGksD aoDeHENfc8V0YkLrt0ENQxz KipDQ6y lMTyETuwDl4vcCbwfCgoLO3 tCUXzxkcsi038UjTqu2zaDI KdmPMuIZmxZOY2J17fs9X8R CMwMDAw PAD5yKH6gL7bfXseuvkbpUB mdDsgdmVydGljYWwtYWxpZ2 17JTMcbAdjRg4WDuo4C0AtO vu1VXDl zBgzHU2mfTGjDDiaOr6leBe zbWjySN7mZWFssvchx427Lu Zzd3qkMWLdaZDbOKzgQTR1K 95mu5T3 EVPyTWTuRBM6mAJ9nK2wbSd nbjogbGVmdDsgdmVydGljYW mjQPbbE821PKSkdPlrElSkw WVyOjwv dGQ+LY32uv24U5PwDtrsThq 8ERLmUAX8cNX4mV9yIYSxEC nxf8E0tYX3T3GvtzZbfl2fl 2xsYXBz ZTog (more content not included)... Normal [facility] CT Abdomen/Pelvis w/ Contras ton 12-19-2021 CT [...] Oral contrast amount in ml's: 900 Normal [facility] Consent for Treatmenton 11-23 Consent for Treatment [id number]#1.00C D:127 Normal [facility] CHEMISTRYOrdered By: SYSTEM SYSTEM on 12-17-2021 Creatinine [Mass/Vol] 0.9 mg/dL Normal 0.5 - 1.3 mg/dL [facility] Remisol GFR/1.73 sq M.predicted among blacks MDRD (S/P/Bld) [Vol rate/Area] mL/min/1.73 m2 Normal >=59mL/min/1.[address] [facility] Chem S GFR/1.73 sq M.predicted among non-blacks MDRD (S/P/Bld) [Vol rate/Area] mL/min/1.73 m2 Normal >=59mL/min/1.[address] [facility] Chem S Consent for Treatmenton 11-23 Consent for Treatment [id number]#1.00C D:127 Normal [facility] Creatinineon 12-17-2021 Creatinine [Mass/Vol] 0.9 mg/dL Normal 0.5-1.3 [facility] Comment on above: Performed By: #### 2 [id number], [id number] ####[facility] [address] [place] [address] Physician Orderon 12-17-2021 Physician Order [id number] [facility] [id number]#1.00 CD:127 Normal [facility] Physician Order [id number]#1.00C D:127 Normal [facility] eGFRon 12-17-2021 GFR/1.73 sq M.predicted among blacks MDRD (S/P/Bld) [Vol rate/Area] mL/min/{1.73_m2} Normal >=59 [facility] Comment on above: Order Comment: Order added by Discern Expert. Result Comment: eGFR is race adjusted. AA=. Performed By: #### 2 [id number], [id number] ####[facility] [address] [place] [address] GFR/1.73 sq M.predicted among non-blacks MDRD (S/P/Bld) [Vol rate/Area] mL/min/{1.73_m2} Normal >=59 [facility] Comment on above: Order Comment: Order added by Discern Expert. Result Comment: Wireless Sales Expert kandace kidney disease could be indicated at eGFR's of less than 60 mL/min/1.73m2. Kidney failure is indicated at less than 15 mL/min/1.73m2. Performed By: #### 2 [id number], [id number] ####[facility] [address] [place] [address] IntraOperative Documentson 1 IntraOperative Documents [id number]#1.00C D:127 Normal [facility] Postoperative Documentson Postoperative Documents [id number]#1.00 CD:127 Normal [facility] Coding Summary.on 12-09-2021 Coding Summary. CD:[id number]:[id number] Gh0 bWw+PGhlYWQ+UJ1ZXRCaF62 lwRPqvB1BK5mSUC1PMZXGUQ RGAJ1WPP5rpLN3SUinJ7Thh iAv DgkhuMXsXL33YHm6RZX1wVf qIFzfaL8vpGIkD3v7EnJiBL 04lK94BUivTBIdZuN4QfLaj jsgbWFy M4kmQcSjlZMkZir+PHRhYmx lIHdpZHRoPScxMDAlJyBzdH krKC7iKo4zGIHsORRanKxjd HNlOiBj i3jaNFAnPZtqLW6moGzlH4X amLE7TQWbq2m7Kd54zDC+PH NpNWW5rMspPCtng024PvXxo 1yhZUS3 rBGjWGoeSSD0R96sn1V1NBE zBTMuQAK7cAQ9fO4veNghpm gsY5XnnREiGgP2ONY1dZQxj G4hyMsl jahyhU5mFqh+R59VTC6LIOJ QXJ6VXvj1H9TuNboezSC+PC 02PLRzTO07aVGebTUws2emq Zt8DbBa YUSvKIF3xWlwHZjnl5UxBAA tR75gaKJlv7W8OUNtyHjzoY LaOzWitCS7wG7rAVyssezbx 2hvdzsn Bmnsm3qupq90eE04W10pOOq xKCXeXVK5ITChXDEtePomrs 8prD3nMf4+JSfzr0ffw8rsp Pr0WcCd IHXqpeNqaDlkCWO9i9VdEz6 1P1HywAvva9VeWel6sk42uP Jyb1E3pFO8RNzhOSMeyP1cY WxlZnQ6 QAQpVcBtbQ64oQGeBPxtZn4 naDqkyVwtFH0cJKPuatbkYC AcoM3zUEFrzPYxgCbuRM9hD TBpbjtm t194YjIpNVC0PARrwEYjC8B pbJ9vOhYsZUCpGCLsM9HotV AeGTtbY985ZUcxHpL8HDEsc yTfQ6Fq ZDHgvHjnXyT4a0J1Yy0Vm3L wjxvbPCJ0QZchMBAxKfO5Vb XhYpC5M2WyCbj3SYPdbGrsZ X5cI2Ht ABGrctmesveklXW1OVWuQZY xdU30tWDxBNbgWh6on6F2z5 32TXSuNYYnuW37Vw8gtVwwA TBwdCBU nT2uglfjn1yzxfhzSnAoSSX dKGe6RLm3DVItdEwyJjFpXS F7HzZ0UFB6uZXgoZ9dhFlmy oxuuY9s Oyc+F35nxL9jRCT5XGF0dgq vCJUhjrZrMB41TO78E3UuQa wvdGFibGU+PGRpdiBzdHlsZ Z0aOtWy c6lfd5LoIAnoA3YdCDIxJAo tKra4ROAtJCQ8jRI4bI4wRD HlRVepp0R9oGI0P1SgeqZft h6qr6sw PGAtZKflE42rvSBen1C5YEO jaZI3ECLsuRiwSxUbjT63Xv c+CQErcWayn7AmDhujx6ypk 5bkcIa1 UjMsKHItixCqfHfzVWZ0s8R aZj54M66nPQnhZZBwHYQqZC HqLDRkgHdyyy1mzH9uRw4+P GNvbCB3 xUR0rG9pMIUyTvT3DYbmJ49 6CxCtpUVtOwrhw5ode6zjyG g8SfFnEWCceoEmsLlhPPU1m 4BbRz00 U36mBEduSLZlQCScFOWwUIN dbNfkbj9dmG9aCk1+PC9jb2 djyw81oQ12uQH+DVPuQUY9k WxlPSdw GWButK1cYCfqBdN7FTJwWqY fxN04rBEyUGrtCt0vxRkpdR jzUY4bXEWcjlher174HqXcm 2xkIDEw eCJrVEegZZI0E81tu0F5DDU yQMGsMYN7fPT6kX3evZingy ogbGVmdDsgdmVydGljYWwtY EaqN316 IHRvcDsnPlBhdGllbnQgTmF yNZz8D2WhUkn7YUDgyAtlUY 9gkAXcUAraBa6kfAbnvVokW R6mOSLl mxhba680BsOvd2rjQNKkyEB kQVhdGGA2M40xj2C9EGAaDC PyTTY0aGF4nY4vxZsgevzoc GVmdDsg ebAatSamKPumPGyvI198AXA siMegPkQonfAnBBIajOJ7BR 98KZ85lUPdh3R9iDZ1U6UuM GRpbmct rzvqlGR1UZVhGQLydO79To4 jxVccBw9lISWzEVW4DWRhmP BmY0XzoB5fGcLiUOIrDMWqY 3RleHQt HCnyY445TOkeWgQ7NXIlqcU nW5GoCBCebQwjJtL2x7J2So 4KH0G2BK02RP13vVKki4B0z DL3D1Yk EEVnasipxtrqcOG1TKRjWYN mtI98Ft3yyWhfNb8pHGHzBR Y9VBBwmMSnX9QqeK5dJaFmD DAwMDAw M2AhjGFbZKwmT665MHuzHmX 4VUStixQsB2VrPPErxAulZm A6w5K2Yt6MQCg7ZN28IR54r QBcb6E6 uII7Y6NlNLClbsepselzeIV 0TFCgDXTkoQ31Tm2ymDrqKz 2oYTVgWUD6IGHfmBAoZ6Mxm K4aIiXe KIVvTGGuI1RqtXImVNzfI42 4KPywPfB1EQVbivIkF0NdCW KhyQtcOjU1v6N1Uc7VZCEnG O81LQS5 dYN0PU35PM11G5UvVrzopAJ ibGU+PHRhYmxlIHdpZHRoPS emHMWsFjReiXgdIG2qJy1pB GVyLWNv oWsgvMKaZjPke9bcNMVlSUa tUC1ehPxvB8HqjEH5CQShk7 m1Gi41X30fG1MeqJB+PGNvb CU5aFO7 pV6sWpJzEhZ5EYsxE854TxA wwKXfWdyzl4qxw5smuHe1Np T9QPFgprZasYtuXTL3a8YzH k64Q22b IHdpZHRoPSIxNSUiIHZhbGl plv1taG1jRf7+CNWtlBK6jV R0fK9kBrYxAlG6FCbdT919I nRvcCIv Wftex5paq1ulkMz4DkDnWKD uvzQcdCxmGZI9c6EeDq62L8 NxbHxcf8TkApo5uo61fAYsl 8X0bQW6 H1PgGAKuntrvfWPjwChjIT3 kPYNuxqisQKMwaE3xRLVlI0 d6CpZgOrB1ZKztC1RjplO9R DEwcHQg URjqGLS8L85jq3N7QJMyUHA hHYR9gPE3pJ2acDfbigibiT VmdDsgdmVydGljYWwtYWxpZ 246IHRv jYypCXVeoD5jLLSjsZBojDf eOU8vWGDxoqtsRtYRKZFCGW 8jNAoQOT9xHLocrFW+PHRkI LG5wJlz ZDtvNFNjqY7eRRAqG4t6HdD fVjS4XGaxJ7ClIWLwtskhXc 68iY7sMpRqUzQ0CWtnC9Ynr zF7GEUq eNXwJHuuWIO5R14jc9W9CUO hKULiMBS2fLG4wE3kxFuvou ogbGVmdDsgdmVydGljYWwtY JrhC154 VNGcwTheTaQ3LhI9UwK0UWM 0S0JoIpr5CCUaaWldMQ9lpK OvUPfmZc4dtFzcdGllCR4wX TBpbjtw HSNybR3zYEAfnNWhuEceYR0 eYTHubofqn855YyOgNQG6FA ZntTAoG8YfyR0jQfSyNNYyP FUrG8Pi aTBpWHqpH448IKbxVjN3SGE tzoWdD8VgENIfxOjcOlF1p3 J6Yt78URDXYCMwjwhfbJU+P HRkIHN0 yNsmDExlIQCtvC0bMWKlU7p 1FrKcBiX8IUqwA0RgERIwrh nwOn07oB6aJbOpYjN5INqtW 7WdjkE5 LQTymJQzATinENL8K77gc6T 7BVRpVOIiOTN8gBN5kD9uaC lnbjogbGVmdDsgdmVydGljY WwtYWxp C178BQUdxUpcSh6jhJD5Q0A rBhx6MYPzwMmsHW8dnPZaXK bzJj8uoPdthJogQW4uVLNfl jtwYWRk aM3bHFPdnGWxbPoqWP7eTPO zfmxpy234MrOnZMU5AIBxmF JkX1ZzkS8qOgCjOOEuISKaD 3RleHQt YVswY860WAllFtB1KHFqxiW dQ4NbSIMagJuxLuB8z8U9Hd 8YhNQaVFVuZG36MX60NI00M 3RyPjwv dGFibGU+PHRhYmxlIHdpZHR yJKlvBYNsGqZelXcfYF6dVl 9yZGVyLWNvbGxhcHNlOiBjb 2xsYXBz TCdvRE9idImnB0VxnMH9XKI vo6k7Ge75D95qA0RqsPK+PG JyqIU8nOG8yY0tWkCcJlK5Z YbpC290 LmLtrJJzLnijw6akt8dyuDq 5JtMdKMBqvyHufZefHUB0h7 JiDv63M73kEUriIGMoEOVpD CUiIHZh bUtwip3yyF2hSm8+PGNvbCB 3zTV6sX7vDpMsSqL8WCxcN7 20KcCeiELrQgglR32wV8Kbi XA+PHRy Acr0CQJgeEvwUO7hoCNsVUx gIu3eORI1UaPjBhSrGFbsF2 DvVIIrwerqhutbwMO6SRCiR DUwaW47 Ar7smIrwSl9aUUNoFNS7XOE zkSZpM5OcpO7lZgMrUDOoOR FcF0MspIUyJAodP681NCxtV kX1NVIg ygZiI1GtFBZpsUsrTzF7f7R 0Lz6XrGelxLAdQB8wEhDvEN f5C5BxClo0MLPhfBhjIE4hs GFkZGlu Cs4eaHljoZgsHB1gWVLwulh nu680VyMuo3qeQAHlfIMtRQ rcZUG2W52tm1V2UREpJEPmK FQ6dAA5 cA2ohIjuwartzZHrdKetwfM xzXsaCIvzCSbhW600YKLwgJ ocCqKRNfk2N6QrOjq8AXLrn WwlRX9n uRIlBUifFp1btHbyqYtvGM1 eTNKokypqp392WoDkn8nxWQ OnrMKjVPwmTWD8U14jp9I5M CMwMDAw ZDJ6aUB3iW7nzOqbrisuxFZ mdDsgdmVydGljYWwtYWxpZ2 65ZSUxwKreNx2FXmv8Z8KwQ hc2SPGw lRtkUJ2hbDSyOPubYe1xjOp ssYjuXK6dLHKnvnzyd721Mq Wpd4iaNYKosDPxSUvaFLU6V 09ud2N5 PDKaKZHnSBQ7wNB2cL7ifQs nbjogbGVmdDsgdmVydGljYW reGEbnK344NFAnoKomJtGvy WVyOjwv dGQ+WY83hm84U2QtKuvqXwd 5GRXtYAG8gRB6eZ2wNCYgBB hel8V2cZV3J6RjjjMuur6zy 2xsYXBz ZTog (more content not included)... Normal [facility] Main OR Intraoperative Recor don 12-09-2021 Main OR Intraoperative Record IntraOp Document Type FT Summary Primary Physician: Enid OCHOA MD Finalized Date/Time: 12/09/21 11:53:35 Pt. Name: MARQUISE MEANS Sary Henry/Sex: 1950 Male Med Rec #: [id number] Physician: Enid OCHOA MD Financial #: [id number] Pt. Type: O Room/Bed: / Admit/Disch: 12/05/21 [...] Pérez RN, Lesley Saxena Role Performed Anesthesiologist Vegetable Preparer - Primary Staff - Other Head Tennis Coach Time In 12/05/21 08:43:00 12/05/21 08:43:00 12/05/21 [...] and tissue Entry 1 Skin Integrity Intact, [place], Warm, and Skin Abnormality No Dry Outcomes Met? Yes Last Modified By: Kristen Salmeron RN 12/05/21 07:25:25 Post-Care Text: The patient i (more content not included)... Normal [facility] Consenton 12-08-2021 Consent [id number]#1.00 CD:127 Normal [facility] Discharge Instructionson Discharge Instructions [id number]#1.00 CD:127 [facility] IntraOperative Documentson IntraOperative Documents [id number]#1.00 CD:127 [facility] Consent for Treatmenton 11-22 Consent for Treatment [id number]#1.00C D:127 Normal [facility] Endoscopic Procedure Report - Otheron 12-05-2021 Endoscopic [...] with contrast given persistent abdominal pain Normal [facility] Comment on above: Result Comment: Elec tronically Signed By: Enid OCHOA MD\.br\Date and Time Signed: 12/05/21 09:12 EDT Other Comment: Modesta edwards Attachment - attachment storage system not supported [id number] Can be viewed in source systemMissing Attachment - attachment storage system not supported [id number] Can be viewed in source systemMissing Attachment - attachment storage system not supported [id number] Can be viewed in source systemMissing Attachment - attachment storage system not supported [id number] Can be viewed in source system Endoscopic [...] 2. GI clinic follow-up in 2 weeks [facility] Comment on above: Result Comment: Elec tronically Signed By: VAIBHAV CERON, Enid\.br\Date and Time Signed: 12/05/21 09:07 EDT Other Comment: Modesta edwards Attachment - attachment storage system not supported [id number] Can be viewed in source system Missing Attachment - attachment storage system not supported [id number] Can be viewed in source system Missing Attachment - attachment storage system not supported [id number] Can be viewed in source system Missing Attachment - attachment storage system not supported [id number] Can be viewed in source system Inpatient Patient Summaryon 12-05-2021 Inpatient Patient Summary [place] [id number] [facility] Clinical Discharge Instructions PERSON INFORMATION Name: MARQUISE MEANS PHYSICIANS Admitting Physician: Enid OCHOA MD Attending Physician: Enid OCHOA MD PCP: SARIKA SNEED MD Discharge Diagnosis: Abdominal pain, generalized Comment: PATIENT EDUCATION INFORMATION Instructions: Upper Endoscopy, Adult, Care After; Colonoscopy, Care After Surgery Salam (CUSTOM); Diverticulosis MAGR (CUSTOM); Colon Polyps Medication Leaflets: Follow up: With: Address: When: Enid OCHOA [address] [place], [place] [id number] [employer] (1) Comments: office will call for follow up Type Location Start [facility] Follow Up [facility] 12/24/2021 11:00 AM 12/24/2021 11:15 AM Confirmed MEDICATION LIST Medications to Continue with No Changes Other Medications methotrexate (methotrexate 2.5 mg Tab) 1 Tablets By Mouth every 7 days. omeprazole (omeprazole 40 mg Cap-DR) By Mouth every day. tramadol (tramadol 50 mg oral tablet) 1 Tablets By Mouth every 4 hours as needed for pain. Comment: Normal [facility] Main OR PACU I Recordon 11-22 Main OR PACU I Record PACU Phase I Docum ent Type FT Summary Primary Physician: Enid OCHOA MD Finalized Date/Time: 12/05/21 10:51:39 Pt. Name: MARQUISE MEANS/Sex: 1950 Male Med Rec #: [id number] Physician: Enid OCHOA MD Financial #: [id number] Pt. Type: O Room/Bed: / Admit/Disch: 12/05/21 [...] By: Angella Chavez RN 12/05/21 10:51 Normal [facility] Main OR Preoperative Recordo n 12-05-2021 Main OR Preoperative Record Holding Area Document Type FT Summary Primary Physician: Enid OCHOA MD Finalized Date/Time: 12/05/21 07:46:59 Pt. Name: MEANSMARQUISE/Sex: 1950 Male Med Rec #: [id number] Physician: Enid OCHOA MD Financial #: [id number] Pt. Type: O Room/Bed: / Admit/Disch: 12/05/21 [...] No Patient states Yes Comment - Adult [place]- postop adult Supervision supervision available Case Cancelled in No Holding Area see comments below for reason Last Modified By: Kristen Salmeron RN 12/05/21 07:33:01 General Comments: 100% bowel prep in patient tolerated well. Results clear yellow./CASIMIRO WESLEY Finalized By: Kristen Salmeron RN Document Signatures Signed By: Kristen Salmeron RN 12/05/21 07:46 Normal [facility] Monitor Recordon 12-05-2021 Monitor Record [id number]#1.00 CD:127 Normal [facility] Monitor Record [id number]#1.00 CD:127 Normal [facility] Outpatient Surgery Discharge Instructionon 12-05-2021 Outpatient Surgery Discharge Instruction [address] [address] Patient Discharge Instructions PERSON INFORMATION [...] Follow up: With: Address: When: Enid OCHOA [address] [place] [address]. [address] [place], [place] [id number] Business (1) Comments: office will call for follow up Type Location Start [facility] Follow Up [facility] 12/24/2021 11:00 AM 12/24/2021 11:15 AM Confirmed Pharmacy Information: Other: [facility] You may receive a survey from [employer] asking you to rate your care experience. Your feedback is important and will help us understand what we do well and how we can improve the quality of care we provide to you, your loved ones and our community. It?s an honor to serve you. Thank you for choosing [facility] HERE ARE THE MEDICATION CHANGES THAT OCCURRED [...] activities are safe for you. ? Take gchs-qiw-fkqoejj and prescription medicines only as told by [...] 08/09/2012 Document Revised: 08/02/2018 Document Reviewed: 07/11/2018 Reaction Patient Education ? 2020 [employer]. Colonoscopy Care After Surgery Please read the instructions outlined below and refer to this sheet in the next few weeks. These discharge instructions provide you with general information on caring for yourself after you leave the hospital. Your doctor may also give you specific instructions. While your treatm (more content not included)... Normal [facility] Patient Education - Texton 1 Patient Education [...] unsweetened, w/added ascorbic acid 1 cup 0.5 [place] 1 cup 0.7 Vegetables Cooked Green beans 1 cup 4.0 Carrots 1/2 cup sliced 2.3 Peas 1 cup 8.8 Potato (baked, with skin) 1 medium potato 3.8 Raw Julian (with peel) 1 cucumber 1.5 Lettuce 1 [...] IMMEDIATE MEDIC (more content not included)... Normal [facility] Progress Note-Physicianon Progress Note-Physician Patient: MARQUISE MEANS [...] PACU when criteria met. Condition good. Normal [facility] Comment on above: Result Comment: Elec [...] Change in bowel habits / SNOMED CT 839394901 / Confirmed Family history of colon cancer / SNOMED CT 215488369 / Confirmed Black tarry stools / SNOMED CT 935085573 / Confirmed Generalized abdominal pain / SNOMED CT 370004792 / Confirmed, Active Problems (4) Black tarry stools Change in bowel habits Family history of colon cancer Generalized abdominal pain Histories Past Medical History: No active or resolved past medical history items have been selected or recorded. Family History: Primary malignant neoplasm of colon Brother Grandparent Procedure history: Colonoscopy ([id number]) on 11/03/2019 at 68 Years. Comments: 10/14/2021 [...] review: No qualifying data available . Plan [employer] (ASA) physical status classification: Class II. Anesthetic Preoperative Plan Anesthesia: Monitored anesthesia care and general anesthesia possible. Anesthetic plan, risks, benefits, and alternatives discussed with the patient and/or family. Pt. and/or family present and agree to proceed as planned.. Risks discussed including heart, lung, nerve damage. Risks of bleeding, dental injury, hospitalization, and general injury discussed. . Normal [facility] Comment on above: Result Comment: Elec tronically Signed By: Hilario Kay DO\.aureliano\Date and Time Signed: 12/05/21 08:34 EDT General Surgery Office/Clini c Noteon 11-21-2021 General Surgery Office/Clinic Note Chief Complaint SHIPPING CHECKER GB thickening HPI Staff SHIPPING CHECKER Marquise is a 71 y.o. male referred [...] test from 10/2019 and a colonoscopy at [place] by Dr. Barnett at that time. Per [...] Shobha Pedro to record this visit. OMARI media services specialist and provider reviewed before signing. OMARI: [...] Use:., 11/18 (more content not included)... Normal [facility] Comment on above: Result Comment: Elec tronically Signed By: Thierno CERON, Marquise Jameson\.br\Date and Time Signed: 11/21/21 08:02 EDT\.br\Electronically Co-Signed By: Laurence Newman\.br\Date and Time Co-Signed: 11/18/21 15:26 EDT Coding Summary.on 10-30-2021 Coding Summary. CD:[id number] Gh0 bWw+PGhlYWQ+SR4ACTRoR81 rfIOeuY7NI3tBNY3MOZXUNG DQVF5UVT2jjTG4GTdvH0Mux iAv MiuhmMJkIC61OXy7TBH1eAx yUXmldR6vsQNmO2u7HeQqAZ 08oU88HQesKVLuIrT5KqLea jsgbWFy H4rtTvGptJWwBik+PHRhYmx lIHdpZHRoPScxMDAlJyBzdH eoAZ9kGy7iJYNzCMZzvYcui HNlOiBj w9xhPVCbUYlkSA1bhVynO4O nwET3PVVsv8f8Yb86kSG+PH YiKIN2lWgjFEyci698PnOlg 9ouJJH4 wOHsXPxvQDQ0X73vu7J1FVD zQYFmYQJ8mGG1tM8adDeigo thA7XndOJnTyH5PRR9cXSsz P4yzPlz xmqgsT2cVji+N38MMH7VUZI OZV3SUrk6U4FpZanokTG+PC 71EHDtFX38mUAjpTGzo0ebp Dt8KhZj IWVgYDB2sTuwAWdec6KwSNK zF70dhMMgc9I4UVCiwZloqW NmAwKmqCS7cU4fTQvvhhgcc 2hvdzsn Vqthk7fmxw23jY48J24pNZv xEVHjITN8TOOnQOKwsFlbol 7zdY0iBk0+UNvzx8ksm7ukg Ns5LdSc HCCdfaTpzDifHWQ1v4ZwGb6 8Y2VorBtia8HlWzu3cl37zZ Zzt6T9jEI2KLqiONPglM3yY WxlZnQ6 ZJCaXhPcnH08iCVnXCcrKs4 iaJaukZchHW7bMBTdwbcmLZ CwvS1aNOFjoPGxeQgcXV1tI TBpbjtm v401XiFuBRE3LSFhuQGvS9M vhN4uVsZaIPAvDJHuV7IirK WrEIawV647IGzbUcL7LNFgr kHvL8Gb ZNBdwQojBhA7k9V0Xt9Qb0S kvlzgJSK5FVgpKSN8HeM0Tm FwKaU7E8NjUjr5RQMuyWrvB K9iS6Yv ANMqfmzuuhkhkNW0YCMdYDM bnH08jAUrRJuaUf5mi7X0r5 27BOViFIEyjD19Hl8jnWagR TBwdCBU qO3isxjtd6caluzsNwDyAZQ fVWq4NMs8BTOloCcrJiWlTA Y3FoV3POO2xPRmiO1keExfs bjtgK4i Oyc+Y35plU1rOGN4PSC9vmn mJCVhghVfUN98UW96U1QwJd wvdGFibGU+PGRpdiBzdHlsZ Q2gBhVp h5dgl8RkGVseE6FnKNPhPXz sWmg9YLLzAJH1fCV8iW7yBL PaAGtvq8O8sWU8R7WkdlOia p4cl6rc GFTzXGuzN89gnLAsg6T2UHG hpCY7KVGpiUfvSjOkbP79Jd c+PCNhiOjpo4EdItmre1xtm 4ofjAo1 QuGkTLMkpeRnsGfyOPW5t2J vBs39M27hMXjvUFGeWLGkLM ZoYZBlgNilye7wjV8bAi6+P GNvbCB3 pIX8nO7aPKYpMcY7MHadT52 0OwCfxFHmOqrln2faa2lotE n3UnYwQDMuinVqtUgkFNQ6b 1CfMd52 A15cSZorNOEbHIFwDKBaFBV swMgbxl2kbD3pRn1+PC9jb2 egyz45jF77dQU+AJNwNKP5f WxlPSdw CEFmdJ8nBIzsVrD5ZBBaAxH rgA63xSWxGUwqFo1kcFsvnC kjDK3yXLZryhegv015SvFhh 2xkIDEw qQBoLPvaXEV5X37me7D7FRO tZJSsVPG6zOU9zP0uaLzpik ogbGVmdDsgdmVydGljYWwtY GzwT128 IHRvcDsnPlBhdGllbnQgTmF oRCp9U2QvSrx0HIZrbDlyFX 9qjDXjZEkuNf5qjYyhmLafP U0sIJTz nvsvc711OsYxt8ohJYNcgGB hHUgiOPQ1B68lk0O3JAKlTW CmPXV0hFI4hH6jwLscqjiyx GVmdDsg fpJlnFdbMXfaDNjaB181LGT ksGklMiIymxCaJSFniEW6XN 95LG96fYEhz3C3aWL5O3TgH GRpbmct zprdmKV8MSRlPWWygZ58Fd3 iuGavQn7aKWDrFVL9GZRkaD YnW2TtlE1rTrVuOCQiZJFwG 3RleHQt QEnxJ167ZSfzGtS9MBBdipC gM6MwSYDpgMezUfP7q7J9Fh 0SP7D9ZL40QS26yHIez2L2b TE2M2Yc CXQobodmeilupJD7ZJMhXDA xwC59Pb7cjNacGw3mKPKiMZ N9EIQzdHAtJ0OtjS8zWsAqY DAwMDAw B5IawPXmLUlmY907ALsgSxI 1XZCqquAdN9AfDWYfhJvpDo Y7i8I5Xm8VFTb7DL58IL79q ZRrx8D7 nQZ7U1RjBSCgctfrrsudbTF 2PJRcBCAhyX02Je2bbMsbSb 4zMRRoWLT0FWKysOAkI1Rvm H7oPoKj RMNmJZGpT5JrbEJwIYekB04 7XRlxQjM1RQHbwpXvV8DfKM TulOjyFgK2k0H4Ih3VLKDdW A27PLK6 fDT0MT44QX36N6QqBxiilHF ibGU+PHRhYmxlIHdpZHRoPS qyRJXwEoNgwPtxDR8nPm0pL GVyLWNv rNxymKSaXqWbu2ujNILuPCu nDC2dfDxwQ2VwhQL3IQKhi5 b9Xe00Z02oS6OkyKL+PGNvb SJ9mRY9 gK1jZoPcIgH4KVmbR840ClK aeCQzSfaga2rkc1jjvIr7Vu Z9FZJlyfIngGdlKIO9w2IhY f77S66v IHdpZHRoPSIxNSUiIHZhbGl bmm5trD1wOe9+OFQtnQL2eJ U7fZ4bGyDaOlF2UKbnA393O nRvcCIv Qepnc1uhx2noxBi1YuEzFKQ kvdEglQleSHV5m1UqKj45A4 OzyMmkl4MjSlh2fa82eOCrt 4P2nMY7 R1RlSKTsilndaSFulYbnMW9 jPQFolpdwTUHfmZ5mTPChR6 h4RbDmRcF9GRwrZ6MmivU2C DEwcHQg ZHjmXZL6K84ut6C3NGBnFQJ nZSV4dYP0eO2jjEgalmzybF VmdDsgdmVydGljYWwtYWxpZ 246IHRv uUppILEriI6cGHJdjAPsmFd bMK8uWWMxrcybNvWMAMUSFE 6tSRjAXZ9aTUuwxOR+PHRkI GX5nUnr DKyqENQkcG8wYAXbI9n7MpP pCaG3LXwdR4VeHUFtbxwtSh 19pC9pFqCfRgB3TDweS0Tqg vJ9QNNu xDIuWBmoEOX4E41fd9S1DFS iYXKsYVC2sTC2wM0qrUguys ogbGVmdDsgdmVydGljYWwtY EpsP389 CQZjaAraEdS4WhS2FfV8BZR 6J2LdZrb0CMCknVynDX8xgX JlDAcvSv2lrDemaHbwLK3tZ TBpbjtw VLUnzJ7oCCIyzOAwmHyaSH9 rXWOgpgcji122YrJuWOZ2MY ZptWYtO6HdoY2mWfAuEAOkB YQuG9Zq mDAzMQbqS438NHjdTkX5QHT fwcBbW5VlHCVbjWdfFwL0n7 J7Ux12RYRHDUCtsfwwiBJ+P HRkIHN0 qFprXXlkUBMnvH1cWTKiQ8m 8LfZiEkF8PHhnA8ZdWEXxtu whUt11dP5aDoWfWgP5HTlbB 6FzxuY6 XDBhdBWtIItuIQD5U60hb3W 9EEBmIUCbNRD2xTI7uH5stS lnbjogbGVmdDsgdmVydGljY WwtYWxp P201QCKmvYxqAu8uxMA5C2N fOyu5QUUsuQtoEJ4msLCuTE zjEs9tjNsudUkkJL4oNIGdy jtwYWRk zW8fBNNczBNhzRfpWG7mWTC hmihvl904MrErPUN5HHVroW HjH4XhgS1rFkZfXLUrEEYcX 3RleHQt SHtmE796GHqzYbD4HHVphuM zQ1IrJRYfkKyzFyF6m9B5Ph 2UrHFtHPZiYR48PB84BG39M 3RyPjwv dGFibGU+PHRhYmxlIHdpZHR wLUgfAHPbXgBvjQntWY5uGb 9yZGVyLWNvbGxhcHNlOiBjb 2xsYXBz NDcnQL2nlBhsC6JgeLN3SAH mo6l8Sc79Q10tP0WfxZI+PG XcdFG1rFT0lS1oIkIyWcC3W TjyV231 FwAuaDOfXjrpx3bca6jecWd 4BsGpMJKafzGnxZotVLT8u2 NsAi18Y22pRGleRMZgDIYjW CUiIHZh cBzvdt3evD5bHm9+PGNvbCB 9mWL5pT1jGxWxPhS8NAdoJ4 10WePdcRNrGjclQ31kY5Mag XA+PHRy Gow5ZNPqaRpbWR4kyCJhLWk wIf9mNLR1ZlRvCtIeJEvoZ6 RqAOKzjfdzlwpygQD4DQWwK DUwaW47 Cf4spWqiSw1hYCGuQEX4ZZJ hqBLaK7GviX8mFdUjWLGyJZ QtH1PneWRjORntL470TSjqQ iO9PRGy ggMmL4UnZGJldJefVpZ3f5V 5Xn9AbJqamFDsIT9eWzDaST w1C9ZfUnl1OWTkxIbhOA0sb GFkZGlu Kk3piWxebDywOX3uGTKogup on645YuDif2xsJWEpcMDzDS bqBLZ8S81ds7C7CQOyZCOzF CY4sAP7 bQ6idPiprqklpOKmnQohnlM ucIqzAYaeYSmqX306FZDstS kqNxKVZsf6K2VrHox7ZSHxz DxiSO0x fDKlUGitOh5mpXwotNkcQS4 rHFVbipwlo219ErAyl7qfTT VidUZgHLwlGVB8A43xk8P9T CMwMDAw QHD3pHA5qV5naRqklgikbIN mdDsgdmVydGljYWwtYWxpZ2 77IUJtfMcwZb4NNqa7T7CyO ci5CYDz cLnjZD9mxDZzMQntMt6nkSc tmXymSN6fPKUvgchvz789In Ath5utCZKfbYNsYSqpYVJ5C 65df4F6 QYIzZCInOWD5aIP3tT3suDc nbjogbGVmdDsgdmVydGljYW qkERfbQ336JLBjkDnzUfHdr WVyOjwv dGQ+KP53zi68Q9NfXmfnEmu 7MBXmEYE1gVJ0tD0bCWWeCF thc3V2pAG5U7PlpbVkah0fk 2xsYXBz ZTog (more content not included)... Normal [facility] Consent for Treatmenton Consent for Treatment [id number] D:127 Normal [facility] US Abdomen Completeon 2021 US Abdomen Complete [...] MD Transcribed by: JACKIE Technologist: CARMEL Normal [facility] Consent for Procedure/Surger yon 10-17-2021 Consent for Procedure/Surgery [id number]#[id number] D:127 Normal [facility] Coding Summary.on 10-16-2021 Coding Summary. CD:[id number] Gh0 bWw+PGhlYWQ+PE6YLOQeQ24 rwQHdjJ8EF7gHUG5DBUWZSR MPJJ1VXX3hnZU0CVxkS2Mwa iAv WghybGJqQW45TPo5IHO2qUl vGJlnxM5mdTXmI1y9PgAoKN 31bE91KKccIGNmXgO7PnPuq jsgbWFy Y2prMiLqkQKdQir+PHRhYmx lIHdpZHRoPScxMDAlJyBzdH jrPE4bVc4vLJXwXFDngFktt HNlOiBj d8gcKGBdKSggBX5sjNfkD1Q yrUS5YPCtm3p9Wi88lLJ+PH KhTPC6iCweMBnur931ViVtc 3woLKK3 nDBxKWsuHCS6Q09wi4W4ADF hKNEuQCY7fND1uF3uzFgwdw poY8PsbBOrPqR5BLY7gRLsi Z9zoGaz uashzB7lAda+T97PKT7XIHJ BPF9QYoe2F7MhHlxuxZO+PC 69ZISzPV30dPEjbWBtg4bgc Ep6KtGm PSTfQHH1zKvxUZbgy5ZvLOQ yX44ovOQlk4T9JXNebArdkI EnHhPtbYV3tR6wUWwavahcz 2hvdzsn Ugvia7ierh27wJ63P62kBAy tAMNiFNI7RBZgUJIicWcbpo 1ggH1rJf8+HBbgu0xgw4sdg Kb6SkEc IJYztpWgbMejLBT6m1FcUs2 7J8IhrXxtj5ViIdd5de32bD Vkm5S0qRQ8LMzcRDEudN3eW WxlZnQ6 BZXaYdGamN18pNNkBOawXe7 yiFwtuYxcXG3sZHQijnftSY IgzT4gWHOipPAwyEopJA0fA TBpbjtm k960RpGtWBK5KRFfiGRkP5A ocV2jLyMsUFYeKMEdM7RapY HyOWjnP370WBfxZxN6MGVbv nNpA4Tn KPBviBqrGoR4y8P0Zl4Ep4B rblgwWSV3TIisHKI5AsM4Hb IvGsD2P1HjUcc8NOEqvTcwU F3mH7Bm XAWeeozgkpfkhBO2HIJfYXL ilZ75sVNsGRugHx7rz1K9y4 56FHTbAXJqlT07Um4wzRihN TBwdCBU xR2xhmsjk0jycjurKfLkCFN qDEp4LDg7HYNnlTeqAiFpST C3AwB1MZH8hKXmlJ7jgOdwd dppjM2p Oyc+A76peL1lVDE3RDL9qaf nUHZodqRuOK65QC60I7EdOi wvdGFibGU+PGRpdiBzdHlsZ W3qJkEm w8spv7WeXFndK7YsCVSfRSs tCrb3BURyHGC2kVH6kC8sTX LpNQitp3S4bZS3V2JbnrDzd t2dy2rk YQDeTMghZ68lzYQob7J2VRD ywCS3BWNgsTlgFmWmxI91Tt c+XEGkoMjvc4AzDgtln9zcg 6ukqQj8 LaVaGDMgqgLlpPvaBBW9r0Y gDo01F79wNHzbRGPuOIQdMA YkYNRvqGnpnb2upI0tCu7+P GNvbCB3 gFV5qL4oTQMfAfG9YQnjA48 1JuHlnPEvZmefa4zxp1nmpU i7QvTrFAYxfwTzkUtsBDP5f 4WfAp74 A56qTNwsVTPpJDOeDAVvNCY nmNhzda4foD6lOo4+PC9jb2 toim63eG16fFY+JXZrLLI5p WxlPSdw QJNdrP1hHRfjLpT4GMQsNbI uhL19lAAiSWshTr7paCytrP yjWZ5oTCHtlqkla932QcRpj 2xkIDEw sGUdZUssIVP4R10gx9A2PNV pUTVwKGW0fZU0kA9geGpsmc ogbGVmdDsgdmVydGljYWwtY QbtA691 IHRvcDsnPlBhdGllbnQgTmF uKXj8X9EeHbx9XQFybKslAE 3msGUvDVloFv1gkZldkLdnA T6mFPNl xxmzp214IgAim0zyNUWkzQC wYHbbXYM8A51ws7R2CGOfKH CmTWH3eOA5xM1ckNbpizytt GVmdDsg sqVlfMlwPQdsJKybL692EIN uwHdnWoCrvnHnZBBrgOP4SI 22ZB08sGCpq0Q8pSU2S7MpH GRpbmct aztbxYK2GVFbKHUbfK60Pn0 dkTwvSt7cFVKzBIN5BTRqnY NrC8ThbT1qFzPsQDNcVDGaU 3RleHQt KUxqT116XRnjAfN0HHGjmeF tN6JuXZZuqPcgRhL3y4C1By 1OO0X0LJ31AW08mFVjc8M4w ZK2M2Dl ZRAusxhqhtzdmTN3WRFcZKZ cjV56Ow7azJqrLi5iDNAaBE G4YEKerHSuB3TskU3tPkPsD DAwMDAw Z9RbbXGzNQqkZ393DMndWoQ 8SCRtcnAlS8TjUEKwhKmvHa Z7w3Y5Pm2TSVs8CH45PO05b XYci5M6 vKW4P3IdGERkgyeangepoTA 8YUBkCURpeF24Gn9psHwsDb 2fXLMrBOF9CZGldKZbN9Can G8nUcIb VEToYIUbQ5VmbBMjGUumN95 1HSdvCaM1MNAtwvHmH0DrIK XltGhjUtP7u7K7Mf5UXIRkX D07IWO6 aIK6KH50MH83J2JbGztnqCZ ibGU+PHRhYmxlIHdpZHRoPS dnNTGiNgEpsIazHU5fNn2hR GVyLWNv fLvipFDfAhRle5hhWEBbJJj aAY0qzSsdY2HxiXQ9CQZec5 f7Et12A36wK4CurNT+PGNvb JK3pRI6 rE6hFiCgNtB1JYkmD328WnL vrZJkBmunm6apn7oqnFj0Qa Z6LAQfmeZwpFciPEW6q5CzI v31M57a IHdpZHRoPSIxNSUiIHZhbGl hxh0mnF8yWq0+LERgwEC4tD K9zC3wGrKgEnA7ESdrP031L nRvcCIv Kbsbc9inz3jumUf4NsPgKUV ywxXnyJwbRHL1e1AqVj43D2 SggFlix5VqWfy6wh89gOFmb 7G5qAG0 O6KkKATgihbiiBWluEtnGZ3 dIEIjsksoKYIecJ8nXZAfO3 k0XrUxYcP4TYuhD4MwgfU7Z DEwcHQg PTayXVU8X54st4K9XORzHJV wLZL1yGS2vK8gaEnxrmqzxY VmdDsgdmVydGljYWwtYWxpZ 246IHRv aWghMLIwqV1tRDLyuKWgaSa gIF7jQCQkkydrMmCMQILQVL 8gYXhCDO2iVQwbxOR+PHRkI VI2sWkf IXvzYTKxpL2iSPRmT3g4RxC gPaJ8PKfoI6ImEVWxemkhRm 70kI2zXxJnZeT9JPljS5Dlp sG6DOCy cMGrRWrzJVC4V81kd1E7QDO kIIUnHCQ3iAK1qI7bwXihpd ogbGVmdDsgdmVydGljYWwtY VorX843 CSRbsGbhIbE5CwA7HjX9CRU 1J9MnJcl3BOMfgTjnER8dhO VnOBkqNb1ilAgitQayNF1pK TBpbjtw FJRzwZ6fRCExzCGjjOovOL3 wQJJrxjxhf450CvMxYLV3ML GcaUYdA3TiyO3yHsYmICYmB XAkT5Dx qPUrQOdkV777MHbbHaZ9BQB jivBmS7MuCVNccXafHmI4m7 R3Bv49FJBCHNFjscxokOV+P HRkIHN0 aYwiNSjxZIRfsO8nXUHqQ2n 5NlXwMjD4MNyzL0ZqURExzs oxFj48dP9rCdBkQnB7LVhnT 7AffxO0 JZQzwLDhPXvxCRU5A14yt7G 6BWDiKDXfZZQ9oBB3mA8yjK lnbjogbGVmdDsgdmVydGljY WwtYWxp L475TPRymAswFw6ecOH9A8R vDkd1DEKdgKhjVN2vuNGiIO cdJe8bgHsxzJmfGK9iJCRcp jtwYWRk dI6pLSOtiNRvePxvVR2cYWH ewjnqf876HeSmAUQ0CWOyoI GtS4EjsJ0vCbKtMUGkJUDgX 3RleHQt NJbvX435CAtvCuB0HOKcjeY fO9LrKYSfzFyfVzY6d4T0Uk 1TtFDuYSRbOQ57NO45NJ25G 3RyPjwv dGFibGU+PHRhYmxlIHdpZHR hFBvuZSHfCbZlfVafBH7uXj 9yZGVyLWNvbGxhcHNlOiBjb 2xsYXBz VXkxRH7muTltA6AciEX7BAB jy6h9Uy06D26aB1HmoHX+PG DfwIS7lMF9iM9pJuWdEkV8P IpgE459 OlFepTBgOucmn4lfg5jewPs 7FzKcXOHaxfUucIpqPJC0q0 GkRw56M55tVEbyYJIpTNZzU CUiIHZh yZlfjg7evO3pYm1+PGNvbCB 2uWW0pA9oOyOnUqZ5KNfnQ9 39GvSiwBPiBjqiR34zL3Icz XA+PHRy Okm7RHPdaQmmHY9jbWIeFHc nTh1bELG3PnLrSfLlADvcI8 CxLFTefyuxogfwwAT3RZNuY DUwaW47 Ik7nzDkaQt0mBMDgGEQ2FKG zoXJwE0XybD7oKuKsOHJqFH TcH5CyfEUwJMzjJ130ICdfA cL1SIRg guDuQ1XlBJXdiKzlFdY4q7Q 2Ej6KbDhkxJUbKR8pGgPhUN n0X0MmJop3EVWqyDurMU7jo GFkZGlu Uy3fsLihtAmhXX6vFYVvhuf wa535NrThk7ldFHRnyGPmUN wdNAD6I23zq0V4BRJaRQHaM ZX6yBN8 pM8beQzkwawriUWlqJhqxgP msJgnLGuhSVktW800CBZrdL piUfNEKzy2L7UmPne2MFVbw WdxOP5u iSKvMBgpFn8vtUeitHbyFJ2 sNIVhqjuee081RtPla4ijHO PjsMQzXMdvLRR9B75cs2M8Y CMwMDAw XRA1kGD3gC7bfCseiilrxYY mdDsgdmVydGljYWwtYWxpZ2 59GVDcnNuuZe7VRva0H7RiR nz1SABz gPtuOG4hzGTsOZovOa1meWr tuKiiHW8vXOLooffol218Qo Fyn6bmSWXghZKgXZyvWMC4D 69lz1V5 UKZzYNBvHCF0yHW8zV3fhZy nbjogbGVmdDsgdmVydGljYW rmTIafF895UISzcRleHsBsl WVyOjwv dGQ+JJ03vc19B8IeLbltZpo 1TXOwSFE8cAB0wR7dXZOhQC xdw7G1kEK3D9RxwvArnk8un 2xsYXBz ZTog (more content not included)... Normal [facility] Ambulatory Visit Summaryon 0 10-14-2021 Ambulatory Visit [...] future visit, Lab Collect, Generalized abdominal pain [facility] Auto Diffon 10-14-2021 Basophils/100 WBC (Bld) 1.0 % Normal 0.0-2.0 [facility] Comment on above: Order Comment: Order Added by Discern Expert. Performed By: #### 2 [id number] #### [facility] [address] [place] [address] Basophils/Leukocytes Auto (Bld) [Pure # fraction] 0.0 E9/L Normal 0.0-0.2 [facility] Comment on above: Order Comment: Order Added by Discern Expert. Performed By: #### 2 [id number] #### [facility] [address] [place] [id number] Eosinophils/100 WBC (Bld) 3.8 % Normal 0.0-8.0 [facility] Comment on above: Order Comment: Order Added by Discern Expert. Performed By: #### 2 736841, [id number], 6330994, 0627862 #### [facility] [address] [place] [address] Eosinophils/Leukocytes Auto (Bld) [Pure # fraction] 0.2 E9/L Normal 0.0-0.5 [facility] Comment on above: Order Comment: Order Added by Discern Expert. Performed By: #### 2 379036, 05985926, 1090481, 0762795 #### [facility] [address] [place] [address]131 Lymphocytes/100 WBC (Bld) 19.0 % Normal 14.0-50.0 [facility] Comment on above: Order Comment: Order Added by Discern Expert. Performed By: #### 2 260976, 77708968, 2398039, 2281871 #### [facility] [address] [place] [address] Lymphocytes/Leukocytes Auto (Bld) [Pure # fraction] 0.9 E9/L Low 1.0-4.0 [facility] Comment on above: Order Comment: Order Added by Discern Expert. Performed By: #### 2 800199, 77762756, 6987302, 3545340 #### [facility] [address] [place] [address]5966 Monocytes/100 WBC (Bld) 11.9 % Normal 4.0-14.0 [facility] Comment on above: Order Comment: Order Added by Discern Expert. Performed By: #### 2 454286, 98791114, 3876507, 7204466 #### [facility] [address] [place] [address] Monocytes/Leukocytes Auto (Bld) [Pure # fraction] 0.6 E9/L Normal 0.2-1.0 [facility] Comment on above: Order Comment: Order Added by Discern Expert. Performed By: #### 2 918276, 09798743, 2634623, 4576514 #### [facility] [address] [place] [address] Neutrophils/100 WBC (Bld) 64.3 % Normal 36.0-75.0 [facility] Comment on above: Order Comment: Order Added by Discern Expert. Performed By: #### 2 778014, 48722236, 0002993, 5739801 #### [facility] [address] [place] [address] Neutrophils/Leukocytes Auto (Bld) [Pure # fraction] 3.1 E9/L Normal 2.0-7.5 [facility] Comment on above: Order Comment: Order Added by Discern Expert. Performed By: #### 2 249537, 18928547, 1572604, 6219295 #### [facility] [address] [place] [address]14 CBC w/ Auto Diffon Erythrocyte distribution width (RBC) [Ratio] 14.4 % High 10.9-14.2 [facility] Comment on above: Performed By: #### 2 752499, 49333584, 5776207, 5264075 #### [facility] [address] [place] [address] Hematocrit (Bld) [Volume fraction] 40.1 % Normal 37.7-49.0 [facility] Comment on above: Performed By: #### 2 533791, 24905275, 8391664, 1925262 #### [facility] [address] [place] [address]018 Hemoglobin (Bld) [Mass/Vol] 13.4 g/dL Low 13.5-17.5 [facility] Comment on above: Performed By: #### 2 696013, 94815493, 3213011, 0187946 #### [facility] [address] [place] [address] 10997 MCH (RBC) [Entitic mass] 30.4 pg Normal 27.0-34.0 [facility] Comment on above: Performed By: #### 2 622181, 45569889, 8186434, 9512572 #### [facility] [address] [place] [address]609 MCHC (RBC) [Mass/Vol] 33.4 g/dL Normal 31.4-36.0 [facility] Comment on above: Performed By: #### 2 005021, 39039372, 0363416, 9882362 #### [facility] [address] [place] [address] 44547 MCV (RBC) [Entitic vol] 91.1 fL Normal 80.0-100.0 [facility] Comment on above: Performed By: #### 2 317095, 90403712, 4166575, 8765333 #### [facility] [address] [place] [address] Platelet mean volume (Bld) [Entitic vol] 9.5 fL Normal 6.4-10.8 [facility] Comment on above: Performed By: #### 2 368878, 12319588, 7047257, 2921335 #### [facility] [address] [place] [address] Platelets (Bld) [#/Vol] 162.0 E9/L Normal 150.0-500.0 [facility] Comment on above: Performed By: #### 2 624578, 14705129, 5443856, 6336144 #### [facility] [address] [place] [address] 95457 RBC (Bld) [#/Vol] 4.4 E12/L Normal 4.3-5.9 [facility] Comment on above: Performed By: #### 2 582640, 90102393, 9920761, 7213841 #### [facility] [address] [place] [address] WBC corrected for nucl RBC Auto (Bld) [#/Vol] 4.9 E9/L Normal 4.0-11.0 [facility] Comment on above: Performed By: #### 2 587668, 82400136, 2133905, 2468019 #### [facility] [address] [place] [address] CMPon 10-14-2021 Albumin [Mass/Vol] 4.1 g/dL Normal 3.3-5.0 [facility] Comment on above: Performed By: #### 2 548294, 83622557, 3328724, 5691808 ####[facility] [address] [place] [address] Albumin/Globulin (S) [Mass conc ratio] 1.2 Normal 1.1-2.2 [facility] Comment on above: Performed By: #### 2 142689, 42805266, 9024299, 6429746 ####[facility] [address] [place] [address] ALP [Catalytic activity/Vol] 123 Int._Unit/L High 21-98 [facility] Comment on above: Performed By: #### 2 738058, 03030969, 0870745, 3662859 ####[facility] [address] [place] [address] ALT No additional P-5'-P [Catalytic activity/Vol] 34 Int._Unit/L Normal 6-46 [facility] Comment on above: Performed By: #### 2 054014, 64784781, 6341321, 9100543 ####[facility] [address] [place] [address] Anion gap [Moles/Vol] 10 mmol/L Normal 6-16 [facility] Comment on above: Performed By: #### 2 446809, 14597143, 9486639, 4369616 ####[facility] [address] [place] [address] AST [Catalytic activity/Vol] 32 Int._Unit/L Normal 5-43 [facility] Comment on above: Performed By: #### 2 118222, 37789667, 8601172, 3479564 ####[facility] [address] [place] [address] Bilirubin [Mass/Vol] 0.3 mg/dL Normal 0.0-1.1 [facility] Comment on above: Performed By: #### 2 459359, 84510107, 4598642, 5743725 ####[facility] [address] [place] [address] Calcium [Mass/Vol] 9.7 mg/dL Normal 8.9-11.1 [facility] Comment on above: Performed By: #### 2 416885, 53580447, 9719089, 3156948 ####[address] [place] [address] Chloride [Moles/Vol] 102 mmol/L Normal 101-111 [facility] Comment on above: Performed By: #### 2 993885, 45681932, 8009382, 0449888 ####[facility] [address] [place] [address] CO2 [Moles/Vol] 30 mmol/L Normal 21-31 [facility] Comment on above: Performed By: #### 2 124995, 67971069, 6507560, 5567885 ####[facility] [address] [place] [address] Creatinine [Mass/Vol] 0.7 mg/dL Normal 0.5-1.3 [facility] Comment on above: Performed By: #### 2 898460, 40056038, 3813502, 7811186 ####[facility] [address] [place] [address] Globulin (S) [Mass/Vol] 3.3 g/dL Normal 1.4-4.0 [facility] Comment on above: Performed By: #### 2 926233, 69554025, 0471247, 3766872 ####[facility] [address] [place] [address] Glucose [Mass/Vol] 98 mg/dL Normal 55-199 [facility] Comment on above: Result Comment: If t his glucose result represents a fasting glucose, interpretation should refer to the following reference range: 55-99 mg/dL Performed By: #### 2 648064, 21447309, 8632722, 6259126 ####[facility] [address] [place] [address] Potassium [Moles/Vol] 4.7 mmol/L Normal 3.5-5.3 [facility] Comment on above: Performed By: #### 2 359674, 77599311, 4317206, 7251791 ####[facility] [address] [place] [address] Protein [Mass/Vol] 7.4 g/dL Normal 6.0-7.8 [facility] Comment on above: Performed By: #### 2 275024, 92458894, 1126501, 8337494 ####[facility] [address] [place] [address] Sodium [Moles/Vol] 137 mmol/L Normal 135-145 [facility] Comment on above: Performed By: #### 2 802413, 62874212, 1190273, 9313630 ####[facility] [address] [place] [address] Urea nitrogen [Mass/Vol] 27 mg/dL High 5-21 [facility] Comment on above: Performed By: #### 2 569915, 83941598, 9491328, 6823860 ####[facility] [address] [place] [address] Urea nitrogen/Creatinine [Mass ratio] 39 No Units High 10-20 [facility] Comment on above: Performed By: #### 2 956760, 47846703, 0163249, 1367329 ####[facility] [address] [place] [address] Consent for Treatmenton 09-23 Consent for Treatment [id number] D:127 Normal [facility] Gastroenterology Office/Clin ic Noteon 10-14-2021 Gastroenterology Office/Clinic Note Chief Complaint Abdomainl pain and diarrhea. [facility] Staff New patient is a 70 year [...] positive Cologuard testing 10/2019. Had colonoscopy at [facility] for positive cologuard testing in 2019 with [...] History (more content not included)... Normal [facility] Comment on above: Result Comment: Elec [...] including vitamins, herbs, eye drops, creams, and oovi-krr-tmxcint medicines. ? Any problems you or family [...] air t (more content not included)... Normal [facility] eGFRon 10-14-2021 GFR/1.73 sq M.predicted among blacks MDRD (S/P/Bld) [Vol rate/Area] mL/min/{1.73_m2} Normal >=59 [facility] Comment on above: Order Comment: Order added by Discern Expert. Result Comment: eGFR is race adjusted. AA=. Performed By: #### 2 465113, 20026346, 1611508, 2654778 ####[facility] [address] [place] [address] GFR/1.73 sq M.predicted among non-blacks MDRD (S/P/Bld) [Vol rate/Area] mL/min/{1.73_m2} Normal >=59 [facility] Comment on above: Order Comment: Order added by Discern Expert. Result Comment: Wireless Sales Expert kandace kidney disease could be indicated at eGFR's of less than 60 mL/min/1.73m2. Kidney failure is indicated at less than 15 mL/min/1.73m2. Performed By: #### 2 [id number], [id number], [id number], [id number] ####[facility] [address] [place] [address] Physician Referralon Physician Referral [phone] [id number] :127 Normal [facility] Complete Blood Count with Au to Diffon 01-28-2021 Basophils (Bld) [#/Vol] 0.03 10*3/uL Normal 0.00-0.20 [facility] Cover Remover Comment on above: Performed By: #### C BCAD, LIPD, CMP #### [facility] [address], [place] [id number] Basophils/100 WBC (Bld) 0.3 % Normal [facility] Cover Remover Comment on above: Performed By: #### C BCAD, LIPD, CMP #### [facility] [address], [place] [id number] Eosinophils (Bld) [#/Vol] 0.09 10*3/uL Normal 0.02-0.50 [facility] Cover Remover Comment on above: Performed By: #### C BCAD, LIPD, CMP #### [facility] [address], [place] [id number] Eosinophils/100 WBC (Bld) 1.0 % Normal [facility] Cover Remover Comment on above: Performed By: #### C BCAD, LIPD, CMP #### [facility] [address], [place] [id number] Erythrocyte distribution width (RBC) [Ratio] 14.0 % Normal 11.0-15.0 [facility] Cover Remover Comment on above: Performed By: #### C BCAD, LIPD, CMP #### [facility] [address], [place] [id number] Hematocrit (Bld) [Volume fraction] 44.7 % Normal 38.5-50.0 [facility] Cover Remover Comment on above: Performed By: #### C BCAD, LIPD, CMP #### [facility] [address], [place] [id number] Hemoglobin (Bld) [Mass/Vol] 14.7 g/dL Normal 13.0-17.1 [place] Cover Remover Comment on above: Performed By: #### C BCAD, LIPD, CMP #### [facility] [address], [place] [id number] Lymphocytes (Bld) [#/Vol] 1.0 10*3/uL Normal 0.9-3.9 [facility] Comment on above: Performed By: #### C BCAD, LIPD, CMP #### [facility] [address], [place] [id number] Lymphocytes/100 WBC (Bld) 10.7 % Normal [facility] Comment on above: Performed By: #### C BCAD, LIPD, CMP #### [facility] [address], [place] [id number] MCH (RBC) [Entitic mass] 31.1 pg Normal 27.0-33.0 [facility] Comment on above: Performed By: #### C BCAD, LIPD, CMP #### [facility] [address], [place] [id number] MCHC (RBC) [Mass/Vol] 32.9 g/dL Normal 32.0-36.0 [facility] Comment on above: Performed By: #### C BCAD, LIPD, CMP #### [facility] [address], [place] [id number] MCV (RBC) [Entitic vol] 95 fL Normal 80-100 [facility] Comment on above: Performed By: #### C BCAD, LIPD, CMP #### [facility] [address], [place] [id number] Monocytes (Bld) [#/Vol] 0.7 10*3/uL Normal 0.2-0.9 [facility] Comment on above: Performed By: #### C BCAD, LIPD, CMP #### [facility] [address], [place] [id number] Monocytes/100 WBC (Bld) 7.2 % Normal [facility] Comment on above: Performed By: #### C BCAD, LIPD, CMP #### [facility] [address], [place] [id number] Neutrophils (Bld) [#/Vol] 7.4 10*3/uL Normal 1.5-7.8 [facility] Comment on above: Performed By: #### C BCAD, LIPD, CMP #### [facility] [address], [place] [id number] Neutrophils/100 WBC (Bld) 79.9 % Normal [facility] Comment on above: Performed By: #### C BCAD, LIPD, CMP #### [facility] [address], [place] [id number] Platelet mean volume (Bld) [Entitic vol] 11.00 fL Normal 7.50-12.50 [facility] Comment on above: Performed By: #### C BCAD, LIPD, CMP #### [facility] [address], [place] [id number] Platelets (Bld) [#/Vol] 167 10*3/uL Normal 140-400 [facility] Cover Remover Comment on above: Performed By: #### C BCAD, LIPD, CMP #### [facility] [address], [place] [id number] RBC (Bld) [#/Vol] 4.72 10*6/uL Normal 4.20-5.80 [facility] Cover Remover Comment on above: Performed By: #### C BCAD, LIPD, CMP #### [facility] [address], [place] [id number] RDW-SD 48.7 fL Normal 37.0-50.0 [facility] Cover Remover Comment on above: Performed By: #### C BCAD, LIPD, CMP #### [facility] [address], [place] [id number] WBC (Bld) [#/Vol] 9.3 10*3/uL Normal 3.8-11.0 [facility] Cover Remover Comment on above: Performed By: #### C BCAD, LIPD, CMP #### [facility] [address], [place] [id number] Comprehensive Metabolic Pane [facility] 01-28-2021 Albumin [Mass/Vol] 4.4 g/dL Normal 3.6-5.1 [facility] Cover Remover Comment on above: Performed By: #### C BCAD, LIPD, CMP #### [facility] [address], [place] [id number] Albumin/Globulin [Mass ratio] 1.9 {ratio} Normal 1.0-2.5 [facility] Comment on above: Performed By: #### C BCAD, LIPD, CMP #### [facility] [address], [place] [id number] ALP [Catalytic activity/Vol] 119 U/L Normal 40-129 [facility] Comment on above: Performed By: #### C BCAD, LIPD, CMP #### [facility] [address], [place] [id number] ALT [Catalytic activity/Vol] 95 U/L High 9-46 [facility] Comment on above: Result Comment: 01/22 Female reference range changed. Performed By: #### C BCAD, LIPD, CMP #### [facility] [address], [place] [id number] Anion gap [Moles/Vol] 18 mmol/L Normal 12-20 [facility] Comment on above: Result Comment: Effe ctive 02/27/2019 reference range changed. Performed By: #### C BCAD, LIPD, CMP #### [facility] [address], [place] [id number] AST [Catalytic activity/Vol] 43 U/L High 10-40 [facility] Comment on above: Performed By: #### C BCAD, LIPD, CMP #### [facility] [address], [place] [id number] Bilirubin [Mass/Vol] 0.33 mg/dL Normal 0.30-1.20 [facility] Comment on above: Performed By: #### C BCAD, LIPD, CMP #### [facility] [address], [place] [id number] BUN/CREA 31 Ratio High 6-22 [facility] Comment on above: Performed By: #### C BCAD, LIPD, CMP #### [facility] [address], [place] [id number] Calcium [Mass/Vol] 10.1 mg/dL Normal 8.6-10.2 [facility] [place] Cover Remover Comment on above: Performed By: #### C BCAD, LIPD, CMP #### [facility] [address], [place] [id number] Chloride [Moles/Vol] 102 mmol/L Normal 98-107 [facility] Comment on above: Performed By: #### C BCAD, LIPD, CMP #### [facility] [address], [place] [id number] CO2 [Moles/Vol] 24 mmol/L Normal 20-31 [facility] Comment on above: Performed By: #### C BCAD, LIPD, CMP #### [facility] [address], [place] [id number] Creatinine [Mass/Vol] 0.8 mg/dL Normal 0.7-1.4 [facility] Comment on above: Performed By: #### C BCAD, LIPD, CMP #### [facility] [address], [place] [id number] eGFRAA 113 mL/min/1.73m2 Normal >60 [facility] Comment on above: Performed By: #### C BCAD, LIPD, CMP #### [facility] [address], [place] [id number] eGFRNAA 93 mL/min/1.73m2 Normal >60 [facility] Comment on above: Performed By: #### C BCAD, LIPD, CMP #### [facility] [address], [place] [id number] Globulin (S) [Mass/Vol] 2.3 g/dL Normal 1.9-3.7 [facility] Comment on above: Performed By: #### C BCAD, LIPD, CMP #### [facility] [address], [place] [id number] Glucose [Mass/Vol] 96 mg/dL Normal 65-99 [facility] [place] Cover Remover Comment on above: Result Comment: For FASTING Glucose --- ADA reference ranges: Normal 65-99 mg/dl Prediabetes 100-125 Diabetes >/= 126 Performed By: #### C BCAD, LIPD, CMP #### [facility] [address], [place] [id number] Potassium [Moles/Vol] 4.7 mmol/L Normal 3.5-5.[address] [facility] Comment on above: Performed By: #### C BCAD, LIPD, CMP #### [facility] [address], [place] [id number] Protein [Mass/Vol] 6.7 g/dL Normal 6.1-8.1 [facility] [place] Cover Remover Comment on above: Performed By: #### C BCAD, LIPD, CMP #### [facility] [address], [place] [id number] Sodium [Moles/Vol] 139 mmol/L Normal 135-146 [facility] [place] Cover Remover Comment on above: Performed By: #### C BCAD, LIPD, CMP #### [facility] [address], [place] [id number] Urea nitrogen [Mass/Vol] 26 mg/dL High 7-25 [facility] Cover Remover Comment on above: Performed By: #### C BCAD, LIPD, CMP #### [facility] [address], [place] [id number] Hemoglobin A1Con 01-28-2021 EAG 108.28 Normal [facility] Cover Remover Comment on above: Performed By: #### A 1C #### [facility] [address], [place] [id number] HbA1c (Bld) [Mass fraction] 5.4 % Normal 4.0-6.0 [facility] Cover Remover Comment on above: Performed By: #### A 1C #### [facility] [address], [place] [id number] Lipid Panelon 01-28-2021 Cholesterol [Mass/Vol] 269 mg/dL High 125-200 [facility] Comment on above: Result Comment: Low risk < 200mg/dL Borderline risk 201-239 mg/dl High risk > or equal to 240 Performed By: #### C BCAD, LIPD, CMP #### [facility] [address], [place] [id number] Cholesterol in HDL [Mass/Vol] 105 mg/dL Normal >40 [facility] Cover Remover Comment on above: Result Comment: High Cardiovascular Risk HDL <40 mg/dL Low Cardiovascular Risk HDL > or equal to 60 mg/dl Performed By: #### C BCAD, LIPD, CMP #### [facility] [address], [place] [id number] Cholesterol in LDL [Mass/Vol] 140 mg/dL Normal [facility] Comment on above: Result Comment: LDL ATP III CLASSIFICATION LDL less than 100 mg/dl Optimal LDL 100-129 mg/dl Near or above optimal LDL 130-159 Borderline high LDL 160-189 High LDL greater than 189 mg/dl Very High Performed By: #### C BCAD, LIPD, CMP #### [facility] [address], [place] [id number] Cholesterol in VLDL [Mass/Vol] 24 mg/dL Normal [facility] Comment on above: Performed By: #### C BCAD, LIPD, CMP #### [facility] [address], [place] [id number] Cholesterol.total/Chol esterol in HDL [Mass ratio] 3 {ratio} Normal [facility] Comment on above: Performed By: #### C BCAD, LIPD, CMP #### [facility] [address], [place] [id number] Triglyceride [Mass/Vol] 119 mg/dL Normal 30-150 [facility] Comment on above: Result Comment: TRIG ATPIII CLASSIFICATIONS TRIG less than 150 mg/dl Normal TRIG 150-199 mg/dl Borderline High TRIG 200-500 mg/dl High TRIG greather than 500 mg/dl Very High Performed By: #### C BCAD, LIPD, CMP #### [facility] [address], [place] [id number] Prostatic Specific Antigen, Totalon 01-28-2021 TPSA 0.725 ng/mL Normal <4.000 [facility] Comment on above: Result Comment: PSA Test Method: ECLIA/Canelo e 601 Performed By: #### P SA #### [facility] [address], [place] [id number] BNPon 01-02-2021 Natriuretic peptide B (Bld) [Mass/Vol] 294.0 pg/mL Normal <=900.0 [facility] Comment on above: Performed By: #### B SHIPPING CHECKER, HSTROPN, CMP #### [facility] [address] [address] [address] Elgin Soler CBC W MANUAL DIFFon 01-03-20 21 ATYPICAL LYMPH # Normal [facility] Comment on above: Performed By: #### C ERIC ####[facility] [address] [address]Dr. Beckyalexandra Ryder ATYPICAL LYMPH % Normal [facility] Comment on above: Performed By: #### C ERIC ####[facility] [address] [address]Dr. Elgin Soler BAND # 0.0 103/ul Normal 0.0-0.3 [facility] Comment on above: Performed By: #### C ERIC ####[facility] [address] [address]Dr. Elgin Soler BAND % 0 % Normal 0-5 [facility] Comment on above: Performed By: #### Kady REYES ####[facility] [address] [address]Dr. Beckyalexandra Ryder BASOM # 0.00 103/ul Normal 0.00-0.10 [facility] Comment on above: Performed By: #### Kady REYES ####[facility] [address] [address]Dr. Elgin Soler BASOM % 0.0 % Critically low 0.2-2.0 [facility] Comment on above: Performed By: #### Kady REYES ####[facility] [address] [address]Dr. Beckyalexandra Soler BLAST # Normal [facility] Comment on above: Performed By: #### Kady REYES ####[facility] [address] [address]Dr. Elgin Soler BLAST % Normal [facility] Comment on above: Performed By: #### Kady REYES ####[facility] [address] [address]Dr. Elgin Soler CORRECTED WBC Normal 4.0-11.0 [facility] Comment on above: Performed By: #### C ERIC ####[facility] [address] [place] [id number]. Elgin Soler EOS # 0.00 103/ul Normal 0.00-0.70 [facility] Comment on above: Performed By: #### C ERIC ####[facility] [address] [id number]. Elgin Soler EOS% 0.0 % Critically low 0.9-7.0 [facility] Comment on above: Performed By: #### C ERIC ####[facility] [address] [place] [id number]. Elgin Soler HCT 42.3 % Normal 42.0-54.0 [facility] Comment on above: Performed By: #### C ERIC ####[facility] [address] [place], [place] [address]Dr. Elgin Soler HGB 14.5 g/dl Normal 14.0-18.0 [facility] Comment on above: Performed By: #### C ERIC ####[facility] [address] [place], [place] [address]Dr. Elgin Soler LYMPHM # 0.40 103/ul Critically low 1.20-3.80 [facility] Comment on above: Performed By: #### C ERIC ####[facility] [address] [place], [place] [address]Dr. Elgin Soler LYMPHM% 6.0 % Critically low 20.5-60.0 [facility] Comment on above: Performed By: #### C ERIC ####[facility] [address] [place], [place] [address]Dr. Elgin Soler MCH 30.8 pg Normal 25.9-34.0 [facility] Comment on above: Performed By: #### C ERIC ####[facility] [address] [place], [place] [address]Dr. Elgin Soler MCHC 34.3 g/dl Normal 29.9-35.2 [facility] Comment on above: Performed By: #### C ERIC ####[facility] [address] [place], [place] [address]Pd. Elgin Soler MCV 89.8 fL Normal 80.0-94.0 [facility] Comment on above: Performed By: #### C BCMAN ####[facility] [address] [place], [place] [address]Hu. Elgin Soler METAMYELOCYTE # Normal [facility] Comment on above: Performed By: #### C ERIC ####[facility] [address] [phone]. Elgin Ryder METAMYELOCYTE % Normal [facility] Comment on above: Performed By: #### C ERIC ####[facility] [address] [place] [phone]. Elgin Soler MONOM# 0.60 103/ul Normal 0.30-0.80 [facility] Comment on above: Performed By: #### C ERIC ####[facility] [address] [place] [phone]. Beckyalexandra Soler MONOM% 9.0 % Normal 1.7-12.0 [facility] Comment on above: Performed By: #### C ERIC ####[facility] [address] [place], [place] [address]Dr. Beckyalexandra Soler MPV 10.8 fL Normal 9.5-13.5 [facility] Comment on above: Performed By: #### C ERIC ####[facility] [address] [place] [phone]. Elgin Soler MYELOCYTE # Normal [facility] Comment on above: Performed By: #### C ERIC ####[facility] [address] [place] [phone]. Elgin Soler MYELOCYTE % Normal [facility] Comment on above: Performed By: #### C ERIC ####[facility] [address] [place], [place] [address]Dr. Elgin Soler NRBC Normal [facility] Comment on above: Performed By: #### C ERIC ####[facility] [address] [place], [place] [address]Dr. Elgin Soler PLT 156 103/ul Normal 150-450 [facility] Comment on above: Performed By: #### C ERIC ####[facility] [address] [place], [place] [address]BoMonica Soler RBC 4.71 106/ul Normal 4.70-6.10 [facility] Comment on above: Performed By: #### C ERIC ####[facility] [address] [place], [place] [address]Qa. Elgin Soler RDW 12.7 % Normal 11.0-15.0 [facility] Comment on above: Performed By: #### C ERIC ####[facility] [address] [place], [place] [address]YwMonica Soler SEG # 5.70 103/ul Normal 1.40-6.50 [facility] Comment on above: Performed By: #### C ERIC ####[facility] [address] [place] [phone] Soler SEG % 85.0 % Critically high 43.0-75.0 [facility] Comment on above: Performed By: #### C ERIC ####[facility] [address] [place], [place] [address]PiMonica Soler WBC 6.7 103/ul Normal 4.0-11.0 [facility] Comment on above: Performed By: #### C ERIC ####[facility] [address] [place] [phone] Soler CTA CHEST WO W CONon 021 [...] 4. Pectus excavatum. Electronically authenticated by: FRANK CURITS Date: 2021-01-02 18:33 Normal [facility] Covid-19 PCR (CVDTB)on 12-23 SARS-CoV-2 (COVID-19) RNA MARIA ALEJANDRA+probe Ql (Unsp spec) Not detected Normal NOT DETECTED [facility] Comment on above: Result Comment: When diagnostic testing is negative, the possibility of a false negative should be considered in the context of a patient's recent exposures and the presence of clinical signs and symptoms consistent with SARS-CoV-2. This test is not yet approved or cleared by the [place] Food and Drug Administration (FDA). This test was developed by [employer], [place], [place]. The performance characteristics of this test were validated by [facility]. The results are not intended to be used as the sole means for clinical diagnosis or patient management decisions. [facility] is authorized under Clinical Laboratory Improvement Amendments [...] for this test is supported by the Lett[employer] Trimmer of Health and Human Service's declaration that [...] used). Performed By: #### C VDTBH #### [facility] [address] [place] [address] Dr. Elgin Soler D-DIMERon 01-02-2021 D-DIMER 1.09 mg/L FEU Critically high 0.19-0.50 [facility] Comment on above: Performed By: #### P TT, DDIM, PT #### [facility] [address] [place] [address] Dr. Elgin Soler D-DIMER COMMENTS SEE BELOW Normal [facility] Comment on above: Result Comment: Incr eases [...] By: #### P TT, DDIM, PT #### [facility] [address] [place] [address] Dr. Elgin Soler PROF 14(COMP METB)on 021 Albumin [Mass/Vol] 4.2 g/dL Normal 3.5-5.0 [facility] Comment on above: Performed By: #### B SHIPPING CHECKER, HSTROPN, CMP #### [facility] [address] [place] [address] Dr. Elgin Soler Albumin/Globulin [Mass ratio] 1.1 {ratio} Normal [facility] Comment on above: Performed By: #### B SHIPPING CHECKER, HSTROPN, CMP #### [facility] [address] [place] [address] Dr. Elgin Soler ALP [Catalytic activity/Vol] 131 U/L Critically high 38-126 [facility] Comment on above: Performed By: #### B SHIPPING CHECKER, HSTROPN, CMP #### [facility] [address] [place] [address] Dr. Elgin Soler ALT [Catalytic activity/Vol] 47 U/L Normal 21-72 [facility] Comment on above: Performed By: #### B SHIPPING CHECKER, HSTROPN, CMP #### [facility] [address] [place] [address] Dr. Elgin Soler Anion gap [Moles/Vol] 13.1 mmol/L Normal Th e [facility] Comment on above: Performed By: #### B SHIPPING CHECKER, HSTROPN, CMP #### [facility] [address] [place] [address] Dr. Elgin Soler AST [Catalytic activity/Vol] 28 U/L Normal 17-59 [facility] Comment on above: Performed By: #### B SHIPPING CHECKER, HSTROPN, CMP #### [facility] [address] [place] [address] Dr. Elgin Soler Bilirubin [Mass/Vol] 0.6 mg/dL Normal 0.2-1.3 [facility] Comment on above: Performed By: #### B SHIPPING CHECKER, HSTROPN, CMP #### [facility] [address] [place] [address] Dr. Elgin Soler Calcium [Mass/Vol] 10.0 mg/dL Normal 8.4-10.2 [facility] Comment on above: Performed By: #### B SHIPPING CHECKER, HSTROPN, CMP #### [facility] [address] [place] [address] Dr. Elgin Soler Chloride [Moles/Vol] 100 mmol/L Normal 98-107 [facility] Comment on above: Performed By: #### B SHIPPING CHECKER, HSTROPN, CMP #### [facility] [address] [place] [address] Dr. Elgin Soler CO2 [Moles/Vol] 23.8 mmol/L Normal 22.0-30.0 [facility] Comment on above: Performed By: #### B SHIPPING CHECKER, HSTROPN, CMP #### [facility] [address] [place] [address] Dr. Elgin Soler Creatinine [Mass/Vol] 1.01 mg/dL Normal 0.66-1.25 [facility] Comment on above: Performed By: #### B SHIPPING CHECKER, HSTROPN, CMP #### [facility] [address] [place] [address] Dr. Elgin Soler EGFR-AF CONGOLESE >60 Normal >=60 [facility] Comment on above: Performed By: #### B SHIPPING CHECKER, HSTROPN, CMP #### [facility] [address] [place] [address] Dr. Elgin Soler EGFR-NON AF CONGOLESE >60 Normal >=60 [facility] Comment on above: Performed By: #### B SHIPPING CHECKER, HSTROPN, CMP #### [facility] [address] [place] [address] Dr. Elgin Soler Globulin (S) [Mass/Vol] 3.7 g/dL Normal [facility] Comment on above: Performed By: #### B SHIPPING CHECKER, HSTROPN, CMP #### [facility] [address] [place] [address] Dr. Elgin Soler Glucose [Mass/Vol] 113 mg/dL Critically high 74-106 [facility] Comment on above: Performed By: #### B SHIPPING CHECKER, HSTROPN, CMP #### [facility] [address] [place] [address] Dr. Elgin Soler Potassium [Moles/Vol] 3.9 mmol/L Normal 3.4-5.0 [facility] Comment on above: Performed By: #### B SHIPPING CHECKER, HSTROPN, CMP #### [facility] [address] [place] [address] Dr. Elgin Soler Protein [Mass/Vol] 7.9 g/dL Normal 6.1-8.2 [facility] Comment on above: Performed By: #### B SHIPPING CHECKER, HSTROPN, CMP #### [facility] [address] [place] [address] Dr. Elgin Soler Sodium [Moles/Vol] 133 mmol/L Critically low 137-145 [facility] Comment on above: Performed By: #### B SHIPPING CHECKERZAK, CMP #### [facility] [address] [place] [address] Dr. Elgin Soler Urea nitrogen [Mass/Vol] 22.0 mg/dL Critically high 9.0-20.0 [facility] Comment on above: Performed By: #### B SHIPPING CHECKERZAK, CMP #### [facility] [address] [place] [address] Dr. Elgin Soler Urea nitrogen/Creatinine [Mass ratio] 21.8 mg/mg Normal [facility] Comment on above: Performed By: #### B SHIPPING CHECKERZAK, CMP #### [facility] [address] [place] [address] Dr. Elgin Soler PROTIMEon 01-02-2021 INR Coag (PPP) [Relative time] 1.08 {INR} Normal [facility] Comment on above: Performed By: #### P TT, DDIM, PT #### [facility] [address] [place] [address] Dr. Elgin Soler INR GUIDELINES SEE BELOW Normal [facility] Comment on above: Result Comment: NANCI RED INR: 2.0 - 3.0 CONDITIONS NOT LISTED BELOW 2.5 - 3.5 FOR PROSTHETIC HEART VALVE REPLACEMENT 2.5 - 3.5 RECURRENT THROMBOSIS Performed By: #### P TT, DDIM, PT #### [facility] [address] [place] [address] Dr. Elgin Soler PT Coag (PPP) [Time] 11.6 s Normal 9.0-11.6 [facility] Comment on above: Performed By: #### P TT, DDIM, PT #### [facility] [address] [place] [address] Dr. Elgin Soler PTTon 01-02-2021 aPTT Coag (Bld) [Time] 27.6 s Normal 22.3-36.2 Th [facility] Comment on above: Performed By: #### P TT, DDIM, PT #### [facility] [address] [address] [address] Elgin Soler TROPONIN, HIGH SENSITIVITYon 01-02-2021 HSTROP 6.6 pg/mL Normal 4.0-42.2 [facility] Comment on above: Result Comment: CUT- OFF POINTS HAVE BEEN ESTABLISHED BASED ON THE FOURTH UNIVERSAL DEFINITIONS OF MYOCARDIAL INFARCTION. THE UPPER REFERENCE LIMIT (URL) OF TROPONIN, DEFINED THE 99TH PERCENTILE OF cTnI DISTRIBUTION IN A REFERENCE POPULATION, HAS BEEN CONFIRMED THE DECISION THRESHOLD FOR VA DIAGNOSIS. Performed By: #### B SHIPPING CHECKER, HSTROPN, CMP #### [facility] [address] [address] [address] Elgin Soler XR CHEST 1 Von [...] by: SCOTT CORDOVA Date: 2021-01-02 16:50 Normal [facility] NM STRESS/REST MULTIon 12-16 NM STRESS/REST MULTI Patient: Sandie MEANSMonica Exam Date: 12/16/2020 : 1950 Gender:M Ordering : DR SARIKA SNEED M.D. Admission #: [id number] Family : Order #: [id number] CLICK HERE TO VIEW EXAM RADIOLOGY REPORT [...] Fisher MD on 12/16/2020 at 13:04 Normal [facility] Vital Signs Date Time Vital Sign Value Performing Clinician Facility 12-24-2021 11:16-0400 Blood Pressure Location [facility] 12-24-2021 11:16-0400 Diastolic blood pressure 74 mm[Hg] Rossi SALAM [facility] 12-24-2021 11:16-0400 Heart rate 71 /min Rossi SALAM [facility] 12-24-2021 11:16-0400 Respiratory rate 16 /min Rossi SALAM [facility] 12-24-2021 11:16-0400 Systolic blood pressure 121 mm[Hg] Rossi SALAM [facility] 12-05-2021 09:40-0400 Diastolic blood pressure 84 mm[Hg] Rossi SALAM [facility] 12-05-2021 09:40-0400 Heart rate 59 /min Rossi SALAM [facility] 12-05-2021 09:40-0400 Respiratory rate 13 /min Rossi SALAM [facility] 12-05-2021 09:40-0400 SaO2% (BldA) [Mass fraction] 100 % Rossi SALAM [facility] 12-05-2021 09:40-0400 Systolic blood pressure 127 mm[Hg] Rossi SALAM [facility] 12-05-2021 09:35-0400 Diastolic blood pressure 77 mm[Hg] Rossi SALAM [facility] 12-05-2021 09:35-0400 Heart rate 61 /min Rossi SALAM [facility] 12-05-2021 09:35-0400 Respiratory rate 21 /min Rossi SALAM [facility] 12-05-2021 09:35-0400 SaO2% (BldA) [Mass fraction] 99 % Rossi SALAM [facility] 12-05-2021 09:35-0400 Systolic blood pressure 126 mm[Hg] Rossi SALAM [facility] 12-05-2021 09:20-0400 Diastolic blood pressure 56 mm[Hg] Rossi SALAM [facility] 12-05-2021 09:20-0400 Heart rate 59 /min Rossi SALAM [facility] 12-05-2021 09:20-0400 Respiratory rate 17 /min Rossi SALAM [facility] 12-05-2021 09:20-0400 SaO2% (BldA) [Mass fraction] 98 % Rossi SALAM [facility] 12-05-2021 09:20-0400 Systolic blood pressure 99 mm[Hg] Rossi SALAM [facility] 12-05-2021 09:10-0400 Body temperature 97.7 [degF] Rossi SALAM [facility] 12-05-2021 07:37-0400 Blood Pressure Location Rossi SALAM [facility] 12-05-2021 07:37-0400 Body temperature 98.06 [degF] Rossi SALAM [facility] 11-18-2021 14:33-0400 Blood Pressure Location Marquise Pa [facility] 11-18-2021 14:33-0400 Diastolic blood pressure 73 mm[Hg] Marquise Pa [facility] 11-18-2021 14:33-0400 Heart rate 76 /min Marquise Pa [facility] 11-18-2021 14:33-0400 SaO2% (BldA) [Mass fraction] 98 % Marquise Pa [facility] 11-18-2021 14:33-0400 Systolic blood pressure 128 mm[Hg] Marquise Pa [facility] Encounters Encounter Date Encounter Type Care Provider Facility Start: 10-05-2023 End: 10-05-2023 ambulatory SARIKA SNEED Not Available Start: 04-26-2023 End: 04-26-2023 ambulatory SARIKA SNEED Not Available Start: 04-04-2023 Chart abstracting Sarika Sneed MD Work Phone: [facility] Start: 11-25-2022 End: 11-25-2022 ambulatory Hiren Whittington Facility:[facility] Start: 11-25-2022 End: 11-25-2022 ambulatory MD Hiren Whittington Work Phone: [facility] Work Phone: Start: 11-25-2022 End: 11-25-2022 Patient encounter procedure MD Hiren Whittington Work Phone: [facility] [address] Work Phone: Start: 10-20-2022 End: 10-20-2022 ambulatory Hiren Whittington Facility:[facility] Start: 10-20-2022 End: 10-20-2022 ambulatory MD Hiren Whittington Work Phone: [facility] Work Phone: Start: 10-20-2022 End: 10-20-2022 Patient encounter procedure MD Hiren Whittington Work Phone: [facility] [address] Work Phone: Start: 01-13-2022 End: 01-14-2022 ambulatory [facility] Facility:[facility] Start: 01-13-2022 End: 01-13-2022 Patient encounter procedure [facility] Start: 12-30-2021 End: 12-31-2021 ambulatory [facility] Facility:[facility] Start: 12-30-2021 End: 12-30-2021 Patient encounter procedure Rossi SALAM [facility] Start: 12-24-2021 End: 12-25-2021 [facility] Start: 12-24-2021 End: 12-24-2021 Patient encounter procedure Rossi SALAM [facility] Start: 12-19-2021 End: 12-20-2021 ambulatory [facility] Facility:[facility] Start: 12-19-2021 End: 12-19-2021 Patient encounter procedure Rossi SALAM [facility] Start: 12-17-2021 End: 12-18-2021 ambulatory Gagan Colindres Facility:[facility] Start: 12-17-2021 End: 12-17-2021 Patient encounter procedure Gagan Colindres [facility] Start: 12-05-2021 End: 12-06-2021 ambulatory Enid OCHOA Facility:[facility] Start: 12-05-2021 End: 12-05-2021 Patient encounter procedure Enid OCHOA [facility] Start: 11-18-2021 End: 11-19-2021 ambulatory Salud Henderson Facility:[facility] Start: 11-18-2021 End: 11-18-2021 Patient encounter procedure Marquise Pa [facility] [place] Start: 11-17-2021 ambulatory Salud Henderson Facili ty:[facility] Start: 10-28-2021 End: 10-29-2021 ambulatory Salud Henderson Facility:[facility] Start: 10-28-2021 End: 10-28-2021 Patient encounter procedure Salud Henderson [facility] Start: 10-14-2021 End: 10-15-2021 ambulatory Salud Henderson Facility:[facility] Start: 10-14-2021 End: 10-15-2021 ambulatory SARIKA SNEED [...] MD Work Phone: Start: 12-05-2021 Colonoscopy Rossi [facility] [employer] Comment on above: one polyp in sigmoid, diverticulosis, IH Start: 12-05-2021 Esophagogastroduodenoscopy Rossi PEARL [employer] Comment on above: normal, biopsies taken of gastric mucosa Start: 11-03-2019 Colonoscopy Salud Santiago Comment on above: Dr Barnett Plan of Treatment Date Care Activity Detail Author Start: 12-06-2031 Screening for malignant neoplasm of colon [facility] Start: 04-05-2023 End: 04-05-2023 Patient encounter procedure 04/05/2023 8:15 AM EST Office Visit [facility] [address] [facility] [facility] [place] [address] [place] [id number] Sarika Sneed MD [address] [facility] [address] [place] [address] [facility] Start: 11-25-2022 [employer] antibody measurement [facility] Start: 11-25-2022 End: 11-25-2022 [facility] Start: 10-20-2022 Bacteria identified in Urine by Culture [facility] Start: 10-20-2022 Hepatitis B core antibody measurement [facility] Start: 10-20-2022 Hemolytic complement CH50 level [facility] Start: 10-20-2022 End: 10-20-2022 [facility] Start: 08-30-2022 Screening for malignant neoplasm of colon FIT-DNA [facility] Start: 03-05-2022 ambulatory Ambulatory Facility:[facility] Start: 01-30-2022 Pneumococcal Vaccine: 65+ Years (2 - PCV) Pneumococcal Vaccine: 65+ Years (2 - PCV) [facility] Start: 01-28-2022 Medicare Annual Wellness (AWV) Medicare Annual Wellness (AWV) [facility] Start: 1950 Screening for malignant neoplasm of colon [facility] 24 hour urine measurement [facility] Albumin [Mass/volume ] in Serum or Plasma [facility] Albumin/Globulin ratio [facility] Complement C3 [Mass/volume] in Serum or Plasma [facility] Complement C4 [Mass/volume] in Serum or Plasma [facility] Electrophoresis: [id number] [facility] Electrophoresis: [id number] [facility] Electrophoresis: beta-globulin [facility] Electrophoresis: eh ma globulin [facility] Fibrillarin Ab [Pres ence] in Serum [facility] Globulin [Mass/volum e] in Serum [facility] Hepatitis B virus roe rface Ab [Presence] in Serum [facility] Hepatitis B virus roe rface Ag [Presence] in Serum or Plasma by Immunoassay [facility] Hepatitis C virus Ig G Ab [Presence] in Serum or Plasma by Immunoassay [facility] Homogenous nuclear A b pattern [Titer] in Serum [facility] IgA [Mass/volume] in Serum or Plasma [facility] IgG [Mass/volume] in Serum or Plasma [facility] IgM [Mass/volume] in Serum or Plasma [facility] Immunofixation for Urine [facility] Measurement of monoc lonal protein concentration [facility] Nuclear Ab [Titer] i n Serum [facility] PM-SCL extractable nuclear Ab [Mass/volume] in Serum by Immune diffusion (ID) [facility] Protein [Mass/volume ] in Serum or Plasma [facility] Protein [Mass/volume ] in Urine [facility] RNA polymerase III I gG Ab [Units/volume] in Serum or Plasma by Immunoassay [facility] Serum immunofixation [facility] Th-To Ab [Units/volu me] in Serum by Line blot [facility] Immunizations Immunization Date Immunization Notes Care Provider Fa cility 12-25-2022 Influenza, High-dose Seasonal, Quadrivalent, Preservative Free Sarika Sneed MD Work Phone: [facility] 12-09-2021 influenza, injectabl e, quadrivalent, preservative free Sarika Sneed MD Work Phone: [facility] 01-30-2021 influenza virus vaccine, unspecified formulation Marquise Pa [facility] 01-30-2021 influenza, injectabl e, quadrivalent, preservative free Sarika Sneed MD Work Phone: [facility] 01-30-2021 Influenza, Seasonal, Quadrivalent, Adjuvanted Sarika Sneed MD Work Phone: [facility] 01-30-2021 pneumococcal polysaccharide vaccine, 23 valent Marquise Pa [facility] 01-01-2021 SARS-CoV-2 (COVID-19 ) mRNA-1273 vaccine Marquise Pa [facility] Comment on above: Result Comment: 2021: [id number] 05-20-2020 SARS-CoV-2 (COVID-19 ) mRNA-1273 vaccine Marquise Pa [facility] 04-22-2020 SARS-CoV-2 (COVID-19 ) mRNA-1273 vaccine Salud Santiago [facility] 12-12-2019 influenza virus vaccine, unspecified formulation Marquise Pa [facility] 12-12-2019 influenza, injectabl e, quadrivalent, contains preservative Sarika Sneed MD Work Phone: [facility] 12-05-2018 influenza virus vaccine, unspecified formulation Marquise Pa [facility] 12-05-2018 influenza, seasonal, injectable Sarika Sneed MD Work Phone: [facility] 12-13-2017 influenza virus vaccine, unspecified formulation Marquise Pa [facility] 12-13-2017 Influenza, High-dose Seasonal, Quadrivalent, Preservative Free Sarika Sneed MD Work Phone: [facility] 03-24-2017 influenza virus vaccine, unspecified formulation Marquise Pa [facility] 03-24-2017 influenza, injectabl e, quadrivalent, contains preservative Sarika Sneed MD Work Phone: [facility] 03-24-2017 influenza, injectabl e, quadrivalent, preservative free Sarika Sneed MD Work Phone: [facility] 03-24-2017 pneumococcal polysaccharide vaccine, 23 valent Marquise Pa [facility] 07-29-2010 tetanus and diphther ia toxoids, adsorbed, preservative free, for adult use (2 Lf of tetanus toxoid and 2 Lf of diphtheria toxoid) Sarika Sneed MD Work Phone: [facility] NEGATED: Highlighted row has not occurred!12-24-2021 influenza virus vaccine, unspecified formulation Enid OCHOA [facility] NEGATED: Highlighted row has not occurred!11-18-2021 influenza virus vaccine, unspecified formulation Marquise Pa [facility] NEGATED: Highlighted row has not occurred!10-14-2021 influenza virus vaccine, unspecified formulation Salud Henderson [facility] Payers Date Payer Category Payer Self-pay 2015 Medicare MEDICARE MEDICAR E PART B [id number] 2015-Present [address] [address] [place] [address] Medicare [id number] 1959 Medicare [id number] 1959 Unknown [id number] 1950 Unknown [id number] [id number] 1950 Unknown [id number] 2.16.840.1.505756.3.579.2.593 1950 Unknown [id number] 2.16.840.1.659599.3.579.2.727 1950 Unknown [id number] 2.16.840.1.526504.3.579.2.72 1950 Unknown [id number] 2.16.840.1.255866.3.579.2.72 1950 Unknown [id number] 2.16.840.1.212609.3.579.2.72 1950 Unknown [id number] 2.16.840.1.598651.3.579.2.727 1950 Unknown [id number] 2.16.840.1.541006.3.579.2.72 1950 Unknown [id number] 2.16.840.1.157618.3.579.2.727 1950 Unknown [id number] 2.16.840.1.905381.3.579.2.72 1950 Unknown [id number] 2.16.840.1.737179.3.579.2.727 1950 Unknown [id number] 2.16.840.1.103307.3.579.2.72 1950 Unknown [id number] 2.16.840.1.073512.3.579.2.727 1950 Unknown [id number] 2.16.840.1.889256.3.579.2.727 1950 Unknown [id number] 2.16.840.1.629587.3.579.2.727 1950 Unknown [id number] 2.16.840.1.852737.3.579.2.1259 1950 Unknown [id number] 2.16.840.1.112456.3.579.2.1259 Unknown [id number] 2.16.840.1.119195.3.579.2.531 Unknown [id number] 2.16.840.1.732058.3.579.2.531 Social History Date Type Detail Facility Start: 10-14-2021 End: 12-25-2022 Tobacco smoking status Never smoked tobacco (finding) [facility] Tobacco [facility] status [facility] Start: 12-25-2022 Sex Assigned At Male F [facility] Start: 1950 Sex Assigned At Male F [facility] Start: 12-25-2022 Tobacco use and exposure Smokeless tobacco non-user [facility] Start: 04-04-2023 Alcohol intake Lifetime non-d stephenie (finding) [facility] Start: 12-25-2022 History of Social function [facility] Start: 04-04-2023 Alcohol Comment Caffeine Intak e: Coffee [facility] Start: 1950 Sex Assigned At [...] Assessment Result Facility 12-24-2021 Functional Status N/A [facility] 12-05-2021 Functional Status N/A [facility] Clinical Notes 10-17-2021 to 12-08-2021 Note Date & Type Note Facility 12-08-2021 Note [id number] 6#1.00CD:127 [facility] 12-05-2021 Evaluation + Plan note Extrac teofilo from: Title:ANES POSTOP Author:Hilario Kay DO Date: 12/05/21 Plan Transfer/ Discharge: Patient can be discharged from PACU when criteria met. Condition good. Extracted from: Title:ANES PREOP ENDO NOTE Author:Vin Kay DO Date:12/05/21 Plan [place] [employer] Anesthesiologists (ASA) physical status classification: [...] 11:00:00 AM Scheduled Provider:Enid OCHOA MD Location:[facility] Appointment Type[facility] Follow Up Future Scheduled Tests Radiology* CT Abdomen/Pelvis w/ Contrast 12/19/21 [facility]20[facility] Hospital Discharge instructions Patient Education 12/05/2021 09:23:00 [...] what activities are safe for you. Take ybok-vce-[id number] and prescription medicines only as told by [...] 08/09/2012 Document Revised: 08/02/2018 Document Reviewed: 07/11/2018 Reaction Patient Education 2020 [employer]. 12/05/2021 09:23:00 Colonoscopy, Care After Surgery Salam [...] unsweetened, w/added ascorbic acid 1 cup 0.5 Lyon 1 cup 0.7 Vegetables Cooked Green beans 1 cup 4.0 Carrots 1/2 cup sliced 2.3 Peas 1 cup 8.8 Potato (baked, with skin) 1 medium potato 3.8 Raw Julian (with peel) 1 cucumber 1.5 Lettuce 1 [...] 8.7 Peanuts 1/2 cup 7.9 [facility]. SEEK IMMEDIATE MEDICAL CARE IF: You [...] Reference. Available at http://www.nal.usda.gov/fnic/foodcomp/search/. Information adapted from: [employer] Patient Information 2009 [employer]. [employer] 2012 http://www.[employer]/contents/zyvswjeygrli-lpfkqaj-mywzpl-the-basics 12/05/2021 09:23:00 Colon Polyps Colon Polyps Polyps [...] 11/04/2004 Document Revised: 05/26/2018 Document Reviewed: 05/26/2018 [employer] Patient Education 2020 [employer] Follow Up Care 10/14/2021 10:09:05 With:Enid OCHOA Address: [address] [place] [address] Business (1) When: Unknown Comments:office will call for follow up [facility]08-26-2022 Hospital Discharge instructions Follow Up Care 10/17/2021 10:40:15 With:VAIBHAV CERON, [place], [facility], [facility] Address: [facility] [address], [place] [address]- When:Within 2 Month(s) [facility] Evaluation + Plan note Future Appointments Appointment Date:12/05/2021 08:15:00 AM Scheduled Provider: Location:[facility] Appointment Type:Surgery FT Appointment Date:12/24/2021 11:00:00 AM Scheduled Provider:Enid OCHOA MD Location:[facility] Appointment Type:BAD [facility] Future Appointments Appointment Date:12/19/2021 07:00:00 AM Scheduled Provider[facility] Type:CT Abdomen/Pelvis Combo () Appointment Date:12/24/2021 11:00:00 AM Scheduled Provider:Enid OCHOA MD Location:[facility] Digestive [facility] Appointment Type:[facility] Follow Up Future Scheduled Tests Radiology* CT Abdomen/Pelvis w/ Contrast [facility]19[facility] Future Appointments Appointment Date:12/24/2021 11:00:00 AM Scheduled Provider:Enid OCHOA MD Location:[facility] Appointment Type:BAD [facility] Future Appointments Appointment Date:03/05/2022 12:15:00 PM Scheduled Provider:Enid OCHOA MD Location:[facility] Appointment Type:[facility] Follow Up Future Scheduled Tests Laboratory* Sedimentation Rate Automated 12/24/21 * IgA, Quant. 12/24/21 * PSA Total 12/24/21 * t-Transglutaminase IgA 12/24/21 * C-Reactive Protein 12/24/21 * GGT 12/24/21 * Thyroid Stimulating Hormone 12/24/21 Radiology* XR Chest 2 Views 12/24/21 [facility] Evaluation + Plan note Future Appointments Appointment Date:03/05/2022 12:15:00 PM Scheduled Provider:Enid OCHOA MD Location:[facility] Appointment Type:BADH Follow Up Diagnostic Tests Pending * t-Transglutaminase IgA 12/30/21 * IgA, Quant. 12/30/21 [facility] Future Appointments Appointment Date:03/05/2022 12:15:00 PM Scheduled Provider:Enid OCHOA MD Location:[facility] Appointment Type:BADH Follow Up Diagnostic Tests Pending * Antimitochondrial Antibody, Quantitative 01/13/22 * BESSIE w/Reflex if POS 01/13/22 [facility] information available [facility] Work Phone: Hospital course Narrative No data available for this section [facility] No data available for this section [facility] No data available for this section [facility] Summary Purpose Family History No Family History [...] DATE CREATED AUTHOR AUTHOR'S ORGANIZ ATION 01/29/2021 [facility] Special[facility] DATE CREATED AUTHOR AUTHOR'S ORGANIZ ATION 01/16/2022 [facility] DATE CREATED AUTHOR AUTHOR'S ORGANIZ ATION 12/11/2022 [facility] DATE CREATED AUTHOR AUTHOR'S ORGANIZ ATION 10/07/2023 [facility] dical Specialists EPIC Care Team (unrecognized sect ion and content) Team Status: Inactive Member Role Status Dates Hiren Whittington MD Attending Provider Active Clinical Documentation Spec Relationship Specialty Start Date End Date Sarika Sneed MD [address] [facility] [address] [place] [address] PCP - General Family Medicine 06/30/22 Goals [...] PRIMARY CLINICAL RECORDS. [facility] [employer] provides no warranty or guarantee of the accuracy or completeness of information in this document.
== END 2023-12-01 09:26 | disposition home or self-care (01) ==
LOC: RAD 09:25
PROVIDERS: PCP Family Medicine; Visit Provider Podiatrist Foot & Ankle Surgery
DX: M79.671 Pain in right foot (principal); S92.001D Unspecified fracture of right calcaneus, subsequent encounter for fracture with routine healing
CPT/HCPCS: 73630